=== PATIENT | female | born 1930 | race Caucasian/White ===

== ENCOUNTER 2016-09-27 18:43 | Inpatient (IN) | payer OTHER ==
[~2016-09-27] VITALS: Ht 152.4 cm; Wt 64.9 kg
[~2016-09-27 18:43] MED LIST: Ciprofloxacin PO; DFL100 PO; DOCU100C PO; FERR220E9 PO; INSDGIPEN SC; LEVO50TA6 PO; MGNO400 PO; MISCTAB30 PO; MULT1TAB22 PO; SIMV20TA2 PO; SITA25TA PO
[2016-09-27] MEDS ORDERED: MECL1TAB42 PO (19:31)
[2016-09-27] MEDS ORDERED: ZNTT/150 PO (19:31)
[2016-09-27] MEDS ORDERED: FERR1TAB13 PO (19:32)
[2016-09-27] MEDS ORDERED: INSDGIPEN SC (19:33)
--- NOTE | 2016-09-27 19:58 | EMERGENCY ROOM VISIT NOTE ---
History Report prepared by Will: Jamar Torres Under the Supervision of: Dr. Rick Mendez M.D. First contact with patient: 19:43 Chief Complaint: FALL Stated Complaint: FALL/ RT HIP DEFORMITY History of Present Illness The patient is an 86 year old female who presents to the Emergency Room via ambulance with complaints of constant right hip pain due to a fall beginning two hours prior to arrival. She currently rates her discomfort as a 10/10 in severity. As per daughter, the patient has severe dementia. She states the patient tries to leave the house and "go home to her mother." The daughter notes the patient got the door open this evening and began walking into the yard with her cane. She states she tried to stop her, and the patient began swinging her cane. The daughter notes the patient fell, while she was swinging her cane. She denies the patient hitting her head. The daughter states the patient was given some pain medication in the ambulance. She notes the patient is a diabetic. The daughter denies the patient being on a blood thinner. Source of History: patient Onset: two hours PRODUCTION HELPER Position: pelvis (right hip) Symptom Intensity: 10/10 Timing: constant Associated Symptoms: No LOC Review of Systems All systems have been listed, reviewed, and are negative other than those previously mentioned. Please see Additional Medical History Sheet. Past Medical & Surgical Medical Problems: (1) CKD (chronic kidney disease) stage 4, GFR 15-29 ml/min (2) Dementia (3) Diabetes mellitus, type II (4) Hyperlipemia (5) Hypertension Surgical Problems: (1) Status post appendectomy (2) Status post cholecystectomy Family History Cancer Diabetes mellitus Social History Smoking Status: Never Smoker Marital Status: Housing Status: lives with family Occupation Status: retired Current/Historical Medications Scheduled Ferrous Sulfate (Kp Ferrous Sulfate), 325 MG PO DAILY Insulin Glargine (Lantus Solostar), 24 UNITS SC HS Levothyroxine Sodium (Levothyroxine Sodium), 50 MCG PO QAM Ranitidine (Zantac), 150 MG PO BID Simvastatin (Zocor), 20 MG PO QPM Sitagliptin Phosphate (Januvia), 25 MG PO QAM Scheduled PRN Meclizine Hcl (Meclizine Hcl), 1 TAB PO DAILY PRN for Dizziness or Vertigo Allergies Coded Allergies: Meperidine (Verified Allergy, Mild, 09/27/16) Physical Exam Vital Signs Date Time Temp Pulse Resp B/P Pulse Ox O2 Delivery O2 Flow Rate FiO2 09/27/16 22:10 92 27 126/71 95 Room Air 09/27/16 20:27 88 22 138/75 95 Room Air 09/27/16 18:57 37.2 90 21 151/70 100 Room Air Physical Exam GENERAL: Patient awake, alert, oriented x 3. Patient follows commands. Patient does not appear toxic. Patient is adequately hydrated and well- nourished. SKIN: No erythema, pallor, cyanosis or rash HEENT: Normal head, pupils equal, reactive to light and accommodation. LUNGS: Clear to auscultation. No wheezes, no rales, no rhonchi. HEART: No murmurs. No gallops. No rubs ABDOMEN: Soft, nontender. EXTREMITIES: Foreshortened and externally rotated right leg. Pedal pulse intact. NEUROLOGIC: Cranial nerves II-XII within normal limits. No gross motor sensory function deficits. Medical Decision & Procedures ER Provider Diagnostic Interpretation: X ray results are stated below per my interpretation and the radiologist's interpretation. CHEST ONE VIEW PORTABLE CLINICAL HISTORY: Trauma. Preoperative chest.] Fracture. COMPARISON STUDY: 05/07/2014 FINDINGS: The cardiac and mediastinal contours are normal. There is no evidence of focal pulmonary consolidation. There is no evidence of failure. No pleural effusions are visualized.[ IMPRESSION: No active disease in the chest. Electronically signed by: Abiel Mcguire M.D. 09/27/2016 8:17 PM AP PELVIS AND RIGHT HIP 3 VIEWS CLINICAL HISTORY: Right hip pain status post trauma COMPARISON STUDY: No previous studies for comparison. FINDINGS: There is acute intertrochanteric right hip fracture with varus angulation. Degenerative changes are present within the lower lumbar spine. The bones are osteopenic. IMPRESSION: Acute intertrochanteric right hip fracture. Electronically signed by: Abiel Mcguire M.D. 09/27/2016 8:16 PM Laboratory Results 09/27/16 18:18 Red Blood Count 4.55, Mean Corpuscular Volume 92.5, Mean Corpuscular Hemoglobin 31.0, Mean Corpuscular Hemoglobin Concent 33.5, Mean Platelet Volume 10.9, Neutrophils (%) (Auto) 68.3, Lymphocytes (%) (Auto) 22.8, Monocytes (%) (Auto) 8.0, Eosinophils (%) (Auto) 0.5, Basophils (%) (Auto) 0.2, Neutrophils # (Auto) 9.01, Lymphocytes # (Auto) 3.01, Monocytes # (Auto) 1.05, Eosinophils # (Auto) 0.07, Basophils # (Auto) 0.02 09/27/16 18:18 Test 09/27/16 18:10 09/27/16 18:18 Prothrombin Time 11.0 SECONDS (9.0-12.0) Prothromb Time International Ratio 1.0 (0.9-1.1) White Blood Count 13.19 K/uL (4.8-10.8) Red Blood Count 4.55 M/uL (4.2-5.4) Hemoglobin 14.1 g/dL (12.0-16.0) Hematocrit 42.1 % (37-47) Mean Corpuscular Volume 92.5 fL (80-100) Mean Corpuscular Hemoglobin 31.0 pg (25-34) Mean Corpuscular Hemoglobin Concent 33.5 g/dl (32-36) Platelet Count 268 K/uL (130-400) Mean Platelet Volume 10.9 fL (7.4-10.4) Neutrophils (%) (Auto) 68.3 % Lymphocytes (%) (Auto) 22.8 % Monocytes (%) (Auto) 8.0 % Eosinophils (%) (Auto) 0.5 % Basophils (%) (Auto) 0.2 % Neutrophils # (Auto) 9.01 K/uL (1.4-6.5) Lymphocytes # (Auto) 3.01 K/uL (1.2-3.4) Monocytes # (Auto) 1.05 K/uL (0.11-0.59) Eosinophils # (Auto) 0.07 K/uL (0-0.5) Basophils # (Auto) 0.02 K/uL (0-0.2) RDW Standard Deviation 50.6 fL (36.4-46.3) RDW Coefficient of Variation 15.0 % (11.5-14.5) Immature Granulocyte % (Auto) 0.2 % Immature Granulocyte # (Auto) 0.03 K/uL (0.00-0.02) Anion Gap 11.0 mmol/L (3-11) Est Creatinine Clear Calc Drug Dose 18.9 ml/min Estimated GFR () 29.0 Estimated GFR (Non- 25.0 BUN/Creatinine Ratio 19.4 (10-20) Calcium Level 9.8 mg/dl (8.5-10.1) Total Bilirubin 0.3 mg/dl (0.2-1) Aspartate Amino Transf (AST/SGOT) 23 U/L (15-37) Alanine Aminotransferase (ALT/SGPT) 22 U/L (12-78) Alkaline Phosphatase 68 U/L (45-117) Total Protein 8.4 gm/dl (6.4-8.2) Albumin 4.0 gm/dl (3.4-5.0) Globulin 4.4 gm/dl (2.5-4.0) Albumin/Globulin Ratio 0.9 (0.9-2) Laboratory results as stated above per my review. Medications Administered Medications (Trade) Dose Ordered Sig/Leigh Ann Route Start Time Stop Time Status Last Admin Dose Admin Morphine Sulfate (MoRPHine SULFATE INJ) 2 mg Q30M PRN IV 09/27/16 20:00 10/11/16 19:59 09/27/16 20:25 2 MG Ondansetron HCl (Zofran Inj) 4 mg Q1HWA PRN IV 09/27/16 20:00 10/27/16 19:59 09/27/16 20:24 4 MG ECG Indication: other (fall) Rate (beats per minute): 92 Rhythm: normal sinus Findings: no acute ischemic change, no ectopy ED Course 1944: Past medical records reviewed. The patient was evaluated in room B10. A complete history and physical examination was performed. 1999: Ordered Zofran Inj 4 mg IV, Morphine Sulfate 2 mg IV. 2121: I spoke to [facility], Orthopedic Surgery about the patient's case, and he recommended admitting the patient to Medicine. 2131: I spoke to Christian Conrad (Hospitalist) about the patient's case, and she will follow the patient for further evaluation. Medical Decision Nurses notes reviewed. Medical history sheet reviewed. Differential diagnosis includes but is not limited to: fracture, dislocation, subluxation, fall. The patient fell earlier this afternoon onto her right hip. She has been unable to bear any weight on that hip since. Examination reveals a shortened externally rotated right leg. Multiple labs and imaging studies were performed. Please see above. X-ray reveals a intertrochanteric hip fracture. The patient was given pain medication. Case was discussed with family members, Dr. Easley and with the hospitalist. Consults Time Called: 2119 Consulting Physician: [facility] Orth[facility] Returned Call: 2121 I spoke to [facility], Orth[facility] Surgery about the patient's case, and he recommended admitting the patient to Medicine. Additional Consults: Time Called: 2130 Consulted Physician: Christian Conrad (Hospitalist) Returned Call: 2131 Additional Comments: I spoke to Christian Conrad (Hospitalist) about the patient's case, and she will follow the patient for further evaluation. Impression Primary Impression: Hip fracture, right Additional Impression: Dementia Scribe Attestation The scribe's documentation has been prepared under my direction and personally reviewed by me in its entirety. I confirm that the note above accurately reflects all work, treatment, procedures, and medical decision making performed by me. Departure Information Dispostion Being Evaluated By Hospitalist (Christian Conrad (Hospitalist)) Referrals Andrew Mcneil M.D. (PCP) Problem Qualifiers
[2016-09-27] MEDS ORDERED: ONDANSETRON INJ 2 MG/ML 2 ML VIAL IV PRN ×2 (20:00→22:30)
[2016-09-27] MEDS ORDERED: MoRPHine SULFATE 4 MG/ML 1 ML CARP\\VIAL IV PRN (20:00)
--- NOTE | 2016-09-27 20:17 | DIAGNOSTIC IMAGING REPORT ---
AP PELVIS AND RIGHT HIP 3 VIEWS CLINICAL HISTORY: Right hip pain status post trauma COMPARISON STUDY: No previous studies for comparison. FINDINGS: There is acute intertrochanteric right hip fracture with varus angulation. Degenerative changes are present within the lower lumbar spine. The bones are osteopenic. IMPRESSION: Acute intertrochanteric right hip fracture. Electronically signed by: Abiel Mcguire M.D. 09/27/2016 8:16 PM Dictated Date/Time: 09/27/2016 8:15 PM
--- NOTE | 2016-09-27 20:18 | DIAGNOSTIC IMAGING REPORT ---
CHEST ONE VIEW PORTABLE CLINICAL HISTORY: Trauma. Preoperative chest.] Fracture. COMPARISON STUDY: 05/07/2014 FINDINGS: The cardiac and mediastinal contours are normal. There is no evidence of focal pulmonary consolidation. There is no evidence of failure. No pleural effusions are visualized.[ IMPRESSION: No active disease in the chest. Electronically signed by: Abiel Mcguire M.D. 09/27/2016 8:17 PM Dictated Date/Time: 09/27/2016 8:16 PM
[2016-09-27 20:29] LABS: BASO % 0.2 %; BASO ABS # 0.02 K/uL (0-0.2); COMPLETE YES; EOS % 0.5 %; HEMATOCRIT 42.1 % (37-47); IG% 0.2 %; LYMPH % 22.8 %; LYMPH ABS # 3.01 K/uL (1.2-3.4); MEAN CELL VOLUME 92.5 fL (80-100); MEAN CORPUSCULAR HGB CONC 33.5 g/dl (32-36); MEAN PLATELET VOLUME 10.9 fL (7.4-10.4); NEUT % 68.3 %; PLATELET COUNT 268 K/uL (130-400); RED BLOOD COUNT 4.55 M/uL (4.2-5.4); WHITE BLOOD COUNT 13.19 K/uL (4.8-10.8)
[2016-09-27 20:54] LABS: BUN/CREATININE RATIO 19.4 (10-20); CALCIUM 9.8 mg/dl (8.5-10.1); CREATININE 1.8 mg/dl (0.60-1.20); POTASSIUM 3.8 mmol/L (3.5-5.1)
[2016-09-27 20:57] LABS: ALB/GLOB RATIO 0.9 (0.9-2)
[2016-09-27] MEDS ORDERED: GLUCOSE 40% GEL 15 GM TUBE PO PRN (22:30)
[2016-09-27] MEDS ORDERED: GLUCOSE 10 TABS/TUBE PO PRN (22:30)
[2016-09-27] MEDS ORDERED: POLYETHYLENE (MIRALAX) 17 GM PACK PO PRN (22:30)
[2016-09-27] MEDS ORDERED: GLUCAGON FOR INJ 1 MG VIAL SQ PRN (22:30)
[2016-09-27] MEDS ORDERED: DEXTROSE 50% 50 ML SYR IV PRN (22:30)
[2016-09-27] MEDS ORDERED: ACETAMINOPHEN 325 MG TAB PO PRN (22:30)
[2016-09-27] MEDS ORDERED: PHARMACY GLYCEMIC MGMT CONSULT PRN (22:42)
--- NOTE | 2016-09-27 22:46 | History and Physical ---
History & Physical Date & Time of Service: Sep 27, 2016 at 22:34 Chief Complaint: Fall/ Rt Hip Deformity Primary Care Physician: Andrew Mcneil M.D. History of Present Illness Source: family 86 yo F with advanced dementia with wandering and combative behavior who presents to the ER via EMS after a mechanical fall just outside her home this evening. She is here with her daughter/clinical education academic coordinator whom she lives with and who is providing all the history. The daughter states that her mom was in her normal state of health this evening but was upset because another family member had an outpatient surgery today and she was forced to tag along. Her normal routine was off because of this and she went to sit on the front porch but somehow got off the porch and went walking with her cane. When her daughter went to [place]itza after her, the patient swung her cane around wildly and lost her balance, falling on her R hip. No trauma to other body parts including her head. She has a subsequent R hip fracture. She has no history of heart or lung disease per daughter who states she has had no symptoms lately and frequently takes walks without any issues of shortness of breath or chest pain. She received some morphine in the ER and appears comfortable at this time. Past Medical/Surgical History Medical Problems: (1) CKD (chronic kidney disease) stage 4, GFR 15-29 ml/min Status: Chronic (2) Dementia Status: Chronic (3) Diabetes mellitus, type II Status: Chronic (4) Hyperlipemia Status: Chronic (5) Hypertension Status: Chronic (6) Hypothyroidism Status: Chronic Surgical Problems: (1) Status post appendectomy Status: Chronic (2) Status post cholecystectomy Status: Chronic Family History Cancer Diabetes mellitus Social History Smoking Status: Never Smoker Smokeless Tobacco Use: No Alcohol Use: none Drug Use: none Marital Status: Housing status: lives with family Occupational Status: retired Immunizations History of Influenza Vaccine: Yes Influenza Vaccine Date: May 02, 2016 History of Tetanus Vaccine?: Yes Tetanus Immunization Date: Jun 16, 2013 History of Pneumococcal: Yes Pneumococcal Date: Oct 26, 2015 History of Hepatitis B Vaccine: Unknown Multi-Drug Resistant Organisms History of MDRO: No Allergies Coded Allergies: Meperidine (Verified Allergy, Mild, 09/27/16) Home Medications Scheduled Ferrous Sulfate ( Ferrous Sulfate), 325 MG PO DAILY Insulin Glargine (Lantus Solostar), 24 UNITS SC HS Levothyroxine Sodium (Levothyroxine Sodium), 50 MCG PO QAM Ranitidine (Zantac), 150 MG PO BID Simvastatin (Zocor), 20 MG PO QPM Sitagliptin Phosphate (Januvia), 25 MG PO QAM Scheduled PRN Meclizine Hcl (Meclizine Hcl), 1 TAB PO DAILY PRN for Dizziness or Vertigo Review of Systems All systems reviewed and negative except as indicated in HPI Physical Exam Vital Signs Date Time Temp Pulse Resp B/P Pulse Ox O2 Delivery O2 Flow Rate FiO2 09/27/16 22:10 92 27 126/71 95 Room Air 09/27/16 20:27 88 22 138/75 95 Room Air 09/27/16 18:57 37.2 90 21 151/70 100 Room Air GEN: WNWD, in no acute distress, alert and oriented to name only. Does not know place or time. Can follow some instructions with prompting. HEENT: NC/AT, PERRL, normal sclerae CARDIO: reg rate, S1/2 heard without m/g/r LUNGS: CTA bilaterally, no crackles, rales or wheezes, good diaphragmatic excursion ABD: soft, non-tender, non-distended, no rebound or guarding EXTREMITY: RP and DP palpable 2+ bilat, no LE swelling or edema, extremities are warm and well-perfused NEURO: CN 2-12 grossly intact, could not address sensation, coordination-- limited exam 2/2 advanced dementia MUSC: appears intact at this time, limited exam 2/2 fracture and limited ROM SKIN: warm and dry-did not assess posterior buttocks at this time. Diagnostics Laboratory Results Results Past 24 Hours Test 09/27/16 18:18 Range/Units White Blood Count 13.19 4.8-10.8 K/uL Red Blood Count 4.55 4.2-5.4 M/uL Hemoglobin 14.1 12.0-16.0 g/dL Hematocrit 42.1 37-47 % Mean Corpuscular Volume 92.5 80-100 fL Mean Corpuscular Hemoglobin 31.0 25-34 pg Mean Corpuscular Hemoglobin Concent 33.5 32-36 g/dl Platelet Count 268 130-400 K/uL Mean Platelet Volume 10.9 7.4-10.4 fL Neutrophils (%) (Auto) 68.3 % Lymphocytes (%) (Auto) 22.8 % Monocytes (%) (Auto) 8.0 % Eosinophils (%) (Auto) 0.5 % Basophils (%) (Auto) 0.2 % Neutrophils # (Auto) 9.01 1.4-6.5 K/uL Lymphocytes # (Auto) 3.01 1.2-3.4 K/uL Monocytes # (Auto) 1.05 0.11-0.59 K/uL Eosinophils # (Auto) 0.07 0-0.5 K/uL Basophils # (Auto) 0.02 0-0.2 K/uL RDW Standard Deviation 50.6 36.4-46.3 fL RDW Coefficient of Variation 15.0 11.5-14.5 % Immature Granulocyte % (Auto) 0.2 % Immature Granulocyte # (Auto) 0.03 0.00-0.02 K/uL Sodium Level 135 136-145 mmol/L Potassium Level 3.8 3.5-5.1 mmol/L Chloride Level 98 98-107 mmol/L Carbon Dioxide Level 26 21-32 mmol/L Anion Gap 11.0 3-11 mmol/L Blood Urea Nitrogen 35 7-18 mg/dl Creatinine 1.80 0.60-1.20 mg/dl Est Creatinine Clear Calc Drug Dose 18.9 ml/min Estimated GFR () 29.0 Estimated GFR (Non- 25.0 BUN/Creatinine Ratio 19.4 10-20 Random Glucose 266 70-99 mg/dl Calcium Level 9.8 8.5-10.1 mg/dl Total Bilirubin 0.3 0.2-1 mg/dl Aspartate Amino Transf (AST/SGOT) 23 15-37 U/L Alanine Aminotransferase (ALT/SGPT) 22 12-78 U/L Alkaline Phosphatase 68 45-117 U/L Total Protein 8.4 6.4-8.2 gm/dl Albumin 4.0 3.4-5.0 gm/dl Globulin 4.4 2.5-4.0 gm/dl Albumin/Globulin Ratio 0.9 0.9-2 Diagnostic Radiology CXR PORT: No active disease in the chest. AP hip/pelvis: Acute intertrochanteric right hip fracture EKG SR 92, no ST changes. Impression Assessment and Plan 86 yo F with advanced dementia who presents with a R hip fracture after a mechanical fall at her home earlier this evening. 1. R hip pain 2/2 fracture-ER discussed case with Ortho (Kaushal). Ortho ordered traction. He will see patient in the morning. Supportive care overnight with pain control. Bedrest. PT/OT ordered. 2. Advanced dementia-patient appears fine at this time, however, would like her to be close to nurses station (ordered q15 minute checks) because of wandering and combative history. Will attempt to control pain to avoid delirium 3. Hearing Loss 4. CKD IV-avoid nephrotoxic substances 5. DMII-ISS and Lantus; inpatient glycemic pharmacist consult placed. 6. Hypothyroidism-stable, cont Synthroid 7. Iron deficiency anemia-on iron supplementation DVT proph-SCDs, Heparin held in light of possible upcoming procedure DNR-discussed this with POA/daughter who confirmed Dispo-to Ortho floor Marley Feliciano, DO Hospitalist Level of Care Med/Surg Resuscitation Status DO NOT RESUSCITATE VTE Prophylaxis VTE Risk Assessment Done? Y/N: Yes Risk Level: Moderate Given or contraindicated: SCD's
[2016-09-27 23:11] LABS: THYROID STIMULATING HORMONE 4.12 uIu/ml (0.300-4.500)
[2016-09-27 23:30] VITALS: BP 145/78; PULSE 90; TEMP 36.4; O2SAT 95; BMI 27.9
[2016-09-27] MEDS ORDERED: INSULIN GLARGINE SOLOSTAR 100 UNITS/ML 3 ML PEN SC STA (23:34)
[2016-09-28] VITALS (8 sets, daily range): BP systolic 89–133; BP diastolic 42–73; PULSE 80–102; TEMP 36.6–37.2; O2SAT 93–97; BMI 27.9
[2016-09-28] MEDS ORDERED: INSULIN ASPART 100 UNITS/ML 3 ML PEN SC SCH ×2 (04:00)
[2016-09-28] MEDS: LEVOTHYROXINE 50 MCG TAB PO SCH (05:55)
[2016-09-28 06:35] LABS: URINE APPEARANCE CLEAR (CLEAR); URINE BILIRUBIN NEG (NEG); URINE COLOR YELLOW; URINE NITRITE NEG (NEG); UROBILINOGEN NEG (NEG)
[2016-09-28 06:41] LABS: MANUAL MICROSCOPIC REQUIRED? NO; REVIEW REQ? NO
[2016-09-28] MEDS: RANITIDINE HCL 150 MG TAB PO SCH ×2 (07:56→22:26)
[2016-09-28] MEDS: FERROUS SULFATE 325 MG TAB PO SCH (07:56)
[2016-09-28] MEDS: INSULIN GLARGINE SOLOSTAR 100 UNITS/ML 3 ML PEN SC SCH ×2 (07:58→22:30)
--- NOTE | 2016-09-28 08:01 | ORTHOPEDIC CONSULTATION ---
DATE OF CONSULTATION: 09/27/2016 DATE OF CONSULTATION: 09/28/2016. CHIEF COMPLAINT: Right hip pain. HISTORY OF PRESENT ILLNESS: The patient is an 86-year-old female with a fairly long history of advanced dementia who sustained a fall yesterday outside her home. She apparently lives with her daughter. She apparently got upset about several issues and was swinging her cane around and lost her balance and fell. She had acute onset of pain and was brought to the emergency room where x-ray revealed a right intertrochanteric fracture. She was admitted by the medicine service and we are consulted. No other injuries. She did walk with the use of a cane and walker prior to this. She describes pain in her right groin area. PAST MEDICAL HISTORY: Significant for: 1. Chronic kidney disease. 2. Severe advanced dementia. 3. Poorly controlled diabetes. 4. Elevated cholesterol. 5. Hypertension. CURRENT MEDICINES: Include: 1. Appendectomy. 2. Cholecystectomy. Remainder of the past medical history is per the admission H\T\P. PHYSICAL EXAMINATION: GENERAL: Physical examination reveals elderly female who does respond somewhat appropriate to questions. She is lying in bed. She certainly goes off on various tangents with discussion. VITAL SIGNS: Reveal temperature 36.4. Vital signs are stable. EXTREMITIES: Orthopedic exam reveals painless range of motion of her cervical, thoracic and lumbar spine. She had no signs of injury to her bilateral shoulders, elbows, wrists, hands, left lower extremity. Examination of the right lower extremity reveals her to be in Dorado's traction. Her leg is clearly slightly shortened and externally rotated. She has no knee effusion. She does spontaneously move her toes up and down. There are no signs of significant abrasion. LABORATORY DATA: Hemoglobin is 14.1, hematocrit 42.1. Electrolytes reveal creatinine 1.80. INR normal. X-RAYS: X-rays of the right hip reveal a right intertrochanteric hip fracture. She has got diffuse osteoporosis. Fairly minimal arthritic change. ASSESSMENT: An 86-year-old white female with fairly advanced dementia, diabetes, chronic underlying kidney disease with right intertrochanteric hip fracture. This is certainly something that should be fixed for pain control purposes. PLAN: She has been admitted by the medicine service. We are trying to get in contact with her power of regulatory attorney and daughter, Mady Bean who she lives with. Her phone number is [phone]. Medicine has admitted her. She looks pretty medically optimized and stable at this point. Will likely proceed with IM nailing of a right hip fracture done by myself or Dr. Mandujano later today. In the meantime, we will continue traction for comfort. DVT prophylaxis including thigh-high TEDs and SCDs.
[2016-09-28 08:06] LABS: ESTIMATED AVERAGE GLUCOSE 186 mg/dl; HA1C FLAG Normal (Normal)
[2016-09-28] MEDS: INSULIN ASPART 100 UNITS/ML 3 ML PEN SC SCH ×4 (08:20→21:00)
[2016-09-28] MEDS ORDERED: INSULIN GLARGINE SOLOSTAR 100 UNITS/ML 3 ML PEN SC SCH (09:00)
[2016-09-28] MEDS: SODIUM CHLORIDE 0.9% 1000ML 1,000 ML IV SCH ×2 (09:30→19:30)
[2016-09-28] MEDS ORDERED: CEFAZOLIN IV 2,000 MG/60 ML D5W IV ONE (09:32)
--- NOTE | 2016-09-28 09:37 | Pharmacy Progress Note ---
Glycemic Control Intl Consult Date of Service Sep 28, 2016. Scope Glycemic Pharmacist consulted by Dr Feliciano on 09/27/16 for glycemic control and to write orders per [facility] inpatient glycemic control protocol Objective Weight (Kilograms): 64.900 Accuchecks BSG (last 24hrs): Test 09/27/16 18:18 09/28/16 01:04 09/28/16 03:57 09/28/16 08:14 Random Glucose 266 mg/dl (70-99) Bedside Glucose 242 mg/dl (70-90) 238 mg/dl (70-90) 217 mg/dl (70-90) Laboratory Data (last 24hrs) Test 09/27/16 18:18 09/28/16 06:48 Anion Gap 11.0 mmol/L BUN/Creatinine Ratio 19.4 Blood Urea Nitrogen 35 mg/dl Creatinine 1.80 mg/dl Potassium Level 3.8 mmol/L Sodium Level 135 mmol/L White Blood Count 13.19 K/uL Red Blood Count 4.55 M/uL Hemoglobin 14.1 g/dL Hematocrit 42.1 % Mean Corpuscular Volume 92.5 fL Mean Corpuscular Hemoglobin 31.0 pg Mean Corpuscular Hemoglobin Concent 33.5 g/dl Platelet Count 268 K/uL Mean Platelet Volume 10.9 fL Neutrophils (%) (Auto) 68.3 % Lymphocytes (%) (Auto) 22.8 % Monocytes (%) (Auto) 8.0 % Eosinophils (%) (Auto) 0.5 % Basophils (%) (Auto) 0.2 % Neutrophils # (Auto) 9.01 K/uL Lymphocytes # (Auto) 3.01 K/uL Monocytes # (Auto) 1.05 K/uL Eosinophils # (Auto) 0.07 K/uL Basophils # (Auto) 0.02 K/uL Hemoglobin A1c 8.1 % HbA1c Test 09/28/16 06:48 Hemoglobin A1c 8.1 % (4.5-5.6) H Recent Pertinent Medications Outpatient Anti-diabetic Regimen: * Lantus 24 u SC HS * Januvia 25 mg PO QAM * A1c = 8.1 % 09/28/16 The patient is currently receiving: * Basal insulin: Lantus 5 units every 12 hours * Correctional Insulin: Novolog Correction per scale ACHS Goal Range: Low 100 mg/dL - High 140 mg/dL Correction Factor: 50 mg/dL/unit * Prandial insulin: Per carb ratio of 1 unit per 19 grams CHO consumed * Oral Agents: on hold Risk Factors for Insulin Resistance: * Diet Assessment & Plan ASSESSMENT: * 86 yo F admitted with hip fracture s/p fall * BSGs in the mid 200's on admission, Lantus 5 units SQ given last night by admitting provider (normal home regimen is Lantus 24 units HS) * A1c 8.1% this AM indicative of good glycemic control as outpatient given age and other comorbidities * Given advanced dementia, I plan to remain conservative with management * Increase Lantus to 8 units BID and tighten Novolog to weight-based regimen ( stress of 2) * Patient NPO for possible orthopedic intervention today- continue Lantus dosing as it is split every 12 hours so that we can hold if necessary * ADA & AACE recommend a goal blood sugar range 140-180 mg/dl for the majority of critically ill & non-critically ill patients. However, more stringent targets may be selected in individual cases. PLAN FOR INPATIENT GLYCEMIC CONTROL: * Hold outpatient oral diabetes medications * Basal insulin with LANTUS 8 units SQ BID * Half dose (4 units) if BSG <100 mg/dL * Correctional Insulin with NOVOLOG per scale ACHS or Q6hrs while NPO * Goal Range: Low 100 mg/dL - High 140 mg/dL * Correction Factor: 35 mg/dL/unit * Nutritional / Prandial insulin per carb ratio of 1 unit per 15 grams CHO consumed * A1c added to D/C instructions * Please note that the plan above was derived based on current level of insulin resistance and hospital stress. These recommendations are appropriate for inpatient admission only. Plan of care upon discharge will need to be reassessed to avoid potential outpatient hypo/hyperglycemia. Thank you.
[2016-09-28] MEDS ORDERED: FENTANYL CITRATE INJ 50 MCG/1 ML 2 ML VIAL ONE (09:51)
[2016-09-28] MEDS ORDERED: PROPOFOL IV EMULSION 10 MG/ML 20 ML VIAL IV ONE (09:51)
[2016-09-28] MEDS ORDERED: ONDANSETRON INJ 2 MG/ML 2 ML VIAL IV PRN (11:00)
[2016-09-28] MEDS ORDERED: PHENYLEPHRINE 100MCG/ML 5ML SYR IV PRN (11:00)
[2016-09-28] MEDS ORDERED: ATROPINE SULFATE 0.1 MG/ML 5ML SYR IV PRN (11:00)
[2016-09-28] MEDS ORDERED: HYDROmorphone INJ 2 MG/ML SYR/VIAL IV PRN (11:00)
[2016-09-28] MEDS ORDERED: EpHEDrine SULFATE INJ 50 MG/ML AMP IV PRN (11:00)
[2016-09-28] MEDS ORDERED: BUPIVACAINE/EPINEPHRINE 0.5% MPF 1:200,000 30 ML VIAL ONE (11:10)
[2016-09-28] MEDS ORDERED: ONDANSETRON INJ 2 MG/ML 2 ML VIAL ONE (11:14)
[2016-09-28] MEDS ORDERED: PHENYLEPHRINE HCL INJ 10 MG/ML VIAL ONE (11:34)
--- NOTE | 2016-09-28 12:21 | DIAGNOSTIC IMAGING REPORT ---
INTRAOPERATIVE RIGHT HIP 5 VIEWS CLINICAL HISTORY: Right hip fracture COMPARISON STUDY: 09/27/2016 FLUOROSCOPY TIME: 71 seconds. 5 fluoroscopic spot images were acquired.. FINDINGS: 5 intraoperative fluoroscopic spot images demonstrate internal fixation of intratrochanteric right hip fracture with a femoral neck nail and interlocking intramedullary shawna. IMPRESSION: Internally fixated intertrochanteric right hip fracture Electronically signed by: Abiel Mcguire M.D. 09/28/2016 12:20 PM Dictated Date/Time: 09/28/2016 12:19 PM
--- NOTE | 2016-09-28 12:48 | OPERATIVE REPORT ---
DATE OF OPERATION: 09/28/2016 PREOPERATIVE DIAGNOSIS: Right intertrochanteric hip fracture. POSTOPERATIVE DIAGNOSIS: Same. PROCEDURE: Intramedullary nail fixation, right hip. SURGEON: Dr. Benjamín Mandujano. ICE CREAM MAN: Anirudh Conteh PA-C whose assistance was necessary for retraction and helping with instrumentation. ANESTHESIA: Spinal. COMPLICATIONS: None. CONDITION: Stable to PACU. IMPLANTS USED: Synthes TFN nail with a helical blade. INDICATIONS: Yolis is a pleasant 86-year-old female who fell yesterday sustaining an intertrochanteric fracture to the right hip. She was admitted to the medical service. Her power of state attorney as well as herself elected to proceed with operative fixation of the right hip. OPERATION AND FINDINGS: On 09/28/2016 she was brought down from her hospital room to the preoperative holding area and the operative extremity was identified and signed. She was given a preoperative antibiotic and a spinal anesthetic. She was taken back to the operating room, laid on the table in supine position and given basic sedation. She was then put on a fracture table and the right leg was brought out to full traction. Fluoroscopy showed near anatomic alignment of the fracture. The right hip was then prepped and draped in sterile fashion. Time-out was done and the patient and operative extremity was properly identified. A longitudinal incision was made directly over the greater trochanter. Dissection was taken down through the fascia. A guide pin was placed at the tip of the greater trochanter and advanced down the center of the femoral canal. Adequate placement was checked on orthogonal fluoroscopic images. An 18 mm opening reamer was used to open the greater trochanter. A guide pin was then sent all the way down the femur. The nail measured to be 340 mm. A single 12 reamer was sent down the canal rather easily. A 340 mm x 11 mm TFN nail was then impacted into place. An outrigger was used with a helical blade trocar. A small incision was made over the lateral femur and the trocar was advanced down to the lateral femur. A guide pin was then sent up into the center-center position of the femoral head. This measured to be a size 95. The lateral cortex was then drilled and the final helical blade was impacted into place. The blade was then locked with the screw and compressed. The outrigger was then removed. Final fluoroscopic images showed near anatomic alignment of the fracture. Perfect bad river band technique was then used to place a single distal locking screw in the static hole. The wounds were then irrigated and closed with 3-0 Vicryl suture in the deep fascia and 2-0 Vicryl suture in the subcutaneous tissue and howard. She was then placed in a soft dressing and taken to the postanesthesia care unit in stable condition. She tolerated the procedure well. I attest to the content of the Intraoperative Record and any orders documented therein. Any exceptio ns are noted below.
--- NOTE | 2016-09-28 13:40 | Anesthesiology Progress Note ---
Anesthesia Post Op Note Date & Time Sep 28, 2016 at 13:40 Vital Signs Pain Intensity: 0 Vital Signs Past 12 Hours Date Time Temp Pulse Resp B/P Pulse Ox O2 Delivery O2 Flow Rate FiO2 09/28/16 13:30 101 20 115/47 96 Room Air 09/28/16 13:20 110 18 118/48 97 Room Air 09/28/16 13:10 98 18 109/51 97 Room Air 09/28/16 13:00 90 18 99/47 97 Room Air 09/28/16 12:50 36.6 94 18 102/50 100 Nasal Cannula 2 09/28/16 12:40 101 18 97/47 100 Mask 10 09/28/16 12:30 90 18 123/115 100 Mask 10 09/28/16 12:20 37.4 90 18 122/51 100 Mask 10 09/28/16 09:10 95 Room Air 09/28/16 08:05 36.6 94 18 133/69 95 Room Air 09/28/16 08:00 97 Room Air Notes Mental Status: alert / awake / arousable, participated in evaluation Pt Amnestic to Procedure: Yes Nausea / Vomiting: adequately controlled Pain: adequately controlled Airway Patency, RR, SpO2: stable & adequate BP & HR: stable & adequate Hydration State: stable & adequate Anesthetic Complications: no major complications apparent
--- NOTE | 2016-09-28 13:57 | DIAGNOSTIC IMAGING REPORT ---
RIGHT FEMUR 2 VIEWS ROUTINE CLINICAL HISTORY: s/p IM nail R hip Right COMPARISON STUDY: Right hip 09/27/2016. FINDINGS: There is an intramedullary shawna and interlocking femoral neck pin traversing the intertrochanteric fracture of the proximal right femur. The hardware appears intact. The alignment is near-anatomic. There are skin howard along the lateral aspect of the right thigh. IMPRESSION: Status post internal fixation of the intertrochanteric fracture of the proximal right femur. The hardware appears intact. Electronically signed by: Jean Marie Dennison M.D. 09/28/2016 1:56 PM Dictated Date/Time: 09/28/2016 1:55 PM
--- NOTE | 2016-09-28 17:26 | Progress Note ---
Medicine Progress Note Date & Time of Visit: Sep 28, 2016 at 17:21. Subjective Patient seen and examined. Sleeping soundly after surgery. Objective Last 8 Hrs Date Time Temp Pulse Resp B/P Pulse Ox O2 Delivery O2 Flow Rate FiO2 09/28/16 17:10 102 20 132/42 94 Nasal Cannula 2.0 09/28/16 14:43 36.7 80 19 89/55 93 Room Air 09/28/16 14:19 36.7 88 17 100/61 96 Room Air 09/28/16 13:50 95 Room Air 09/28/16 13:50 95 Room Air 09/28/16 13:50 37.2 97 16 92/42 95 Room Air 09/28/16 13:30 101 20 115/47 96 Room Air 09/28/16 13:20 110 18 118/48 97 Room Air 09/28/16 13:10 98 18 109/51 97 Room Air 09/28/16 13:00 90 18 99/47 97 Room Air 09/28/16 12:50 36.6 94 18 102/50 100 Nasal Cannula 2 09/28/16 12:40 101 18 97/47 100 Mask 10 09/28/16 12:30 90 18 123/115 100 Mask 10 09/28/16 12:20 37.4 90 18 122/51 100 Mask 10 Physical Exam: General-sleeping soundly Eyes-unable to assess Neck-no stridor; trachea midline Lungs-CTA bilaterally anteriorly Heart-RRR Abdomen-soft; NTND; nBS Extremities-right hip bandage c/d/i; no c/c/e Neuro-unable to assess Laboratory Results: Last 24 Hours Test 09/27/16 18:10 09/27/16 18:18 09/28/16 01:04 09/28/16 03:57 Prothrombin Time 11.0 SECONDS Prothromb Time International Ratio 1.0 White Blood Count 13.19 K/uL Red Blood Count 4.55 M/uL Hemoglobin 14.1 g/dL Hematocrit 42.1 % Mean Corpuscular Volume 92.5 fL Mean Corpuscular Hemoglobin 31.0 pg Mean Corpuscular Hemoglobin Concent 33.5 g/dl Platelet Count 268 K/uL Mean Platelet Volume 10.9 fL Neutrophils (%) (Auto) 68.3 % Lymphocytes (%) (Auto) 22.8 % Monocytes (%) (Auto) 8.0 % Eosinophils (%) (Auto) 0.5 % Basophils (%) (Auto) 0.2 % Neutrophils # (Auto) 9.01 K/uL Lymphocytes # (Auto) 3.01 K/uL Monocytes # (Auto) 1.05 K/uL Eosinophils # (Auto) 0.07 K/uL Basophils # (Auto) 0.02 K/uL RDW Standard Deviation 50.6 fL RDW Coefficient of Variation 15.0 % Immature Granulocyte % (Auto) 0.2 % Immature Granulocyte # (Auto) 0.03 K/uL Sodium Level 135 mmol/L Potassium Level 3.8 mmol/L Chloride Level 98 mmol/L Carbon Dioxide Level 26 mmol/L Anion Gap 11.0 mmol/L Blood Urea Nitrogen 35 mg/dl Creatinine 1.80 mg/dl Est Creatinine Clear Calc Drug Dose 18.9 ml/min Estimated GFR () 29.0 Estimated GFR (Non- 25.0 BUN/Creatinine Ratio 19.4 Random Glucose 266 mg/dl Calcium Level 9.8 mg/dl Total Bilirubin 0.3 mg/dl Aspartate Amino Transf (AST/SGOT) 23 U/L Alanine Aminotransferase (ALT/SGPT) 22 U/L Alkaline Phosphatase 68 U/L Total Protein 8.4 gm/dl Albumin 4.0 gm/dl Globulin 4.4 gm/dl Albumin/Globulin Ratio 0.9 Thyroid Stimulating Hormone (TSH) 4.120 uIu/ml Bedside Glucose 242 mg/dl 238 mg/dl Test 09/28/16 06:00 09/28/16 06:48 09/28/16 08:14 09/28/16 10:19 Urine Color YELLOW Urine Appearance CLEAR Urine pH 5.0 Urine Specific [place] 1.020 Urine Protein 1+ Urine Glucose (UA) 3+ Urine Ketones TRACE Urine Occult Blood 2+ Urine Nitrite NEG Urine Bilirubin NEG Urine Urobilinogen NEG Urine Leukocyte Esterase TRACE Urine WBC (Auto) 5-10 /hpf Urine RBC (Auto) 5-10 /hpf Urine Hyaline Casts (Auto) 1-5 /lpf Urine Epithelial Cells (Auto) 10-20 /lpf Urine Bacteria (Auto) NEG Estimated Average Glucose 186 mg/dl Hemoglobin A1c 8.1 % Bedside Glucose 217 mg/dl 167 mg/dl Test 09/28/16 12:44 Bedside Glucose 155 mg/dl Date/Time Source Procedure Growth Status 09/28/16 06:00 Urine,Catheterized Urine Culture Pending Received Assessment & Plan Right hip fracture - Orthopedics consulted - s/p intramedullary nail fixation 09/28/16 - PT/OT evaluation CKD stage 4 - creatinine around baseline Type 2 diabetes - continue insulin therapy - glycemic pharmacy consulted Hypothyroidism - continue levothyroxine Iron deficiency anemia - Hgb stable - continue iron supplement DVT prophylaxis with MILIND/SCD Consultants: Orthopedics Current Inpatient Medications: Current Inpatient Medications Medications (Trade) Dose Ordered Sig/Leigh Ann Route Start Time Stop Time Status Last Admin Dose Admin Acetaminophen (Tylenol Tab) 650 mg Q4H PRN PO 09/27/16 22:30 10/27/16 22:29 09/28/16 07:55 650 MG Polyethylene (Miralax Powder Packet) 17 gm DAILY PRN PO 09/27/16 22:30 10/27/16 22:29 Ondansetron HCl (Zofran Inj) 4 mg Q6H PRN IV 09/27/16 22:30 10/27/16 22:29 Insulin Aspart (novoLOG ASPART) SLIDING SCALE If C... ACHS SC 09/28/16 07:00 10/28/16 06:59 09/28/16 08:20 3 UNITS Glucose (Glucose 40% Gel) 15-30 GRAMS 15 GRAMS... UD PRN PO 09/27/16 22:30 10/27/16 22:29 Glucose (Glucose Chew Tab) 4-8 Tablets 4 Tabl... UD PRN PO 09/27/16 22:30 10/27/16 22:29 Dextrose (Dextrose 50% 50ML Syringe) 25-50ML OF 50% DW IV FOR... UD PRN IV 09/27/16 22:30 10/27/16 22:29 Glucagon (Glucagon Inj) 1 mg UD PRN SQ 09/27/16 22:30 10/27/16 22:29 Miscellaneous Information (Consult Glycemic Management Pharmacy) 1 ea DAILY PRN N/A 09/27/16 22:42 10/27/16 22:41 Levothyroxine Sodium (Synthroid Tab) 50 mcg DAILYBB PO 09/28/16 06:00 10/28/16 05:59 09/28/16 05:55 50 MCG Ranitidine HCl (zANTac TAB) 150 mg BID PO 09/28/16 09:00 10/28/16 08:59 09/28/16 07:56 150 MG Simvastatin (Zocor Tab) 20 mg QPM PO 09/28/16 21:00 10/28/16 20:59 Ferrous Sulfate (Feosol Tab) 325 mg QAM PO 09/28/16 09:00 10/28/16 08:59 09/28/16 07:56 325 MG Insulin Glargine 8 unit 8 unit Q12 SC 09/28/16 09:00 10/28/16 08:59 09/28/16 07:58 8 UNIT Sodium Chloride 1,000 ml @ 50 mls/hr Q20H IV 09/28/16 09:30 10/28/16 09:29 Cefazolin Sodium/ Dextrose (Ancef Iv/D5 50ml) 60 ml @ 100 mls/hr Q8H IV 09/28/16 18:00 09/29/16 02:35 Aspirin (Ecotrin Tab) 325 mg BID PO 09/28/16 21:00 10/28/16 20:59
[2016-09-28] MEDS: ACETAMINOPHEN 500 MG TAB PO PRN (18:40)
[2016-09-28] MEDS: CEFAZOLIN IV 2,000 MG in DEXTROSE 5% 50ML 50 ML IV SCH (19:31)
[2016-09-28] MEDS ORDERED: ACETAMINOPHEN 500 MG TAB PO PRN (22:00)
[2016-09-28] MEDS: ASPIRIN 325 MG ECTAB PO SCH (22:26)
[2016-09-28] MEDS: SIMVASTATIN 20 MG TAB PO SCH (22:26)
[2016-09-29] VITALS (8 sets, daily range): BP systolic 95–131; BP diastolic 58–76; PULSE 67–106; TEMP 36.8–37.7; O2SAT 93–97
[2016-09-29] MEDS: CEFAZOLIN IV 2,000 MG in DEXTROSE 5% 50ML 50 ML IV SCH (02:19)
[2016-09-29] MEDS: LEVOTHYROXINE 50 MCG TAB PO SCH (05:44)
[2016-09-29] MEDS: ACETAMINOPHEN 500 MG TAB PO PRN (05:46)
[2016-09-29 08:27] LABS: HEMATOCRIT 29.6 % (37-47); MEAN CELL VOLUME 91.9 fL (80-100); MEAN CORPUSCULAR HEMOGLOBIN 30.4 pg (25-34); MEAN CORPUSCULAR HGB CONC 33.1 g/dl (32-36); MEAN PLATELET VOLUME 10.4 fL (7.4-10.4); PLATELET COUNT 187 K/uL (130-400); RED BLOOD COUNT 3.22 M/uL (4.2-5.4); WHITE BLOOD COUNT 15.07 K/uL (4.8-10.8)
[2016-09-29] MEDS: ASPIRIN 325 MG ECTAB PO SCH ×2 (09:09→21:41)
[2016-09-29] MEDS: FERROUS SULFATE 325 MG TAB PO SCH (09:09)
[2016-09-29] MEDS: RANITIDINE HCL 150 MG TAB PO SCH ×2 (09:09→21:41)
[2016-09-29] MEDS: INSULIN ASPART 100 UNITS/ML 3 ML PEN SC SCH ×4 (09:13→21:52)
[2016-09-29] MEDS: INSULIN GLARGINE SOLOSTAR 100 UNITS/ML 3 ML PEN SC SCH ×2 (09:14→21:51)
--- NOTE | 2016-09-29 09:28 | PROGRESS NOTE ---
DATE: 09/29/2016 DATE: 09/29/2016. CHIEF COMPLAINT: Status post IM nail of the right femur, postop day #1. PROGRESS: Yolis was seen and examined at bedside today. Overall, she is doing very well. She has very little pain in her hip. She is awake and alert but she is not sure who I am when I entered the room. She is with her daughter, had no acute events overnight. PHYSICAL EXAMINATION: RIGHT HIP: The dressings are clean and dry. Her leg lengths are equal. She does not have any significant ecchymosis. She is neurovascularly intact. LABORATORY DATA: She has an H\T\H today of 9.8 and 29.6. Her white count is 15. Her glucose is 136. VITAL SIGNS: All stable on room air and she still has a urinary catheter in place. IMAGING: X-rays postoperatively showed the hip to be in near anatomic alignment and good placement of the hardware. IMPRESSION: Status post intramedullary nail of the right hip postoperative day #1. PLAN: At this point, she is doing about as well as expected. She can be up and weightbearing as tolerated. She is on aspirin 325 mg twice a day for DVT prophylaxis. The nursing staff can change the dressing tomorrow and she is orthopedically stable for discharge when ready.
[2016-09-29 09:52] LABS: BUN/CREATININE RATIO 15.9 (10-20); CALCIUM 8.2 mg/dl (8.5-10.1); CREATININE 1.2 mg/dl (0.60-1.20); POTASSIUM 3.4 mmol/L (3.5-5.1)
[2016-09-29] MEDS ORDERED: POLYETHYLENE (MIRALAX) 17 GM PACK PO PRN (10:00)
[2016-09-29] MEDS: TRAMADOL HCL 50 MG TAB PO PRN ×2 (10:20→16:43)
--- NOTE | 2016-09-29 21:40 | Progress Note ---
Medicine Progress Note Date & Time of Visit: Sep 29, 2016 at 21:38. Subjective Patient seen and examined. Pain with movement. Objective Last 8 Hrs Date Time Temp Pulse Resp B/P Pulse Ox O2 Delivery O2 Flow Rate FiO2 09/29/16 20:21 Room Air 09/29/16 16:02 37.0 84 18 114/60 93 Room Air Physical Exam: General-awake; alert; NAD Eyes-EOMI; no scleral icterus Neck-no stridor; trachea midline Lungs-CTA bilaterally anteriorly Heart-RRR Abdomen-soft; NTND; nBS Extremities-right hip bandage c/d/i; no c/c/e Neuro-dementia Laboratory Results: Last 24 Hours Test 09/29/16 07:40 09/29/16 07:54 09/29/16 11:33 09/29/16 16:41 White Blood Count 15.07 K/uL Red Blood Count 3.22 M/uL Hemoglobin 9.8 g/dL Hematocrit 29.6 % Mean Corpuscular Volume 91.9 fL Mean Corpuscular Hemoglobin 30.4 pg Mean Corpuscular Hemoglobin Concent 33.1 g/dl RDW Standard Deviation 51.1 fL RDW Coefficient of Variation 14.9 % Platelet Count 187 K/uL Mean Platelet Volume 10.4 fL Sodium Level 136 mmol/L Potassium Level 3.4 mmol/L Chloride Level 103 mmol/L Carbon Dioxide Level 26 mmol/L Anion Gap 7.0 mmol/L Blood Urea Nitrogen 19 mg/dl Creatinine 1.20 mg/dl Est Creatinine Clear Calc Drug Dose 28.3 ml/min Estimated GFR () 47.4 Estimated GFR (Non- 40.9 BUN/Creatinine Ratio 15.9 Random Glucose 165 mg/dl Calcium Level 8.2 mg/dl Bedside Glucose 172 mg/dl 251 mg/dl 229 mg/dl Test 09/29/16 20:40 Bedside Glucose 194 mg/dl Assessment & Plan Right hip fracture - Orthopedics consulted - s/p intramedullary nail fixation 09/28/16 - PT/OT evaluation - pain control with Tylenol and Tramadol PRN Acute blood loss anemia - 2/2 surgery - no indication for transfusion - continue iron supplementation CKD stage 4 - creatinine around baseline Type 2 diabetes - continue insulin therapy - glycemic pharmacy consulted Hypothyroidism - continue levothyroxine Iron deficiency anemia - continue iron supplement DVT prophylaxis with MILIND/SCD and aspirin Anticipate discharge to rehab Consultants: Orthopedics Current Inpatient Medications: Current Inpatient Medications Medications (Trade) Dose Ordered Sig/Leigh Ann Route Start Time Stop Time Status Last Admin Dose Admin Polyethylene (Miralax Powder Packet) 17 gm DAILY PRN PO 09/27/16 22:30 10/27/16 22:29 Ondansetron HCl (Zofran Inj) 4 mg Q6H PRN IV 09/27/16 22:30 10/27/16 22:29 Insulin Aspart (novoLOG ASPART) SLIDING SCALE If C... ACHS SC 09/28/16 07:00 10/28/16 06:59 09/29/16 18:22 7 UNITS Glucose (Glucose 40% Gel) 15-30 GRAMS 15 GRAMS... UD PRN PO 09/27/16 22:30 10/27/16 22:29 Glucose (Glucose Chew Tab) 4-8 Tablets 4 Tabl... UD PRN PO 09/27/16 22:30 10/27/16 22:29 Dextrose (Dextrose 50% 50ML Syringe) 25-50ML OF 50% DW IV FOR... UD PRN IV 09/27/16 22:30 10/27/16 22:29 Glucagon (Glucagon Inj) 1 mg UD PRN SQ 09/27/16 22:30 10/27/16 22:29 Miscellaneous Information (Consult Glycemic Management Pharmacy) 1 ea DAILY PRN N/A 09/27/16 22:42 10/27/16 22:41 Levothyroxine Sodium (Synthroid Tab) 50 mcg DAILYBB PO 09/28/16 06:00 10/28/16 05:59 09/29/16 05:44 50 MCG Ranitidine HCl (zANTac TAB) 150 mg BID PO 09/28/16 09:00 10/28/16 08:59 09/29/16 09:09 150 MG Simvastatin (Zocor Tab) 20 mg QPM PO 09/28/16 21:00 10/28/16 20:59 09/28/16 22:26 20 MG Ferrous Sulfate (Feosol Tab) 325 mg QAM PO 09/28/16 09:00 10/28/16 08:59 09/29/16 09:09 325 MG Aspirin (Ecotrin Tab) 325 mg BID PO 09/28/16 21:00 10/28/16 20:59 09/29/16 09:09 325 MG Acetaminophen (Tylenol Tab) 1,000 mg Q8 PRN PO 09/28/16 17:45 10/28/16 17:44 09/29/16 05:46 1,000 MG Tramadol HCl (Ultram Tab) 100 mg Q6 PRN PO 09/29/16 09:30 10/29/16 09:29 09/29/16 16:43 100 MG Docusate Sodium (coLACE CAP) 100 mg BID PO 09/29/16 21:00 10/29/16 20:59 Polyethylene (Miralax Powder Packet) 17 gm DAILY PRN PO 09/29/16 10:00 10/29/16 09:59 Insulin Glargine (Lantus Solostar Pen) 10 unit Q12 SC 09/29/16 21:00 10/29/16 20:59
[2016-09-29] MEDS: DOCUSATE SODIUM 100 MG CAP PO SCH (21:41)
[2016-09-29] MEDS: SIMVASTATIN 20 MG TAB PO SCH (21:41)
[2016-09-30 05:02] VITALS: TEMP 37; O2SAT 92
[2016-09-30] MEDS: LEVOTHYROXINE 50 MCG TAB PO SCH (05:19)
[2016-09-30 06:53] LABS: HEMATOCRIT 28.6 % (37-47); MEAN CELL VOLUME 91.1 fL (80-100); MEAN CORPUSCULAR HEMOGLOBIN 29.6 pg (25-34); MEAN CORPUSCULAR HGB CONC 32.5 g/dl (32-36); PLATELET COUNT 193 K/uL (130-400); RED BLOOD COUNT 3.14 M/uL (4.2-5.4); WHITE BLOOD COUNT 14.46 K/uL (4.8-10.8)
[2016-09-30 07:18] VITALS: BP 118/57; PULSE 96; TEMP 36.9; O2SAT 95
[2016-09-30 07:18] LABS: BUN/CREATININE RATIO 15.4 (10-20); CALCIUM 8.7 mg/dl (8.5-10.1); CREATININE 1.4 mg/dl (0.60-1.20); POTASSIUM 3.7 mmol/L (3.5-5.1)
[2016-09-30] MEDS: INSULIN ASPART 100 UNITS/ML 3 ML PEN SC SCH ×4 (09:42→21:38)
[2016-09-30] MEDS: INSULIN GLARGINE SOLOSTAR 100 UNITS/ML 3 ML PEN SC SCH ×2 (09:43→21:39)
[2016-09-30] MEDS: RANITIDINE HCL 150 MG TAB PO SCH ×2 (09:44→21:49)
[2016-09-30] MEDS: FERROUS SULFATE 325 MG TAB PO SCH (09:45)
[2016-09-30] MEDS: DOCUSATE SODIUM 100 MG CAP PO SCH ×2 (09:45→21:49)
[2016-09-30] MEDS: ASPIRIN 325 MG ECTAB PO SCH ×2 (09:45→21:49)
[2016-09-30] MEDS: MAGNESIUM HYDROXIDE SUSP 30 ML UDC PO PRN (11:35)
[2016-09-30] MEDS ORDERED: TRAMADOL HCL 50 MG TAB PO PRN (12:00)
--- NOTE | 2016-09-30 12:46 | PROGRESS NOTE ---
DATE: 09/30/2016 CHIEF COMPLAINT: Status post IM nail of the right hip postoperative day #2. PROGRESS: Darnell was seen and examined next to bedside today. She was sitting up in a chair. She said she is not having any pain in her hip. Her family was in the room. She has no new complaints. PHYSICAL EXAMINATION: RIGHT HIP: The dressings are clean and dry. Her leg lengths are equal. There is no drainage. IMPRESSION: Status post intramedullary nail of the right hip, postoperative day #2. PLAN: At this point, she seems to be doing well. She has been sitting up in a chair, but she has not ambulated yet. She is on aspirin 325 mg twice a day for 6 weeks. She is orthopedically stable for discharge. I think she is looking at going to [facility] tomorrow. I will see her in my office in about 2 weeks from the day of surgery for staple removal. My office phone number is [phone].
--- NOTE | 2016-09-30 14:26 | Pharmacy Progress Note ---
Glycemic Control: Progress Nt Date of Service Sep 30, 2016. Scope Glycemic Pharmacist consulted by Dr Feliciano on 09/27/16 for glycemic control and to write orders per [facility] inpatient glycemic control protocol. Objective Accuchecks BSG (last 24hrs): Test 09/29/16 16:41 09/29/16 20:40 09/30/16 06:30 09/30/16 08:13 Bedside Glucose 229 mg/dl (70-90) 194 mg/dl (70-90) 170 mg/dl (70-90) Random Glucose 166 mg/dl (70-99) Test 09/30/16 11:54 Bedside Glucose 247 mg/dl (70-90) Laboratory Data (last 24hrs) Test 09/30/16 06:30 Anion Gap 4.0 mmol/L BUN/Creatinine Ratio 15.4 Blood Urea Nitrogen 22 mg/dl Creatinine 1.40 mg/dl Potassium Level 3.7 mmol/L Sodium Level 136 mmol/L White Blood Count 14.46 K/uL HbA1c: Test 09/28/16 06:48 Hemoglobin A1c 8.1 % (4.5-5.6) H Recent Pertinent Medications Outpatient Anti-diabetic Regimen: * Lantus 24 u SC HS * Januvia 25 mg PO QAM * A1c = 8.1 % 09/28/16 The patient is currently receiving: * Basal insulin: Lantus 10 units every 12 hours * Correctional Insulin: Novolog Correction per scale ACHS Goal Range: Low 100 mg/dL - High 140 mg/dL Correction Factor: 35 mg/dL/unit * Prandial insulin: Per carb ratio of 1 unit per 12 grams CHO consumed * Oral Agents: on hold Risk Factors for Insulin Resistance: * Diet Assessment & Plan ASSESSMENT: 09/28/16 * 86 yo F admitted with hip fracture s/p fall * BSGs in the mid 200's on admission, Lantus 5 units SQ given last night by admitting provider (normal home regimen is Lantus 24 units HS) * A1c 8.1% this AM indicative of good glycemic control as outpatient given age and other comorbidities * Given advanced dementia, I plan to remain conservative with management * Increase Lantus to 8 units BID and tighten Novolog to weight-based regimen ( stress of 2) * Patient NPO for possible orthopedic intervention today- continue Lantus dosing as it is split every 12 hours so that we can hold if necessary * ADA & AACE recommend a goal blood sugar range 140-180 mg/dl for the majority of critically ill & non-critically ill patients. However, more stringent targets may be selected in individual cases. 09/30/16 * BSGs ranging from 172-257 mg/dL over the past 24 hours * Since admission, I have gradually titrated insulin based on BSGs >200 mg/dL * Fasting BSG this AM 170 mg/dL- continue most recent change of Lantus - consider increasing by 20% tomorrow * Prandial BSGs remain elevated, tighten both correctional and prandial insulin - continue to titrate slowly given advanced dementia PLAN FOR INPATIENT GLYCEMIC CONTROL: * Hold outpatient oral diabetes medications * Basal insulin with LANTUS 10 units SQ BID * Half dose (5 units) if BSG <100 mg/dL * Correctional Insulin with NOVOLOG per scale ACHS or Q6hrs while NPO * Goal Range: Low 100 mg/dL - High 140 mg/dL * Correction Factor: 30 mg/dL/unit * Nutritional / Prandial insulin per carb ratio of 1 unit per 10 grams CHO consumed * A1c added to D/C instructions * Please note that the plan above was derived based on current level of insulin resistance and hospital stress. These recommendations are appropriate for inpatient admission only. Plan of care upon discharge will need to be reassessed to avoid potential outpatient hypo/hyperglycemia. Thank you.
[2016-09-30 15:14] VITALS: BP 121/70; PULSE 115; TEMP 36.7; O2SAT 97
--- NOTE | 2016-09-30 17:26 | Progress Note ---
Medicine Progress Note Date & Time of Visit: Sep 30, 2016 at 17:25. Subjective Patient seen and examined. Daughter present at bedside and updated. Patient would like to have Medeiros removed. Pain controlled on current regimen. Objective Last 8 Hrs Date Time Temp Pulse Resp B/P Pulse Ox O2 Delivery O2 Flow Rate FiO2 09/30/16 15:14 36.7 115 20 121/70 97 Room Air 09/30/16 09:30 Room Air Physical Exam: General-awake; alert; NAD Eyes-EOMI; no scleral icterus Neck-no stridor; trachea midline Lungs-CTA bilaterally; no wheezes/crackles Heart-RRR Abdomen-soft; NTND; nBS Extremities-right hip bandage c/d/i; no c/c/e Neuro-dementia Laboratory Results: Last 24 Hours Test 09/29/16 20:40 09/30/16 06:30 09/30/16 08:13 09/30/16 11:54 Bedside Glucose 194 mg/dl 170 mg/dl 247 mg/dl White Blood Count 14.46 K/uL Red Blood Count 3.14 M/uL Hemoglobin 9.3 g/dL Hematocrit 28.6 % Mean Corpuscular Volume 91.1 fL Mean Corpuscular Hemoglobin 29.6 pg Mean Corpuscular Hemoglobin Concent 32.5 g/dl RDW Standard Deviation 50.2 fL RDW Coefficient of Variation 15.1 % Platelet Count 193 K/uL Mean Platelet Volume 10.0 fL Sodium Level 136 mmol/L Potassium Level 3.7 mmol/L Chloride Level 101 mmol/L Carbon Dioxide Level 31 mmol/L Anion Gap 4.0 mmol/L Blood Urea Nitrogen 22 mg/dl Creatinine 1.40 mg/dl Est Creatinine Clear Calc Drug Dose 24.3 ml/min Estimated GFR () 39.3 Estimated GFR (Non- 33.9 BUN/Creatinine Ratio 15.4 Random Glucose 166 mg/dl Calcium Level 8.7 mg/dl Chemistry Specimen Hemolysis Test 09/30/16 16:54 Bedside Glucose 314 mg/dl Assessment & Plan Right hip fracture - Orthopedics consulted - s/p intramedullary nail fixation 09/28/16 - PT/OT evaluation - pain control with Tylenol and Tramadol PRN Acute blood loss anemia - 2/2 surgery - no indication for transfusion - continue iron supplementation CKD stage 4 - creatinine around baseline Type 2 diabetes - continue insulin therapy - glycemic pharmacy consulted Hypothyroidism - continue levothyroxine Iron deficiency anemia - continue iron supplement DVT prophylaxis with MILIND/SCD and aspirin Anticipate discharge to rehab Consultants: Orthopedics Current Inpatient Medications: Current Inpatient Medications Medications (Trade) Dose Ordered Sig/Leigh Ann Route Start Time Stop Time Status Last Admin Dose Admin Ondansetron HCl (Zofran Inj) 4 mg Q6H PRN IV 09/27/16 22:30 10/27/16 22:29 Insulin Aspart (novoLOG ASPART) SLIDING SCALE If C... ACHS SC 09/28/16 07:00 10/28/16 06:59 09/30/16 13:18 7 UNITS Glucose (Glucose 40% Gel) 15-30 GRAMS 15 GRAMS... UD PRN PO 09/27/16 22:30 10/27/16 22:29 Glucose (Glucose Chew Tab) 4-8 Tablets 4 Tabl... UD PRN PO 09/27/16 22:30 10/27/16 22:29 Dextrose (Dextrose 50% 50ML Syringe) 25-50ML OF 50% DW IV FOR... UD PRN IV 09/27/16 22:30 10/27/16 22:29 Glucagon (Glucagon Inj) 1 mg UD PRN SQ 09/27/16 22:30 10/27/16 22:29 Miscellaneous Information (Consult Glycemic Management Pharmacy) 1 ea DAILY PRN N/A 09/27/16 22:42 10/27/16 22:41 Levothyroxine Sodium (Synthroid Tab) 50 mcg DAILYBB PO 09/28/16 06:00 10/28/16 05:59 09/29/16 05:44 50 MCG Ranitidine HCl (zANTac TAB) 150 mg BID PO 09/28/16 09:00 10/28/16 08:59 09/30/16 09:44 150 MG Simvastatin (Zocor Tab) 20 mg QPM PO 09/28/16 21:00 10/28/16 20:59 09/29/16 21:41 20 MG Ferrous Sulfate (Feosol Tab) 325 mg QAM PO 09/28/16 09:00 10/28/16 08:59 09/30/16 09:45 325 MG Aspirin (Ecotrin Tab) 325 mg BID PO 09/28/16 21:00 10/28/16 20:59 09/30/16 09:45 325 MG Acetaminophen (Tylenol Tab) 1,000 mg Q8 PRN PO 09/28/16 17:45 10/28/16 17:44 09/29/16 05:46 1,000 MG Docusate Sodium (coLACE CAP) 100 mg BID PO 09/29/16 21:00 10/29/16 20:59 09/30/16 09:45 100 MG Polyethylene (Miralax Powder Packet) 17 gm DAILY PRN PO 09/29/16 10:00 10/29/16 09:59 Insulin Glargine (Lantus Solostar Pen) 10 unit Q12 SC 09/29/16 21:00 10/29/16 20:59 09/30/16 09:43 10 UNIT Tramadol HCl (Ultram Tab) 50 mg Q6 PRN PO 09/30/16 12:00 10/30/16 11:59 Magnesium Hydroxide (Milk Of Magnesia Susp) 30 ml Q6H PRN PO 09/30/16 11:15 10/30/16 11:14 09/30/16 11:35 30 ML
[2016-09-30] MEDS: SIMVASTATIN 20 MG TAB PO SCH (21:50)
[2016-09-30 23:00] VITALS: BP 161/69; PULSE 124; TEMP 37.4; O2SAT 97
[2016-09-30 23:20] VITALS: BP 127/58; PULSE 120; TEMP 37.9; O2SAT 94
[2016-09-30] MEDS: ACETAMINOPHEN 500 MG TAB PO PRN (23:25)
[2016-10-01] VITALS (8 sets, daily range): BP systolic 112–145; BP diastolic 66–77; PULSE 90–117; TEMP 36.6–37.2; O2SAT 93–96
[2016-10-01] MEDS: LEVOTHYROXINE 50 MCG TAB PO SCH (05:53)
--- NOTE | 2016-10-01 07:17 | Anesthesiology Progress Note ---
Anesthesia Post Op Note Date & Time Oct 01, 2016 at 07:16 Vital Signs Pain Intensity: 0.0 Vital Signs Past 12 Hours Date Time Temp Pulse Resp B/P Pulse Ox O2 Delivery O2 Flow Rate FiO2 10/01/16 03:42 37.1 101 16 132/69 93 Room Air 10/01/16 00:40 114 116/66 09/30/16 23:20 Room Air 09/30/16 23:20 37.9 120 127/58 94 Room Air 09/30/16 23:00 37.4 124 18 161/69 97 Room Air Notes Pt. sleeping comfortably when attempt to do post op rounding was done. Did not attempt to wake patient.
[2016-10-01 08:27] LABS: HEMATOCRIT 28.5 % (37-47); MEAN CELL VOLUME 89.1 fL (80-100); MEAN CORPUSCULAR HGB CONC 33.7 g/dl (32-36); MEAN PLATELET VOLUME 9.6 fL (7.4-10.4); PLATELET COUNT 227 K/uL (130-400); WHITE BLOOD COUNT 14.62 K/uL (4.8-10.8)
[2016-10-01 08:50] LABS: BUN/CREATININE RATIO 16.8 (10-20); CALCIUM 8.6 mg/dl (8.5-10.1); CREATININE 1.3 mg/dl (0.60-1.20); POTASSIUM 3.7 mmol/L (3.5-5.1)
[2016-10-01] MEDS: ASPIRIN 325 MG ECTAB PO SCH ×2 (08:56→20:14)
[2016-10-01] MEDS: FERROUS SULFATE 325 MG TAB PO SCH (08:56)
[2016-10-01] MEDS: DOCUSATE SODIUM 100 MG CAP PO SCH ×2 (08:56→20:14)
[2016-10-01] MEDS: RANITIDINE HCL 150 MG TAB PO SCH ×2 (08:56→20:14)
[2016-10-01] MEDS: INSULIN ASPART 100 UNITS/ML 3 ML PEN SC SCH ×4 (09:05→21:35)
[2016-10-01] MEDS: MAGNESIUM HYDROXIDE SUSP 30 ML UDC PO PRN ×2 (09:06→21:43)
[2016-10-01] MEDS: INSULIN GLARGINE SOLOSTAR 100 UNITS/ML 3 ML PEN SC SCH ×2 (09:06→21:36)
[2016-10-01] MEDS: ACETAMINOPHEN 500 MG TAB PO PRN (09:07)
--- NOTE | 2016-10-01 11:40 | Pharmacy Progress Note ---
Glycemic Control: Progress Nt Date of Service Oct 01, 2016. Scope Glycemic Pharmacist consulted by Dr Feliciano on 09/27/16 for glycemic control and to write orders per [facility] inpatient glycemic control protocol. Objective Accuchecks BSG (last 24hrs): Test 09/30/16 11:54 09/30/16 16:54 09/30/16 20:52 10/01/16 08:04 Bedside Glucose 247 mg/dl (70-90) 314 mg/dl (70-90) 276 mg/dl (70-90) 277 mg/dl (70-90) Test 10/01/16 08:10 Random Glucose 244 mg/dl (70-99) Laboratory Data (last 24hrs) Test 10/01/16 08:10 Anion Gap 6.0 mmol/L BUN/Creatinine Ratio 16.8 Blood Urea Nitrogen 22 mg/dl Creatinine 1.30 mg/dl Potassium Level 3.7 mmol/L Sodium Level 134 mmol/L White Blood Count 14.62 K/uL HbA1c: Test 09/28/16 06:48 Hemoglobin A1c 8.1 % (4.5-5.6) H Recent Pertinent Medications Outpatient Anti-diabetic Regimen: * Lantus 24 units Q HS * Sitagliptin 25mg Q AM * A1c = 8.1 % 09/28/16 The patient is currently receiving: * Basal insulin: Lantus 10 units every 12 hours * Correctional Insulin: Novolog Correction per scale ACHS Goal Range: Low 100 mg/dL - High 140 mg/dL Correction Factor: 30 mg/dL/unit * Prandial insulin: Per carb ratio of 1 unit per 10 grams CHO consumed * Oral Agents: None currently Risk Factors for Insulin Resistance: * Recent Surgery: POD # 3 * Diet: ordered T2DM diet. Tolerating diet well Assessment & Plan ASSESSMENT: 10/01/16 * Glycemic targets not met over the last 24 hours; BSGs have ranged 247-314 * Primary insulin deficit at this time appears to be basal insulin - will continue to titrate up Lantus dose * Post-prandial BSGs remain elevated, however if basal deficit were fixed these BSGs likely would be closer to goal, post-prandial rise was > 50 on several occasions - a more aggressive basal dose was ordered last evening as a result, will follow BSG trend today before increasing prandial dose further PLAN FOR INPATIENT GLYCEMIC CONTROL: * Increasing Lantus to 13 units SQ BID; give 4 units SQ x 1 with lunch today to make up for deficit * Continuing correction factor of 30 mg/dl/unit * Continuing carb ratio of 1 unit per 10 grams CHO consumed * Continuing goal range of Low 100 mg/dL - High 140 mg/dL * Please note that the plan above was derived based on current level of insulin resistance and hospital stress. These recommendations are appropriate for inpatient admission only. Plan of care upon discharge will need to be reassessed to avoid potential outpatient hypo/hyperglycemia. Thank you.
[2016-10-01] MEDS ORDERED: INSULIN GLARGINE SOLOSTAR 100 UNITS/ML 3 ML PEN SC ONE (11:45)
[2016-10-01] MEDS: SIMVASTATIN 20 MG TAB PO SCH (20:14)
--- NOTE | 2016-10-01 20:52 | Progress Note ---
Medicine Progress Note Date & Time of Visit: Oct 01, 2016 at 20:51. Subjective Patient seen and examined. Daughter present at bedside. Patient is without complaints. Objective Last 8 Hrs Date Time Temp Pulse Resp B/P Pulse Ox O2 Delivery O2 Flow Rate FiO2 10/01/16 16:00 95 Room Air 10/01/16 15:35 37.0 106 16 112/68 95 Room Air Physical Exam: General-awake; alert; NAD Eyes-EOMI; no scleral icterus Neck-no stridor; trachea midline Lungs-CTA bilaterally; no wheezes/crackles Heart-RRR Abdomen-soft; NTND; nBS Extremities-right hip bandage c/d/i; no c/c/e Neuro-dementia Laboratory Results: Last 24 Hours Test 09/30/16 20:52 10/01/16 08:04 10/01/16 08:10 10/01/16 11:54 Bedside Glucose 276 mg/dl 277 mg/dl 327 mg/dl White Blood Count 14.62 K/uL Red Blood Count 3.20 M/uL Hemoglobin 9.6 g/dL Hematocrit 28.5 % Mean Corpuscular Volume 89.1 fL Mean Corpuscular Hemoglobin 30.0 pg Mean Corpuscular Hemoglobin Concent 33.7 g/dl RDW Standard Deviation 48.2 fL RDW Coefficient of Variation 14.8 % Platelet Count 227 K/uL Mean Platelet Volume 9.6 fL Sodium Level 134 mmol/L Potassium Level 3.7 mmol/L Chloride Level 97 mmol/L Carbon Dioxide Level 31 mmol/L Anion Gap 6.0 mmol/L Blood Urea Nitrogen 22 mg/dl Creatinine 1.30 mg/dl Est Creatinine Clear Calc Drug Dose 26.1 ml/min Estimated GFR () 43.0 Estimated GFR (Non- 37.1 BUN/Creatinine Ratio 16.8 Random Glucose 244 mg/dl Calcium Level 8.6 mg/dl Test 10/01/16 16:58 10/01/16 20:42 Bedside Glucose 190 mg/dl 277 mg/dl Assessment & Plan Right hip fracture - Orthopedics consulted - s/p intramedullary nail fixation 09/28/16 - PT/OT evaluation - pain control with Tylenol and Tramadol PRN Acute blood loss anemia - 2/2 surgery - no indication for transfusion - continue iron supplementation CKD stage 4 - creatinine around baseline Type 2 diabetes - continue insulin therapy - glycemic pharmacy consulted Hypothyroidism - continue levothyroxine Iron deficiency anemia - continue iron supplement DVT prophylaxis with MILIND/SCD and aspirin Anticipate discharge to rehab. Referrals to facilities. Will require insurance authorization. Consultants: Orthopedics Current Inpatient Medications: Current Inpatient Medications Medications (Trade) Dose Ordered Sig/Leigh Ann Route Start Time Stop Time Status Last Admin Dose Admin Ondansetron HCl (Zofran Inj) 4 mg Q6H PRN IV 09/27/16 22:30 10/27/16 22:29 Insulin Aspart (novoLOG ASPART) SLIDING SCALE If C... ACHS SC 09/28/16 07:00 10/28/16 06:59 10/01/16 19:04 5 UNITS Glucose (Glucose 40% Gel) 15-30 GRAMS 15 GRAMS... UD PRN PO 09/27/16 22:30 10/27/16 22:29 Glucose (Glucose Chew Tab) 4-8 Tablets 4 Tabl... UD PRN PO 09/27/16 22:30 10/27/16 22:29 Dextrose (Dextrose 50% 50ML Syringe) 25-50ML OF 50% DW IV FOR... UD PRN IV 09/27/16 22:30 10/27/16 22:29 Glucagon (Glucagon Inj) 1 mg UD PRN SQ 09/27/16 22:30 10/27/16 22:29 Miscellaneous Information (Consult Glycemic Management Pharmacy) 1 ea DAILY PRN N/A 09/27/16 22:42 10/27/16 22:41 Levothyroxine Sodium (Synthroid Tab) 50 mcg DAILYBB PO 09/28/16 06:00 10/28/16 05:59 10/01/16 05:53 50 MCG Ranitidine HCl (zANTac TAB) 150 mg BID PO 09/28/16 09:00 10/28/16 08:59 10/01/16 20:14 150 MG Simvastatin (Zocor Tab) 20 mg QPM PO 09/28/16 21:00 10/28/16 20:59 10/01/16 20:14 20 MG Ferrous Sulfate (Feosol Tab) 325 mg QAM PO 09/28/16 09:00 10/28/16 08:59 10/01/16 08:56 325 MG Aspirin (Ecotrin Tab) 325 mg BID PO 09/28/16 21:00 10/28/16 20:59 10/01/16 20:14 325 MG Acetaminophen (Tylenol Tab) 1,000 mg Q8 PRN PO 09/28/16 17:45 10/28/16 17:44 10/01/16 09:07 1,000 MG Docusate Sodium (coLACE CAP) 100 mg BID PO 09/29/16 21:00 10/29/16 20:59 10/01/16 20:14 100 MG Polyethylene (Miralax Powder Packet) 17 gm DAILY PRN PO 09/29/16 10:00 10/29/16 09:59 Tramadol HCl (Ultram Tab) 50 mg Q6 PRN PO 09/30/16 12:00 10/30/16 11:59 Magnesium Hydroxide (Milk Of Magnesia Susp) 30 ml Q6H PRN PO 09/30/16 11:15 10/30/16 11:14 10/01/16 09:06 30 ML Insulin Glargine (Lantus Solostar Pen) give 6 units if BSG l... Q12 SC 10/01/16 21:00 10/31/16 20:59
[2016-10-01] MEDS ORDERED: INSULIN GLARGINE SOLOSTAR 100 UNITS/ML 3 ML PEN SC SCH (21:00)
[2016-10-02] MEDS: ACETAMINOPHEN 500 MG TAB PO PRN ×2 (02:28→20:06)
[2016-10-02] MEDS: LEVOTHYROXINE 50 MCG TAB PO SCH (05:56)
--- NOTE | 2016-10-02 07:34 | ORTHOPEDIC PROGRESS NOTE ---
DATE: 10/02/2016 CHIEF COMPLAINT: Status post IM nailing of the right hip postop day #3. PROGRESS: Yolis was seen and examined at bedside here today by me. She is sitting up in bed, just finished breakfast. She states that she is not having any pain with her hip. Her daughter is in the room with her. She has no new complaints today. PHYSICAL EXAMINATION: RIGHT HIP: The dressings are dry and clean. Leg lengths are equal. There is no drainage. No signs of any infection. She is ambulating intermittently throughout the day with the use of a walker. IMPRESSION: Status post intramedullary nail of the right hip postoperative day #3. PLAN: At this point, she is doing pretty well. We are trying to get her transferred to the rehab center at [facility]. The home health care case manager is working on that and trying to get the insurance approval with that at this point. In the meantime, she can continue ambulating with the use of a walker and her nurse. She is on aspirin 325 mg twice a day for six weeks. Orthopedically, she is stable for discharge. We are awaiting for approval for [facility], hopefully today. I will follow her up in our office in approximately two weeks for staple removal.
[2016-10-02 07:58] VITALS: BP 127/67; PULSE 92; TEMP 36.9; O2SAT 91
[2016-10-02 08:35] LABS: MEAN CORPUSCULAR HEMOGLOBIN 29.4 pg (25-34); MEAN PLATELET VOLUME 9.7 fL (7.4-10.4); PLATELET COUNT 316 K/uL (130-400); RED BLOOD COUNT 3.37 M/uL (4.2-5.4); WHITE BLOOD COUNT 14.93 K/uL (4.8-10.8)
[2016-10-02 09:01] LABS: BUN/CREATININE RATIO 19.6 (10-20); CALCIUM 8.6 mg/dl (8.5-10.1); CREATININE 1.4 mg/dl (0.60-1.20); POTASSIUM 3.7 mmol/L (3.5-5.1)
[2016-10-02] MEDS: DOCUSATE SODIUM 100 MG CAP PO SCH ×2 (09:24→20:10)
[2016-10-02] MEDS: FERROUS SULFATE 325 MG TAB PO SCH (09:24)
[2016-10-02] MEDS: RANITIDINE HCL 150 MG TAB PO SCH ×2 (09:24→20:10)
[2016-10-02] MEDS: ASPIRIN 325 MG ECTAB PO SCH ×2 (09:24→20:10)
[2016-10-02] MEDS: INSULIN ASPART 100 UNITS/ML 3 ML PEN SC SCH ×4 (09:28→21:41)
[2016-10-02] MEDS: INSULIN GLARGINE SOLOSTAR 100 UNITS/ML 3 ML PEN SC SCH ×2 (09:29→21:42)
[2016-10-02] MEDS ORDERED: INSULIN GLARGINE SOLOSTAR 100 UNITS/ML 3 ML PEN SC ONE (13:00)
--- NOTE | 2016-10-02 13:20 | Pharmacy Progress Note ---
Glycemic Control: Progress Nt Date of Service Oct 02, 2016. Scope Glycemic Pharmacist consulted by Dr Feliciano on 09/27/16 for glycemic control and to write orders per [facility] inpatient glycemic control protocol. Objective Accuchecks BSG (last 24hrs): Test 10/01/16 16:58 10/01/16 20:42 10/02/16 07:47 10/02/16 08:22 Bedside Glucose 190 mg/dl (70-90) 277 mg/dl (70-90) 269 mg/dl (70-90) Random Glucose 252 mg/dl (70-99) Test 10/02/16 12:21 Bedside Glucose 319 mg/dl (70-90) Laboratory Data (last 24hrs) Test 10/02/16 07:47 Anion Gap 9.0 mmol/L BUN/Creatinine Ratio 19.6 Blood Urea Nitrogen 27 mg/dl Creatinine 1.40 mg/dl Potassium Level 3.7 mmol/L Sodium Level 132 mmol/L White Blood Count 14.93 K/uL HbA1c: Test 09/28/16 06:48 Hemoglobin A1c 8.1 % (4.5-5.6) H Recent Pertinent Medications Outpatient Anti-diabetic Regimen: * Lantus 24 units Q HS * Sitagliptin 25mg Q AM * A1c = 8.1 % 09/28/16 The patient is currently receiving: * Basal insulin: Lantus 13 units every 12 hours * Correctional Insulin: Novolog Correction per scale ACHS Goal Range: Low 100 mg/dL - High 140 mg/dL Correction Factor: 25 mg/dL/unit * Prandial insulin: Per carb ratio of 1 unit per 9 grams CHO consumed * Oral Agents: None currently Risk Factors for Insulin Resistance: * Recent Surgery: POD # 4 * Diet: ordered T2DM diet. Tolerating diet well Assessment & Plan ASSESSMENT: 10/01/16 * Glycemic targets not met over the last 24 hours; BSGs have ranged 247-314 * Primary insulin deficit at this time appears to be basal insulin - will continue to titrate up Lantus dose * Post-prandial BSGs remain elevated, however if basal deficit were fixed these BSGs likely would be closer to goal, post-prandial rise was > 50 on several occasions - a more aggressive basal dose was ordered last evening as a result, will follow BSG trend today before increasing prandial dose further 10/02/16 * We are still struggling to achieve glycemic targets * BSGs have ranged 190-327 over the last 24 hours * BSG pattern again suggests basal insulin deficiency; fasting BSG was 269 this AM w/ 27 units of basal on board; will continue to titrate upward * Over the last 24 hrs she has received 61 units of insulin; anticipate total daily requirement to reach our glycemic targets to be 70+ units when tolerating a diet * Basal, correctional and prandial insulin doses will be increased today PLAN FOR INPATIENT GLYCEMIC CONTROL: * Increasing Lantus to 16 units SQ BID; give 4 units SQ x 1 with lunch today to make up for deficit * Changing correction factor to 20 mg/dl/unit * Changing carb ratio to 1 unit per 8 grams CHO consumed * Continuing goal range of Low 100 mg/dL - High 140 mg/dL * Add BSG check at 0200 tonight and cover with the above Novolog order * Please note that the plan above was derived based on current level of insulin resistance and hospital stress. These recommendations are appropriate for inpatient admission only. Plan of care upon discharge will need to be reassessed to avoid potential outpatient hypo/hyperglycemia. Thank you.
[2016-10-02 15:10] VITALS: BP 112/69; PULSE 102; TEMP 37; O2SAT 96
[2016-10-02 16:05] VITALS: Ht 152.4 cm; Wt 64.9 kg
[2016-10-02 16:30] VITALS: O2SAT 96
--- NOTE | 2016-10-02 19:02 | Progress Note ---
Internal Med Progress Note Date of Service: Oct 02, 2016. Provider Documentation: SUBJECTIVE: resting comfortably daughter in the room ambulated ok but had some pain while ambulating afebrile eating ok OBJECTIVE: Vital Signs-as noted below Exam: General-alert and awake . Not in distress ENT-hard of hearing Neck-no neck masses Lungs-cta b/l no wheezing or crackles Heart-s1 and s2 heard, regular rate and rhythm no murmurs Abdomen-soft bowel sounds present non tender no distension Extremities-no edema no erythema s/p right hip surgery Neuro-alert and awake moves extremities Lab data as noted below. ASSESSMENT & PLAN: Right hip fracture Orthopedics consulted s/p intramedullary nail fixation 09/28/16 PT/OT evaluation plan for rehab Acute blood loss anemia 2/2 surgery hb 9.9 To continue iron supplementation CKD stage 4 creatinine around baseline Cr 1.4 today Type 2 diabetes On insulin therapy glycemic pharmacy consulted will monitor. Hypothyroidism On levothyroxine Iron deficiency anemia On iron supplement DVT prophylaxis with MILIND/SCD and aspirin disposition rehab vs snf await placement social service helping with discharge planning Vital Signs: Date Time Temp Pulse Resp B/P Pulse Ox O2 Delivery O2 Flow Rate FiO2 10/02/16 15:10 37.0 102 16 112/69 96 Room Air 10/02/16 08:00 Room Air 10/02/16 07:58 36.9 92 15 127/67 91 Room Air 10/01/16 23:30 Room Air 10/01/16 23:20 37.2 117 15 145/71 94 Room Air Lab Results: Results Past 24 Hours Test 10/01/16 20:42 10/02/16 07:47 10/02/16 08:22 10/02/16 12:21 Range/Units Bedside Glucose 277 269 319 70-90 mg/dl White Blood Count 14.93 4.8-10.8 K/uL Red Blood Count 3.37 4.2-5.4 M/uL Hemoglobin 9.9 12.0-16.0 g/dL Hematocrit 30.0 37-47 % Mean Corpuscular Volume 89.0 80-100 fL Mean Corpuscular Hemoglobin 29.4 25-34 pg Mean Corpuscular Hemoglobin Concent 33.0 32-36 g/dl RDW Standard Deviation 48.5 36.4-46.3 fL RDW Coefficient of Variation 14.8 11.5-14.5 % Platelet Count 316 130-400 K/uL Mean Platelet Volume 9.7 7.4-10.4 fL Sodium Level 132 136-145 mmol/L Potassium Level 3.7 3.5-5.1 mmol/L Chloride Level 96 98-107 mmol/L Carbon Dioxide Level 27 21-32 mmol/L Anion Gap 9.0 3-11 mmol/L Blood Urea Nitrogen 27 7-18 mg/dl Creatinine 1.40 0.60-1.20 mg/dl Est Creatinine Clear Calc Drug Dose 24.3 ml/min Estimated GFR () 39.3 Estimated GFR (Non- 33.9 BUN/Creatinine Ratio 19.6 10-20 Random Glucose 252 70-99 mg/dl Calcium Level 8.6 8.5-10.1 mg/dl Test 10/02/16 16:48 Range/Units Bedside Glucose 227 70-90 mg/dl
[2016-10-02] MEDS: SIMVASTATIN 20 MG TAB PO SCH (20:11)
[2016-10-02 23:10] VITALS: BP 153/74; PULSE 101; TEMP 36.8; O2SAT 97
[2016-10-03] MEDS ORDERED: INSULIN ASPART 100 UNITS/ML 3 ML PEN SC ONE (02:00)
[2016-10-03] MEDS: LEVOTHYROXINE 50 MCG TAB PO SCH (05:46)
[2016-10-03 08:07] VITALS: BP 145/77; PULSE 103; TEMP 37; O2SAT 94
[2016-10-03] MEDS: RANITIDINE HCL 150 MG TAB PO SCH (09:39)
[2016-10-03] MEDS: ACETAMINOPHEN 500 MG TAB PO PRN (09:40)
[2016-10-03] MEDS: FERROUS SULFATE 325 MG TAB PO SCH (09:40)
[2016-10-03] MEDS: ASPIRIN 325 MG ECTAB PO SCH (09:40)
[2016-10-03] MEDS: DOCUSATE SODIUM 100 MG CAP PO SCH (09:40)
[2016-10-03] MEDS: INSULIN ASPART 100 UNITS/ML 3 ML PEN SC SCH ×3 (09:47→18:33)
[2016-10-03] MEDS: INSULIN GLARGINE SOLOSTAR 100 UNITS/ML 3 ML PEN SC SCH (09:48)
--- NOTE | 2016-10-03 12:01 | Pharmacy Progress Note ---
Glycemic Control: Progress Nt Date of Service Oct 03, 2016. Scope Glycemic Pharmacist consulted by Dr Feliciano on 09/27/16 for glycemic control and to write orders per [facility] inpatient glycemic control protocol. Objective Accuchecks BSG (last 24hrs): Test 10/02/16 12:21 10/02/16 16:48 10/02/16 20:59 10/03/16 02:06 Bedside Glucose 319 mg/dl (70-90) 227 mg/dl (70-90) 260 mg/dl (70-90) 145 mg/dl (70-90) Test 10/03/16 08:14 Bedside Glucose 182 mg/dl (70-90) HbA1c: Test 09/28/16 06:48 Hemoglobin A1c 8.1 % (4.5-5.6) H Recent Pertinent Medications Outpatient Anti-diabetic Regimen: * Lantus 24 units Q HS * Sitagliptin 25mg Q AM * A1c = 8.1 % 09/28/16 The patient is currently receiving: * Basal insulin: Lantus 16 units every 12 hours; give 1/2 dose (8 units) if BSG less than 110 * Correctional Insulin: Novolog Correction per scale ACHS and at 0200 Goal Range: Low 100 mg/dL - High 140 mg/dL Correction Factor: 20 mg/dL/unit * Prandial insulin: Per carb ratio of 1 unit per 8 grams CHO consumed * Oral Agents: None currently Risk Factors for Insulin Resistance: * Recent Surgery: POD # 5 * Diet: ordered T2DM diet. Tolerating diet well Assessment & Plan ASSESSMENT: 10/01/16 * Glycemic targets not met over the last 24 hours; BSGs have ranged 247-314 * Primary insulin deficit at this time appears to be basal insulin - will continue to titrate up Lantus dose * Post-prandial BSGs remain elevated, however if basal deficit were fixed these BSGs likely would be closer to goal, post-prandial rise was > 50 on several occasions - a more aggressive basal dose was ordered last evening as a result, will follow BSG trend today before increasing prandial dose further 10/02/16 * We are still struggling to achieve glycemic targets * BSGs have ranged 190-327 over the last 24 hours * BSG pattern again suggests basal insulin deficiency; fasting BSG was 269 this AM w/ 27 units of basal on board; will continue to titrate upward * Over the last 24 hrs she has received 61 units of insulin; anticipate total daily requirement to reach our glycemic targets to be 70+ units when tolerating a diet * Basal, correctional and prandial insulin doses will be increased today 10/03/16 * BSGs did respond favorably to yesterday's insulin changes. Last 2 BSGs 140- 180's range * Over the last 24 hrs she has received 76 units of SQ insulin while consuming 3 meals; this is in line with what I had anticipated for her total daily insulin requirement. * Will follow BSG trend today and adjust accordingly. Given recent basal changes would like to avoid going up further today. Prandial dose may still need increased, will follow post-prandial's today. PLAN FOR INPATIENT GLYCEMIC CONTROL: * Continue Lantus 16 units SQ BID; give 1/2 dose (8 units) if BSG less than 110 * Continue correction factor of 20 mg/dl/unit * Continue carb ratio of 1 unit per 8 grams CHO consumed * Continuing goal range of Low 100 mg/dL - High 140 mg/dL * Please note that the plan above was derived based on current level of insulin resistance and hospital stress. These recommendations are appropriate for inpatient admission only. Plan of care upon discharge will need to be reassessed to avoid potential outpatient hypo/hyperglycemia. Thank you.
[2016-10-03] MEDS ORDERED: CLC100 PO (13:05)
[2016-10-03] MEDS ORDERED: MRLP17X PO (13:05)
[2016-10-03] MEDS ORDERED: ACET-1257 PO (13:05)
[2016-10-03] MEDS ORDERED: ASPEC325 PO (13:05)
--- NOTE | 2016-10-03 13:09 | Discharge Instructions ---
Discharge Instructions Admission Reason for Admission: Hip Fracture, Right Discharge Discharge Diagnosis / Problem: Right hip fracture s/p surgery Discharge Goals Goal(s): Decrease discomfort, Improve function Activity Recommendations Activity Level: Assistance Required Therapies: Physical Therapy, Occupational Therapy . Additional Information Patient informed of condition: Yes (dementia) Advance Directives: Yes DNR: Yes Level of Care: Skilled Communicable Disease: No Prognosis: Stable Medeiros Catheter: No Instructions / Follow-Up Instructions / Follow-Up FOLLOWUP WITH FAMILY DOCTOR ONE WEEK ON DISCHARGE FOLLOWUP WITH FAMILY DOCTOR FOR DIABETES FOLLOWUP WITH ORTHOPEDICS DR.BRIAN ROGERS IN ONE WEEK FOR STAPLE REMOVAL([address] [facility], [address], [place] [address] ). TO CONTINUE ASPIRIN 325MG PO TWICE DAILY FOR 5 MORE WEEKS FOR DVT PROPHYLAXIS. Current Hospital Diet Patient's current hospital diet: Diabetes Type 2 Diet Discharge Diet Recommended Diet: Diabetes Type 2 Diet Procedures Procedures Performed: Right Intramedullary nailing, hip Pending Studies Studies pending at discharge: no Physician Orders On Transfer Special Precautions: FALL AND ASPIRATION PRECAUTIONS Vital Signs: EVERY 8HRS Laboratory Results Hemoglobin A1c Test 09/28/16 06:48 Range/Units Estimated Average Glucose 186 mg/dl Hemoglobin A1c 8.1 H 4.5-5.6 % Medical Emergencies . Who to Call and When: Medical Emergencies: If at any time you feel your situation is an emergency, please call 911 immediately. . Non-Emergent Contact Non-Emergency issues call your: Primary Care Provider . . "Provider Documentation" section prepared by Alexis Braga. Core Measure Problem Core Measures: None
[2016-10-03 14:23] VITALS: BP 145/77; PULSE 103; TEMP 37; O2SAT 94
[2016-10-03 15:00] VITALS: BP 128/71; PULSE 108; TEMP 36.5; O2SAT 96
--- NOTE | 2016-10-03 16:50 | Progress Note ---
Internal Med Progress Note Date of Service: Oct 03, 2016. Provider Documentation: SUBJECTIVE: sitting on the chair comfortably and eating lunch ambulated in room with walker afebrile complained of right hip pain in the morning but later subsided daughter in the room and ok for snf placement OBJECTIVE: Vital Signs-as noted below Exam: General-alert and awake . Not in distress ENT-hard of hearing Neck-no neck masses Lungs-cta b/l no wheezing or crackles Heart-s1 and s2 heard, regular rate and rhythm no murmurs Abdomen-soft bowel sounds present non tender no distension Extremities-no edema no erythema s/p right hip surgery Neuro-alert and awake moves extremities Lab data as noted below. ASSESSMENT & PLAN: Right hip fracture Orthopedics consulted s/p intramedullary nail fixation 09/28/16 PT/OT evaluation plan for snf today f/u with orthopedics Acute blood loss anemia 2/2 surgery hb 9.9 To continue iron supplementation CKD stage 4 creatinine around baseline Cr 1.4 today Type 2 diabetes On insulin therapy glycemic pharmacy consulted hba1c 8.1 d/c on home meds f/u with pcp Hypothyroidism On levothyroxine Iron deficiency anemia On iron supplement Discharged to snf Vital Signs: Date Time Temp Pulse Resp B/P Pulse Ox O2 Delivery O2 Flow Rate FiO2 10/03/16 15:00 36.5 108 16 128/71 96 Room Air 10/03/16 14:23 37.0 103 16 94 Room Air 10/03/16 08:07 37.0 103 16 145/77 94 Room Air 10/03/16 07:25 Room Air 10/03/16 04:22 Room Air 10/02/16 23:10 36.8 101 16 153/74 97 Room Air Lab Results: Results Past 24 Hours Test 10/02/16 20:59 10/03/16 02:06 10/03/16 08:14 10/03/16 12:15 Range/Units Bedside Glucose 260 145 182 310 70-90 mg/dl
--- NOTE | 2016-10-03 18:28 | Discharge Summary ---
Discharge Summary Date of Service Oct 03, 2016. Discharge Summary Admission Date: Sep 27, 2016 at 22:33 Discharge Date: Oct 03, 2016 Discharge Disposition: snf facility Principal Diagnosis: RIGHT HIP FRACTURE S/P SURGERY Secondary Diagnoses/Problems: 1) CKD (chronic kidney disease) stage 4, GFR 15-29 ml/min Status: Chronic (2) Dementia Status: Chronic (3) Diabetes mellitus, type II Status: Chronic (4) Hyperlipemia Status: Chronic (5) Hypertension Status: Chronic (6) Hypothyroidism Status: Chronic Procedures: RIGHT HIP FRACTURE: Acute intertrochanteric right hip fracture. Consultations: Orthopedics Medication Reconciliation New Medications: Acetaminophen (Tylenol Extra Strength) 500 Mg Tab 1000 MG PO Q8 PRN for Pain or Fever, #30 TAB Aspirin (Aspirin) 325 Mg Ectab 325 MG PO BID for 35 Days Docusate Sodium (Docusate Sodium) 100 Mg Cap 100 MG PO BID, #60 CAP 1 Refill Polyethylene (Miralax) 17 Gm Pow 17 GM PO DAILY PRN for Constipation, #30 1 Refill Continued Medications: Ferrous Sulfate (Kp Ferrous Sulfate) 325 Mg Tab 325 MG PO DAILY, TAB 3 Refills Insulin Glargine (Lantus Solostar) 100 Unit/Ml Inj 24 UNITS SC HS, PEN Levothyroxine Sodium (Levothyroxine Sodium) 50 Mcg Tab 50 MCG PO QAM Meclizine Hcl (Meclizine Hcl) 25 Mg Tab 1 TAB PO DAILY PRN for Dizziness or Vertigo, TAB Ranitidine (Zantac) 150 Mg Tab 150 MG PO BID, TAB Simvastatin (Zocor) 20 Mg Tab 20 MG PO QPM, 0 Refills Sitagliptin Phosphate (Januvia) 25 Mg Tab 25 MG PO QAM, TAB Admission Information HPI (per Admitting provider): 86 yo F with advanced dementia with wandering and combative behavior who presents to the ER via EMS after a mechanical fall just outside her home this evening. She is here with her daughter/photocopying equipment mechanic whom she lives with and who is providing all the history. The daughter states that her mom was in her normal state of health this evening but was upset because another family member had an outpatient surgery today and she was forced to tag along. Her normal routine was off because of this and she went to sit on the front porch but somehow got off the porch and went walking with her cane. When her daughter went to [place]itza after her, the patient swung her cane around wildly and lost her balance, falling on her R hip. No trauma to other body parts including her head. She has a subsequent R hip fracture. She has no history of heart or lung disease per daughter who states she has had no symptoms lately and frequently takes walks without any issues of shortness of breath or chest pain. She received some morphine in the ER and appears comfortable at this time. Physical Exam (per Admitting): GEN: WNWD, in no acute distress, alert and oriented to name only. Does not know place or time. Can follow some instructions with prompting. HEENT: NC/AT, PERRL, normal sclerae CARDIO: reg rate, S1/2 heard without m/g/r LUNGS: CTA bilaterally, no crackles, rales or wheezes, good diaphragmatic excursion ABD: soft, non-tender, non-distended, no rebound or guarding EXTREMITY: RP and DP palpable 2+ bilat, no LE swelling or edema, extremities are warm and well-perfused NEURO: CN 2-12 grossly intact, could not address sensation, coordination-- limited exam 2/2 advanced dementia MUSC: appears intact at this time, limited exam 2/2 fracture and limited ROM SKIN: warm and dry-did not assess posterior buttocks at this time. Hospital Course Right hip fracture Orthopedics consulted s/p intramedullary nail fixation 09/28/16 PT/OT evaluation plan for snf today f/u with orthopedics Acute blood loss anemia 2/2 surgery hb 9.9 To continue iron supplementation CKD stage 4 creatinine around baseline Cr 1.4 today Type 2 diabetes On insulin therapy glycemic pharmacy consulted hba1c 8.1 d/c on home meds f/u with pcp Hypothyroidism On levothyroxine Iron deficiency anemia On iron supplement Discharged to snf Total time spent on discharge = 40MINUTES This includes examination of the patient, discharge planning, medication reconciliation, and communication with other providers. Discharge Instructions Discharge Instructions Admission Reason for Admission: Hip Fracture, Right Discharge Discharge Diagnosis / Problem: Right hip fracture s/p surgery Discharge Goals Goal(s): Decrease discomfort, Improve function Activity Recommendations Activity Level: Assistance Required Therapies: Physical Therapy, Occupational Therapy . Additional Information Patient informed of condition: Yes (dementia) Advance Directives: Yes DNR: Yes Level of Care: Skilled Communicable Disease: No Prognosis: Stable Medeiros Catheter: No Instructions / Follow-Up Instructions / Follow-Up FOLLOWUP WITH FAMILY DOCTOR ONE WEEK ON DISCHARGE FOLLOWUP WITH FAMILY DOCTOR FOR DIABETES FOLLOWUP WITH ORTHOPEDICS DR.BRIAN ROGERS IN ONE WEEK FOR STAPLE REMOVAL([address], [address], [place] [address] ). TO CONTINUE ASPIRIN 325MG PO TWICE DAILY FOR 5 MORE WEEKS FOR DVT PROPHYLAXIS. Current Hospital Diet Patient's current hospital diet: Diabetes Type 2 Diet Discharge Diet Recommended Diet: Diabetes Type 2 Diet Procedures Procedures Performed: Right Intramedullary nailing, hip Pending Studies Studies pending at discharge: no Physician Orders On Transfer Special Precautions: FALL AND ASPIRATION PRECAUTIONS Vital Signs: EVERY 8HRS Laboratory Results Hemoglobin A1c Test 09/28/16 06:48 Range/Units Estimated Average Glucose 186 mg/dl Hemoglobin A1c 8.1 H 4.5-5.6 % Medical Emergencies . Who to Call and When: Medical Emergencies: If at any time you feel your situation is an emergency, please call 911 immediately. . Non-Emergent Contact Non-Emergency issues call your: Primary Care Provider . . "Provider Documentation" section prepared by Alexis Braga. Core Measure Problem Core Measures: None
[2016-11-27] MEDS ORDERED: ULT50X PO (10:09)
[2016-11-27] MEDS ORDERED: ACET-1138 PO (10:09)
[2016-11-27] MEDS ORDERED: ASPEC325 PO (10:09)
[2016-11-27] MEDS ORDERED: CALCTAB7 PO (10:09)
[2016-11-27] MEDS ORDERED: SNK PO (10:09)
[2017-01-05] MEDS ORDERED: VNCS125 PO (14:00)
== END 2016-10-03 18:45 | DRG 481 ==
LOC: ENRESERVTM → ENRESERVDT → EDBD 18:43 → C.EDB 18:45 → C.MSW 22:33 → EDBEDREQ 22:41
PROVIDERS: ADMIT Hospitalist; ATTEND Internal Medicine
PROC: 0QH606Z Insertion of Intramedullary Internal Fixation Device into Right Upper Femur, Open Approach (ICD-10-PCS; principal; 2016-09-28 07:30)
DX: S72.141A Displaced intertrochanteric fracture of right femur, initial encounter for closed fracture (principal); D62 Acute posthemorrhagic anemia; N18.4 Chronic kidney disease, stage 4 (severe); F03.91 Unspecified dementia, unspecified severity, with behavioral disturbance; Z91.83 Wandering in diseases classified elsewhere; E11.9 Type 2 diabetes mellitus without complications; D50.9 Iron deficiency anemia, unspecified; I12.9 Hypertensive chronic kidney disease with stage 1 through stage 4 chronic kidney disease, or unspecified chronic kidney disease; E03.9 Hypothyroidism, unspecified; E78.5 Hyperlipidemia, unspecified; H91.90 Unspecified hearing loss, unspecified ear; Z79.899 Other long term (current) drug therapy; Z79.4 Long term (current) use of insulin; Z66 Do not resuscitate; Z83.3 Family history of diabetes mellitus; W18.39XA Other fall on same level, initial encounter; Y93.01 Activity, walking, marching and hiking; Y92.008 Other place in unspecified non-institutional (private) residence as the place of occurrence of the external cause; Y99.8 Other external cause status

== ENCOUNTER 2016-10-04 21:10 | Inpatient (IN) | payer OTHER ==
[~2016-10-04] VITALS: Ht 165.1 cm; Wt 62.2 kg
[~2016-10-04 21:10] MED LIST changes: +ACET-1257 PO; +ASPEC325 PO; +CLC100 PO; -Ciprofloxacin PO; -DFL100 PO; -DOCU100C PO; +FERR1TAB13 PO; -FERR220E9 PO; +MECL1TAB42 PO; -MGNO400 PO; -MISCTAB30 PO; +MRLP17X PO; -MULT1TAB22 PO; +ZNTT/150 PO
[2016-10-04] MEDS ORDERED: SODIUM CHLORIDE 0.9% 1000ML 1,000 ML IV STA (22:09)
[2016-10-04 22:32] LABS: BASO % 0.2 %; BASO ABS # 0.03 K/uL (0-0.2); COMPLETE YES; EOS % 4.2 %; HEMATOCRIT 28.1 % (37-47); IG% 0.5 %; LYMPH % 12.9 %; LYMPH ABS # 1.84 K/uL (1.2-3.4); MEAN CELL VOLUME 89.2 fL (80-100); MEAN CORPUSCULAR HEMOGLOBIN 29.8 pg (25-34); MEAN CORPUSCULAR HGB CONC 33.5 g/dl (32-36); MEAN PLATELET VOLUME 9.5 fL (7.4-10.4); MONO % 13.2 %; PLATELET COUNT 430 K/uL (130-400); RED BLOOD COUNT 3.15 M/uL (4.2-5.4); WHITE BLOOD COUNT 14.21 K/uL (4.8-10.8)
[2016-10-04 22:36] LABS: PROTHROMBIN TIME (PATIENT) 10.4 SECONDS (9.0-12.0)
[2016-10-04 22:45] LABS: ALT/SGPT 42 U/L (12-78); AST/SGOT 43 U/L (15-37); BLOOD UREA NITROGEN 39 mg/dl (7-18); BUN/CREATININE RATIO 24.2 (10-20); CALCIUM 8.4 mg/dl (8.5-10.1); CARBON DIOXIDE 27 mmol/L (21-32); CHLORIDE 99 mmol/L (98-107); POTASSIUM 4.3 mmol/L (3.5-5.1); SODIUM 135 mmol/L (136-145)
[2016-10-04 22:46] LABS: GLUCOSE 438 mg/dl (70-99)
[2016-10-04] MEDS ORDERED: NovoLIN-R INSULIN PER UNIT CHARGE SC STA (22:46)
[2016-10-04 22:49] LABS: ALKALINE PHOSPHATASE 91 U/L (45-117)
[2016-10-04 22:55] LABS: BETA-HYDROXYBUTYRATE 0.99 mg/dL (0.2-2.81)
--- NOTE | 2016-10-04 23:01 | DIAGNOSTIC IMAGING REPORT ---
SINGLE VIEW CHEST CLINICAL HISTORY: Gastrointestinal bleeding. FINDINGS: An AP, portable, semierect chest radiograph is compared to study dated 09/27/2016. The examination is moderately degraded by portable technique and patient rotation. The cardiomediastinal silhouette is unremarkable. Chronic interstitial thickening is similar to previous. There is no airspace consolidation or pleural effusion. No pneumothorax is seen. The skeletal structures are osteopenic. The bony thorax is grossly intact. IMPRESSION: No acute cardiopulmonary abnormality. Electronically signed by: Jose Marie M.D. 10/04/2016 11:00 PM Dictated Date/Time: 10/04/2016 10:59 PM
[2016-10-04 23:03] LABS: MAGNESIUM 2.2 mg/dl (1.8-2.4)
--- NOTE | 2016-10-04 23:23 | EMERGENCY ROOM VISIT NOTE ---
History Report prepared by Will: Benjamín Lew Under the Supervision of: Dr. Jose M Camargo D.O. First contact with patient: 22:01 Chief Complaint: GI ASSESSMENT Stated Complaint: ABD PAIN/BLOODY STOOL/ FR [facility] Nursing Triage Summary: Pt arrives ALS from [facility] with reports of blood in stool. Pt here recently with hip fracture and repair 09/28. Staff at [facility] reports patient had bright red blood in stool and clots this evening. Pt is confused at baseline. EMS reports patient's BSG was 544 enroute. Pt received 500 mL of NSS enroute. History of Present Illness The patient is a 86 year old female who presents to the Emergency Room with complaints of an episode of rectal bleeding occurring today. Per the patient's daughter, she fell last week and broke her hip which was repair last week. The staff at [facility] reported bright red blood in her stool today. She had a normal bowel movement yesterday morning which was fine. She had been in rehab from the hip fracture. She has been receiving Tylenol to manage her pain. The patient has dementia and is confused at baseline. Source of History: patient Onset: today Position: other (rectum) Quality: other (rectal bleeding) Timing: other (episode) Note: The patient has hip pain. Review of Systems See HPI for pertinent positives & negatives. A total of 10 systems reviewed and were otherwise negative. Past Medical & Surgical Medical Problems: (1) CKD (chronic kidney disease) stage 4, GFR 15-29 ml/min (2) Dementia (3) Diabetes mellitus, type II (4) Hyperlipemia (5) Hypertension (6) Hypothyroidism Surgical Problems: (1) Status post appendectomy (2) Status post cholecystectomy Family History Cancer Diabetes mellitus Social History Smoking Status: Unknown if Ever Smoked Drug Use: none Marital Status: Housing Status: lives with family Occupation Status: retired Current/Historical Medications Scheduled Aspirin (Aspirin), 325 MG PO BID Docusate Sodium (Docusate Sodium), 100 MG PO BID Ferrous Sulfate (Kp Ferrous Sulfate), 325 MG PO DAILY Insulin Glargine (Lantus Solostar), 24 UNITS SC HS Levothyroxine Sodium (Levothyroxine Sodium), 50 MCG PO QAM Ranitidine (Zantac), 150 MG PO BID Simvastatin (Zocor), 20 MG PO QPM Sitagliptin Phosphate (Januvia), 25 MG PO QAM Scheduled PRN Acetaminophen (Tylenol Extra Strength), 1,000 MG PO Q8 PRN for Pain or Fever Meclizine Hcl (Meclizine Hcl), 1 TAB PO DAILY PRN for Dizziness or Vertigo Polyethylene (Miralax), 17 GM PO DAILY PRN for Constipation Allergies Coded Allergies: Meperidine (Verified Allergy, Mild, 09/27/16) Physical Exam Vital Signs Date Time Temp Pulse Resp B/P Pulse Ox O2 Delivery O2 Flow Rate FiO2 10/04/16 23:19 110 16 135/52 96 Room Air 10/04/16 22:00 105 24 130/61 96 Room Air 10/04/16 21:25 98 Room Air 10/04/16 21:18 105 10/04/16 21:14 36.9 106 26 146/55 98 Room Air Physical Exam CONSTITUTIONAL/VITAL SIGNS: Reviewed / noted above. GENERAL: Non-toxic in appearance. INTEGUMENTARY: Slightly pale. HEAD: Normocephalic. EYES: without scleral icterus or trauma. ENT/OROPHARYNX: clear and moist. LYMPHADENOPATHY/NECK: Is supple without lymphadenopathy or meningismus. RESPIRATORY: Lungs clear and equal. CARDIOVASCULAR: Regular rate and rhythm. GI/ABDOMEN: Soft and nontender. No organomegaly or pulsatile mass. No rebound or guarding. Normal bowel sounds. EXTREMITIES: Warm and well perfused. BACK: No CVA tenderness. NEUROLOGICAL: Intact without focal deficits. PSYCHIATRIC: normal affect. MUSCULOSKELETAL: Normally developed with good muscle tone. RECTAL: Gross blood on rectal exam. Medical Decision & Procedures ER Provider Diagnostic Interpretation: Radiology results are stated below per my review and radiologist interpretation: SINGLE VIEW CHEST FINDINGS: An AP, portable, semierect chest radiograph is compared to study dated 09/27/2016. The examination is moderately degraded by portable technique and patient rotation. The cardiomediastinal silhouette is unremarkable. Chronic interstitial thickening is similar to previous. There is no airspace consolidation or pleural effusion. No pneumothorax is seen. The skeletal structures are osteopenic. The bony thorax is grossly intact. IMPRESSION: No acute cardiopulmonary abnormality. Electronically signed by: Jose Marie M.D. 10/04/2016 11:00 PM Dictated Date/Time: 10/04/2016 10:59 PM Laboratory Results 10/04/16 21:25 Red Blood Count 3.15, Mean Corpuscular Volume 89.2, Mean Corpuscular Hemoglobin 29.8, Mean Corpuscular Hemoglobin Concent 33.5, Mean Platelet Volume 9.5, Neutrophils (%) (Auto) 69.0, Lymphocytes (%) (Auto) 12.9, Monocytes (%) (Auto) 13.2, Eosinophils (%) (Auto) 4.2, Basophils (%) (Auto) 0.2, Neutrophils # (Auto ) 9.79, Lymphocytes # (Auto) 1.84, Monocytes # (Auto) 1.88, Eosinophils # (Auto ) 0.60, Basophils # (Auto) 0.03 10/04/16 21:25 Test 10/04/16 21:24 10/04/16 21:25 10/04/16 22:51 Bedside Glucose 443 mg/dl (70-90) White Blood Count 14.21 K/uL (4.8-10.8) Red Blood Count 3.15 M/uL (4.2-5.4) Hemoglobin 9.4 g/dL (12.0-16.0) Hematocrit 28.1 % (37-47) Mean Corpuscular Volume 89.2 fL (80-100) Mean Corpuscular Hemoglobin 29.8 pg (25-34) Mean Corpuscular Hemoglobin Concent 33.5 g/dl (32-36) Platelet Count 430 K/uL (130-400) Mean Platelet Volume 9.5 fL (7.4-10.4) Neutrophils (%) (Auto) 69.0 % Lymphocytes (%) (Auto) 12.9 % Monocytes (%) (Auto) 13.2 % Eosinophils (%) (Auto) 4.2 % Basophils (%) (Auto) 0.2 % Neutrophils # (Auto) 9.79 K/uL (1.4-6.5) Lymphocytes # (Auto) 1.84 K/uL (1.2-3.4) Monocytes # (Auto) 1.88 K/uL (0.11-0.59) Eosinophils # (Auto) 0.60 K/uL (0-0.5) Basophils # (Auto) 0.03 K/uL (0-0.2) RDW Standard Deviation 49.7 fL (36.4-46.3) RDW Coefficient of Variation 15.5 % (11.5-14.5) Immature Granulocyte % (Auto) 0.5 % Immature Granulocyte # (Auto) 0.07 K/uL (0.00-0.02) Prothrombin Time 10.4 SECONDS (9.0-12.0) Prothromb Time International Ratio 1.0 (0.9-1.1) Activated Partial Thromboplast Time 24.7 SECONDS (21.0-31.0) Partial Thromboplastin Ratio 1.0 Anion Gap 9.0 mmol/L (3-11) Est Creatinine Clear Calc Drug Dose 24.7 ml/min Estimated GFR () 33.5 Estimated GFR (Non- 28.9 BUN/Creatinine Ratio 24.2 (10-20) Calcium Level 8.4 mg/dl (8.5-10.1) Magnesium Level 2.2 mg/dl (1.8-2.4) Total Bilirubin 0.7 mg/dl (0.2-1) Direct Bilirubin 0.2 mg/dl (0-0.2) Aspartate Amino Transf (AST/SGOT) 43 U/L (15-37) Alanine Aminotransferase (ALT/SGPT) 42 U/L (12-78) Alkaline Phosphatase 91 U/L (45-117) Total Creatine Kinase 150 U/L (26-192) Creatine Kinase MB 1.5 ng/ml (0.5-3.6) Creatine Kinase MB Ratio 1.0 (0-3.0) Troponin I < 0.015 ng/ml (0-0.045) Total Protein 6.9 gm/dl (6.4-8.2) Albumin 2.6 gm/dl (3.4-5.0) Lipase 112 U/L (73-393) Beta-Hydroxybutyric Acid 0.99 mg/dL (0.2-2.81) Laboratory results as stated above per my review. Medications Administered Medications (Trade) Dose Ordered Sig/Leigh Ann Route Start Time Stop Time Status Last Admin Dose Admin Sodium Chloride (Nss 1000ml) 1,000 ml @ 150 mls/hr Q6H40M STAT IV 10/04/16 22:09 10/05/16 04:48 10/04/16 22:23 150 MLS/HR Insulin Human Regular (novoLIN-R U-100 PER UNIT) 5 units NOW STAT SC 10/04/16 22:46 10/04/16 22:47 DC 10/04/16 23:13 5 UNITS ECG Indication: other (rectal bleed) Rate (beats per minute): 104 Rhythm: sinus tachycardia Findings: no acute ischemic change, no ectopy ED Course 2201: Previous medical records were reviewed. The patient was evaluated in room B3B. A complete history and physical examination was performed. 2208: Ordered NSS 1,000 ml @ 150 mls/hr IV. 2239: Discussed the patient's case with Dr. Malave. The patient will be evaluated for further treatment and disposition. 2245: Ordered Insulin Human Regular 5 units SC. Medical Decision Differential diagnosis: Etiologies such as diverticulosis, AVM, coagulopathy, colitis, inflammatory bowel disease, malignancy, Gaviota-Dumont tear, esophagitis, peptic ulcer disease , variceal bleed, gastritis, epistaxis, fissure, hemorrhoids, as well as others were entertained. This is an 86-year-old female who presents to the ED with a chief complaint of rectal bleeding. The patient was discharged yesterday after having her right hip fracture repaired. The patient was at a nursing facility for rehabilitation. Tonight they noticed some blood in the bowel movement. There was some clots as well as gross blood. The patient is demented. She provides no additional history. Her vital signs are stable. Her physical exam reveals postsurgical changes of the right femur area. The patient does have gross blood on rectal exam. Her blood work reveals stable hemoglobin at this time. Chemistry panel is also unchanged from baseline. I spoke with the hospice, he will see the patient for further inpatient care and evaluation. An EKG showed a sinus rhythm. Chest x-ray did not show any acute disease. Consults Time Called: [phone] Consulting Physician: Dr. Ananda Gonzales Returned Call: [phone] Discussed the patient's case with Dr. Malave. The patient will be evaluated for further treatment and disposition. Impression Primary Impression: Rectal bleeding Scribe Attestation The scribe's documentation has been prepared under my direction and personally reviewed by me in its entirety. I confirm that the note above accurately reflects all work, treatment, procedures, and medical decision making performed by me. Departure Information Dispostion Being Evaluated By Hospitalist Andrew Laguna M.D. (PCP) Patient Instructions [facility]
[2016-10-04] MEDS ORDERED: METRONIDAZOLE 500MG / 100ML NSS IV STA (23:29)
[2016-10-04] MEDS ORDERED: INSULIN GLARGINE SOLOSTAR 100 UNITS/ML 3 ML PEN SC STA (23:29)
[2016-10-05] MEDS ORDERED: HYDROmorphone INJ 0.5 MG/0.5 ML SYR IV ONE (00:30)
[2016-10-05] MEDS ORDERED: HYDROmorphone INJ 0.5 MG/0.5 ML SYR ONE (00:43)
[2016-10-05] MEDS ORDERED: HALOPERIDOL LACTATE 5 MG/ML 1 ML VIAL IM PRN (01:00)
[2016-10-05] MEDS ORDERED: DEXTROSE 50% 50 ML SYR IV PRN (01:00)
[2016-10-05] MEDS ORDERED: ONDANSETRON INJ 2 MG/ML 2 ML VIAL IV PRN (01:00)
[2016-10-05] MEDS ORDERED: GLUCAGON FOR INJ 1 MG VIAL SQ PRN (01:00)
[2016-10-05] MEDS ORDERED: GLUCOSE 40% GEL 15 GM TUBE PO PRN (01:00)
[2016-10-05] MEDS ORDERED: SODIUM CHLORIDE 0.9% 1000ML 1,000 ML IV ONE (01:00)
[2016-10-05] MEDS ORDERED: NITROGLYCERIN 0.4 MG SL PER TAB CHARGE SL PRN (01:00)
[2016-10-05] MEDS ORDERED: HALOPERIDOL 1 MG TAB PO PRN (01:00)
[2016-10-05] MEDS ORDERED: TRAMADOL HCL 50 MG TAB PO PRN (01:00)
[2016-10-05] MEDS ORDERED: GLUCOSE 10 TABS/TUBE PO PRN (01:00)
[2016-10-05 01:27] VITALS: BP 125/70; PULSE 108; TEMP 36.9; O2SAT 94; BMI 22.1
[2016-10-05] MEDS ORDERED: INSULIN ASPART 100 UNITS/ML 3 ML PEN SC ONE (01:30)
[2016-10-05 04:22] VITALS: BP 126/88; PULSE 101; TEMP 36.8; O2SAT 98
[2016-10-05] MEDS: LEVOTHYROXINE 50 MCG TAB PO SCH (06:19)
[2016-10-05 06:32] LABS: BASO % 0.1 %; BASO ABS # 0.02 K/uL (0-0.2); HEMATOCRIT 25.8 % (37-47); IG% 0.5 %; LYMPH % 16.5 %; LYMPH ABS # 2.63 K/uL (1.2-3.4); MEAN CELL VOLUME 91.5 fL (80-100); MEAN CORPUSCULAR HEMOGLOBIN 30.1 pg (25-34); MEAN CORPUSCULAR HGB CONC 32.9 g/dl (32-36); MEAN PLATELET VOLUME 9.2 fL (7.4-10.4); MONO % 11.2 %; NEUT % 68.7 %; PLATELET COUNT 408 K/uL (130-400); RED BLOOD COUNT 2.82 M/uL (4.2-5.4); WHITE BLOOD COUNT 15.95 K/uL (4.8-10.8)
--- NOTE | 2016-10-05 06:54 | DIAGNOSTIC IMAGING REPORT ---
CT SCAN OF THE ABDOMEN AND PELVIS WITHOUT CONTRAST CLINICAL HISTORY: Generalized abdominal pain and gastrointestinal bleeding. COMPARISON STUDY: No previous studies for comparison. TECHNIQUE: CT scan of the abdomen and pelvis was performed from the lung bases to the proximal femurs. Images are reviewed in the axial, sagittal, and coronal planes. IV contrast was not administered for this examination. CT DOSE: 301.30 mGy.cm FINDINGS: Lower chest: There is mild bibasal interstitial thickening. Liver: The unenhanced liver is normal in size, contour, and attenuation. There is no intrahepatic biliary ductal dilatation. Gallbladder: Contracted versus surgically absent. Spleen: Normal in size and attenuation. Pancreas: Unremarkable. Adrenal glands: Unremarkable. Kidneys: No renal calculi are visualized. There is right-sided hydronephrosis and hydroureter. No obstructing calculi are visualized. Etiology of the hydronephrosis and hydroureters not known. Further workup is advocated. Bowel: There are no transition zones indicate bowel obstruction. There is fecal retention. There is diverticulosis. There are no acute peridiverticular inflammatory changes. The appendix is not visualized with certainty. There are no pericecal inflammatory changes. Peritoneum: There is no intraperitoneal free air or abdominal ascites. There is tiny fat-containing umbilical hernia. Vasculature: The abdominal aorta is normal in course and caliber. Adenopathy: None. Pelvic viscera: The bladder, and pelvic viscera are unremarkable. Skeletal structures: There is an internally fixated right hip fracture. IMPRESSION: 1. No evidence of bowel obstruction. No evidence of free air 2. Colonic diverticulosis. No evidence of acute diverticulitis 3. No evidence of acute appendicitis 4. Unexplained right-sided hydronephrosis and hydroureter. Further workup is advocated. Electronically signed by: Abiel Mcguire M.D. 10/05/2016 6:52 AM Dictated Date/Time: 10/05/2016 6:48 AM
[2016-10-05 06:56] LABS: COMPLETE YES
[2016-10-05 07:04] LABS: BUN/CREATININE RATIO 28.2 (10-20); CALCIUM 8.3 mg/dl (8.5-10.1); CREATININE 1.3 mg/dl (0.60-1.20); POTASSIUM 3.9 mmol/L (3.5-5.1)
--- NOTE | 2016-10-05 07:34 | HISTORY & PHYSICAL EXAMINATION ---
DATE OF ADMISSION: 10/05/2016 PRIMARY CARE DOCTOR: Dr. Ruelas History was obtained from records and patient's daughter. Limited history from the patient secondary to dementia. CHIEF COMPLAINT: Rectal bleeding. HISTORY OF PRESENT ILLNESS: Medical history is significant for dementia, hypertension, hyperlipidemia, DM2 insulin requiring, hx colonic polyps, hemorrhoids; PUD as per daughter. CRI (baseline crea 1.4), chronic anemia (baseline hemoglobin of 9). Recent confinement last week for right hip fracture. Patient underwent surgery. The patient was discharged to [facility] for rehab. Patient was discharged on aspirin 325 twice a day for the next month. Patient also received cefazolin perioperatively. Last night patient was noted to have a bowel movement, initially black with blood clot, foul odor was noted. No emesis. stool later bloody red. Px co of lower abd pain. At the Emergency Room blood sugar was noted to be 443. Regular insulin was given. MEDICAL HISTORY: As above. 2009 colonoscopy showed non thrombosed external hemorrhoids, polyps. 2007 EGD; mild duodenitis. SURGERIES: Hip surgery, appendectomy and cholecystectomy. HOME MEDICATIONS: Include; ferrous sulfate, Lantus, levothyroxine, meclizine, Zantac, Januvia and Zocor. ALLERGIES: TO MEPERIDINE. FAMILY HISTORY: Could not be obtained. PERSONAL AND SOCIAL HISTORY: Nonsmoker. No chronic intake of alcoholic beverages. REVIEW OF SYSTEMS: Could not be reliably obtained. PHYSICAL EXAMINATION: VITAL SIGNS: Blood pressure was noted to be 146/50 pulse rate 106, RR 26, temp 36.9 O2sats 98 on room air. GENERAL: Noted to be demented, in no respiratory distress, anxious, uncomfortable. SKIN: Pallor. HEENT: Pale palpebral conjunctivae. Dry mucosa. NECK: No JVD. supple CHEST: Clear to auscultation. HEART: Tachycardic. ABDOMEN: Minimal hypogastric tenderness. EXTREMITIES: No edema. no tenderness NEUROLOGIC: Demented. LABORATORIES: Hemoglobin 9.4, hematocrit 28, white cell count 14.2, platelets of 430. Sodium noted to be 135, potassium 4.3, chloride 99, CO2 27. BUN 39, creatinine 1.6. Glucose 448 Hemoglobin A1c from September 2016 noted to be 8.1. ASSESSMENT: 1. Sepsis secondary to diarrhea rule out Cdificile colitis. Recent confinement and recent periop antibiotic course 2. LGIB Hemoglobin at baseline. ro cdif (hx hemorrhoids, polyps as per records) ? poss UGIB (stools initially dark as per account), hx PUD as per daughter. px dcd on ASA for DVT prophylaxis post R hip surgery. 3. Hypertension, slightly elevated. 4. DM2, insulin requiring suboptimal control as of recent HgA1c. 5. Dementia as per records 6. ARF on CRI 2 to illness PLAN: PCU hold ASA for now serial HH, transfuse if Hg less than 8 and/or for symptomatic anemia. CS, stool C. dif Flagyl for now for presumptive C.dif. in light of sepsis criteria DC Flagyl if stool cdif negative CT abdomen and pelvis, rectal bleeding. Further management pending CT results. May need GI consult if with significant hemoglobin drop and continued bleeding. continue home H2 ced for UGIB prophylaxis w hx PUD unless w/ overt UGIB s/ sx for which IV PPI should be considered baseline UA, monitor crea response to IVF Basal insulin, ISS BG goal 140-180. Carb count coverage indicated for suboptimal blood sugar control. DVT prophylaxis, SCDs. RE Gi bleed DNR as per patient's daughter/POA, Miss Mady Dang (contact numbers : [phone] and [phone]) [facility]
[2016-10-05] MEDS: FERROUS SULFATE 325 MG TAB PO SCH (07:43)
[2016-10-05] MEDS: METRONIDAZOLE / NSS 500 MG in PREMIXED NSS 100 ML IV SCH ×2 (07:44→16:19)
[2016-10-05] MEDS: INSULIN GLARGINE SOLOSTAR 100 UNITS/ML 3 ML PEN SC SCH ×2 (07:45→21:41)
[2016-10-05] MEDS: INSULIN ASPART 100 UNITS/ML 3 ML PEN SC SCH ×4 (07:46→21:40)
[2016-10-05 07:59] VITALS: BP 120/75; PULSE 104; TEMP 36.6; O2SAT 96
[2016-10-05] MEDS ORDERED: RANITIDINE HCL 150 MG TAB PO SCH (09:00)
[2016-10-05 10:17] VITALS: BMI 22.7
[2016-10-05] MEDS ORDERED: POLYETHYLENE (MIRALAX) 17 GM PACK PO PRN (11:00)
--- NOTE | 2016-10-05 11:04 | Gastrointestinal Consultation ---
Gastrointestinal Consultation Date of Consultation: Oct 05, 2016 Attending Physician: Alexis Braga Consulting Physician: Daisy Whitley Reason for Consultation: GI bleed History of Present Illness Patient is a 86 year old female w PMHx of anemia, DM II, hypothyroidism, hyperlipidemia, hx of gastric ulcers who presented from [facility] [place] rehab for rectal bleeding. She is demented, unable to provide history. History obtained from pt's chart and her daughter (Mady Dang, POA). Pt had a fall and R hip fracture s/p intermedullary nailing by Dr. Mandujano on 09/28/16. She was just discharged a few days ago to [facility]. Her daughter was called last night as rehab staff reported pt having blood clots on BM and then bright red blood. Pt was then taking to ED for evaluation. She had large blood clots from rectum at ED but no more BMs. She denies any abd pain, n/v associated w the rectal bleeding. She does have hx of constipation prior current admission. Was on Colace 100mg BID and Miralax 17g daily prn constipation in rehab. She also was on Zantac 150mg BID for hx of gastric ulcers. She does take ASA 325mg BID for DVT prophylaxis post R hip surgery. Her Hgb prior to surgery was 14, but had been in mid 9s since surgery. Hgb in ED was 9. Today 8.5. She hadn't had any more BMs or rectal bleeding since admission. She was noted to have leukocytosis of WBC 15, but leukocytosis had been present since after her surgery as well. CMP unremarkable except blood sugar in 400s at admission, now 200s. She had CT abd/pelvis w/o contrast w findings of diverticulosis but no diverticulitis, R hydronephrosis hydroureter w/o obvious etiology. She did have prior EGD in 2007 w findings of duodenitis, gastritis, + Hpylori. Colonoscopy in 2007 and 2009 w findings of severe L sided diverticulosis, hemorrhoids, hyperplastic and TVA polyps. Past Medical/Surgical History Medical Problems: (1) Hip fracture, right Status: Acute (2) Rectal bleeding Status: Acute Past Medical History: See above. Past Surgical History: R hip fracture nailing; appendectomy, cholecystectomy Family History Cancer Diabetes mellitus Social History Smoking Status: Unknown if Ever Smoked Drug Use: none Marital Status: Housing Status: lives with family Occupation Status: retired Allergies Coded Allergies: Meperidine (Verified Allergy, Mild, 09/27/16) Current Medications Home Meds and Scripts Medications Dose Route/Sig Max Daily Dose Days Date Category Miralax (Polyethylene) 17 Gm Pow 17 Gm PO DAILY PRN 10/03/16 Rx Docusate Sodium 100 Mg Cap 100 Mg PO BID 10/03/16 Rx Tylenol Extra Strength (Acetaminophen) 500 Mg Tab 1,000 Mg PO Q8 PRN 10/03/16 Rx Aspirin 325 Mg Ectab 325 Mg PO BID 35 10/03/16 Rx Lantus Solostar (Insulin Glargine) 100 Unit/Ml Inj 24 Units SC HS 09/27/16 Reported Kp Ferrous Sulfate (Ferrous Sulfate) 325 Mg Tab 325 Mg PO DAILY 09/27/16 Reported Meclizine Hcl 25 Mg Tab 1 Tab PO DAILY PRN 09/27/16 Reported Zantac (Ranitidine HCl) 150 Mg Tab 150 Mg PO BID 09/27/16 Reported Levothyroxine Sodium 50 Mcg Tab 50 Mcg PO QAM 05/07/14 Reported Januvia (Sitagliptin Phosphate) 25 Mg Tab 25 Mg PO QAM 04/21/14 Reported Zocor (Simvastatin) 20 Mg Tab 20 Mg PO QPM 07/03/11 Reported Review of Systems Constitutional: No fever Respiratory: No shortness of breath Cardiac: No chest pain Abdomen: + GI bleeding, No nausea, No pain, No vomiting Musculoskeletal: + joint pain (R hip pain s/p fracture repair) Physical Exam Date Time Temp Pulse Resp B/P Pulse Ox O2 Delivery O2 Flow Rate FiO2 10/05/16 08:00 Room Air 10/05/16 07:59 36.6 104 18 120/75 96 Room Air 10/05/16 04:22 36.8 101 18 126/88 98 Room Air 10/05/16 04:00 Nasal Cannula 3.0 10/05/16 01:27 36.9 108 20 125/70 94 10/05/16 00:24 36.9 110 16 119/71 94 10/05/16 00:01 108 16 131/67 95 Room Air 10/04/16 23:19 110 16 135/52 96 Room Air 10/04/16 22:00 105 24 130/61 96 Room Air 10/04/16 21:25 98 Room Air 10/04/16 21:18 105 10/04/16 21:14 36.9 106 26 146/55 98 Room Air General Appearance: WD/WN, no apparent distress Respiratory/Chest: no respiratory distress, no accessory muscle use, + decreased breath sounds Cardiovascular: regular rate, rhythm, no gallop, no murmur Abdomen: normal bowel sounds, non tender, soft Extremities: normal inspection, no pedal edema, no calf tenderness Neurologic/Psych: alert, normal mood/affect, oriented x 3 Skin: + pertinent finding (R hip & lateral thigh w ecchymosis, surgical howard in place. ) Laboratory Results Last 24 Hours Test 10/04/16 21:24 10/04/16 21:25 10/04/16 23:36 10/04/16 23:55 Bedside Glucose 443 mg/dl 393 mg/dl White Blood Count 14.21 K/uL Red Blood Count 3.15 M/uL Hemoglobin 9.4 g/dL Hematocrit 28.1 % Mean Corpuscular Volume 89.2 fL Mean Corpuscular Hemoglobin 29.8 pg Mean Corpuscular Hemoglobin Concent 33.5 g/dl Platelet Count 430 K/uL Mean Platelet Volume 9.5 fL Neutrophils (%) (Auto) 69.0 % Lymphocytes (%) (Auto) 12.9 % Monocytes (%) (Auto) 13.2 % Eosinophils (%) (Auto) 4.2 % Basophils (%) (Auto) 0.2 % Neutrophils # (Auto) 9.79 K/uL Lymphocytes # (Auto) 1.84 K/uL Monocytes # (Auto) 1.88 K/uL Eosinophils # (Auto) 0.60 K/uL Basophils # (Auto) 0.03 K/uL RDW Standard Deviation 49.7 fL RDW Coefficient of Variation 15.5 % Immature Granulocyte % (Auto) 0.5 % Immature Granulocyte # (Auto) 0.07 K/uL Prothrombin Time 10.4 SECONDS Prothromb Time International Ratio 1.0 Activated Partial Thromboplast Time 24.7 SECONDS Partial Thromboplastin Ratio 1.0 Sodium Level 135 mmol/L Potassium Level 4.3 mmol/L Chloride Level 99 mmol/L Carbon Dioxide Level 27 mmol/L Anion Gap 9.0 mmol/L Blood Urea Nitrogen 39 mg/dl Creatinine 1.60 mg/dl Est Creatinine Clear Calc Drug Dose 24.7 ml/min Estimated GFR () 33.5 Estimated GFR (Non- 28.9 BUN/Creatinine Ratio 24.2 Random Glucose 438 mg/dl Calcium Level 8.4 mg/dl Magnesium Level 2.2 mg/dl Total Bilirubin 0.7 mg/dl Direct Bilirubin 0.2 mg/dl Aspartate Amino Transf (AST/SGOT) 43 U/L Alanine Aminotransferase (ALT/SGPT) 42 U/L Alkaline Phosphatase 91 U/L Total Creatine Kinase 150 U/L Creatine Kinase MB 1.5 ng/ml Creatine Kinase MB Ratio 1.0 Troponin I < 0.015 ng/ml Total Protein 6.9 gm/dl Albumin 2.6 gm/dl Lipase 112 U/L Beta-Hydroxybutyric Acid 0.99 mg/dL Lactic Acid Level 1.2 mmol/L Test 10/05/16 01:38 10/05/16 05:55 10/05/16 07:03 Bedside Glucose 400 mg/dl 234 mg/dl White Blood Count 15.95 K/uL Red Blood Count 2.82 M/uL Hemoglobin 8.5 g/dL Hematocrit 25.8 % Mean Corpuscular Volume 91.5 fL Mean Corpuscular Hemoglobin 30.1 pg Mean Corpuscular Hemoglobin Concent 32.9 g/dl Platelet Count 408 K/uL Mean Platelet Volume 9.2 fL Neutrophils (%) (Auto) 68.7 % Lymphocytes (%) (Auto) 16.5 % Monocytes (%) (Auto) 11.2 % Eosinophils (%) (Auto) 3.0 % Basophils (%) (Auto) 0.1 % Neutrophils # (Auto) 10.96 K/uL Lymphocytes # (Auto) 2.63 K/uL Monocytes # (Auto) 1.78 K/uL Eosinophils # (Auto) 0.48 K/uL Basophils # (Auto) 0.02 K/uL RDW Standard Deviation 51.6 fL RDW Coefficient of Variation 15.4 % Immature Granulocyte % (Auto) 0.5 % Immature Granulocyte # (Auto) 0.08 K/uL Red Blood Cell Morphology Unremarkable Sodium Level 141 mmol/L Potassium Level 3.9 mmol/L Chloride Level 106 mmol/L Carbon Dioxide Level 27 mmol/L Anion Gap 8.0 mmol/L Blood Urea Nitrogen 37 mg/dl Creatinine 1.30 mg/dl Est Creatinine Clear Calc Drug Dose 28.0 ml/min Estimated GFR () 43.0 Estimated GFR (Non- 37.1 BUN/Creatinine Ratio 28.2 Random Glucose 218 mg/dl Calcium Level 8.3 mg/dl Impression Patient is a 86 year old female who was transferred from rehab after episode of rectal bleeding last evening. Hx of recent R hip fracture s/p intermedullary nailing last week and DC'd on ASA 325mg BID for DVT prophylaxis. No other NSAIDs. She did receive antibx at her last hospitalization. Also hx of Hpylori + , rectal bleeding in 2007 suspected to be diverticular bleed. She does have underlying constipation at baseline. Hgb w/o significant change from her post op state last week. No more rectal bleeding or bloody BMs since admission. Pt denies any n/v, abd pain. Differential diagnoses include: PUD (less likely), diverticular or hemorrhoidal bleeding, infectious colitis though no signs of colitis in CT scan. Plan - Protonix 40mg IV BID - Obtain stool cx, Cdiff, Hpylori stool Ag - Continue bowel regimen from home meds: Colace 100mg BID, Miralax 17g daily prn constipation - Continue Ferrous Sulfate 325mg daily. - Avoid NSAIDs or ASA when possible - Discussed w pt's daughter and POA, Mady Dang, who desires to defer endoscopic evaluations at this time unless pt has more s/s of GI bleeding or significantly worsening anemia. I saw and evaluated the patient. She is unable to provide any historical information due to her underlying dementia. She did present with a history of hematochezia and suspect melena. Given her recent history of hip fracture and use of high-dose nonsteroidals I wonder if she has underlying peptic ulcer disease. At this time the family does not wish for the patient undergo any interventional evaluation. Physical examination Elderly appearing female with no abdominal tenderness Impression Elderly female presenting with hematochezia and melena given her history of nonsteroidal use I would wonder about peptic ulcer disease, another possibility is a diverticular hemorrhage as she does have a history of known diverticulosis. Recommendations Bowel regimen as described above Please use intravenous Protonix as described above If significant rebleeding occurs would consider ordering a GI bleeding scan to try and localize leading to the upper digestive tract or lower digestive tract We are happy to provide endoscopic support should the family wish. Please call with any questions or concerns over the weekend
[2016-10-05 11:59] VITALS: BP 127/66; PULSE 97; TEMP 36.7; O2SAT 91
[2016-10-05 12:24] LABS: HEMATOCRIT 25.6 % (37-47)
[2016-10-05] MEDS: HYDROmorphone INJ 0.5 MG/0.5 ML SYR IV PRN ×2 (13:32→19:35)
[2016-10-05 15:26] VITALS: BP 146/71; PULSE 110; TEMP 36.5; O2SAT 93
[2016-10-05] MEDS: VANCOMYCIN HCL 125 MG/2.5ML SOLN PO SCH ×2 (16:39→21:47)
[2016-10-05] MEDS: RASPBERRY SYRUP 5 ML UDP PO SCH ×2 (16:39→21:47)
--- NOTE | 2016-10-05 18:51 | Progress Note ---
Internal Med Progress Note Date of Service: Oct 05, 2016. Provider Documentation: SUBJECTIVE: resting comfortably no more bloody bowel movements afebrile no sob denies any pain OBJECTIVE: Vital Signs-as noted below Exam: General-alert and awake and oriented. Not in distress ENT-normal hearing Neck-no neck masses Lungs-cta b/l no wheezing or crackles Heart-s1 and s2 heard, regular rate and rhythm no murmurs Abdomen-soft bowel sounds present non tender no distension Extremities-no edema no erythema Neuro-alert and awake moves extremities Lab data as noted below. ASSESSMENT & PLAN: 1. Sepsis secondary to diarrhea c diff on iv Flagyl started on po vancomycin ct scan no colitis. 2. LGIB Hemoglobin at baseline. wason aspirin 325mg bid for dvt px post hip surgery possibly from c diff stopped aspirin hb stable on ppi gi on board will monitor 3. Hypertension, slightly elevated. will monitor. 4. DM2, insulin requiring suboptimal control as of recent HgA1c. Lantus and iss will monitor tightened iss. 5. Dementia as per records 6. ARF on CRI 2 to illness will f/u labs DVT PROPHYLAXIS scds DISPOSITION to be determined Vital Signs: Date Time Temp Pulse Resp B/P Pulse Ox O2 Delivery O2 Flow Rate FiO2 10/05/16 16:00 Room Air 10/05/16 15:26 36.5 110 17 146/71 93 Room Air 10/05/16 12:00 Room Air 10/05/16 11:59 36.7 97 18 127/66 91 Room Air 10/05/16 08:00 Room Air 10/05/16 07:59 36.6 104 18 120/75 96 Room Air 10/05/16 04:22 36.8 101 18 126/88 98 Room Air 10/05/16 04:00 Nasal Cannula 3.0 10/05/16 01:27 36.9 108 20 125/70 94 10/05/16 00:24 36.9 110 16 119/71 94 10/05/16 00:01 108 16 131/67 95 Room Air 10/04/16 23:19 110 16 135/52 96 Room Air 10/04/16 22:00 105 24 130/61 96 Room Air 10/04/16 21:25 98 Room Air 10/04/16 21:18 105 10/04/16 21:14 36.9 106 26 146/55 98 Room Air Lab Results: Results Past 24 Hours Test 10/04/16 21:24 10/04/16 21:25 10/04/16 23:36 10/04/16 23:55 Range/Units Bedside Glucose 443 393 70-90 mg/dl White Blood Count 14.21 4.8-10.8 K/uL Red Blood Count 3.15 4.2-5.4 M/uL Hemoglobin 9.4 12.0-16.0 g/dL Hematocrit 28.1 37-47 % Mean Corpuscular Volume 89.2 80-100 fL Mean Corpuscular Hemoglobin 29.8 25-34 pg Mean Corpuscular Hemoglobin Concent 33.5 32-36 g/dl Platelet Count 430 130-400 K/uL Mean Platelet Volume 9.5 7.4-10.4 fL Neutrophils (%) (Auto) 69.0 % Lymphocytes (%) (Auto) 12.9 % Monocytes (%) (Auto) 13.2 % Eosinophils (%) (Auto) 4.2 % Basophils (%) (Auto) 0.2 % Neutrophils # (Auto) 9.79 1.4-6.5 K/uL Lymphocytes # (Auto) 1.84 1.2-3.4 K/uL Monocytes # (Auto) 1.88 0.11-0.59 K/uL Eosinophils # (Auto) 0.60 0-0.5 K/uL Basophils # (Auto) 0.03 0-0.2 K/uL RDW Standard Deviation 49.7 36.4-46.3 fL RDW Coefficient of Variation 15.5 11.5-14.5 % Immature Granulocyte % (Auto) 0.5 % Immature Granulocyte # (Auto) 0.07 0.00-0.02 K/uL Prothrombin Time 10.4 9.0-12.0 SECONDS Prothromb Time International Ratio 1.0 0.9-1.1 Activated Partial Thromboplast Time 24.7 21.0-31.0 SECONDS Partial Thromboplastin Ratio 1.0 Sodium Level 135 136-145 mmol/L Potassium Level 4.3 3.5-5.1 mmol/L Chloride Level 99 98-107 mmol/L Carbon Dioxide Level 27 21-32 mmol/L Anion Gap 9.0 3-11 mmol/L Blood Urea Nitrogen 39 7-18 mg/dl Creatinine 1.60 0.60-1.20 mg/dl Est Creatinine Clear Calc Drug Dose 24.7 ml/min Estimated GFR () 33.5 Estimated GFR (Non- 28.9 BUN/Creatinine Ratio 24.2 10-20 Random Glucose 438 70-99 mg/dl Calcium Level 8.4 8.5-10.1 mg/dl Magnesium Level 2.2 1.8-2.4 mg/dl Total Bilirubin 0.7 0.2-1 mg/dl Direct Bilirubin 0.2 0-0.2 mg/dl Aspartate Amino Transf (AST/SGOT) 43 15-37 U/L Alanine Aminotransferase (ALT/SGPT) 42 12-78 U/L Alkaline Phosphatase 91 45-117 U/L Total Creatine Kinase 150 26-192 U/L Creatine Kinase MB 1.5 0.5-3.6 ng/ml Creatine Kinase MB Ratio 1.0 0-3.0 Troponin I < 0.015 0-0.045 ng/ml Total Protein 6.9 6.4-8.2 gm/dl Albumin 2.6 3.4-5.0 gm/dl Lipase 112 73-393 U/L Beta-Hydroxybutyric Acid 0.99 0.2-2.81 mg/dL Lactic Acid Level 1.2 0.4-2.0 mmol/L Test 10/05/16 01:38 10/05/16 05:55 10/05/16 07:03 10/05/16 11:06 Range/Units Bedside Glucose 400 234 216 70-90 mg/dl White Blood Count 15.95 4.8-10.8 K/uL Red Blood Count 2.82 4.2-5.4 M/uL Hemoglobin 8.5 12.0-16.0 g/dL Hematocrit 25.8 37-47 % Mean Corpuscular Volume 91.5 80-100 fL Mean Corpuscular Hemoglobin 30.1 25-34 pg Mean Corpuscular Hemoglobin Concent 32.9 32-36 g/dl Platelet Count 408 130-400 K/uL Mean Platelet Volume 9.2 7.4-10.4 fL Neutrophils (%) (Auto) 68.7 % Lymphocytes (%) (Auto) 16.5 % Monocytes (%) (Auto) 11.2 % Eosinophils (%) (Auto) 3.0 % Basophils (%) (Auto) 0.1 % Neutrophils # (Auto) 10.96 1.4-6.5 K/uL Lymphocytes # (Auto) 2.63 1.2-3.4 K/uL Monocytes # (Auto) 1.78 0.11-0.59 K/uL Eosinophils # (Auto) 0.48 0-0.5 K/uL Basophils # (Auto) 0.02 0-0.2 K/uL RDW Standard Deviation 51.6 36.4-46.3 fL RDW Coefficient of Variation 15.4 11.5-14.5 % Immature Granulocyte % (Auto) 0.5 % Immature Granulocyte # (Auto) 0.08 0.00-0.02 K/uL Red Blood Cell Morphology Unremarkable Sodium Level 141 136-145 mmol/L Potassium Level 3.9 3.5-5.1 mmol/L Chloride Level 106 98-107 mmol/L Carbon Dioxide Level 27 21-32 mmol/L Anion Gap 8.0 3-11 mmol/L Blood Urea Nitrogen 37 7-18 mg/dl Creatinine 1.30 0.60-1.20 mg/dl Est Creatinine Clear Calc Drug Dose 28.0 ml/min Estimated GFR () 43.0 Estimated GFR (Non- 37.1 BUN/Creatinine Ratio 28.2 10-20 Random Glucose 218 70-99 mg/dl Calcium Level 8.3 8.5-10.1 mg/dl Test 10/05/16 11:45 10/05/16 12:10 10/05/16 16:22 Range/Units Hemoglobin 8.4 12.0-16.0 g/dL Hematocrit 25.6 37-47 % Bedside Glucose 364 70-90 mg/dl Microbiology Results 10/04/16 Blood Culture, Received Pending 10/04/16 Blood Culture, Received Pending 10/05/16 Shiga Toxin Test, Received Pending 10/05/16 Stool Culture, Received Pending 10/05/16 C.difficile Toxin B Gene (PCR) - Final, Complete Positive for C. difficile toxin B gene
[2016-10-05] MEDS ORDERED: D5W AND NSS 1,000 ML IV SCH (19:00)
[2016-10-05 19:33] VITALS: BP 132/66; PULSE 103; TEMP 36.5; O2SAT 95
[2016-10-05] MEDS: SODIUM CHLORIDE 0.9% 1000ML 1,000 ML IV SCH (19:35)
[2016-10-05] MEDS ORDERED: DOCUSATE SODIUM 100 MG/10 ML UDC PO SCH (21:00)
[2016-10-05] MEDS: PANTOprazole INJ 40 MG in SYRINGE 0 ML IV SCH (21:46)
[2016-10-05] MEDS: SIMVASTATIN 20 MG TAB PO SCH (21:47)
[2016-10-06] VITALS (16 sets, daily range): BP systolic 127–160; BP diastolic 57–76; PULSE 78–107; TEMP 36.4–37.2; O2SAT 94–98
[2016-10-06] MEDS: METRONIDAZOLE / NSS 500 MG in PREMIXED NSS 100 ML IV SCH ×4 (00:29→23:36)
[2016-10-06] MEDS: LEVOTHYROXINE 50 MCG TAB PO SCH (05:58)
[2016-10-06 06:58] LABS: BASO % 0.1 %; BASO ABS # 0.02 K/uL (0-0.2); EOS % 3.9 %; HEMATOCRIT 23.5 % (37-47); IG% 0.6 %; LYMPH % 24.7 %; LYMPH ABS # 4.04 K/uL (1.2-3.4); MEAN CELL VOLUME 91.1 fL (80-100); MEAN CORPUSCULAR HEMOGLOBIN 29.5 pg (25-34); MEAN CORPUSCULAR HGB CONC 32.3 g/dl (32-36); MEAN PLATELET VOLUME 8.8 fL (7.4-10.4); MONO % 10.1 %; NEUT % 60.6 %; PLATELET COUNT 459 K/uL (130-400); RED BLOOD COUNT 2.58 M/uL (4.2-5.4); WHITE BLOOD COUNT 16.36 K/uL (4.8-10.8)
[2016-10-06] MEDS: INSULIN ASPART 100 UNITS/ML 3 ML PEN SC SCH ×4 (07:00→21:07)
[2016-10-06 07:25] LABS: BUN/CREATININE RATIO 24.7 (10-20); CALCIUM 8.2 mg/dl (8.5-10.1); CREATININE 1.2 mg/dl (0.60-1.20); MAGNESIUM 1.9 mg/dl (1.8-2.4); POTASSIUM 3.9 mmol/L (3.5-5.1)
[2016-10-06 07:26] LABS: COMPLETE YES; POLYCHROMASIA 1+
[2016-10-06] MEDS: VANCOMYCIN HCL 125 MG/2.5ML SOLN PO SCH (08:58)
[2016-10-06] MEDS: RASPBERRY SYRUP 5 ML UDP PO SCH ×4 (08:58→20:45)
[2016-10-06] MEDS: FERROUS SULFATE 325 MG TAB PO SCH (08:58)
[2016-10-06] MEDS: PANTOprazole INJ 40 MG in SYRINGE 0 ML IV SCH ×2 (08:59→20:45)
[2016-10-06] MEDS: INSULIN GLARGINE SOLOSTAR 100 UNITS/ML 3 ML PEN SC SCH ×2 (09:02→21:08)
[2016-10-06] MEDS ORDERED: ACETAMINOPHEN 500 MG TAB PO SCH (10:00)
[2016-10-06] MEDS: VANCOMYCIN HCL 250 MG/5 ML SOLN PO SCH ×3 (13:00→20:46)
--- NOTE | 2016-10-06 14:00 | Urology Consultation ---
History General Date of Service: Oct 06, 2016. Chief Complaint: right hydronephrosis Primary Care Physician: Andrew Mcneil M.D. Pt seen a urologist before?: No History of Present Illness I am asked by Dr Braga to evaluate and treat patient for right hydronephrosis. She is admitted with acute lower GI bleed with anemia. She was admitted here from rehab where she was sent after surgical repair of right hip fracture. She had CT scan at admission which incidentally found moderate right hydroureteronephrosis. Patient reports no renal colic. I dont have any available older imaging to compare to determine chronicity of this hydro. Her creatinine was elevated at admission and trending down with fluids. Imaging Imaging: CT Laboratory Results Past 24 Hours Test 10/05/16 16:22 10/05/16 20:45 10/06/16 06:20 10/06/16 06:40 Range/Units Bedside Glucose 364 260 107 70-90 mg/dl White Blood Count 16.36 4.8-10.8 K/uL Red Blood Count 2.58 4.2-5.4 M/uL Hemoglobin 7.6 12.0-16.0 g/dL Hematocrit 23.5 37-47 % Mean Corpuscular Volume 91.1 80-100 fL Mean Corpuscular Hemoglobin 29.5 25-34 pg Mean Corpuscular Hemoglobin Concent 32.3 32-36 g/dl Platelet Count 459 130-400 K/uL Mean Platelet Volume 8.8 7.4-10.4 fL Neutrophils (%) (Auto) 60.6 % Lymphocytes (%) (Auto) 24.7 % Monocytes (%) (Auto) 10.1 % Eosinophils (%) (Auto) 3.9 % Basophils (%) (Auto) 0.1 % Neutrophils # (Auto) 9.92 1.4-6.5 K/uL Lymphocytes # (Auto) 4.04 1.2-3.4 K/uL Monocytes # (Auto) 1.65 0.11-0.59 K/uL Eosinophils # (Auto) 0.64 0-0.5 K/uL Basophils # (Auto) 0.02 0-0.2 K/uL RDW Standard Deviation 52.5 36.4-46.3 fL RDW Coefficient of Variation 16.0 11.5-14.5 % Immature Granulocyte % (Auto) 0.6 % Immature Granulocyte # (Auto) 0.09 0.00-0.02 K/uL Polychromasia 1+ Sodium Level 144 136-145 mmol/L Potassium Level 3.9 3.5-5.1 mmol/L Chloride Level 109 98-107 mmol/L Carbon Dioxide Level 26 21-32 mmol/L Anion Gap 9.0 3-11 mmol/L Blood Urea Nitrogen 30 7-18 mg/dl Creatinine 1.20 0.60-1.20 mg/dl Est Creatinine Clear Calc Drug Dose 30.3 ml/min Estimated GFR () 47.4 Estimated GFR (Non- 40.9 BUN/Creatinine Ratio 24.7 10-20 Random Glucose 103 70-99 mg/dl Calcium Level 8.2 8.5-10.1 mg/dl Magnesium Level 1.9 1.8-2.4 mg/dl Test 10/06/16 11:28 Range/Units Bedside Glucose 221 70-90 mg/dl Labs were reviewed and are within normal limits unless listed below. Labs are available in the chart and at [facility] [place] Problem List Medical Problems: (1) Hip fracture, right Status: Acute (2) Rectal bleeding Status: Acute Past History diverticulosis, hypertension, other (anemia, dementia, ) Past Surgical History: cholecystectomy, hysterectomy Family History Cancer Diabetes mellitus not contributory at her age Social History Hx Tobacco Use In Past Year?: No Smoking: non-smoker Alcohol: never Marital status: , Housing status: lives with family, alf Occupation status: retired Immunizations History of Influenza Vaccine: Yes Influenza Vaccine Date: May 02, 2016 History of Tetanus Vaccine?: Yes Tetanus Immunization Date: Jun 16, 2013 History of Pneumococcal: Yes Pneumococcal Date: Oct 26, 2015 History of Hepatitis B Vaccine: Unknown History of MDRO No Allergies Coded Allergies: Meperidine (Verified Allergy, Mild, 09/27/16) Medications Home Medications: Home Meds and Scripts Medications Dose Route/Sig Max Daily Dose Days Date Category Miralax (Polyethylene) 17 Gm Pow 17 Gm PO DAILY PRN 10/03/16 Rx Docusate Sodium 100 Mg Cap 100 Mg PO BID 10/03/16 Rx Tylenol Extra Strength (Acetaminophen) 500 Mg Tab 1,000 Mg PO Q8 PRN 10/03/16 Rx Aspirin 325 Mg Ectab 325 Mg PO BID 35 10/03/16 Rx Lantus Solostar (Insulin Glargine) 100 Unit/Ml Inj 24 Units SC HS 09/27/16 Reported Kp Ferrous Sulfate (Ferrous Sulfate) 325 Mg Tab 325 Mg PO DAILY 09/27/16 Reported Meclizine Hcl 25 Mg Tab 1 Tab PO DAILY PRN 09/27/16 Reported Zantac (Ranitidine HCl) 150 Mg Tab 150 Mg PO BID 09/27/16 Reported Levothyroxine Sodium 50 Mcg Tab 50 Mcg PO QAM 05/07/14 Reported Januvia (Sitagliptin Phosphate) 25 Mg Tab 25 Mg PO QAM 04/21/14 Reported Zocor (Simvastatin) 20 Mg Tab 20 Mg PO QPM 07/03/11 Reported Inpatient Medications: Current Inpatient Medications Medications (Trade) Dose Ordered Sig/Leigh Ann Route Start Time Stop Time Status Last Admin Dose Admin Hydromorphone HCl (Dilaudid Inj) 0.5 mg Q3H PRN IV 10/05/16 00:30 10/19/16 00:29 10/05/16 19:35 0.5 MG Acetaminophen (Tylenol Tab) 650 mg Q4H PRN PO 10/05/16 01:00 11/04/16 00:59 Nitroglycerin (Nitrostat Tab) 0.4 mg UD PRN SL 10/05/16 01:00 11/04/16 00:59 Insulin Aspart (novoLOG ASPART) SLIDING SCALE If C... ACHS SC 10/05/16 07:00 11/04/16 06:59 10/06/16 11:52 3 UNITS Glucose (Glucose 40% Gel) 15-30 GRAMS 15 GRAMS... UD PRN PO 10/05/16 01:00 11/04/16 00:59 Glucose (Glucose Chew Tab) 4-8 Tablets 4 Tabl... UD PRN PO 10/05/16 01:00 11/04/16 00:59 Dextrose (Dextrose 50% 50ML Syringe) 25-50ML OF 50% DW IV FOR... UD PRN IV 10/05/16 01:00 11/04/16 00:59 Glucagon (Glucagon Inj) 1 mg UD PRN SQ 10/05/16 01:00 11/04/16 00:59 Tramadol HCl (Ultram Tab) 25 mg Q6H PRN PO 10/05/16 01:00 11/04/16 00:59 10/05/16 11:36 25 MG Ondansetron HCl (Zofran Inj) 4 mg Q6H PRN IV 10/05/16 01:00 11/04/16 00:59 Haloperidol Lactate (Haldol Inj) 2 mg Q2H PRN IM 10/05/16 01:00 11/04/16 00:59 Haloperidol (Haldol Tab) 2 mg Q4H PRN PO 10/05/16 01:00 11/04/16 00:59 Levothyroxine Sodium (Synthroid Tab) 50 mcg DAILYBB PO 10/05/16 06:00 11/04/16 05:59 10/06/16 05:58 50 MCG Simvastatin (Zocor Tab) 20 mg QPM PO 10/05/16 21:00 11/04/16 20:59 10/05/16 21:47 20 MG Ferrous Sulfate 325 mg 325 mg DAILY PO 10/05/16 09:00 11/04/16 08:59 10/06/16 08:58 325 MG Metronidazole/Prmx (Flagyl / Nss/ Premixed Nss) 100 ml @ 100 mls/hr Q8H IV 10/05/16 08:00 10/15/16 07:59 10/06/16 08:59 100 MLS/HR Insulin Glargine 10 unit 10 unit BID SC 10/05/16 09:00 11/04/16 08:59 10/06/16 09:02 10 UNIT Pantoprazole Sodium/Syringe (Protonix Inj/ Syringe) 10 ml @ 5 mls/min DAILY@09,21 IV 10/05/16 21:00 11/04/16 20:59 10/06/16 08:59 5 MLS/MIN Polyethylene (Miralax Powder Packet) 17 gm DAILY PRN PO 10/05/16 11:00 11/04/16 10:59 Raspberry 5 ml 5 ml QID PO 10/05/16 17:00 10/19/16 16:59 10/06/16 08:58 5 ML Sodium Chloride (Nss 1000ml) 1,000 ml @ 50 mls/hr Q20H IV 10/05/16 19:00 11/04/16 18:59 10/05/16 19:35 50 MLS/HR Acetaminophen (Tylenol Tab) 500 mg TODAY@1000 PO 10/06/16 10:00 10/06/16 18:00 10/06/16 10:54 500 MG Vancomycin HCl (Vancomycin Oral Soln) 250 mg QID PO 10/06/16 13:00 10/20/16 12:59 Review of Systems Review of Systems Constitutional: No fever Endocrine: No excessive thirst Gastrointestinal: + diarrhea, No abdominal pain, No indigestion Cardiovascular: No chest pain, No swelling ankles/feet Female : + leaking urine, No frequent urination Physical Exam Vital Signs: Vital Signs Past 12 Hours Date Time Temp Pulse Resp B/P Pulse Ox O2 Delivery O2 Flow Rate FiO2 10/06/16 12:35 36.7 97 20 149/68 96 10/06/16 11:47 36.7 98 20 128/66 98 10/06/16 11:30 Room Air 10/06/16 11:22 37.0 90 20 137/62 97 10/06/16 11:06 36.7 78 20 149/71 96 10/06/16 07:30 Room Air 10/06/16 07:29 36.8 98 18 145/71 94 Room Air 10/06/16 04:01 36.4 100 17 131/60 98 Room Air 10/06/16 04:00 Room Air Physical Exam: General Appearance: WD/WN, no apparent distress, + obese Eyes: bilateral eyes normal inspection ENT: + pertinent finding (hard of hearing) Neck: no adenopathy, no JVD, trachea midline Respiratory/Chest: normal breath sounds, no respiratory distress, no accessory muscle use Gastrointestinal: Abdomen: normal abdomen Bladder: normal bladder Renal: normal renal Hernia: absent hernia Genitourinary - Female: External Genitalia: normal external genitalia Urethral Meatus: normal urethral meatus Urethra: normal urethra Bladder: normal bladder Vagina: normal vagina (no significant prolapse given the limited exam due to inability to adduct right hip and sitting in hospital bed. ) Extremities: non-tender, normal inspection, no pedal edema, no calf tenderness , + pertinent finding (normla on left, the right thigh has an old greenish fading bruise and right hip has very limited mobility) Neurologic/Psychiatric: alert, + disoriented (she does not answer all questions and asks why she cant go home.) Skin: normal color, warm/dry, no rash Assessment & Plan Assessment & Plan right hydronephrosis Unknown if new or chronic not symptomatic from a pain or infection standpoint I do not recommend any further evaluation at this time. I looked at CT scan and see no evidence of ureteral mass or stone within the limits of a non contrast study. I need to speak with her family about this further. I tried number listed for daughter and got only answering machine. I did not leave message. I do not feel she has any dangerous amount of urinary retention. At this age an above average residual urine is to be expected.
[2016-10-06] MEDS: SODIUM CHLORIDE 0.9% 1000ML 1,000 ML IV SCH (15:03)
--- NOTE | 2016-10-06 19:23 | Progress Note ---
Internal Med Progress Note Date of Service: Oct 06, 2016. Provider Documentation: SUBJECTIVE: resting comfortably weak and tired poor appetite afebrile mild smear of blood on wipes but no obvious bleeding OBJECTIVE: Vital Signs-as noted below Exam: General-alert and awake . Not in distress ENT-normal hearing Neck-no neck masses Lungs-cta b/l no wheezing or crackles Heart-s1 and s2 heard, regular rate and rhythm no murmurs Abdomen-soft bowel sounds present non tender no distension Extremities-no edema no erythema Neuro-alert and awake moves extremities Lab data as noted below. ASSESSMENT & PLAN: 1. Sepsis secondary to diarrhea c diff on iv Flagyl started on po vancomycin ct scan no colitis. gentle fluids continue same f/u labs 2. LGIB Hemoglobin at baseline. wason aspirin 325mg bid for dvt px post hip surgery possibly from c diff stopped aspirin hb dropped to 7.6 today transfusing two units of prbc today on ppi gi on board will monitor 3. Hypertension, slightly elevated. will monitor. 4. DM2, insulin requiring suboptimal control as of recent HgA1c. Lantus and iss will monitor tightened iss. will monitor 5. Dementia as per records 6. ARF on CRI 2 to illness will f/u labs resolved 7. Right sided hydronephrosis etiology unknown appreciate urology inputs DVT PROPHYLAXIS scds DISPOSITION to be determined Vital Signs: Date Time Temp Pulse Resp B/P Pulse Ox O2 Delivery O2 Flow Rate FiO2 10/06/16 19:08 36.6 93 22 154/65 97 Room Air 10/06/16 16:48 36.7 98 16 146/57 98 10/06/16 15:52 36.7 93 18 136/72 96 Room Air 10/06/16 15:02 36.7 98 16 160/72 98 10/06/16 14:30 37.2 99 16 136/73 98 10/06/16 14:15 37.2 101 16 140/76 96 10/06/16 14:11 37.1 101 16 137/75 96 10/06/16 13:35 36.7 98 16 127/74 98 10/06/16 12:35 36.7 97 20 149/68 96 10/06/16 11:47 36.7 98 20 128/66 98 10/06/16 11:30 Room Air 10/06/16 11:22 37.0 90 20 137/62 97 10/06/16 11:06 36.7 78 20 149/71 96 10/06/16 07:30 Room Air 10/06/16 07:29 36.8 98 18 145/71 94 Room Air 10/06/16 04:01 36.4 100 17 131/60 98 Room Air 10/06/16 04:00 Room Air 10/06/16 00:20 36.8 107 18 147/70 98 Room Air 10/06/16 00:00 Room Air 10/05/16 20:00 Room Air 10/05/16 19:33 36.5 103 22 132/66 95 Room Air Lab Results: Results Past 24 Hours Test 10/05/16 20:45 10/06/16 06:20 10/06/16 06:40 10/06/16 11:28 Range/Units Bedside Glucose 260 107 221 70-90 mg/dl White Blood Count 16.36 4.8-10.8 K/uL Red Blood Count 2.58 4.2-5.4 M/uL Hemoglobin 7.6 12.0-16.0 g/dL Hematocrit 23.5 37-47 % Mean Corpuscular Volume 91.1 80-100 fL Mean Corpuscular Hemoglobin 29.5 25-34 pg Mean Corpuscular Hemoglobin Concent 32.3 32-36 g/dl Platelet Count 459 130-400 K/uL Mean Platelet Volume 8.8 7.4-10.4 fL Neutrophils (%) (Auto) 60.6 % Lymphocytes (%) (Auto) 24.7 % Monocytes (%) (Auto) 10.1 % Eosinophils (%) (Auto) 3.9 % Basophils (%) (Auto) 0.1 % Neutrophils # (Auto) 9.92 1.4-6.5 K/uL Lymphocytes # (Auto) 4.04 1.2-3.4 K/uL Monocytes # (Auto) 1.65 0.11-0.59 K/uL Eosinophils # (Auto) 0.64 0-0.5 K/uL Basophils # (Auto) 0.02 0-0.2 K/uL RDW Standard Deviation 52.5 36.4-46.3 fL RDW Coefficient of Variation 16.0 11.5-14.5 % Immature Granulocyte % (Auto) 0.6 % Immature Granulocyte # (Auto) 0.09 0.00-0.02 K/uL Polychromasia 1+ Sodium Level 144 136-145 mmol/L Potassium Level 3.9 3.5-5.1 mmol/L Chloride Level 109 98-107 mmol/L Carbon Dioxide Level 26 21-32 mmol/L Anion Gap 9.0 3-11 mmol/L Blood Urea Nitrogen 30 7-18 mg/dl Creatinine 1.20 0.60-1.20 mg/dl Est Creatinine Clear Calc Drug Dose 30.3 ml/min Estimated GFR () 47.4 Estimated GFR (Non- 40.9 BUN/Creatinine Ratio 24.7 10-20 Random Glucose 103 70-99 mg/dl Calcium Level 8.2 8.5-10.1 mg/dl Magnesium Level 1.9 1.8-2.4 mg/dl Test 10/06/16 15:57 Range/Units Bedside Glucose 213 70-90 mg/dl
[2016-10-06] MEDS: SIMVASTATIN 20 MG TAB PO SCH (20:47)
[2016-10-06] MEDS: HYDROmorphone INJ 0.5 MG/0.5 ML SYR IV PRN (20:49)
[2016-10-07] MEDS: HYDROmorphone INJ 0.5 MG/0.5 ML SYR IV PRN (03:48)
[2016-10-07 03:57] VITALS: PULSE 104; TEMP 36.9; O2SAT 97
[2016-10-07] MEDS: LEVOTHYROXINE 50 MCG TAB PO SCH (06:32)
[2016-10-07 07:19] LABS: BASO % 0.1 %; BASO ABS # 0.02 K/uL (0-0.2); COMPLETE YES; HEMATOCRIT 33.7 % (37-47); IG% 0.7 %; LYMPH % 20.3 %; LYMPH ABS # 3.06 K/uL (1.2-3.4); MEAN CELL VOLUME 88.2 fL (80-100); MEAN CORPUSCULAR HEMOGLOBIN 30.4 pg (25-34); MEAN CORPUSCULAR HGB CONC 34.4 g/dl (32-36); MEAN PLATELET VOLUME 8.7 fL (7.4-10.4); MONO % 11.1 %; NEUT % 65.8 %; PLATELET COUNT 411 K/uL (130-400); RED BLOOD COUNT 3.82 M/uL (4.2-5.4); WHITE BLOOD COUNT 15.07 K/uL (4.8-10.8)
[2016-10-07 07:30] LABS: BUN/CREATININE RATIO 20.8 (10-20); CALCIUM 8.4 mg/dl (8.5-10.1); CREATININE 1.1 mg/dl (0.60-1.20); MAGNESIUM 1.7 mg/dl (1.8-2.4); POTASSIUM 3.8 mmol/L (3.5-5.1)
[2016-10-07 07:50] VITALS: BP 161/69; PULSE 102; TEMP 36.9; O2SAT 96
[2016-10-07] MEDS ORDERED: MAGNESIUM SULFATE 1GM / D5W 1 GM in PREMIXED IN D5W 100 ML IV ONE (08:15)
[2016-10-07] MEDS: VANCOMYCIN HCL 250 MG/5 ML SOLN PO SCH ×4 (09:04→22:41)
[2016-10-07] MEDS: RASPBERRY SYRUP 5 ML UDP PO SCH ×4 (09:04→22:41)
[2016-10-07] MEDS: PANTOprazole INJ 40 MG in SYRINGE 0 ML IV SCH ×2 (09:05→21:24)
[2016-10-07] MEDS: INSULIN ASPART 100 UNITS/ML 3 ML PEN SC SCH ×4 (09:09→21:33)
[2016-10-07] MEDS: FERROUS SULFATE 325 MG TAB PO SCH (09:09)
[2016-10-07] MEDS: INSULIN GLARGINE SOLOSTAR 100 UNITS/ML 3 ML PEN SC SCH (09:09)
[2016-10-07] MEDS: SODIUM CHLORIDE 0.9% 1000ML 1,000 ML IV SCH (11:18)
[2016-10-07] MEDS: METRONIDAZOLE / NSS 500 MG in PREMIXED NSS 100 ML IV SCH ×3 (11:18→23:45)
[2016-10-07 11:53] VITALS: BP 146/74; PULSE 97; TEMP 37; O2SAT 96
[2016-10-07 14:30] VITALS: BP 146/74; PULSE 97; TEMP 37; O2SAT 96
[2016-10-07 16:20] VITALS: BP 125/69; PULSE 91; TEMP 36.9; O2SAT 94
--- NOTE | 2016-10-07 18:59 | Progress Note ---
Internal Med Progress Note Date of Service: Oct 07, 2016. Provider Documentation: SUBJECTIVE: sitting on the chair comfortably no more episodes of gi bleeding eating better feeling better afebrile OBJECTIVE: Vital Signs-as noted below Exam: General-alert and awake . Not in distress ENT-normal hearing Neck-no neck masses Lungs-cta b/l no wheezing or crackles Heart-s1 and s2 heard, regular rate and rhythm no murmurs Abdomen-soft bowel sounds present non tender no distension Extremities-no edema no erythema Neuro-alert and awake moves extremities Lab data as noted below. ASSESSMENT & PLAN: 1. Sepsis secondary to diarrhea c diff on iv Flagyl started on po vancomycin ct scan no colitis. gentle fluids continue same advance diet to soft diet f/u labs improving 2. LGIB Hemoglobin at baseline. wason aspirin 325mg bid for dvt px post hip surgery possibly from c diff stopped aspirin hb dropped to 7.6 10/06/16 s/p two units of prbc on ppi hb 11.6 today gi on board will monitor 3. Hypertension, slightly elevated. will monitor. 4. DM2, insulin requiring suboptimal control as of recent HgA1c. Lantus and iss will monitor tightened iss. will monitor 5. Dementia as per records 6. ARF on CRI 2 to illness will f/u labs resolved 7. Right sided hydronephrosis etiology unknown appreciate urology inputs DVT PROPHYLAXIS scds DISPOSITION transfer to medical floor pt/ot to be determined Vital Signs: Date Time Temp Pulse Resp B/P Pulse Ox O2 Delivery O2 Flow Rate FiO2 10/07/16 16:20 36.9 91 18 125/69 94 Room Air 10/07/16 14:30 37.0 97 20 96 3.0 10/07/16 11:53 37.0 97 20 146/74 96 Room Air 10/07/16 11:30 Room Air 10/07/16 07:50 36.9 102 20 161/69 96 Room Air 10/07/16 07:30 Room Air 10/07/16 04:00 Room Air 10/07/16 03:57 36.9 104 17 97 Room Air 10/06/16 23:46 Room Air 10/06/16 23:36 36.9 104 18 138/72 97 Room Air 10/06/16 20:00 Room Air 10/06/16 19:08 36.6 93 22 154/65 97 Room Air Lab Results: Results Past 24 Hours Test 10/06/16 20:09 10/07/16 06:40 10/07/16 06:48 10/07/16 10:55 Range/Units Bedside Glucose 156 142 278 70-90 mg/dl White Blood Count 15.07 4.8-10.8 K/uL Red Blood Count 3.82 4.2-5.4 M/uL Hemoglobin 11.6 12.0-16.0 g/dL Hematocrit 33.7 37-47 % Mean Corpuscular Volume 88.2 80-100 fL Mean Corpuscular Hemoglobin 30.4 25-34 pg Mean Corpuscular Hemoglobin Concent 34.4 32-36 g/dl Platelet Count 411 130-400 K/uL Mean Platelet Volume 8.7 7.4-10.4 fL Neutrophils (%) (Auto) 65.8 % Lymphocytes (%) (Auto) 20.3 % Monocytes (%) (Auto) 11.1 % Eosinophils (%) (Auto) 2.0 % Basophils (%) (Auto) 0.1 % Neutrophils # (Auto) 9.91 1.4-6.5 K/uL Lymphocytes # (Auto) 3.06 1.2-3.4 K/uL Monocytes # (Auto) 1.68 0.11-0.59 K/uL Eosinophils # (Auto) 0.30 0-0.5 K/uL Basophils # (Auto) 0.02 0-0.2 K/uL RDW Standard Deviation 49.4 36.4-46.3 fL RDW Coefficient of Variation 15.7 11.5-14.5 % Immature Granulocyte % (Auto) 0.7 % Immature Granulocyte # (Auto) 0.10 0.00-0.02 K/uL Sodium Level 140 136-145 mmol/L Potassium Level 3.8 3.5-5.1 mmol/L Chloride Level 107 98-107 mmol/L Carbon Dioxide Level 24 21-32 mmol/L Anion Gap 9.0 3-11 mmol/L Blood Urea Nitrogen 23 7-18 mg/dl Creatinine 1.10 0.60-1.20 mg/dl Est Creatinine Clear Calc Drug Dose 33.0 ml/min Estimated GFR () 52.6 Estimated GFR (Non- 45.4 BUN/Creatinine Ratio 20.8 10-20 Random Glucose 155 70-99 mg/dl Calcium Level 8.4 8.5-10.1 mg/dl Magnesium Level 1.7 1.8-2.4 mg/dl Test 10/07/16 16:28 Range/Units Bedside Glucose 174 70-90 mg/dl
[2016-10-07] MEDS ORDERED: INSULIN GLARGINE SOLOSTAR 100 UNITS/ML 3 ML PEN SC ONE (20:59)
[2016-10-07] MEDS: SIMVASTATIN 20 MG TAB PO SCH (21:50)
[2016-10-07] MEDS: ACETAMINOPHEN 325 MG TAB PO PRN (21:51)
[2016-10-07 23:18] VITALS: BP 146/76; PULSE 100; TEMP 37.2; O2SAT 96
[2016-10-08] VITALS (7 sets, daily range): BP systolic 119–160; BP diastolic 61–77; PULSE 99–110; TEMP 36.6–37.1; O2SAT 95–97; BMI 22.8
[2016-10-08] MEDS: LEVOTHYROXINE 50 MCG TAB PO SCH (05:29)
[2016-10-08] MEDS: SODIUM CHLORIDE 0.9% 1000ML 1,000 ML IV SCH ×3 (06:17→22:17)
[2016-10-08 07:23] LABS: BASO % 0.1 %; BASO ABS # 0.02 K/uL (0-0.2); COMPLETE YES; EOS % 2.1 %; HEMATOCRIT 34.6 % (37-47); IG% 0.7 %; LYMPH % 20.9 %; LYMPH ABS # 3.09 K/uL (1.2-3.4); MEAN CELL VOLUME 89.2 fL (80-100); MEAN CORPUSCULAR HEMOGLOBIN 30.2 pg (25-34); MEAN CORPUSCULAR HGB CONC 33.8 g/dl (32-36); MEAN PLATELET VOLUME 8.7 fL (7.4-10.4); MONO % 10.3 %; NEUT % 65.9 %; PLATELET COUNT 477 K/uL (130-400); RED BLOOD COUNT 3.88 M/uL (4.2-5.4); WHITE BLOOD COUNT 14.81 K/uL (4.8-10.8)
[2016-10-08 07:49] LABS: BUN/CREATININE RATIO 14.8 (10-20); CALCIUM 8.5 mg/dl (8.5-10.1); CREATININE 1.1 mg/dl (0.60-1.20); MAGNESIUM 1.9 mg/dl (1.8-2.4); POTASSIUM 3.5 mmol/L (3.5-5.1)
[2016-10-08] MEDS: METRONIDAZOLE / NSS 500 MG in PREMIXED NSS 100 ML IV SCH ×3 (08:12→23:56)
[2016-10-08] MEDS: PANTOprazole INJ 40 MG in SYRINGE 0 ML IV SCH ×2 (09:15→21:11)
[2016-10-08] MEDS: RASPBERRY SYRUP 5 ML UDP PO SCH ×4 (09:16→21:11)
[2016-10-08] MEDS: VANCOMYCIN HCL 250 MG/5 ML SOLN PO SCH ×4 (09:16→21:16)
[2016-10-08] MEDS: FERROUS SULFATE 325 MG TAB PO SCH (09:18)
[2016-10-08] MEDS: INSULIN GLARGINE SOLOSTAR 100 UNITS/ML 3 ML PEN SC SCH ×2 (09:22→21:14)
[2016-10-08] MEDS: INSULIN ASPART 100 UNITS/ML 3 ML PEN SC SCH ×4 (09:23→21:15)
--- NOTE | 2016-10-08 18:48 | Progress Note ---
Internal Med Progress Note Date of Service: Oct 08, 2016. Provider Documentation: SUBJECTIVE: sitting on the chair comfortably tolerating full liquid diet afebrile had only one episode of formed stool today denies any pain OBJECTIVE: Vital Signs-as noted below Exam: General-alert and awake . Not in distress ENT-normal hearing Neck-no neck masses Lungs-cta b/l no wheezing or crackles Heart-s1 and s2 heard, regular rate and rhythm no murmurs Abdomen-soft bowel sounds present non tender no distension Extremities-no edema no erythema Neuro-alert and awake moves extremities Lab data as noted below. ASSESSMENT & PLAN: 1. Sepsis secondary to diarrhea c diff on iv Flagyl started on po vancomycin ct scan no colitis. gentle fluids continue same advanced diet to soft diet improving will d/c iv Flagyl and complete 2 week course of po vancomycin 2. LGIB Hemoglobin at baseline. wason aspirin 325mg bid for dvt px post hip surgery possibly from c diff stopped aspirin hb dropped to 7.6 10/06/16 s/p two units of prbc on ppi hb 11.7 today gi on board will monitor 3. Hypertension, slightly elevated. will monitor. 4. DM2, insulin requiring suboptimal control as of recent HgA1c. Lantus and iss will monitor tightened iss. will monitor 5. Dementia as per records 6. ARF on CRI 2 to illness will f/u labs resolved 7. Right sided hydronephrosis etiology unknown appreciate urology inputs DVT PROPHYLAXIS scds DISPOSITION plan for snf in am pt/ot social service for d/c planning Vital Signs: Date Time Temp Pulse Resp B/P Pulse Ox O2 Delivery O2 Flow Rate FiO2 10/08/16 15:54 36.6 108 18 137/77 95 Room Air 10/08/16 11:41 36.9 99 22 119/61 95 Room Air 10/08/16 08:30 97 Room Air 10/08/16 08:29 97 Room Air 10/08/16 08:14 131/72 10/08/16 07:52 37.1 102 26 160/74 97 Room Air 10/07/16 23:50 Room Air 10/07/16 23:18 37.2 100 20 146/76 96 Room Air Lab Results: Results Past 24 Hours Test 10/07/16 20:47 10/08/16 07:11 10/08/16 07:45 10/08/16 12:25 Range/Units Bedside Glucose 345 165 185 70-90 mg/dl White Blood Count 14.81 4.8-10.8 K/uL Red Blood Count 3.88 4.2-5.4 M/uL Hemoglobin 11.7 12.0-16.0 g/dL Hematocrit 34.6 37-47 % Mean Corpuscular Volume 89.2 80-100 fL Mean Corpuscular Hemoglobin 30.2 25-34 pg Mean Corpuscular Hemoglobin Concent 33.8 32-36 g/dl Platelet Count 477 130-400 K/uL Mean Platelet Volume 8.7 7.4-10.4 fL Neutrophils (%) (Auto) 65.9 % Lymphocytes (%) (Auto) 20.9 % Monocytes (%) (Auto) 10.3 % Eosinophils (%) (Auto) 2.1 % Basophils (%) (Auto) 0.1 % Neutrophils # (Auto) 9.76 1.4-6.5 K/uL Lymphocytes # (Auto) 3.09 1.2-3.4 K/uL Monocytes # (Auto) 1.52 0.11-0.59 K/uL Eosinophils # (Auto) 0.31 0-0.5 K/uL Basophils # (Auto) 0.02 0-0.2 K/uL RDW Standard Deviation 50.1 36.4-46.3 fL RDW Coefficient of Variation 16.0 11.5-14.5 % Immature Granulocyte % (Auto) 0.7 % Immature Granulocyte # (Auto) 0.11 0.00-0.02 K/uL Sodium Level 143 136-145 mmol/L Potassium Level 3.5 3.5-5.1 mmol/L Chloride Level 107 98-107 mmol/L Carbon Dioxide Level 26 21-32 mmol/L Anion Gap 10.0 3-11 mmol/L Blood Urea Nitrogen 16 7-18 mg/dl Creatinine 1.10 0.60-1.20 mg/dl Est Creatinine Clear Calc Drug Dose 33.0 ml/min Estimated GFR () 52.6 Estimated GFR (Non- 45.4 BUN/Creatinine Ratio 14.8 10-20 Random Glucose 148 70-99 mg/dl Calcium Level 8.5 8.5-10.1 mg/dl Magnesium Level 1.9 1.8-2.4 mg/dl Test 10/08/16 17:09 Range/Units Bedside Glucose 214 70-90 mg/dl
[2016-10-08] MEDS: SIMVASTATIN 20 MG TAB PO SCH (21:11)
[2016-10-09] MEDS: SODIUM CHLORIDE 0.9% 1000ML 1,000 ML IV SCH (03:19)
[2016-10-09] MEDS: LEVOTHYROXINE 50 MCG TAB PO SCH ×2 (06:03→06:13)
[2016-10-09 08:00] VITALS: BP 158/79; PULSE 97; TEMP 36.5; O2SAT 96
[2016-10-09 08:39] LABS: BASO % 0.2 %; BASO ABS # 0.03 K/uL (0-0.2); COMPLETE YES; HEMATOCRIT 36.2 % (37-47); IG% 0.8 %; LYMPH % 22.4 %; LYMPH ABS # 3.11 K/uL (1.2-3.4); MEAN CELL VOLUME 91.9 fL (80-100); MEAN CORPUSCULAR HEMOGLOBIN 29.9 pg (25-34); MEAN CORPUSCULAR HGB CONC 32.6 g/dl (32-36); MEAN PLATELET VOLUME 8.9 fL (7.4-10.4); MONO % 12.3 %; NEUT % 61.3 %; PLATELET COUNT 512 K/uL (130-400); RED BLOOD COUNT 3.94 M/uL (4.2-5.4); WHITE BLOOD COUNT 13.91 K/uL (4.8-10.8)
[2016-10-09] MEDS: METRONIDAZOLE / NSS 500 MG in PREMIXED NSS 100 ML IV SCH (09:24)
[2016-10-09] MEDS: INSULIN ASPART 100 UNITS/ML 3 ML PEN SC SCH ×2 (09:26→12:36)
[2016-10-09] MEDS: INSULIN GLARGINE SOLOSTAR 100 UNITS/ML 3 ML PEN SC SCH (09:27)
[2016-10-09] MEDS: PANTOprazole INJ 40 MG in SYRINGE 0 ML IV SCH (09:30)
[2016-10-09] MEDS: FERROUS SULFATE 325 MG TAB PO SCH (09:30)
--- NOTE | 2016-10-09 10:17 | Progress Note ---
Subjective Date of Service: Oct 09, 2016. Subjective I spoke with patient daughter Mady Dang and we reviewed the finding of right hydroureteronephrosis. I explained the work up would involve 1-2 minor surgeries to diagnose and treat the blockage. We both agree she would not want further surgeries. We will thus not work up or treat her right hydroureteronephrosis. Her kidney function has been tenuous for a year or more. Patient and her daughter are accepting of this taking its natural course. Problem List Medical Problems: (1) Hip fracture, right Status: Acute (2) Rectal bleeding Status: Acute Objective Vital Signs Date Time Temp Pulse Resp B/P Pulse Ox O2 Delivery O2 Flow Rate FiO2 10/09/16 08:00 96 Room Air 10/09/16 08:00 36.5 97 15 158/79 96 Room Air 10/08/16 23:55 Room Air 10/08/16 22:49 36.8 110 18 154/66 96 Room Air 10/08/16 15:54 36.6 108 18 137/77 95 Room Air 10/08/16 15:35 Room Air 10/08/16 11:41 36.9 99 22 119/61 95 Room Air Laboratory Results Last 24 Hours Test 10/08/16 12:25 10/08/16 17:09 10/08/16 20:55 10/09/16 08:15 Bedside Glucose 185 mg/dl 214 mg/dl 311 mg/dl 182 mg/dl Test 10/09/16 08:26 White Blood Count 13.91 K/uL Red Blood Count 3.94 M/uL Hemoglobin 11.8 g/dL Hematocrit 36.2 % Mean Corpuscular Volume 91.9 fL Mean Corpuscular Hemoglobin 29.9 pg Mean Corpuscular Hemoglobin Concent 32.6 g/dl Platelet Count 512 K/uL Mean Platelet Volume 8.9 fL Neutrophils (%) (Auto) 61.3 % Lymphocytes (%) (Auto) 22.4 % Monocytes (%) (Auto) 12.3 % Eosinophils (%) (Auto) 3.0 % Basophils (%) (Auto) 0.2 % Neutrophils # (Auto) 8.53 K/uL Lymphocytes # (Auto) 3.11 K/uL Monocytes # (Auto) 1.71 K/uL Eosinophils # (Auto) 0.42 K/uL Basophils # (Auto) 0.03 K/uL RDW Standard Deviation 52.9 fL RDW Coefficient of Variation 16.1 % Immature Granulocyte % (Auto) 0.8 % Immature Granulocyte # (Auto) 0.11 K/uL
[2016-10-09] MEDS: VANCOMYCIN HCL 250 MG/5 ML SOLN PO SCH ×2 (10:33→12:38)
[2016-10-09] MEDS: RASPBERRY SYRUP 5 ML UDP PO SCH ×2 (10:33→12:38)
[2016-10-09] MEDS ORDERED: VNCS125 PO (12:04)
--- NOTE | 2016-10-09 12:09 | Discharge Instructions ---
Discharge Instructions Date of Service Oct 09, 2016. Admission Reason for Admission: Lgi Bleed, Sepsis Discharge Discharge Diagnosis / Problem: gi bleed. c diff Discharge Goals Goal(s): Decrease discomfort, Improve function Activity Recommendations Activity Level: Assistance Required Therapies: Physical Therapy, Occupational Therapy . Additional Information Patient informed of condition: Yes Advance Directives: Yes DNR: Yes Level of Care: Skilled Communicable Disease: No Prognosis: Stable Medeiros Catheter: No Instructions / Follow-Up Instructions / Follow-Up FOLLOWUP WITH FAMILY DOCTOR IN ONE WEEK Current Hospital Diet Patient's current hospital diet: Low Fiber Diet Discharge Diet Recommended Diet: Diabetes Type 2 Diet, Low Fiber Diet (FOR FEW DAYS AND THEN REGLAR DIET ADA TYPE 2 DIET) Pending Studies Studies pending at discharge: no Physician Orders On Transfer Special Precautions: FALL AND ASPIRATION PRECAUTIONS Vital Signs: EVERY 8HRS Laboratory Results Hemoglobin A1c Test 09/28/16 06:48 Range/Units Estimated Average Glucose 186 mg/dl Hemoglobin A1c 8.1 H 4.5-5.6 % Medical Emergencies . Who to Call and When: Medical Emergencies: If at any time you feel your situation is an emergency, please call 911 immediately. . Non-Emergent Contact Non-Emergency issues call your: Primary Care Provider . . "Provider Documentation" section prepared by Alexis Braga. Core Measure Problem Core Measures: None
[2016-10-09 13:37] VITALS: BP 158/79; PULSE 97; TEMP 36.5; O2SAT 96
[2016-10-09] MEDS: ACETAMINOPHEN 325 MG TAB PO PRN (13:50)
--- NOTE | 2016-10-09 14:09 | PROGRESS NOTE ---
DATE: 10/09/2016 DATE: 10/09/2016. HISTORY OF PRESENT ILLNESS: Yolis is an 86-year-old female who is now 2 weeks status post IM nailing of a right hip fracture done by Dr. Mandujano. She was readmitted on 10/04/2016, apparently with C. diff and lower GI bleed. Her aspirin was discontinued at that point. She did receive 2 units of packed red blood cells. She really has no hip pain at rest. She does have some hip pain with movement and weightbearing. No other complaints at this time. Her daughter is here with her today. OBJECTIVE: GENERAL: She is alert. She is in no distress. RIGHT LOWER EXTREMITY: Her howard have already been removed. Her daughter states that they are actually removed yesterday. Her incisions are healing well. There is no redness around the incisions, no drainage, no signs of infection. She has some ecchymosis and swelling in the posterior thigh area. She is able to dorsiflex, plantarflex appropriately. She is able to tolerate some gentle motion and limited motion of her hip today. IMPRESSION: Two weeks status post intramedullary nailing of a right hip fracture. PLAN: Again, she was admitted for C. diff and lower GI bleed. She did receive 2 units of PRBCs. It sounds like she is being discharged today. Her howard have actually already been removed. Her incisions look good at this time. I did put some Steri-Strips on the incisions. I would recommend that she continue PT, OT, weightbearing as tolerated and follow up with Dr. Mandujano in approximately 4 weeks in the office. Please call with any further questions at [phone].
--- NOTE | 2016-10-09 14:09 | Progress Note ---
Internal Med Progress Note Date of Service: Oct 09, 2016. Provider Documentation: SUBJECTIVE: sitting on the chair comfortably tolerating soft diet afebrile denies any complaints daughter in the room plan for snf today OBJECTIVE: Vital Signs-as noted below Exam: General-alert and awake . Not in distress ENT-normal hearing Neck-no neck masses Lungs-cta b/l no wheezing or crackles Heart-s1 and s2 heard, regular rate and rhythm no murmurs Abdomen-soft bowel sounds present non tender no distension Extremities-no edema no erythema Neuro-alert and awake moves extremities Lab data as noted below. ASSESSMENT & PLAN: 1. Sepsis secondary to diarrhea c diff on iv Flagyl started on po vancomycin ct scan no colitis. gentle fluids continue same advanced diet to soft diet improving discharged on po vancomycin to complete the course 2. LGIB Hemoglobin at baseline. wason aspirin 325mg bid for dvt px post hip surgery possibly from c diff stopped aspirin hb dropped to 7.6 10/06/16 s/p two units of prbc on ppi hb 11.7 today gi on board no more episodes of bleeding 3. Hypertension, slightly elevated. will monitor. 4. DM2, insulin requiring suboptimal control as of recent HgA1c. Lantus and iss will monitor tightened iss. d/c on home meds f./u with pcp 5. Dementia as per records 6. ARF on CRI 2 to illness will f/u labs resolved 7. Right sided hydronephrosis etiology unknown appreciate urology inputs- no plan or further workup Discharged to snf Vital Signs: Date Time Temp Pulse Resp B/P Pulse Ox O2 Delivery O2 Flow Rate FiO2 10/09/16 13:37 36.5 97 15 96 Room Air 10/09/16 08:00 96 Room Air 10/09/16 08:00 36.5 97 15 158/79 96 Room Air 10/08/16 23:55 Room Air 10/08/16 22:49 36.8 110 18 154/66 96 Room Air 10/08/16 15:54 36.6 108 18 137/77 95 Room Air 10/08/16 15:35 Room Air Lab Results: Results Past 24 Hours Test 10/08/16 17:09 10/08/16 20:55 10/09/16 08:15 10/09/16 08:26 Range/Units Bedside Glucose 214 311 182 70-90 mg/dl White Blood Count 13.91 4.8-10.8 K/uL Red Blood Count 3.94 4.2-5.4 M/uL Hemoglobin 11.8 12.0-16.0 g/dL Hematocrit 36.2 37-47 % Mean Corpuscular Volume 91.9 80-100 fL Mean Corpuscular Hemoglobin 29.9 25-34 pg Mean Corpuscular Hemoglobin Concent 32.6 32-36 g/dl Platelet Count 512 130-400 K/uL Mean Platelet Volume 8.9 7.4-10.4 fL Neutrophils (%) (Auto) 61.3 % Lymphocytes (%) (Auto) 22.4 % Monocytes (%) (Auto) 12.3 % Eosinophils (%) (Auto) 3.0 % Basophils (%) (Auto) 0.2 % Neutrophils # (Auto) 8.53 1.4-6.5 K/uL Lymphocytes # (Auto) 3.11 1.2-3.4 K/uL Monocytes # (Auto) 1.71 0.11-0.59 K/uL Eosinophils # (Auto) 0.42 0-0.5 K/uL Basophils # (Auto) 0.03 0-0.2 K/uL RDW Standard Deviation 52.9 36.4-46.3 fL RDW Coefficient of Variation 16.1 11.5-14.5 % Immature Granulocyte % (Auto) 0.8 % Immature Granulocyte # (Auto) 0.11 0.00-0.02 K/uL Test 10/09/16 12:12 Range/Units Bedside Glucose 306 70-90 mg/dl
--- NOTE | 2016-10-09 14:12 | Discharge Summary ---
Discharge Summary Date of Service Oct 09, 2016. Discharge Summary Admission Date: Oct 05, 2016 at 00:10 Discharge Date: Oct 09, 2016 Discharge Disposition: [facility] facility Principal Diagnosis: C DIFF GI BLEED ANEMIA Secondary Diagnoses/Problems: dementia, hypertension, hyperlipidemia, DM2 insulin requiring, hx colonic polyps, hemorrhoids; PUD as per daughter. CRI (baseline crea 1.4), chronic anemia (baseline hemoglobin of 9). Procedures: CXR: No acute cardiopulmonary abnormality. CT ABD/PELVIS: 1. No evidence of bowel obstruction. No evidence of free air 2. Colonic diverticulosis. No evidence of acute diverticulitis 3. No evidence of acute appendicitis 4. Unexplained right-sided hydronephrosis and hydroureter. Further workup is advocated. Consultations: GI ORTHOPEDICS FOR SUTURE REMOVAL FOR RECENT RIGHT HIP SURGERY Medication Reconciliation New Medications: Vancomycin HCl (Vancomycin HCl) 125 Mg/2.5 Ml Susp 125 MG PO QID for 10 Days Continued Medications: Acetaminophen (Tylenol Extra Strength) 500 Mg Tab 1000 MG PO Q8 PRN for Pain or Fever, #30 TAB Docusate Sodium (Docusate Sodium) 100 Mg Cap 100 MG PO BID, #60 CAP 1 Refill Ferrous Sulfate (Kp Ferrous Sulfate) 325 Mg Tab 325 MG PO DAILY, TAB 3 Refills Insulin Glargine (Lantus Solostar) 100 Unit/Ml Inj 24 UNITS SC HS, PEN Levothyroxine Sodium (Levothyroxine Sodium) 50 Mcg Tab 50 MCG PO QAM Meclizine Hcl (Meclizine Hcl) 25 Mg Tab 1 TAB PO DAILY PRN for Dizziness or Vertigo, TAB Polyethylene (Miralax) 17 Gm Pow 17 GM PO DAILY PRN for Constipation, #30 1 Refill Ranitidine (Zantac) 150 Mg Tab 150 MG PO BID, TAB Simvastatin (Zocor) 20 Mg Tab 20 MG PO QPM, 0 Refills Sitagliptin Phosphate (Januvia) 25 Mg Tab 25 MG PO QAM, TAB Discontinued Medications: Aspirin (Aspirin) 325 Mg Ectab 325 MG PO BID for 35 Days Admission Information HPI (per Admitting provider): Medical history is significant for dementia, hypertension, hyperlipidemia, DM2 insulin requiring, hx colonic polyps, hemorrhoids; PUD as per daughter. CRI (baseline crea 1.4), chronic anemia (baseline hemoglobin of 9). Recent confinement last week for right hip fracture. Patient underwent surgery. The patient was discharged to [facility] for rehab. Patient was discharged on aspirin 325 twice a day for the next month. Patient also received cefazolin perioperatively. Last night patient was noted to have a bowel movement, initially black with blood clot, foul odor was noted. No emesis. stool later bloody red. Px co of lower abd pain. At the Emergency Room blood sugar was noted to be 443. Regular insulin was given. Physical Exam (per Admitting): VITAL SIGNS: Blood pressure was noted to be 146/50 pulse rate 106, RR 26, temp 36.9 O2sats 98 on room air. GENERAL: Noted to be demented, in no respiratory distress, anxious, uncomfortable. SKIN: Pallor. HEENT: Pale palpebral conjunctivae. Dry mucosa. NECK: No JVD. supple CHEST: Clear to auscultation. HEART: Tachycardic. ABDOMEN: Minimal hypogastric tenderness. EXTREMITIES: No edema. no tenderness NEUROLOGIC: Demented. Hospital Course 1. Sepsis secondary to diarrhea c diff on iv Flagyl started on po vancomycin ct scan no colitis. gentle fluids continue same advanced diet to soft diet improving discharged on po vancomycin to complete the course 2. LGIB Hemoglobin at baseline. wason aspirin 325mg bid for dvt px post hip surgery possibly from c diff stopped aspirin hb dropped to 7.6 3 s/p two units of prbc on ppi hb 11.7 today gi on board no more episodes of bleeding 3. Hypertension, slightly elevated. will monitor. 4. DM2, insulin requiring suboptimal control as of recent HgA1c. Lantus and iss will monitor tightened iss. d/c on home meds f./u with pcp 5. Dementia as per records 6. ARF on CRI 2 to illness will f/u labs resolved 7. Right sided hydronephrosis etiology unknown appreciate urology inputs- no plan or further workup Discharged to snf Total time spent on discharge = 40MINUTES This includes examination of the patient, discharge planning, medication reconciliation, and communication with other providers. Discharge Instructions Discharge Instructions Date of Service Oct 09, 2016. Admission Reason for Admission: Lgi Bleed, Sepsis Discharge Discharge Diagnosis / Problem: gi bleed. c diff Discharge Goals Goal(s): Decrease discomfort, Improve function Activity Recommendations Activity Level: Assistance Required Therapies: Physical Therapy, Occupational Therapy . Additional Information Patient informed of condition: Yes Advance Directives: Yes DNR: Yes Level of Care: Skilled Communicable Disease: No Prognosis: Stable Medeiros Catheter: No Instructions / Follow-Up Instructions / Follow-Up FOLLOWUP WITH FAMILY DOCTOR IN ONE WEEK Current Hospital Diet Patient's current hospital diet: Low Fiber Diet Discharge Diet Recommended Diet: Diabetes Type 2 Diet, Low Fiber Diet (FOR FEW DAYS AND THEN REGLAR DIET ADA TYPE 2 DIET) Pending Studies Studies pending at discharge: no Physician Orders On Transfer Special Precautions: FALL AND ASPIRATION PRECAUTIONS Vital Signs: EVERY 8HRS Laboratory Results Hemoglobin A1c Test 09/28/16 06:48 Range/Units Estimated Average Glucose 186 mg/dl Hemoglobin A1c 8.1 H 4.5-5.6 % Medical Emergencies . Who to Call and When: Medical Emergencies: If at any time you feel your situation is an emergency, please call 911 immediately. . Non-Emergent Contact Non-Emergency issues call your: Primary Care Provider . . "Provider Documentation" section prepared by Alexis Braga. Core Measure Problem Core Measures: None
[2016-10-09 15:38] VITALS: Ht 165.1 cm; Wt 62.2 kg
[2016-11-27] MEDS ORDERED: ULT50X PO (10:09)
[2016-11-27] MEDS ORDERED: CALCTAB7 PO (10:09)
[2016-11-27] MEDS ORDERED: SNK PO (10:09)
[2016-11-27] MEDS ORDERED: ACET-1138 PO (10:09)
[2016-11-27] MEDS ORDERED: ASPEC325 PO (10:09)
[2017-01-05] MEDS ORDERED: VNCS125 PO (14:00)
== END 2016-10-09 16:00 | DRG 871 ==
LOC: ENRESERVDT → ENRESERVTM → EDBD 21:15 → C.EDB 21:16 → C.2T 10-05 00:10 → C.MSN 10-07 14:59
PROVIDERS: ADMIT Internal Medicine; ATTEND Internal Medicine
DX: A41.89 Other specified sepsis (principal); K57.31 Diverticulosis of large intestine without perforation or abscess with bleeding; A04.7 Enterocolitis due to Clostridium difficile; K62.5 Hemorrhage of anus and rectum; N17.9 Acute kidney failure, unspecified; N13.30 Unspecified hydronephrosis; D64.9 Anemia, unspecified; K59.00 Constipation, unspecified; E11.65 Type 2 diabetes mellitus with hyperglycemia; S72.001D Fracture of unspecified part of neck of right femur, subsequent encounter for closed fracture with routine healing; W19.XXXD Unspecified fall, subsequent encounter; E11.22 Type 2 diabetes mellitus with diabetic chronic kidney disease; I12.9 Hypertensive chronic kidney disease with stage 1 through stage 4 chronic kidney disease, or unspecified chronic kidney disease; N18.2 Chronic kidney disease, stage 2 (mild); E78.5 Hyperlipidemia, unspecified; F03.90 Unspecified dementia, unspecified severity, without behavioral disturbance, psychotic disturbance, mood disturbance, and anxiety; Z66 Do not resuscitate; Z86.010 Personal history of colon polyps; Z87.11 Personal history of peptic ulcer disease; Z79.1 Long term (current) use of non-steroidal anti-inflammatories (NSAID); Z79.4 Long term (current) use of insulin; Z79.82 Long term (current) use of aspirin; Z79.84 Long term (current) use of oral hypoglycemic drugs; Z79.899 Other long term (current) drug therapy

== ENCOUNTER 2016-11-22 16:58 | Inpatient (IN) | payer OTHER ==
[~2016-11-22] VITALS: Ht 149.9 cm; Wt 56.7 kg
[~2016-11-22 16:58] MED LIST changes: -ASPEC325 PO; +VNCS125 PO
[2016-11-22] MEDS ORDERED: ONDANSETRON INJ 2 MG/ML 2 ML VIAL IV STA (17:15)
[2016-11-22] MEDS ORDERED: SODIUM CHLORIDE 0.9% 1000ML 1,000 ML IV ONE (17:15)
[2016-11-22] MEDS ORDERED: MoRPHine SULFATE 4 MG/ML 1 ML CARP\\VIAL IV PRN (17:15)
--- NOTE | 2016-11-22 17:18 | EMERGENCY ROOM VISIT NOTE ---
History Report prepared by Will: Junito Jorgensen Under the Supervision of: Dr. Jose Hernandez M.D. First contact with patient: 17:12 Chief Complaint: FALL Stated Complaint: FALL/LF HIP PAIN W/DEFORMITY History of Present Illness The patient is an 86 year old demented female who presents to the Emergency Room with complaints of an acute fall that occurred earlier today. As per nursing, the patient rolled out of bed and injured her left leg. She did not hit her head. The patient currently denies any falls or injury. She has a history of dementia. Per daughter, the patient had a past fall that led to a broken right hip, for which she followed up with Dr. Mandujano ([facility]). Complete history is limited secondary to dementia. Source of History: patient, family, nursing staff Onset: earlier today Position: other (global) Quality: other (fall) Timing: other (acute) Associated Symptoms: No headache Review of Systems ROS is limited secondary to dementia. Past Medical & Surgical Medical Problems: (1) CKD (chronic kidney disease) stage 4, GFR 15-29 ml/min (2) Dementia (3) Diabetes mellitus, type II (4) Hyperlipemia (5) Hypertension (6) Hypothyroidism (7) LGI bleed (8) Sepsis Surgical Problems: (1) Status post appendectomy (2) Status post cholecystectomy Family History Cancer Diabetes mellitus Social History Smoking Status: Unknown if Ever Smoked Drug Use: none Marital Status: , Housing Status: lives with family Occupation Status: retired Current/Historical Medications Scheduled Docusate Sodium (Docusate Sodium), 100 MG PO BID Ferrous Sulfate (Kp Ferrous Sulfate), 325 MG PO DAILY Insulin Glargine (Lantus Solostar), 24 UNITS SC HS Levothyroxine Sodium (Levothyroxine Sodium), 50 MCG PO QAM Misc Natural Products (Osteo Bi-Flex Triple Stre), 1 TAB PO BID Multivitamin (Multivitamin), 1 TAB PO DAILY Ocuvite Preservision (Ocuvite Preservision), 1 TAB PO DAILY Ranitidine (Zantac), 150 MG PO BID Simvastatin (Zocor), 20 MG PO QPM Sitagliptin Phosphate (Januvia), 25 MG PO QAM Scheduled PRN Meclizine Hcl (Meclizine Hcl), 1 TAB PO DAILY PRN for Dizziness or Vertigo Polyethylene (Miralax), 17 GM PO DAILY PRN for Constipation Allergies Coded Allergies: Meperidine (Verified Allergy, Mild, 11/22/16) Physical Exam Vital Signs Date Time Temp Pulse Resp B/P Pulse Ox O2 Delivery O2 Flow Rate FiO2 11/22/16 18:42 94 20 140/58 95 Room Air 11/22/16 17:08 94 11/22/16 17:07 36.5 100 16 147/76 98 Room Air Physical Exam GENERAL: Awake alert somewhat anxious appearing and uncomfortable. EYES: The conjunctivae are clear. The pupils are round and reactive. EARS, NOSE, MOUTH AND THROAT: The nose is without any evidence of any deformity. Mucous membranes are moist tongue is midline NECK: The neck is nontender and supple. RESPIRATORY: Normal respiratory effort is noted there is no evidence of wheezing rhonchi or rales CARDIOVASCULAR: Regular rate and rhythm noted there no murmurs rubs or gallops normal S1 normal S2 GASTROINTESTINAL: The abdomen is soft. Bowel sounds are present in all quadrants. Abdomen is nontender MUSCULOSKELETAL/EXTREMITIES: Shortening deformity of the left hip, patient resists range of motion testing. SKIN: There is no obvious evidence of any rash. There are no petechiae, pallor or cyanosis noted. Pedal edema bilaterally. NEUROLOGIC: At baseline per daughter, she is awake and oriented to persona and place but not timing nor situation. Medical Decision & Procedures ER Provider Diagnostic Interpretation: X-ray results as stated below per interpretation by me and the radiologist. LEFT PELVIS/UNILATERAL HIP 1 VIEW CLINICAL HISTORY: FALL-LEFT HIP PAIN/DEFORMITY COMPARISON STUDY: None. FINDINGS: Left hip intertrochanteric fracture demonstrating both impaction and mild superior displacement. No dislocation. The bones are osteopenic. Evidence for internal fixation of an old right femur fracture. IMPRESSION: Left hip intertrochanteric fracture. Electronically signed by: Jean Marie Dennison M.D. 11/22/2016 6:17 PM Dictated Date/Time: 11/22/2016 6:16 PM CHEST ONE VIEW PORTABLE HISTORY: Left hip fracture. fall COMPARISON: 10/04/2016. FINDINGS: The lungs are clear. Cardiac silhouette is normal in size. No pleural effusions. No pneumothorax. IMPRESSION: No acute process. Electronically signed by: Jean Marie Dennison M.D. 11/22/2016 6:19 PM Dictated Date/Time: 11/22/2016 6:18 PM Laboratory Results Test 11/22/16 17:25 11/22/16 17:30 Urine Color YELLOW Urine Appearance CLEAR (CLEAR) Urine pH 7.0 (4.5-7.5) Urine Specific [place] 1.021 (1.000-1.030) Urine Protein NEG (NEG) Urine Glucose (UA) 3+ (NEG) Urine Ketones NEG (NEG) Urine Occult Blood TRACE (NEG) Urine Nitrite NEG (NEG) Urine Bilirubin NEG (NEG) Urine Urobilinogen NEG (NEG) Urine Leukocyte Esterase SMALL (NEG) Urine WBC (Auto) >30 /hpf (0-5) Urine RBC (Auto) 0-4 /hpf (0-4) Urine Hyaline Casts (Auto) 1-5 /lpf (0-5) Urine Epithelial Cells (Auto) 10-20 /lpf (0-5) Urine Bacteria (Auto) NEG (NEG) Prothrombin Time 10.4 SECONDS (9.0-12.0) Prothromb Time International Ratio 1.0 (0.9-1.1) Activated Partial Thromboplast Time 22.9 SECONDS (21.0-31.0) Partial Thromboplastin Ratio 0.9 Magnesium Level 1.8 mg/dl (1.8-2.4) Beta-Hydroxybutyric Acid 1.57 mg/dL (0.2-2.81) Laboratory results per my review. Medications Administered Medications (Trade) Dose Ordered Sig/Leigh Ann Route Start Time Stop Time Status Last Admin Dose Admin Sodium Chloride (Nss 1000ml) 1,000 ml @ 75 mls/hr [id number] ONCE IV 11/22/16 17:15 11/22/16 20:58 DC 11/22/16 17:40 75 MLS/HR Morphine Sulfate (MoRPHine SULFATE INJ) 4 mg Q15M PRN IV 11/22/16 17:15 11/22/16 21:00 DC 11/22/16 17:40 4 MG Ondansetron HCl (Zofran Inj) 4 mg NOW STAT IV 11/22/16 17:15 11/22/16 17:19 DC 11/22/16 17:40 4 MG Ceftriaxone Sodium 1 gm 1 gm NOW STAT IV 11/22/16 18:01 11/22/16 18:02 DC 11/22/16 18:41 1 GM Sodium Chloride (Nss 500ml) 500 ml @ 999 mls/hr Q31M STAT IV 11/22/16 19:03 11/22/16 19:33 DC 11/22/16 20:00 999 MLS/HR ECG Indication: other (fall) Rate (beats per minute): 95 Rhythm: normal sinus Findings: no acute ischemic change, no ectopy Comparison ECG Date: 04 October 2016 Change: no significant change ED Course 1713: The patient was evaluated in room B7. A complete history and physical examination were performed. 1715: Zofran 4 mg IV, Morphine Sulfate 4 mg IV, NSS 1000 ml @ 75 mls/hr. 180: Rocephin 1 gm IV. 1849: The patient was sound asleep. Woke her up and updated her as well as the daughter. 1899: Discussed the case with Christian Conrad. The patient will be evaluated. 1902: NSS 500 ml @ 999 mls/hr. Medical Decision Prior records/ancillary studies reviewed. Triage Nursing notes reviewed. Additional history obtained from daughter, nursing. The patient's history was concerning for traumatic injury Differential diagnosis: Etiologies such as fracture, dislocation, intra-abdominal, pneumothorax, intrathoracic , intracranial, neurologic, as well as other traumatic pathologies were entertained. The patient is an 86-year-old female who presented to the emergency department for evaluation of left hip pain. The patient had deformity in her left hip which appear to be consistent with a hip fracture. X-rays proved was an intertrochanteric hip fracture. The patient was treated with IV pain medication IV antiemetics. She was also given IV fluids and IV antibiotics when urinalysis revealed urine infection. I discussed her case with the on-call [facility] hospitalist group. They've agreed to evaluate the patient in the emergency apartment for further management and disposition. Consults Time Called: 1849 Consulting Physician: Christian Conrad Returned Call: 1899 1899: Discussed the case with Christian Conrad. The patient will be evaluated. Impression Primary Impression: Fall Additional Impressions: Intertrochanteric fracture of left hip UTI (urinary tract infection) Scribe Attestation The scribe's documentation has been prepared under my direction and personally reviewed by me in its entirety. I confirm that the note above accurately reflects all work, treatment, procedures, and medical decision making performed by me. Departure Information Dispostion Being Evaluated By Hospitalist Andrew Laguna M.D. (PCP) Patient Instructions My [facility] Health Problem Qualifiers Primary Impression: Fall Encounter type: initial encounter Qualified Codes: W19.XXXA - Unspecified fall, initial encounter Additional Impressions: Intertrochanteric fracture of left hip Encounter type: initial encounter Fracture type: closed Qualified Codes: S72.142A - Displaced intertrochanteric fracture of left femur, initial encounter for closed fracture UTI (urinary tract infection) Urinary tract infection type: site unspecified Hematuria presence: without hematuria Qualified Codes: N39.0 - Urinary tract infection, site not specified
[2016-11-22 17:51] LABS: URINE APPEARANCE CLEAR (CLEAR); URINE BILIRUBIN NEG (NEG); URINE COLOR YELLOW; URINE NITRITE NEG (NEG); URINE SPECIFIC GRAVITY 1.021 (1.000-1.030); UROBILINOGEN NEG (NEG); ZZURINE CULT IF INDIC CATH YES
[2016-11-22 17:54] LABS: MANUAL MICROSCOPIC REQUIRED? NO; REVIEW REQ? NO
[2016-11-22 17:59] LABS: BASO % 0.2 %; BASO ABS # 0.02 K/uL (0-0.2); COMPLETE YES; EOS % 0.9 %; IG% 0.3 %; LYMPH % 17.3 %; LYMPH ABS # 2.04 K/uL (1.2-3.4); MEAN CELL VOLUME 94.3 fL (80-100); MEAN CORPUSCULAR HGB CONC 31.8 g/dl (32-36); MEAN PLATELET VOLUME 9.9 fL (7.4-10.4); MONO % 7.3 %; PLATELET COUNT 265 K/uL (130-400); RED BLOOD COUNT 4.24 M/uL (4.2-5.4); WHITE BLOOD COUNT 11.77 K/uL (4.8-10.8)
[2016-11-22] MEDS ORDERED: CEFTRIAXONE SOD INJ 1 GM ADDVIAL IV STA (18:01)
[2016-11-22 18:04] LABS: CALCIUM 9.6 mg/dl (8.5-10.1)
[2016-11-22 18:06] LABS: BUN/CREATININE RATIO 24.2 (10-20); CREATININE 1.4 mg/dl (0.60-1.20); POTASSIUM 4.1 mmol/L (3.5-5.1)
[2016-11-22 18:08] LABS: PARTIAL THROMBOPLASTIN RATIO 0.9; PROTHROMBIN TIME (PATIENT) 10.4 SECONDS (9.0-12.0)
[2016-11-22 18:15] LABS: BETA-HYDROXYBUTYRATE 1.57 mg/dL (0.2-2.81)
[2016-11-22] MEDS ORDERED: MULT-190 PO (18:19)
[2016-11-22] MEDS ORDERED: MISCTAB88 PO (18:19)
[2016-11-22] MEDS ORDERED: MULT-506 PO (18:19)
--- NOTE | 2016-11-22 18:20 | DIAGNOSTIC IMAGING REPORT ---
LEFT PELVIS/UNILATERAL HIP 1 VIEW CLINICAL HISTORY: FALL-LEFT HIP PAIN/DEFORMITY COMPARISON STUDY: None. FINDINGS: Left hip intertrochanteric fracture demonstrating both impaction and mild superior displacement. No dislocation. The bones are osteopenic. Evidence for internal fixation of an old right femur fracture. IMPRESSION: Left hip intertrochanteric fracture. Electronically signed by: Jean Marie Dennison M.D. 11/22/2016 6:17 PM Dictated Date/Time: 11/22/2016 6:16 PM
--- NOTE | 2016-11-22 18:21 | DIAGNOSTIC IMAGING REPORT ---
CHEST ONE VIEW PORTABLE HISTORY: Left hip fracture. fall COMPARISON: 10/04/2016. FINDINGS: The lungs are clear. Cardiac silhouette is normal in size. No pleural effusions. No pneumothorax. IMPRESSION: No acute process. Electronically signed by: Jean Marie Dennison M.D. 11/22/2016 6:19 PM Dictated Date/Time: 11/22/2016 6:18 PM
[2016-11-22] MEDS ORDERED: SODIUM CHLORIDE 0.9% 500ML 500 ML IV STA (19:03)
[2016-11-22] MEDS ORDERED: DEXTROSE 50% 50 ML SYR IV PRN (20:00)
[2016-11-22] MEDS ORDERED: GLUCOSE 40% GEL 15 GM TUBE PO PRN (20:00)
[2016-11-22] MEDS ORDERED: GLUCOSE 10 TABS/TUBE PO PRN (20:00)
[2016-11-22] MEDS ORDERED: POLYETHYLENE (MIRALAX) 17 GM PACK PO PRN (20:00)
[2016-11-22] MEDS ORDERED: ACETAMINOPHEN 325 MG TAB PO PRN (20:00)
[2016-11-22] MEDS ORDERED: GLUCAGON FOR INJ 1 MG VIAL SQ PRN (20:00)
[2016-11-22] MEDS ORDERED: INSULIN GLARGINE SOLOSTAR 100 UNITS/ML 3 ML PEN SC SCH (21:00)
[2016-11-22] MEDS ORDERED: INSULIN ASPART 100 UNITS/ML 3 ML PEN SC SCH (21:00)
[2016-11-22] MEDS ORDERED: NON-FORMULARY MEDICATION (Misc Natural Products (Osteo Bi-Flex Triple Stre) 1 TAB) PO SCH (21:00)
[2016-11-22 21:03] VITALS: BP 147/72; PULSE 108; TEMP 36.7; O2SAT 97; Ht 149.9 cm; Wt 56.7 kg
[2016-11-22] MEDS: HYDROmorphone INJ 0.5 MG/0.5 ML SYR IV PRN (21:09)
[2016-11-22] MEDS: SODIUM CHLORIDE 0.9% 1000ML 1,000 ML IV SCH (21:13)
[2016-11-22] MEDS: SIMVASTATIN 20 MG TAB PO SCH (21:25)
[2016-11-22] MEDS: CALCIUM 600MG + VIT D 400 IU TAB PO SCH (21:25)
[2016-11-22] MEDS: DOCUSATE SODIUM 100 MG CAP PO SCH (21:25)
[2016-11-22] MEDS: RANITIDINE HCL 150 MG TAB PO SCH (21:26)
[2016-11-22] MEDS: TRAMADOL HCL 50 MG TAB PO PRN (22:39)
[2016-11-22] MEDS ORDERED: NURSING DECISION MEDICATION ORDER SCH (23:15)
[2016-11-22 23:20] VITALS: BP 133/74; PULSE 105; TEMP 36.9; O2SAT 95
--- NOTE | 2016-11-22 23:49 | HISTORY & PHYSICAL EXAMINATION ---
DATE OF ADMISSION: 11/22/2016 PRIMARY CARE DOCTOR: Dr. Ray. History obtained from patient records, patient's daughter. Limited hx from px secondary to dementia. CHIEF COMPLAINT: Fall, left hip pain, deformity. HISTORY OF PRESENT ILLNESS: Medical history significant for dementia, hyperlipidemia, DM2, insulin requiring , history of colonic polyps, hemorrhoids, history of C. diff, peptic ulcer disease as per daughter. Recent confinement, last month, for LGIB, secondary to C. diff.. The patient discharged on p.o. vancomycin. Initially discharged to [facility], subsequently discharged home. Hours ago, patient's daughter heard a thump. Patient was found on the floor: Patient denies chest pain, shortness of breath, syncope. No head trauma. Patient unable to get up, complaining of left hip pain. Left hip deformity noted by daughter. At the Emergency Room, the patient given IV ceftriaxone for possible UTI. Patient denies bladder symptoms. No fever, no chills. MEDICAL HISTORY: As above. SURGERIES: Right hip surgery, appendectomy, cholecystectomy. HOME MEDICATIONS: Include ferrous sulfate, Lantus, levothyroxine, meclizine, multivitamins, Ocuvite, Zantac, Januvia, Zocor. ALLERGIES: MEPERIDINE. FAMILY HISTORY: Could not be obtained. PERSONAL AND SOCIAL HISTORY: Nonsmoker. No chronic intake of alcoholic beverages. Lives with daughter. REVIEW OF SYSTEMS: Could not be reliably obtained. FUNCTIONALITY: Patient able to ambulate at home on the first level without chest pain, shortness of breath; able to accompany daughter with shopping. Does not use stairs. PHYSICAL EXAMINATION: VITAL SIGNS: Blood pressure was noted to be 140/58, pulse 90, RR 20, T 37 O2 sats 98 on room air. GENERAL: Noted to be demented, no respiratory distress. SKIN: Normal color. HEENT: nevus on the frontal area. [place] palpebral conjunctivae. Dry mucosa. NECK: No JVD. Supple. CHEST: Clear to auscultation. HEART: Regular rate and rhythm. ABDOMEN: Some distention. EXTREMITIES: Tenderness on the left hip. NEUROLOGIC: Demented LABS: Hemoglobin 12, hematocrit 40, white cells 11, platelets 265. Sodium 140, potassium 4.5, chloride 102, CO2 29. BUN 34, creatinine 1.4, glucose 300. Hemoglobin A1c from 09/2016 was 8.1. Chest x-ray, no acute process. Pelvis x-ray, left hip intertrochanteric fracture. EKG showed rate 95, normal sinus rhythm, no ischemia. Urinalysis, trace occult blood, WBC est, small epithelial cells, hyaline casts. ASSESSMENT: 1. Left hip fracture secondary to a likely mechanical fall. 2. DM2. insulin requiring suboptimal control as of recent HgA1c 3. Acute renal failure, mild clinical dehydration. 4. Dementia. 5. Asymptomatic pyuria. No sepsis. contaminated specimen 6. hx cdif sp tx PLAN: [facility] Orth[facility]ics consult. RE L hip fx Px's family known to Dr. Mandujano's service. No medical contraindication to contemplated Ortho procedure. Monitor creatinine response to IV fluids. Hold off on antibiotics for now for asymptomatic pyuria basal insulin, ISS BG goal 140-180 carb count coverage indicated for suboptimal BG control Delirium precautions DVT prophylaxis, SCDs. RE poss surgery Recommend pharmacologic anticoagulation w/ Heparin subQ when bleeding risk is deemed to be minimal and negligible. DNR as per px/family previous wishes. Patient's daughter, Miss Mady Dang requesting updates from providers. Contact numbers : [phone] and [phone]. RADHA
[2016-11-23] VITALS (7 sets, daily range): BP systolic 105–155; BP diastolic 62–79; PULSE 54–118; TEMP 36.4–37.1; O2SAT 92–100
[2016-11-23] MEDS: INSULIN ASPART 100 UNITS/ML 3 ML PEN SC SCH ×5 (00:55→21:00)
[2016-11-23] MEDS: HYDROmorphone INJ 0.5 MG/0.5 ML SYR IV PRN ×2 (00:59→07:45)
[2016-11-23 05:31] LABS: COMPLETE YES; EOS % 0.2 %; HEMATOCRIT 34.4 % (37-47); IG% 0.2 %; LYMPH ABS # 1.99 K/uL (1.2-3.4); MEAN CELL VOLUME 95.3 fL (80-100); MEAN CORPUSCULAR HEMOGLOBIN 29.9 pg (25-34); MEAN CORPUSCULAR HGB CONC 31.4 g/dl (32-36); MEAN PLATELET VOLUME 9.7 fL (7.4-10.4); MONO % 9.7 %; NEUT % 74.9 %; PLATELET COUNT 226 K/uL (130-400); RED BLOOD COUNT 3.61 M/uL (4.2-5.4); WHITE BLOOD COUNT 13.31 K/uL (4.8-10.8)
[2016-11-23] MEDS: LEVOTHYROXINE 50 MCG TAB PO SCH (05:41)
[2016-11-23] MEDS: ONDANSETRON INJ 2 MG/ML 2 ML VIAL IV SCH ×2 (05:41→18:25)
[2016-11-23 05:52] LABS: BUN/CREATININE RATIO 22.4 (10-20); CALCIUM 8.7 mg/dl (8.5-10.1); CREATININE 1.2 mg/dl (0.60-1.20); POTASSIUM 3.7 mmol/L (3.5-5.1)
[2016-11-23] MEDS: CALCIUM 600MG + VIT D 400 IU TAB PO SCH ×2 (09:00→21:15)
[2016-11-23] MEDS ORDERED: MULTIVITAMIN TAB PO SCH (09:00)
[2016-11-23] MEDS: DOCUSATE SODIUM 100 MG CAP PO SCH ×2 (09:00→21:00)
[2016-11-23] MEDS: RANITIDINE HCL 150 MG TAB PO SCH ×2 (09:00→21:14)
--- NOTE | 2016-11-23 10:54 | CONSULTATION REPORT ---
DATE OF CONSULTATION: 11/23/2016 DATE OF CONSULTATION: 11/23/2016. CHIEF COMPLAINT: Left hip fracture. HISTORY OF PRESENT ILLNESS: The patient is an 86-year-old female with medical history significant for dementia, hyperlipidemia, diabetes, history of C. diff, peptic ulcer disease, right hip fracture approximately 2 months ago treated with IM nailing. She lives with her daughter in [place]. Apparently they were at home yesterday, her daughter heard a noise and when she went to check on her mother she was lying on the floor next to the bed complaining of hip pain. She was brought to [facility] where images were obtained. She was found to have a displaced intertrochanteric hip fracture. She does have dementia. Much of the history is obtained by the patient's daughter, Mady, as well as the admission H\T\P. She is complaining of only left hip pain at this time. No other complaints. PAST MEDICAL HISTORY: Including surgeries, medications, allergies, family history and social history all reviewed. Please refer to the admission H\T\P for completeness. REVIEW OF SYSTEMS: Noncontributory. physical exam: She was sleeping but awakened during our visit today. She is alert, confused. No distress. Exam of bilateral upper extremities: no tenderness to palpation, no swelling or bruising noted. Left leg is in bucks traction. She is tender around the hip/ thigh area. No tenderness of the right leg. She did not really follow commands on exam as far as moving her toes. X-RAYS: X-rays today of her pelvis and hip demonstrate a displaced intertrochanteric left hip fracture. She has previous IM nailing of her right hip. IMPRESSION: Displaced left intertrochanteric hip fracture. PLAN: She has been admitted to the hospitalist service overnight. She is n.p.o. at this time. Treatment was discussed with her daughter today including IM nailing of the left hip fracture. Procedure was explained including the risks, benefits and complications of surgery. She would like to proceed with surgery as planned. We will keep her at bed rest, MILIND stockings, SCDs, Dorado's traction left lower extremity. She has a history of upper GI bleed after previous hip fracture as well as C. diff so will likely give her vancomycin preoperatively. I have seen and examined this patient and agree with above. SILVIAD
[2016-11-23] MEDS ORDERED: VANCOMYCIN 1GM/270ML NSS 270 ML IV SCH (11:30)
[2016-11-23] MEDS: SODIUM CHLORIDE 0.9% 1000ML 1,000 ML IV SCH (12:16)
[2016-11-23] MEDS ORDERED: BUPIVACAINE/EPINEPHRINE 0.5% MPF 1:200,000 30 ML VIAL ONE (12:33)
[2016-11-23] MEDS ORDERED: BUPIVACAINE 0.5 % 5 MG/1 ML PF 10ML VIAL ONE (12:35)
[2016-11-23] MEDS ORDERED: MIDAZOLAM HCL 1 MG/ML 2ML VIAL ONE (13:31)
--- NOTE | 2016-11-23 13:45 | History & Physical Bridge Note ---
H&P Re-Evaluation Bridge Note: I have examined the patient, reviewed the History & Physical and in the interval since the performance of the History & Physical I have noted the following changes of clinical significance: No changes noted
[2016-11-23] MEDS ORDERED: ONDANSETRON INJ 2 MG/ML 2 ML VIAL IV PRN (14:15)
[2016-11-23] MEDS ORDERED: PHENYLEPHRINE 100MCG/ML 5ML SYR IV PRN (14:15)
[2016-11-23] MEDS ORDERED: HYDROmorphone INJ 2 MG/ML SYR/VIAL IV PRN (14:15)
[2016-11-23] MEDS ORDERED: EpHEDrine SULFATE INJ 50 MG/ML AMP IV PRN (14:15)
[2016-11-23] MEDS ORDERED: ATROPINE SULFATE 0.1 MG/ML 5ML SYR IV PRN (14:15)
--- NOTE | 2016-11-23 15:09 | [facility] Post Operative Brief Note ---
Immediate Operative Summary Operative Date Nov 23, 2016. Pre-Operative Diagnosis Displaced left intertrochanteric hip fracture Post-Operative Diagnosis Displaced left intertrochanteric hip fracture Procedure(s) Performed Intermedullary nailing of left hip fracture Surgeon Dr. Alonzo Easley Medical Management Trainer Surgeon(s) Dameon Cook PA-C Estimated Blood Loss 30mL Findings Left Intertrochanteric hip fracture Fluids (cc crystalloids) 1000 cc Specimens none per surgeon Drains None Anesthesia Spinal Complication(s) None Disposition Recovery Room / PACU
--- NOTE | 2016-11-23 15:19 | DIAGNOSTIC IMAGING REPORT ---
INTRAOPERATIVE LEFT HIP 4 VIEWS CLINICAL HISTORY: Intertrochanteric left hip fracture COMPARISON STUDY: 11/22/2016 FLUOROSCOPY TIME: 62 seconds. 4 fluoroscopic spot images were acquired. FINDINGS: The patient's left intertrochanteric left hip fracture has been internally fixated with a trochanteric nail and interlocking medullary shawna. IMPRESSION: Internally fixated intertrochanteric left hip fracture. Electronically signed by: Abiel Mcguire M.D. 11/23/2016 3:17 PM Dictated Date/Time: 11/23/2016 3:16 PM
[2016-11-23] MEDS ORDERED: PROPOFOL IV EMULSION 10 MG/ML 20 ML VIAL IV ONE (15:24)
[2016-11-23] MEDS ORDERED: PHENYLEPHRINE HCL INJ 10 MG/ML VIAL ONE (15:24)
--- NOTE | 2016-11-23 16:08 | Anesthesiology Progress Note ---
Anesthesia Post Op Note Date & Time Nov 23, 2016 at 16:07 Vital Signs Pain Intensity: 1 Vital Signs Past 12 Hours Date Time Temp Pulse Resp B/P Pulse Ox O2 Delivery O2 Flow Rate FiO2 11/23/16 15:55 36.8 113 16 127/58 100 Room Air 11/23/16 15:45 108 16 110/42 100 Room Air 11/23/16 15:35 105 16 104/55 100 Room Air 11/23/16 15:25 106 16 119/53 100 Room Air 11/23/16 15:15 111 16 148/51 100 Room Air 11/23/16 15:07 36.8 113 16 97/44 100 Room Air 11/23/16 07:35 Room Air 11/23/16 07:13 36.6 100 16 125/71 96 Room Air Notes Mental Status: alert / awake / arousable, participated in evaluation Pt Amnestic to Procedure: Yes Nausea / Vomiting: adequately controlled Pain: adequately controlled Airway Patency, RR, SpO2: stable & adequate BP & HR: stable & adequate Hydration State: stable & adequate Neuraxial Anesthesia: was administered, sensory block is resolving Anesthetic Complications: no major complications apparent
[2016-11-23] MEDS ORDERED: NURSING DECISION MEDICATION ORDER SCH (17:30)
--- NOTE | 2016-11-23 18:03 | Progress Note ---
Medicine Progress Note Date & Time of Visit: Nov 23, 2016 at 17:54. Subjective Patient seen and examined post-operatively. Daughter present at bedside. Patient denies pain. Objective Last 8 Hrs Date Time Temp Pulse Resp B/P Pulse Ox O2 Delivery O2 Flow Rate FiO2 11/23/16 17:19 36.4 110 17 126/66 100 Room Air 11/23/16 16:46 37.1 102 18 115/67 100 Room Air 11/23/16 16:35 100 Room Air 11/23/16 16:10 36.8 105 16 119/43 100 Room Air 11/23/16 15:55 36.8 113 16 127/58 100 Room Air 11/23/16 15:45 108 16 110/42 100 Room Air 11/23/16 15:35 105 16 104/55 100 Room Air 11/23/16 15:25 106 16 119/53 100 Room Air 11/23/16 15:15 111 16 148/51 100 Room Air 11/23/16 15:07 36.8 113 16 97/44 100 Room Air Physical Exam: General-awake; alert; NAD Eyes-EOMI; no scleral icterus Neck-no stridor; trachea midline Lungs-CTA bilaterally anteriorly Heart-RRR; no m/r/g Abdomen-soft; NTND; nBS Extremities-left leg bandage c/d/i Neuro-confused Laboratory Results: Last 24 Hours Test 11/22/16 21:05 11/23/16 00:00 11/23/16 05:11 11/23/16 05:40 Bedside Glucose 238 mg/dl 172 mg/dl 171 mg/dl White Blood Count 13.31 K/uL Red Blood Count 3.61 M/uL Hemoglobin 10.8 g/dL Hematocrit 34.4 % Mean Corpuscular Volume 95.3 fL Mean Corpuscular Hemoglobin 29.9 pg Mean Corpuscular Hemoglobin Concent 31.4 g/dl Platelet Count 226 K/uL Mean Platelet Volume 9.7 fL Neutrophils (%) (Auto) 74.9 % Lymphocytes (%) (Auto) 15.0 % Monocytes (%) (Auto) 9.7 % Eosinophils (%) (Auto) 0.2 % Basophils (%) (Auto) 0.0 % Neutrophils # (Auto) 9.97 K/uL Lymphocytes # (Auto) 1.99 K/uL Monocytes # (Auto) 1.29 K/uL Eosinophils # (Auto) 0.03 K/uL Basophils # (Auto) 0.00 K/uL RDW Standard Deviation 56.1 fL RDW Coefficient of Variation 16.0 % Immature Granulocyte % (Auto) 0.2 % Immature Granulocyte # (Auto) 0.03 K/uL Sodium Level 143 mmol/L Potassium Level 3.7 mmol/L Chloride Level 106 mmol/L Carbon Dioxide Level 31 mmol/L Anion Gap 6.0 mmol/L Blood Urea Nitrogen 27 mg/dl Creatinine 1.20 mg/dl Est Creatinine Clear Calc Drug Dose 25.8 ml/min Estimated GFR () 47.4 Estimated GFR (Non- 40.9 BUN/Creatinine Ratio 22.4 Random Glucose 196 mg/dl Calcium Level 8.7 mg/dl 25-Hydroxy Vitamin D Total 40.0 ng/ml Test 11/23/16 08:12 11/23/16 12:00 11/23/16 16:10 11/23/16 17:22 Bedside Glucose 176 mg/dl 136 mg/dl 142 mg/dl 142 mg/dl Assessment & Plan Left hip fracture - Orthopedics consulted - s/p intermedullary nailing 11/23/16 - pain control with Tylenol and Tramadol - PT/OT evaluations - social security benefits interviewer for discharge planning Type 2 DM - continue insulin JEROME - resolved with gentle IVF's DVT prophylaxis with SCD's and MILIND's Anticipate discharge to rehab. Consultants: Orthopedics Current Inpatient Medications: Current Inpatient Medications Medications (Trade) Dose Ordered Sig/Leigh Ann Route Start Time Stop Time Status Last Admin Dose Admin Acetaminophen (Tylenol Tab) 650 mg Q4H PRN PO 11/22/16 20:00 12/22/16 19:59 Glucose (Glucose 40% Gel) 15-30 GRAMS 15 GRAMS... UD PRN PO 11/22/16 20:00 12/22/16 19:59 Glucose (Glucose Chew Tab) 4-8 Tablets 4 Tabl... UD PRN PO 11/22/16 20:00 12/22/16 19:59 Dextrose (Dextrose 50% 50ML Syringe) 25-50ML OF 50% DW IV FOR... UD PRN IV 11/22/16 20:00 12/22/16 19:59 Glucagon (Glucagon Inj) 1 mg UD PRN SQ 11/22/16 20:00 12/22/16 19:59 Hydromorphone HCl (Dilaudid Inj) 0.5 mg Q3H PRN IV 11/22/16 20:00 12/06/16 19:59 11/23/16 07:45 0.5 MG Tramadol HCl (Ultram Tab) 25 mg Q6H PRN PO 11/22/16 20:00 12/22/16 19:59 11/22/16 22:39 25 MG Ondansetron HCl 4 mg 4 mg Q12@0600,1800 IV 11/23/16 06:00 11/23/16 18:01 11/23/16 05:41 4 MG Sodium Chloride (Nss 1000ml) 1,000 ml @ 50 mls/hr Q20H IV 11/22/16 20:00 12/22/16 19:59 11/23/16 12:16 50 MLS/HR Docusate Sodium (coLACE CAP) 100 mg BID PO 11/22/16 21:00 12/22/16 20:59 11/22/16 21:25 100 MG Insulin Glargine (Lantus Solostar Pen) 15 unit HS SC 11/23/16 21:00 12/23/16 20:59 Levothyroxine Sodium (Synthroid Tab) 50 mcg DAILYBB PO 11/23/16 06:00 12/23/16 05:59 11/23/16 05:41 50 MCG Multivitamins (Multivitamin Tab) 1 tab DAILY PO 11/23/16 09:00 12/23/16 08:59 Multivitamins/ Minerals (Multivitamin W/ Minerals Tab) 1 tab DAILY PO 11/23/16 09:00 12/23/16 08:59 Polyethylene (Miralax Powder Packet) 17 gm DAILY PRN PO 11/22/16 20:00 12/22/16 19:59 Ranitidine HCl (zANTac TAB) 150 mg BID PO 11/22/16 21:00 12/22/16 20:59 11/22/16 21:26 150 MG Simvastatin (Zocor Tab) 20 mg QPM PO 11/22/16 21:00 12/22/16 20:59 11/22/16 21:25 20 MG Ferrous Sulfate (Feosol Tab) 325 mg DAILY PO 11/23/16 09:00 12/23/16 08:59 Calcium/Vitamin D (Caltrate Plus Tab) 1 tab BID PO 11/22/16 21:00 12/22/16 20:59 11/22/16 21:25 1 TAB Ondansetron HCl (Zofran Inj) 4 mg ONE PRN IV 11/23/16 14:15 11/23/16 19:15 Atropine Sulfate (Atropine Sulfate 0.1MG/Ml Inj) 0.5 mg Q1M PRN IV 11/23/16 14:15 11/23/16 19:15 Ephedrine Sulfate (EpHEDrine SULFATE INJ) 5 mg Q5M PRN IV 11/23/16 14:15 11/23/16 19:15 Hydromorphone HCl (Dilaudid Inj) 0.25 mg Q5M PRN IV 11/23/16 14:15 11/23/16 19:15 Phenylephrine HCl 100 mcg 100 mcg Q5M PRN IV 11/23/16 14:15 11/23/16 19:15 Vancomycin HCl/ Sodium Chloride (Vancomycin Inj/ Nss 500ml) 517 ml @ 200 mls/hr Q12H IV 11/24/16 01:00 11/24/16 03:36 Aspirin (Ecotrin Tab) 325 mg DAILY PO 11/24/16 09:00 12/24/16 08:59 Insulin Aspart (novoLOG ASPART) SLIDING SCALE If C... ACHS SC 11/23/16 17:45 12/23/16 17:44
[2016-11-23] MEDS: TRAMADOL HCL 50 MG TAB PO PRN (18:12)
[2016-11-23] MEDS: FERROUS SULFATE 325 MG TAB PO SCH (18:13)
[2016-11-23] MEDS: CEROVITE ADV FORMULA TAB PO SCH (18:13)
[2016-11-23] MEDS ORDERED: INSULIN GLARGINE SOLOSTAR 100 UNITS/ML 3 ML PEN SC SCH (21:00)
[2016-11-23] MEDS: ACETAMINOPHEN 500 MG TAB PO SCH (21:14)
[2016-11-23] MEDS: SIMVASTATIN 20 MG TAB PO SCH (21:14)
[2016-11-24] VITALS (7 sets, daily range): BP systolic 91–125; BP diastolic 54–68; PULSE 100–116; TEMP 36.4–38.1; O2SAT 93–96
[2016-11-24] MEDS ORDERED: VANCOMYCIN IV SCH (01:00)
[2016-11-24] MEDS ORDERED: SODIUM CHLORIDE 0.9% IV SCH (01:00)
--- NOTE | 2016-11-24 01:42 | OPERATIVE REPORT ---
DATE OF OPERATION: 11/23/2016 SURGEON: Alonzo Easley MD INSTRUCTION LIBRARIAN: EARNESTINE Juarez PREOPERATIVE DIAGNOSIS: Left displaced intertrochanteric femur fracture. POSTOPERATIVE DIAGNOSIS: Same. PROCEDURE PERFORMED: Left long cephalomedullary IM nailing of left intertrochanteric hip fracture. COMPLICATIONS: None. ESTIMATED BLOOD LOSS: 30 mL. FLUID REPLACEMENT: 1000 mL crystalloid fluid replacement. ANESTHESIA: Spinal. DRAINS: None. SPECIMENS: None. OPERATIVE INDICATIONS: The patient is an 86-year-old female with multiple medical problems including fairly advanced dementia who sustained a fall yesterday. She apparently fell out of bed. She had a recent hip fracture just fixed a couple of months ago from a fall. She was brought to the emergency room where x-rays revealed a left intertrochanteric hip fracture. She had no preexisting hip pain on this side and no other injuries. She was medically optimized and indicated for surgical stabilization. OPERATIVE IMPLANTS: Operative implants consisted of: 1. Synthes left 320 mm x 11 mm long trochanteric nail. 2. A 90 mm helical blade. 3. A 40 x 5 mm interlocking screw. OPERATIVE PROCEDURE: The patient taken to the operating room, identified and placed on the operating table in supine position. All contact areas were appropriately padded. IV antibiotics were provided by anesthesia team. A spinal anesthetic had been implemented in the holding area. The patient was then placed on the fracture table. The left leg was placed in boot traction. The right leg was placed in a well leg newell. I applied some longitudinal traction and then internally rotated the foot so the kneecap pointed to the ceiling. X-ray was brought in. The fracture was anatomically aligned. The left hip was then prepped and draped in the usual sterile fashion. A curvilinear incision was made just proximal to the tip of the greater trochanter. Sharp dissection was carried through the subcutaneous tissues down to the level of the gluteal fascia. The gluteal fascia was incised longitudinally in line with the skin incision. A guidewire was then placed just lateral to the tip of the trochanter and in line with the IM canal in both the AP and lateral planes. This was advanced down the IM canal. It was verified fluoroscopically. It was overreamed with a 17 mm reamer. This guidewire was removed and a ball tipped guidewire was placed. I then measured for nail length and a 320 mm nail was selected. I overreamed the guidewire with a 12 mm reamer. An 11 x 320 mm long trochanteric nail was then placed. The lateral aiming arm was attached. A stab incision was made and the lateral aiming arm was advanced to the lateral aspect of the femur. A guidewire was placed in the central aspect of the femoral head and neck in both the AP and lateral planes. This was verified fluoroscopically. I then overreamed this with the cortical drill bit and the triple reamer was set at 90 mm. A 90 mm helical blade was placed. The proximal set screw was tightened. I did compress the fracture slightly. The proximal aiming arm was removed and some lateral x-rays were obtained. Attention was then drawn toward distal interlocking. The perfect platinum technique was used to obtain the distal fixation. X-ray was brought in. Perfect circles were obtained of the dynamic interlocking hole. A stab incision was made. A drill bit was then used to place the hole in the distal interlocking slot. A 40 mm screw was selected and placed. Some final x-rays were obtained. The bone was quite soft. Attention was then drawn toward closing. The wound was irrigated with copious amounts of normal saline. I injected locally with 30 mL of 0.5% Marcaine with epinephrine. The gluteal fascia was then closed with #1 Vicryl suture in a running fashion. The subcutaneous tissues of all wounds were then closed with 2-0 Dexon suture in a buried interrupted fashion. Skin was then closed with skin howard. Leg was then cleaned and dried and a sterile dressing of Xeroform, 4 x 4, sterile ABD pad and foam tape was applied. The patient was taken off the fracture table and transferred to the recovery room in stable condition. The patient tolerated the procedure well with no complications. All needle and sponge counts were correct at the end of the operation. I attest to the content of the Intraoperative Record and any orders documented therein. Any exceptio ns are noted below.
[2016-11-24 05:46] LABS: HEMATOCRIT 29.2 % (37-47); MEAN CELL VOLUME 95.1 fL (80-100); MEAN CORPUSCULAR HGB CONC 31.5 g/dl (32-36); MEAN PLATELET VOLUME 9.9 fL (7.4-10.4); PLATELET COUNT 209 K/uL (130-400); RED BLOOD COUNT 3.07 M/uL (4.2-5.4); WHITE BLOOD COUNT 13.56 K/uL (4.8-10.8)
[2016-11-24] MEDS: LEVOTHYROXINE 50 MCG TAB PO SCH (06:07)
[2016-11-24] MEDS: ACETAMINOPHEN 500 MG TAB PO SCH ×3 (06:08→21:39)
[2016-11-24 06:17] LABS: BUN/CREATININE RATIO 18.8 (10-20); CALCIUM 8.6 mg/dl (8.5-10.1); CREATININE 0.94 mg/dl (0.60-1.20); POTASSIUM 3.3 mmol/L (3.5-5.1)
[2016-11-24] MEDS ORDERED: POTASSIUM CHLORIDE 10 MEQ TABCR PO STA (06:35)
--- NOTE | 2016-11-24 08:28 | Discharge Instructions ---
Discharge Instructions Date of Service Nov 24, 2016. Admission Reason for Admission: Intertrochanteric Fracture Of Left Hip Discharge Discharge Diagnosis / Problem: Left Hip Fracture IM Nailing Discharge Goals Goal(s): Decrease discomfort, Improve function, Therapeutic intervention Activity Recommendations Activity Limitations: per Instructions/Follow-up section Weightbearing Status: Left weightbearing . Instructions / Follow-Up Instructions / Follow-Up May fully weight-bear as tolerated Return to Orthopedic Clinic 2 weeks post-op. Current Hospital Diet Patient's current hospital diet: Diabetes Type 2 Diet Discharge Diet Recommended Diet: Diabetes Type 2 Diet Procedures Procedures Performed: Intermedullary nailing of left hip fracture Pending Studies Studies pending at discharge: no Laboratory Results Hemoglobin A1c Test 09/28/16 06:48 Range/Units Estimated Average Glucose 186 mg/dl Hemoglobin A1c 8.1 H 4.5-5.6 % Medical Emergencies . Who to Call and When: Medical Emergencies: If at any time you feel your situation is an emergency, please call 911 immediately. . Non-Emergent Contact Non-Emergency issues call your: Surgeon . "Provider Documentation" section prepared by Alonzo Easley. . VTE Core Measure Inpt VTE Proph given/why not?: Other Anticoagulation, T.E.D. Stockings, SCD's
--- NOTE | 2016-11-24 08:49 | PROGRESS NOTE ---
DATE: 11/24/2016 SUBJECTIVE: An 86-year-old white female postop day 1 from IM nailing of a left intertrochanteric fracture. She has been a little bit agitated overnight but resting comfortably now. OBJECTIVE: VITAL SIGNS: Temperature 37.2. Vital signs stable. PHYSICAL EXAMINATION: GENERAL: Reveals an elderly female who is lying in bed and sleeping. EXTREMITIES: Examination of left hip reveals the leg to be well aligned. Dressing is clean, dry and intact. She has got brisk refill. Thigh is soft and supple. NEUROLOGIC: Deferred as she is sleeping. LABORATORY DATA: Hemoglobin 9.2, hematocrit 29.2, white cell count 13.56. Electrolytes are stable. Potassium slightly low at 3.3. ASSESSMENT: An 86-year-old female with fairly poorly controlled diabetes as well as renal dysfunction, postop day 1 from an intramedullary nailing of left intertrochanteric fracture. Seems to be doing pretty well. Her potassium needs to be supplemented. PLAN: 1. DVT prophylaxis including thigh-high TEDs, SCDs, and would recommend aspirin. 2. PT/OT. She can fully weightbear as tolerated. No particular instructions from the orthopedic standpoint. 3. Medical management as per the medicine service. 4. Disposition: I believe she is going to be discharged to her daughter's house where she can assist in her care. She is orthopedically relatively stable. She can probably be discharged likely tomorrow if medically stable. Any questions can be directed to me at [phone]. I will need to see her 2 weeks postop. She can fully weightbear as tolerated and there are no restrictions from that standpoint from the orthopedic standpoint.
[2016-11-24] MEDS: CEROVITE ADV FORMULA TAB PO SCH (09:13)
[2016-11-24] MEDS: RANITIDINE HCL 150 MG TAB PO SCH ×2 (09:13→21:38)
[2016-11-24] MEDS: FERROUS SULFATE 325 MG TAB PO SCH (09:14)
[2016-11-24] MEDS: DOCUSATE SODIUM 100 MG CAP PO SCH ×2 (09:14→21:36)
[2016-11-24] MEDS: ASPIRIN 325 MG ECTAB PO SCH (09:14)
[2016-11-24] MEDS: CALCIUM 600MG + VIT D 400 IU TAB PO SCH ×2 (09:15→21:39)
[2016-11-24] MEDS: INSULIN ASPART 100 UNITS/ML 3 ML PEN SC SCH ×4 (09:26→21:43)
--- NOTE | 2016-11-24 12:15 | Progress Note ---
Medicine Progress Note Date & Time of Visit: Nov 24, 2016 at 12:11. Subjective Patient seen and examined. Daughter present at bedside. Helping to feed and take medications. Patient denies any pain. Objective Last 8 Hrs Date Time Temp Pulse Resp B/P Pulse Ox O2 Delivery O2 Flow Rate FiO2 11/24/16 11:03 100 93 11/24/16 07:36 115/62 11/24/16 07:30 Room Air 11/24/16 07:01 37.2 102 20 91/54 93 Room Air Physical Exam: General-awake; alert; NAD Eyes-EOMI; no scleral icterus Neck-no stridor; trachea midline Lungs-CTA bilaterally anteriorly Heart-RRR; no m/r/g Abdomen-soft; NTND; nBS Extremities-left leg bandage c/d/i Neuro-confused Laboratory Results: Last 24 Hours Test 11/23/16 16:10 11/23/16 17:22 11/23/16 20:43 11/24/16 05:08 Bedside Glucose 142 mg/dl 142 mg/dl 174 mg/dl White Blood Count 13.56 K/uL Red Blood Count 3.07 M/uL Hemoglobin 9.2 g/dL Hematocrit 29.2 % Mean Corpuscular Volume 95.1 fL Mean Corpuscular Hemoglobin 30.0 pg Mean Corpuscular Hemoglobin Concent 31.5 g/dl RDW Standard Deviation 54.8 fL RDW Coefficient of Variation 16.0 % Platelet Count 209 K/uL Mean Platelet Volume 9.9 fL Sodium Level 140 mmol/L Potassium Level 3.3 mmol/L Chloride Level 105 mmol/L Carbon Dioxide Level 30 mmol/L Anion Gap 5.0 mmol/L Blood Urea Nitrogen 18 mg/dl Creatinine 0.94 mg/dl Est Creatinine Clear Calc Drug Dose 33.0 ml/min Estimated GFR () 63.7 Estimated GFR (Non- 54.9 BUN/Creatinine Ratio 18.8 Random Glucose 47 mg/dl Calcium Level 8.6 mg/dl Test 11/24/16 06:46 11/24/16 08:01 11/24/16 12:01 Bedside Glucose 106 mg/dl 142 mg/dl 172 mg/dl Assessment & Plan Left hip fracture - Orthopedics consulted - s/p intermedullary nailing 11/23/16 - pain control with Tylenol and Tramadol - PT/OT evaluations - manager social media for discharge planning Type 2 DM - continue insulin JEROEM - resolved with gentle IVF's DVT prophylaxis with SCD's, MILIND's, aspirin Anticipate discharge to rehab. Consultants: Orthopedics Current Inpatient Medications: Current Inpatient Medications Medications (Trade) Dose Ordered Sig/Leigh Ann Route Start Time Stop Time Status Last Admin Dose Admin Glucose (Glucose 40% Gel) 15-30 GRAMS 15 GRAMS... UD PRN PO 11/22/16 20:00 12/22/16 19:59 Glucose (Glucose Chew Tab) 4-8 Tablets 4 Tabl... UD PRN PO 11/22/16 20:00 12/22/16 19:59 Dextrose (Dextrose 50% 50ML Syringe) 25-50ML OF 50% DW IV FOR... UD PRN IV 11/22/16 20:00 12/22/16 19:59 Glucagon (Glucagon Inj) 1 mg UD PRN SQ 11/22/16 20:00 12/22/16 19:59 Tramadol HCl (Ultram Tab) 25 mg Q6H PRN PO 11/22/16 20:00 12/22/16 19:59 11/23/16 18:12 25 MG Docusate Sodium (coLACE CAP) 100 mg BID PO 11/22/16 21:00 12/22/16 20:59 11/24/16 09:14 100 MG Levothyroxine Sodium (Synthroid Tab) 50 mcg DAILYBB PO 11/23/16 06:00 12/23/16 05:59 11/24/16 06:07 50 MCG Multivitamins/ Minerals (Multivitamin W/ Minerals Tab) 1 tab DAILY PO 11/23/16 09:00 12/23/16 08:59 11/24/16 09:13 1 TAB Polyethylene (Miralax Powder Packet) 17 gm DAILY PRN PO 11/22/16 20:00 12/22/16 19:59 Ranitidine HCl (zANTac TAB) 150 mg BID PO 11/22/16 21:00 12/22/16 20:59 11/24/16 09:13 150 MG Simvastatin (Zocor Tab) 20 mg QPM PO 11/22/16 21:00 12/22/16 20:59 11/23/16 21:14 20 MG Ferrous Sulfate (Feosol Tab) 325 mg DAILY PO 11/23/16 09:00 12/23/16 08:59 11/24/16 09:14 325 MG Calcium/Vitamin D (Caltrate Plus Tab) 1 tab BID PO 11/22/16 21:00 12/22/16 20:59 11/24/16 09:15 1 TAB Aspirin (Ecotrin Tab) 325 mg DAILY PO 11/24/16 09:00 12/24/16 08:59 11/24/16 09:14 325 MG Insulin Aspart (novoLOG ASPART) SLIDING SCALE If C... ACHS MO 11/23/16 17:45 12/23/16 17:44 11/24/16 09:26 2 UNITS Acetaminophen (Tylenol Tab) 1,000 mg Q8 PO 11/23/16 22:00 12/23/16 21:59 11/24/16 06:08 1,000 MG Insulin Glargine (Lantus Solostar Pen) 10 unit HS SC 11/24/16 21:00 12/24/16 20:59
[2016-11-24] MEDS ORDERED: INSULIN GLARGINE PER UNIT 10 UNITS in SYRINGE 0 ML SC SCH (21:00)
[2016-11-24] MEDS ORDERED: INSULIN GLARGINE SOLOSTAR 100 UNITS/ML 3 ML PEN SC SCH (21:00)
[2016-11-24] MEDS: SIMVASTATIN 20 MG TAB PO SCH (21:38)
[2016-11-24] MEDS: TRAMADOL HCL 50 MG TAB PO PRN (21:40)
[2016-11-25 05:49] LABS: HEMATOCRIT 29.3 % (37-47); MEAN CELL VOLUME 94.5 fL (80-100); MEAN CORPUSCULAR HGB CONC 31.7 g/dl (32-36); MEAN PLATELET VOLUME 9.9 fL (7.4-10.4); PLATELET COUNT 209 K/uL (130-400); WHITE BLOOD COUNT 15.79 K/uL (4.8-10.8)
[2016-11-25] MEDS: ACETAMINOPHEN 500 MG TAB PO SCH ×3 (05:52→21:33)
[2016-11-25] MEDS: LEVOTHYROXINE 50 MCG TAB PO SCH (05:52)
[2016-11-25 06:48] LABS: BUN/CREATININE RATIO 18.5 (10-20); CALCIUM 8.8 mg/dl (8.5-10.1); CREATININE 1.2 mg/dl (0.60-1.20); POTASSIUM 4.3 mmol/L (3.5-5.1)
[2016-11-25 07:15] VITALS: BP 113/69; PULSE 111; TEMP 37.1; O2SAT 98
[2016-11-25] MEDS: DOCUSATE SODIUM 100 MG CAP PO SCH ×2 (09:00→21:32)
[2016-11-25] MEDS: CALCIUM 600MG + VIT D 400 IU TAB PO SCH ×2 (09:00→21:32)
[2016-11-25] MEDS: ASPIRIN 325 MG ECTAB PO SCH (09:00)
[2016-11-25] MEDS: FERROUS SULFATE 325 MG TAB PO SCH (09:00)
[2016-11-25] MEDS: CEROVITE ADV FORMULA TAB PO SCH (09:01)
[2016-11-25] MEDS: RANITIDINE HCL 150 MG TAB PO SCH ×2 (09:01→21:32)
[2016-11-25] MEDS: INSULIN ASPART 100 UNITS/ML 3 ML PEN SC SCH ×4 (09:05→21:37)
--- NOTE | 2016-11-25 09:13 | PROGRESS NOTE ---
DATE: 11/25/2016 SUBJECTIVE: An 86-year-old white female postop day 2 from an IM nailing of left intertrochanteric fracture. She is resting comfortably in bed. She had a reasonably well day yesterday. Pain seems to be reasonably well controlled. She got advanced dementia. OBJECTIVE: VITAL SIGNS: Temperature 37.1. Vital signs stable. Some mild intermittent tachycardia. GENERAL: Reveals a pleasant elderly female. She is lying in bed, looks to be resting comfortably. EXTREMITIES: Examination of the left hip and leg reveals the dressing to be clean, dry and intact. Leg lengths are equal. NEUROLOGIC: She is neurologically stable. LABORATORY DATA: Hemoglobin 9.3, hematocrit 29.3. Electrolytes are stable. White cell count 15.79. ASSESSMENT: An 86-year-old white female postop day 2 from intramedullary nailing of a left intertrochanteric fracture, doing pretty well. Seems to be pretty stable. She has got severe dementia, which makes evaluation a bit difficult. PLAN: 1. DVT prophylaxis including thigh-high TEDs, SCDs, and aspirin. 2. PT/OT. She can weightbear as tolerated. On the left, weightbear as tolerated in the left lower extremity. 3. Medical management as per the medicine service. 4. Disposition: She is orthopedically stable and acceptable for discharge any time medically stable and rehab services, [facility] available. As far as followup, I need to see her back 2 weeks postop. Any questions can be directed to me at [phone].
[2016-11-25 10:40] LABS: URINE APPEARANCE CLEAR (CLEAR); URINE BILIRUBIN NEG (NEG); URINE COLOR YELLOW; URINE EPITHELIAL CELL AUTO >30 /lpf (0-5); URINE NITRITE NEG (NEG); URINE PH 5.5 (4.5-7.5); URINE SPECIFIC GRAVITY 1.017 (1.000-1.030); UROBILINOGEN NEG (NEG)
[2016-11-25 10:44] LABS: MANUAL MICROSCOPIC REQUIRED? NO; REVIEW REQ? YES
[2016-11-25 14:57] VITALS: BP 116/71; PULSE 113; TEMP 37.1; O2SAT 94
--- NOTE | 2016-11-25 16:12 | Progress Note ---
Medicine Progress Note Date & Time of Visit: Nov 25, 2016 at 16:07. Subjective Patient seen and examined. Daughter present at bedside. Patient denies complaints. Denies pain. Objective Last 8 Hrs Date Time Temp Pulse Resp B/P Pulse Ox O2 Delivery O2 Flow Rate FiO2 11/25/16 14:57 37.1 113 16 116/71 94 Room Air 11/25/16 08:15 Room Air Physical Exam: General-awake; alert; NAD Eyes-EOMI; no scleral icterus Neck-no stridor; trachea midline Lungs-CTA bilaterally; no wheezes/crackles Heart-RRR; no m/r/g Abdomen-soft; NTND; nBS Extremities-left leg bandage c/d/i Neuro-confused Laboratory Results: Last 24 Hours Test 11/24/16 17:08 11/24/16 20:53 11/25/16 05:10 11/25/16 07:57 Bedside Glucose 244 mg/dl 277 mg/dl 203 mg/dl White Blood Count 15.79 K/uL Red Blood Count 3.10 M/uL Hemoglobin 9.3 g/dL Hematocrit 29.3 % Mean Corpuscular Volume 94.5 fL Mean Corpuscular Hemoglobin 30.0 pg Mean Corpuscular Hemoglobin Concent 31.7 g/dl RDW Standard Deviation 55.0 fL RDW Coefficient of Variation 15.8 % Platelet Count 209 K/uL Mean Platelet Volume 9.9 fL Sodium Level 138 mmol/L Potassium Level 4.3 mmol/L Chloride Level 103 mmol/L Carbon Dioxide Level 30 mmol/L Anion Gap 5.0 mmol/L Blood Urea Nitrogen 22 mg/dl Creatinine 1.20 mg/dl Est Creatinine Clear Calc Drug Dose 25.8 ml/min Estimated GFR () 47.4 Estimated GFR (Non- 40.9 BUN/Creatinine Ratio 18.5 Random Glucose 169 mg/dl Calcium Level 8.8 mg/dl Test 11/25/16 10:27 11/25/16 12:08 Urine Color YELLOW Urine Appearance CLEAR Urine pH 5.5 Urine Specific [place] 1.017 Urine Protein 1+ Urine Glucose (UA) 2+ Urine Ketones NEG Urine Occult Blood 1+ Urine Nitrite NEG Urine Bilirubin NEG Urine Urobilinogen NEG Urine Leukocyte Esterase TRACE Urine WBC (Auto) 10-30 /hpf Urine RBC (Auto) 0-4 /hpf Urine Hyaline Casts (Auto) 5-10 /lpf Urine Epithelial Cells (Auto) >30 /lpf Urine Bacteria (Auto) NEG Urine Yeast (Auto) BUDDING Bedside Glucose 296 mg/dl Date/Time Source Procedure Growth Status 11/25/16 10:27 Urine , Clean Catch Urine Culture Pending Received Assessment & Plan Fever - low grade fever evening of 11/24 - WBC count also up-trending - CXR on admission clear and no oxygen requirements - dirty urinalysis (possible contamination given numerous epithelial cells and hyaline casts), will await urine culture Left hip fracture - Orthopedics consulted - s/p intermedullary nailing 11/23/16 - pain control with Tylenol and Tramadol - PT/OT evaluations - social work associate for discharge planning Type 2 DM - continue insulin JEROME - resolved with gentle IVF's DVT prophylaxis with SCD's, MILIND's, aspirin Anticipate discharge to rehab. Consultants: Orthopedics Current Inpatient Medications: Current Inpatient Medications Medications (Trade) Dose Ordered Sig/Leigh Ann Route Start Time Stop Time Status Last Admin Dose Admin Glucose (Glucose 40% Gel) 15-30 GRAMS 15 GRAMS... UD PRN PO 11/22/16 20:00 12/22/16 19:59 Glucose (Glucose Chew Tab) 4-8 Tablets 4 Tabl... UD PRN PO 11/22/16 20:00 12/22/16 19:59 Dextrose (Dextrose 50% 50ML Syringe) 25-50ML OF 50% DW IV FOR... UD PRN IV 11/22/16 20:00 12/22/16 19:59 Glucagon (Glucagon Inj) 1 mg UD PRN SQ 11/22/16 20:00 12/22/16 19:59 Tramadol HCl (Ultram Tab) 25 mg Q6H PRN PO 11/22/16 20:00 12/22/16 19:59 11/24/16 21:40 25 MG Docusate Sodium (coLACE CAP) 100 mg BID PO 11/22/16 21:00 12/22/16 20:59 11/25/16 09:00 100 MG Levothyroxine Sodium (Synthroid Tab) 50 mcg DAILYBB PO 11/23/16 06:00 12/23/16 05:59 11/25/16 05:52 50 MCG Multivitamins/ Minerals (Multivitamin W/ Minerals Tab) 1 tab DAILY PO 11/23/16 09:00 12/23/16 08:59 11/25/16 09:01 1 TAB Polyethylene (Miralax Powder Packet) 17 gm DAILY PRN PO 11/22/16 20:00 12/22/16 19:59 Ranitidine HCl (zANTac TAB) 150 mg BID PO 11/22/16 21:00 12/22/16 20:59 11/25/16 09:01 150 MG Simvastatin (Zocor Tab) 20 mg QPM PO 11/22/16 21:00 12/22/16 20:59 11/24/16 21:38 20 MG Ferrous Sulfate (Feosol Tab) 325 mg DAILY PO 11/23/16 09:00 12/23/16 08:59 11/25/16 09:00 325 MG Calcium/Vitamin D (Caltrate Plus Tab) 1 tab BID PO 11/22/16 21:00 12/22/16 20:59 11/25/16 09:00 1 TAB Aspirin (Ecotrin Tab) 325 mg DAILY PO 11/24/16 09:00 12/24/16 08:59 11/25/16 09:00 325 MG Insulin Aspart (novoLOG ASPART) SLIDING SCALE If C... ACHS SC 11/23/16 17:45 12/23/16 17:44 11/25/16 13:11 7 UNITS Acetaminophen (Tylenol Tab) 1,000 mg Q8 PO 11/23/16 22:00 12/23/16 21:59 11/25/16 13:31 1,000 MG Insulin Glargine (Lantus Solostar Pen) 15 unit HS SC 11/25/16 21:00 12/25/16 20:59
[2016-11-25 17:27] VITALS: TEMP 37.3
[2016-11-25] MEDS ORDERED: INSULIN GLARGINE SOLOSTAR 100 UNITS/ML 3 ML PEN SC SCH (21:00)
[2016-11-25] MEDS: SIMVASTATIN 20 MG TAB PO SCH (21:33)
[2016-11-25 22:50] VITALS: BP 111/65; PULSE 109; TEMP 37.3; O2SAT 95
[2016-11-26] MEDS: LEVOTHYROXINE 50 MCG TAB PO SCH (05:17)
[2016-11-26] MEDS: ACETAMINOPHEN 500 MG TAB PO SCH ×3 (05:18→21:18)
[2016-11-26 05:44] LABS: MEAN CELL VOLUME 93.3 fL (80-100); MEAN CORPUSCULAR HEMOGLOBIN 29.7 pg (25-34); MEAN CORPUSCULAR HGB CONC 31.8 g/dl (32-36); MEAN PLATELET VOLUME 9.8 fL (7.4-10.4); PLATELET COUNT 257 K/uL (130-400); WHITE BLOOD COUNT 13.51 K/uL (4.8-10.8)
[2016-11-26 06:08] LABS: BUN/CREATININE RATIO 15.8 (10-20); CREATININE 1.4 mg/dl (0.60-1.20); POTASSIUM 3.9 mmol/L (3.5-5.1)
[2016-11-26 07:30] VITALS: BP 107/66; PULSE 104; TEMP 37.1; O2SAT 96
--- NOTE | 2016-11-26 08:01 | PROGRESS NOTE ---
DATE: 11/26/2016 SUBJECTIVE: An 86-year-old white female postop day 3 from a left femoral IM nail for an intertroch fracture. She is doing pretty well. Denies any pain this morning. She is awake and alert. OBJECTIVE: VITAL SIGNS: Temperature 37.7. Vital signs stable. PHYSICAL EXAMINATION: GENERAL: Reveals a pleasant elderly female. She is lying in bed and looks comfortable. EXTREMITIES: Examination of left hip reveals the dressing to be clean, dry and intact. Leg lengths are equal. NEUROLOGIC: She is neurologically intact. LABORATORY DATA: Hemoglobin 8.9, hematocrit 28.0. Electrolytes are stable. ASSESSMENT: An 86-year-old white female postop day 3 from intramedullary nailing of left intertroch fracture, doing reasonably well. Pain is controlled. She looks quite comfortable. Appears stable. PLAN: 1. DVT prophylaxis including thigh-high TEDs, SCDs, and aspirin once a day. 2. PT/OT. She can fully weightbear on left leg. 3. Medical management as per the medicine service. 4. Disposition: Orthopedically stable and acceptable for discharge at any time. I need to see her back 2 weeks out from surgery. Any questions can be directed to me at [phone].
--- NOTE | 2016-11-26 08:08 | Anesthesiology Progress Note ---
Anesthesia Post Op Note Date & Time Nov 26, 2016 at 08:06 Vital Signs Vital Signs Past 12 Hours Date Time Temp Pulse Resp B/P Pulse Ox O2 Delivery O2 Flow Rate FiO2 11/25/16 22:50 37.3 109 16 111/65 95 Room Air 11/25/16 22:30 Room Air Notes Mental Status: alert / awake / arousable, participated in evaluation Pt Amnestic to Procedure: Yes Nausea / Vomiting: adequately controlled Pain: adequately controlled Airway Patency, RR, SpO2: stable & adequate BP & HR: stable & adequate Hydration State: stable & adequate Neuraxial Anesthesia: was administered, sensory block resolved Anesthetic Complications: no major complications apparent
[2016-11-26] MEDS: INSULIN ASPART 100 UNITS/ML 3 ML PEN SC SCH ×4 (08:27→21:19)
[2016-11-26] MEDS: CALCIUM 600MG + VIT D 400 IU TAB PO SCH ×2 (08:28→21:18)
[2016-11-26] MEDS: ASPIRIN 325 MG ECTAB PO SCH (08:28)
[2016-11-26] MEDS: DOCUSATE SODIUM 100 MG CAP PO SCH ×2 (08:28→21:18)
[2016-11-26] MEDS: CEROVITE ADV FORMULA TAB PO SCH (08:29)
[2016-11-26] MEDS: FERROUS SULFATE 325 MG TAB PO SCH (08:29)
[2016-11-26] MEDS: RANITIDINE HCL 150 MG TAB PO SCH ×2 (08:29→21:17)
[2016-11-26 10:24] VITALS: BP 123/73; PULSE 109; O2SAT 97
[2016-11-26] MEDS: SENNA 8.6 MG TAB PO SCH (12:48)
[2016-11-26 14:56] VITALS: BP 96/58; PULSE 106; TEMP 36.5; O2SAT 98
--- NOTE | 2016-11-26 15:56 | Progress Note ---
Medicine Progress Note Date & Time of Visit: Nov 26, 2016 at 15:50. Subjective Patient seen and examined. Denies pain. Has had yet had a bowel movement. Objective Last 8 Hrs Date Time Temp Pulse Resp B/P Pulse Ox O2 Delivery O2 Flow Rate FiO2 11/26/16 14:56 36.5 106 16 96/58 98 Room Air 11/26/16 10:24 109 97 11/26/16 08:10 Room Air Physical Exam: General-awake; alert; NAD Eyes-EOMI; no scleral icterus Neck-no stridor; trachea midline Lungs-CTA bilaterally; no wheezes/crackles Heart-RRR; no m/r/g Abdomen-soft; NTND; nBS Extremities-left leg bandage c/d/i Neuro-demented Laboratory Results: Last 24 Hours Test 11/25/16 17:06 11/25/16 20:53 11/26/16 05:14 11/26/16 07:21 Bedside Glucose 310 mg/dl 295 mg/dl 217 mg/dl White Blood Count 13.51 K/uL Red Blood Count 3.00 M/uL Hemoglobin 8.9 g/dL Hematocrit 28.0 % Mean Corpuscular Volume 93.3 fL Mean Corpuscular Hemoglobin 29.7 pg Mean Corpuscular Hemoglobin Concent 31.8 g/dl RDW Standard Deviation 54.6 fL RDW Coefficient of Variation 15.8 % Platelet Count 257 K/uL Mean Platelet Volume 9.8 fL Sodium Level 139 mmol/L Potassium Level 3.9 mmol/L Chloride Level 103 mmol/L Carbon Dioxide Level 32 mmol/L Anion Gap 4.0 mmol/L Blood Urea Nitrogen 22 mg/dl Creatinine 1.40 mg/dl Est Creatinine Clear Calc Drug Dose 22.1 ml/min Estimated GFR () 39.3 Estimated GFR (Non- 33.9 BUN/Creatinine Ratio 15.8 Random Glucose 172 mg/dl Calcium Level 9.0 mg/dl Test 11/26/16 12:00 Bedside Glucose 218 mg/dl Assessment & Plan Fever - low grade fever evening of 11/24 - CXR on admission clear and no oxygen requirements - dirty urinalysis (possible contamination given numerous epithelial cells and hyaline casts), urine culture with 20K streptococcus (likely contaminant) - no further fever and WBC count stable - no indication for antibiotics at this time Left hip fracture - Orthopedics consulted - s/p intermedullary nailing 11/23/16 - pain control with Tylenol and Tramadol - PT/OT evaluations - social services specialist for discharge planning Type 2 DM - continue insulin CKD stage 4 - baseline creatinine ~1.1-1.4 DVT prophylaxis with SCD's, MILIND's, aspirin Anticipate discharge to rehab tomorrow. Consultants: Orthopedics Current Inpatient Medications: Current Inpatient Medications Medications (Trade) Dose Ordered Sig/Leigh Ann Route Start Time Stop Time Status Last Admin Dose Admin Glucose (Glucose 40% Gel) 15-30 GRAMS 15 GRAMS... UD PRN PO 11/22/16 20:00 12/22/16 19:59 Glucose (Glucose Chew Tab) 4-8 Tablets 4 Tabl... UD PRN PO 11/22/16 20:00 12/22/16 19:59 Dextrose (Dextrose 50% 50ML Syringe) 25-50ML OF 50% DW IV FOR... UD PRN IV 11/22/16 20:00 12/22/16 19:59 Glucagon (Glucagon Inj) 1 mg UD PRN SQ 11/22/16 20:00 12/22/16 19:59 Tramadol HCl (Ultram Tab) 25 mg Q6H PRN PO 11/22/16 20:00 12/22/16 19:59 11/24/16 21:40 25 MG Docusate Sodium (coLACE CAP) 100 mg BID PO 11/22/16 21:00 12/22/16 20:59 11/26/16 08:28 100 MG Levothyroxine Sodium (Synthroid Tab) 50 mcg DAILYBB PO 11/23/16 06:00 12/23/16 05:59 11/26/16 05:17 50 MCG Multivitamins/ Minerals (Multivitamin W/ Minerals Tab) 1 tab DAILY PO 11/23/16 09:00 12/23/16 08:59 11/26/16 08:29 1 TAB Polyethylene (Miralax Powder Packet) 17 gm DAILY PRN PO 11/22/16 20:00 12/22/16 19:59 11/25/16 17:41 17 GM Ranitidine HCl (zANTac TAB) 150 mg BID PO 11/22/16 21:00 12/22/16 20:59 11/26/16 08:29 150 MG Simvastatin (Zocor Tab) 20 mg QPM PO 11/22/16 21:00 12/22/16 20:59 11/25/16 21:33 20 MG Ferrous Sulfate (Feosol Tab) 325 mg DAILY PO 11/23/16 09:00 12/23/16 08:59 11/26/16 08:29 325 MG Calcium/Vitamin D (Caltrate Plus Tab) 1 tab BID PO 11/22/16 21:00 12/22/16 20:59 11/26/16 08:28 1 TAB Aspirin (Ecotrin Tab) 325 mg DAILY PO 11/24/16 09:00 12/24/16 08:59 11/26/16 08:28 325 MG Insulin Aspart (novoLOG ASPART) SLIDING SCALE If C... ACHS SC 11/23/16 17:45 11/26/16 12:47 5 UNITS Acetaminophen (Tylenol Tab) 1,000 mg Q8 PO 11/23/16 22:00 12/23/16 21:59 11/26/16 13:42 1,000 MG Insulin Glargine (Lantus Solostar Pen) 20 unit HS SC 11/26/16 21:00 12/26/16 20:59 Senna (Senokot Tab) 8.6 mg QAM PO 11/26/16 10:45 12/26/16 10:44 11/26/16 12:48 8.6 MG
[2016-11-26] MEDS ORDERED: INSULIN GLARGINE SOLOSTAR 100 UNITS/ML 3 ML PEN SC SCH (21:00)
[2016-11-26] MEDS: SIMVASTATIN 20 MG TAB PO SCH (21:17)
[2016-11-26 22:51] VITALS: BP 109/70; PULSE 106; TEMP 37.1; O2SAT 97
[2016-11-27] MEDS: ACETAMINOPHEN 500 MG TAB PO SCH ×2 (05:18→13:51)
[2016-11-27] MEDS: LEVOTHYROXINE 50 MCG TAB PO SCH (05:18)
[2016-11-27 05:49] LABS: HEMATOCRIT 28.2 % (37-47); MEAN CELL VOLUME 91.9 fL (80-100); MEAN CORPUSCULAR HEMOGLOBIN 29.3 pg (25-34); MEAN CORPUSCULAR HGB CONC 31.9 g/dl (32-36); MEAN PLATELET VOLUME 9.5 fL (7.4-10.4); PLATELET COUNT 331 K/uL (130-400); RED BLOOD COUNT 3.07 M/uL (4.2-5.4); WHITE BLOOD COUNT 11.77 K/uL (4.8-10.8)
[2016-11-27 06:22] LABS: BUN/CREATININE RATIO 19.3 (10-20); CALCIUM 9.3 mg/dl (8.5-10.1); CREATININE 1.3 mg/dl (0.60-1.20); POTASSIUM 3.6 mmol/L (3.5-5.1)
[2016-11-27 07:34] VITALS: BP 105/64; PULSE 87; TEMP 36.9; O2SAT 97
[2016-11-27 07:46] VITALS: BP 115/66; PULSE 98; TEMP 36.8; O2SAT 94
[2016-11-27] MEDS: ASPIRIN 325 MG ECTAB PO SCH (08:51)
[2016-11-27] MEDS: CALCIUM 600MG + VIT D 400 IU TAB PO SCH (08:51)
[2016-11-27] MEDS: INSULIN ASPART 100 UNITS/ML 3 ML PEN SC SCH ×2 (08:51→12:19)
[2016-11-27] MEDS: RANITIDINE HCL 150 MG TAB PO SCH (08:52)
[2016-11-27] MEDS: CEROVITE ADV FORMULA TAB PO SCH (08:52)
[2016-11-27] MEDS: DOCUSATE SODIUM 100 MG CAP PO SCH (08:52)
[2016-11-27] MEDS: FERROUS SULFATE 325 MG TAB PO SCH (08:52)
[2016-11-27] MEDS: SENNA 8.6 MG TAB PO SCH (08:52)
[2016-11-27] MEDS ORDERED: ASPEC325 PO (10:09)
[2016-11-27] MEDS ORDERED: CALCTAB7 PO (10:09)
[2016-11-27] MEDS ORDERED: SNK PO (10:09)
[2016-11-27] MEDS ORDERED: ULT50X PO (10:09)
[2016-11-27] MEDS ORDERED: ACET-1138 PO (10:09)
--- NOTE | 2016-11-27 10:20 | Discharge Summary ---
Discharge Summary Date of Service Nov 27, 2016. Discharge Summary Admission Date: Nov 22, 2016 at 19:46 Discharge Date: Nov 27, 2016 Discharge Disposition: Rehab Principal Diagnosis: Left hip fracture s/p intermedullary nailing Consultations: Orthopedics Medication Reconciliation New Medications: Acetaminophen (Tylenol Extra Strength) 500 Mg Tab 1000 MG PO Q8 for 30 Days, #180 TAB Aspirin (Aspirin) 325 Mg Ectab 325 MG PO DAILY for 30 Days, #30 TAB Calcium Carbonate-Vitamin D W/ (Caltrate 600 Plus) 1 Tab Tab 1 TAB PO BID for 30 Days, #60 TAB Senna (Senna Lax) 8.6 Mg Tab 8.6 MG PO QAM for 30 Days, #30 TAB Tramadol HCl (Tramadol HCl) 50 Mg Tab 25 MG PO Q6H PRN for Pain for 30 Days, #60 TAB Continued Medications: Docusate Sodium (Docusate Sodium) 100 Mg Cap 100 MG PO BID, #60 CAP 1 Refill Ferrous Sulfate (Kp Ferrous Sulfate) 325 Mg Tab 325 MG PO DAILY, TAB 3 Refills Insulin Glargine (Lantus Solostar) 100 Unit/Ml Inj 24 UNITS SC HS, PEN Levothyroxine Sodium (Levothyroxine Sodium) 50 Mcg Tab 50 MCG PO QAM Meclizine Hcl (Meclizine Hcl) 25 Mg Tab 1 TAB PO DAILY PRN for Dizziness or Vertigo, TAB Misc Natural Products (Osteo Bi-Flex Triple Stre) 1 Tab Tab 1 TAB PO BID Multivitamin (Multivitamin) Tab 1 TAB PO DAILY, TAB Ocuvite Preservision (Ocuvite Preservision) 1 Tab Tab 1 TAB PO DAILY, TAB Polyethylene (Miralax) 17 Gm Pow 17 GM PO DAILY PRN for Constipation, #30 1 Refill Ranitidine (Zantac) 150 Mg Tab 150 MG PO BID, TAB Simvastatin (Zocor) 20 Mg Tab 20 MG PO QPM, 0 Refills Sitagliptin Phosphate (Januvia) 25 Mg Tab 25 MG PO QAM, TAB Admission Information HPI (per Admitting provider): Medical history significant for dementia, hyperlipidemia, DM2, insulin requiring , history of colonic polyps, hemorrhoids, history of C. diff, peptic ulcer disease as per daughter. Recent confinement, last month, for LGIB, secondary to C. diff.. The patient discharged on p.o. vancomycin. Initially discharged to [facility], subsequently discharged home. Hours ago, patient's daughter heard a thump. Patient was found on the floor: Patient denies chest pain, shortness of breath, syncope. No head trauma. Patient unable to get up, complaining of left hip pain. Left hip deformity noted by daughter. At the Emergency Room, the patient given IV ceftriaxone for possible UTI. Patient denies bladder symptoms. No fever, no chills. Physical Exam (per Admitting): VITAL SIGNS: Blood pressure was noted to be 140/58, pulse 90, RR 20, T 37 O2 sats 98 on room air. GENERAL: Noted to be demented, no respiratory distress. SKIN: Normal color. HEENT: nevus on the frontal area. [place] palpebral conjunctivae. Dry mucosa. NECK: No JVD. Supple. CHEST: Clear to auscultation. HEART: Regular rate and rhythm. ABDOMEN: Some distention. EXTREMITIES: Tenderness on the left hip. NEUROLOGIC: Demented Hospital Course Patient was admitted with left hip fracture. Orthopedics was consulted and performed intermedullary nailing on 11/23. Patient had a low grade temp the evening of 11/24. CXR was negative. Urinalysis was consistent with contamination and urine culture grew 20K of streptococcus, likely contaminant. There was no clinical indication for antibiotics. Pain control was achieved with scheduled Tylenol and PRN Tramadol. DVT prophylaxis with maintained with daily aspirin, MILIND's and SCD's. PT/OT evaluated patient and recommended rehab. Patient was deemed stable for discharge to rehab. Patient was continued on her home medications on discharge with the aforementioned additions. PE on discharge: General- awake; alert; NAD Eyes- EOMI; no scleral icterus ENT- +dentures Neck- no stridor; trachea midline Lungs- CTA bilaterally; no wheezes/crackles Heart- RRR; no m/r/g Abdomen- soft; NTND; nBS Back- no gross abnormalities Extremities- no c/c/e; no deformity Neuro- +dementia Skin- no appreciable rash . Total time spent on discharge = This includes examination of the patient, discharge planning, medication reconciliation, and communication with other providers. Discharge Instructions Discharge Instructions Date of Service Nov 24, 2016. Admission Reason for Admission: Intertrochanteric Fracture Of Left Hip Discharge Discharge Diagnosis / Problem: Left Hip Fracture IM Nailing Discharge Goals Goal(s): Decrease discomfort, Improve function, Therapeutic intervention Activity Recommendations Activity Limitations: per Instructions/Follow-up section Weightbearing Status: Left weightbearing . Instructions / Follow-Up Instructions / Follow-Up May fully weight-bear as tolerated Return to Orthopedic Clinic 2 weeks post-op. Current Hospital Diet Patient's current hospital diet: Diabetes Type 2 Diet Discharge Diet Recommended Diet: Diabetes Type 2 Diet Procedures Procedures Performed: Intermedullary nailing of left hip fracture Pending Studies Studies pending at discharge: no Laboratory Results Hemoglobin A1c Test 09/28/16 06:48 Range/Units Estimated Average Glucose 186 mg/dl Hemoglobin A1c 8.1 H 4.5-5.6 % Medical Emergencies . Who to Call and When: Medical Emergencies: If at any time you feel your situation is an emergency, please call 911 immediately. . Non-Emergent Contact Non-Emergency issues call your: Surgeon . "Provider Documentation" section prepared by Alonzo Easley. . VTE Core Measure Inpt VTE Proph given/why not?: Other Anticoagulation, T.E.D. Stockings, SCD's Additional Copies To Andrew Mcneil M.D.
--- NOTE | 2016-11-27 11:26 | PROGRESS NOTE ---
DATE: 11/27/2016 SUBJECTIVE: An 86-year-old female with severe dementia postop day #4 from IM nailing of left intertrochanteric fracture. She seems to be doing well. Denies any pain. Resting comfortably. OBJECTIVE: VITAL SIGNS: Temperature 36.8. Vital signs stable. GENERAL: Physical examination reveals a pleasant elderly female. She is lying in bed and looks comfortable. She denies any pain. EXTREMITIES: Examination of left hip reveals the leg lengths to be equal. Incisions are clean, dry and intact. Minimal swelling. No drainage. She is able to dorsiflex and plantarflex her foot on command. LABORATORY DATA: Hemoglobin is 9.0. Hematocrit 28.2. Electrolytes are stable. ASSESSMENT: An 86-year-old female postop day #4 from IM nailing of left intertrochanteric fracture, doing well. Her pain seems to be controlled. She is orthopedically stable. PLAN: 1. DVT prophylaxis including thigh-high TEDs, SCDs, and aspirin once a day. 2. PT/OT. She can weightbear as tolerated on the left lower extremity. 3. Medical management as per the medicine service. 4. Disposition: She is orthopedically acceptable for discharge at any time. I just need to see her back 2 weeks postop. Any questions can be directed to me at [phone].
[2016-11-27 12:06] VITALS: BP 115/66; PULSE 98; TEMP 36.8; O2SAT 94
[2017-01-05] MEDS ORDERED: VNCS125 PO (14:00)
== END 2016-11-27 16:25 | DRG 481 ==
LOC: ENRESERVDT → ENRESERVTM → EDBD 16:58 → C.EDB 17:00 → C.3E 19:46
PROVIDERS: ADMIT Internal Medicine; ATTEND Internal Medicine
PROC: 0QS706Z Reposition Left Upper Femur with Intramedullary Internal Fixation Device, Open Approach (ICD-10-PCS; principal; 2016-11-23 07:00)
DX: S72.142A Displaced intertrochanteric fracture of left femur, initial encounter for closed fracture (principal); N17.9 Acute kidney failure, unspecified; F03.90 Unspecified dementia, unspecified severity, without behavioral disturbance, psychotic disturbance, mood disturbance, and anxiety; E78.5 Hyperlipidemia, unspecified; Z79.4 Long term (current) use of insulin; Z87.11 Personal history of peptic ulcer disease; Z86.010 Personal history of colon polyps; Z87.19 Personal history of other diseases of the digestive system; Z90.49 Acquired absence of other specified parts of digestive tract; Z79.899 Other long term (current) drug therapy; Z88.5 Allergy status to narcotic agent; E86.0 Dehydration; Z66 Do not resuscitate; E11.65 Type 2 diabetes mellitus with hyperglycemia; W19.XXXA Unspecified fall, initial encounter

== ENCOUNTER 2017-01-01 15:23 | Inpatient (IN) | payer OTHER ==
[~2017-01-01] VITALS: Ht 152.4 cm; Wt 56.5 kg
[~2017-01-01 15:23] MED LIST changes: +ACET-1138 PO; -ACET-1257 PO; +ASPEC325 PO; +CALCTAB7 PO; +MISCTAB88 PO; +MULT-190 PO; +MULT-506 PO; +SNK PO; +ULT50X PO; -VNCS125 PO
[2017-01-01] MEDS ORDERED: SODIUM CHLORIDE 0.9% 1000ML 1,000 ML IV STA ×2 (16:45→18:33)
[2017-01-01] MEDS ORDERED: GLUCTAB18 PO (17:41)
[2017-01-01] MEDS ORDERED: MULT1TAB22 PO (17:42)
[2017-01-01 17:44] LABS: PARTIAL THROMBOPLASTIN RATIO 0.9; PROTHROMBIN TIME (PATIENT) 10.3 SECONDS (9.0-12.0)
[2017-01-01 17:53] LABS: BASO % 0.3 %; BASO ABS # 0.03 K/uL (0-0.2); COMPLETE YES; EOS % 1.4 %; HEMATOCRIT 31.8 % (37-47); IG% 0.3 %; LYMPH % 23.5 %; LYMPH ABS # 2.79 K/uL (1.2-3.4); MEAN CELL VOLUME 93.3 fL (80-100); MEAN CORPUSCULAR HEMOGLOBIN 29.9 pg (25-34); MEAN CORPUSCULAR HGB CONC 32.1 g/dl (32-36); MONO % 6.8 %; NEUT % 67.7 %; PLATELET COUNT 304 K/uL (130-400); RED BLOOD COUNT 3.41 M/uL (4.2-5.4); WHITE BLOOD COUNT 11.88 K/uL (4.8-10.8)
[2017-01-01 17:59] LABS: ALKALINE PHOSPHATASE 123 U/L (45-117); ALT/SGPT 14 U/L (12-78); AST/SGOT 10 U/L (15-37); BLOOD UREA NITROGEN 44 mg/dl (7-18); CALCIUM 9.4 mg/dl (8.5-10.1); CARBON DIOXIDE 27 mmol/L (21-32); CHLORIDE 102 mmol/L (98-107); GLUCOSE 428 mg/dl (70-99); POTASSIUM 4.4 mmol/L (3.5-5.1); SODIUM 136 mmol/L (136-145)
[2017-01-01] MEDS ORDERED: PANTOprazole INJ 80 MG in DEXTROSE 5% 100ML IV ONE (18:00)
[2017-01-01] MEDS ORDERED: PANTOprazole INJ 40 MG in DEXTROSE 5% 100ML IV SCH (18:15)
[2017-01-01 18:19] LABS: URINE APPEARANCE CLEAR (CLEAR); URINE BILIRUBIN NEG (NEG); URINE COLOR YELLOW; URINE NITRITE NEG (NEG); URINE SPECIFIC GRAVITY 1.028 (1.000-1.030); UROBILINOGEN NEG (NEG)
[2017-01-01 18:20] LABS: BETA-HYDROXYBUTYRATE 1.48 mg/dL (0.2-2.81)
[2017-01-01 18:31] LABS: MANUAL MICROSCOPIC REQUIRED? NO; REVIEW REQ? NO
[2017-01-01] MEDS ORDERED: NovoLIN-R INSULIN PER UNIT CHARGE IV STA (18:33)
[2017-01-01] MEDS ORDERED: LANTUS PER UNIT CHARGE SQ SCH (20:00)
[2017-01-01] MEDS ORDERED: METRONIDAZOLE / NSS 500 MG in PREMIXED NSS 100 ML IV SCH (20:30)
--- NOTE | 2017-01-01 20:50 | EMERGENCY ROOM VISIT NOTE ---
History Report prepared by Will: Eun Francis Under the Supervision of: Dr. Jesse Reid M.D. First contact with patient: 16:45 Chief Complaint: GI ASSESSMENT Stated Complaint: BLOOD IN STOOL Nursing Triage Summary: Pt presents with daughter and POA who reports blood in stool with clots today. Hx of same a couple mos ago and was told c.diff. Saw PCP and bp was in the 90's systolic and hgb 10 today. Daughter reports hx of hemorrhoids and diverticulitis. History of Present Illness The patient is an 86 year old female who presents to the Emergency Room with complaints of a sudden episode of hematochezia that began around 0300 this morning. Per the patient's daughter, the patient noticed blood in her stool this morning. She reports that the patient saw her PCP this morning and was found to be hypotensive. The patient's daughter reports that the patient's hemoglobin was around 10 this morning, but states that last time the patient hemoglobin was 12. She reports that the patient has a history of polyps and diverticulitis, noting that she has bled from a polyp in the past. The patient' s daughter reports that the patient was treated for c-diff a couple months ago. She reports that the patient has a history of dementia, but typically can tell when she needs to use the bathroom. The patient's daughter reports that the patient has a history of previous GI bleeds and has a history of a blood transfusion. She denies the patient being on any blood thinners. The history is limited secondary the patient's dementia. Source of History: patient, family (daughter) History Limited By: dementia Onset: 0300 this morning Position: other (global) Quality: other (hematochezia) Timing: other (sudden, episode) Note: Associated Symptoms: Hypotensive Review of Systems See HPI and ROS are limited secondary to the patient's dementia. Past Medical & Surgical Medical Problems: (1) CKD (chronic kidney disease) stage 4, GFR 15-29 ml/min (2) Dementia (3) Diabetes mellitus, type II (4) GI bleed (5) Hyperlipemia (6) Hypertension (7) Hypothyroidism (8) Left Intertrochanteric Hip Fracture (9) LGI bleed (10) Sepsis Surgical Problems: (1) Status post appendectomy (2) Status post cholecystectomy Family History Cancer Diabetes mellitus Gallbladder disease Lung disease Social History Smoking Status: Never Smoker Drug Use: none Marital Status: , Housing Status: lives with family Occupation Status: retired Current/Historical Medications Scheduled Aspirin (Aspirin), 325 MG PO DAILY Docusate Sodium (Docusate Sodium), 100 MG PO BID Ferrous Sulfate (Kp Ferrous Sulfate), 325 MG PO DAILY Glucosamine-Chondroitin (Osteo Bi-Flex Regular Str), 1 TAB PO BID Insulin Glargine (Lantus Solostar), 24 UNITS SC HS Levothyroxine Sodium (Levothyroxine Sodium), 50 MCG PO QAM Multiple Vitamins W/ Minerals (One Daily For Women), 1 TAB PO DAILY Ocuvite Preservision (Ocuvite Preservision), 1 TAB PO DAILY Ranitidine (Zantac), 150 MG PO BID Simvastatin (Zocor), 20 MG PO HS Sitagliptin Phosphate (Januvia), 25 MG PO QAM Scheduled PRN Meclizine Hcl (Meclizine Hcl), 1 TAB PO BID PRN for Dizziness or Vertigo Allergies Coded Allergies: Meperidine (Verified Allergy, Mild, 11/22/16) Physical Exam Vital Signs Date Time Temp Pulse Resp B/P Pulse Ox O2 Delivery O2 Flow Rate FiO2 01/01/17 20:43 110 14 116/58 95 01/01/17 20:08 114 16 116/58 99 Room Air 01/01/17 18:31 113 20 106/62 99 Room Air 01/01/17 17:39 100 01/01/17 17:32 101 9 116/62 94 Room Air 01/01/17 17:31 98 Room Air 01/01/17 15:31 36.7 111 20 101/58 97 Room Air Physical Exam GENERAL: Awake, alert, well-appearing, in no distress HENT: Normocephalic, atraumatic. Oropharynx unremarkable. EYES: Pale conjunctiva. Sclera non-icteric. NECK: Supple. No nuchal rigidity. FROM. No JVD. RESPIRATORY: Clear to auscultation. CARDIAC: Tachycardic rate, normal rhythm. Extremities warm and well perfused. Pulses equal. ABDOMEN: Soft, non-distended. No tenderness to palpation. No rebound or guarding. No masses. RECTAL: Heme positive stool. MUSCULOSKELETAL: Chest examination reveals no tenderness. The back is symmetrical on inspection without obvious abnormality. There is no CVA tenderness to palpation. No joint edema. LOWER EXTREMITIES: Calves are equal size bilaterally and non-tender. No edema. No discoloration. NEURO: Normal sensorium. No sensory or motor deficits noted. SKIN: No rash or jaundice noted. Medical Decision & Procedures Laboratory Results 01/01/17 17:20 Red Blood Count 3.41, Mean Corpuscular Volume 93.3, Mean Corpuscular Hemoglobin 29.9, Mean Corpuscular Hemoglobin Concent 32.1, Neutrophils (%) (Auto) 67.7, Lymphocytes (%) (Auto) 23.5, Monocytes (%) (Auto) 6.8, Eosinophils (%) (Auto) 1.4, Basophils (%) (Auto) 0.3, Neutrophils # (Auto) 8.05, Lymphocytes # (Auto) 2.79, Monocytes # (Auto) 0.81, Eosinophils # (Auto) 0.17, Basophils # (Auto) 0.03 01/01/17 17:20 Test 01/01/17 17:20 01/01/17 17:55 01/01/17 19:47 White Blood Count 11.88 K/uL (4.8-10.8) Red Blood Count 3.41 M/uL (4.2-5.4) Hemoglobin 10.2 g/dL (12.0-16.0) Hematocrit 31.8 % (37-47) Mean Corpuscular Volume 93.3 fL (80-100) Mean Corpuscular Hemoglobin 29.9 pg (25-34) Mean Corpuscular Hemoglobin Concent 32.1 g/dl (32-36) Platelet Count 304 K/uL (130-400) Neutrophils (%) (Auto) 67.7 % Lymphocytes (%) (Auto) 23.5 % Monocytes (%) (Auto) 6.8 % Eosinophils (%) (Auto) 1.4 % Basophils (%) (Auto) 0.3 % Neutrophils # (Auto) 8.05 K/uL (1.4-6.5) Lymphocytes # (Auto) 2.79 K/uL (1.2-3.4) Monocytes # (Auto) 0.81 K/uL (0.11-0.59) Eosinophils # (Auto) 0.17 K/uL (0-0.5) Basophils # (Auto) 0.03 K/uL (0-0.2) Immature Granulocyte % (Auto) 0.3 % Immature Granulocyte # (Auto) 0.03 K/uL (0.00-0.02) Prothrombin Time 10.3 SECONDS (9.0-12.0) Prothromb Time International Ratio 1.0 (0.9-1.1) Activated Partial Thromboplast Time 24.3 SECONDS (21.0-31.0) Partial Thromboplastin Ratio 0.9 Anion Gap 7.0 mmol/L (3-11) Est Creatinine Clear Calc Drug Dose 23.5 ml/min Estimated GFR () 43.0 Estimated GFR (Non- 37.1 BUN/Creatinine Ratio 34.0 (10-20) Calcium Level 9.4 mg/dl (8.5-10.1) Total Bilirubin 0.3 mg/dl (0.2-1) Direct Bilirubin < 0.1 mg/dl (0-0.2) Aspartate Amino Transf (AST/SGOT) 10 U/L (15-37) Alanine Aminotransferase (ALT/SGPT) 14 U/L (12-78) Alkaline Phosphatase 123 U/L (45-117) Troponin I < 0.015 ng/ml (0-0.045) Total Protein 7.2 gm/dl (6.4-8.2) Albumin 3.1 gm/dl (3.4-5.0) Lipase 85 U/L (73-393) Beta-Hydroxybutyric Acid 1.48 mg/dL (0.2-2.81) Urine Color YELLOW Urine Appearance CLEAR (CLEAR) Urine pH 5.0 (4.5-7.5) Urine Specific [place] 1.028 (1.000-1.030) Urine Protein NEG (NEG) Urine Glucose (UA) 3+ (NEG) Urine Ketones NEG (NEG) Urine Occult Blood NEG (NEG) Urine Nitrite NEG (NEG) Urine Bilirubin NEG (NEG) Urine Urobilinogen NEG (NEG) Urine Leukocyte Esterase NEG (NEG) Date/Time Source Procedure Growth Status 01/01/17 17:55 Stool C.difficile Toxin B Gene (PCR) - Final Positive for C. difficile toxin B gene Complete Laboratory results reviewed by me Medications Administered Medications (Trade) Dose Ordered Sig/Leigh Ann Route Start Time Stop Time Status Last Admin Dose Admin Sodium Chloride 1,000 ml @ 999 mls/hr Q1H1M STAT IV 01/01/17 16:45 01/01/17 17:45 DC 01/01/17 16:45 999 MLS/HR Pantoprazole Sodium 80 mg/ Dextrose 120 ml @ 480 mls/hr ONE ONCE IV 01/01/17 18:00 01/01/17 18:14 DC 01/01/17 18:09 480 MLS/HR Pantoprazole Sodium/Dextrose (Protonix Inj/D5 100ml) 100 ml @ 20 mls/hr Q5H IV 01/01/17 18:15 01/01/17 23:14 01/01/17 18:29 20 MLS/HR Insulin Human Regular 8 units 8 units NOW STAT IV 01/01/17 18:33 01/01/17 18:35 DC 01/01/17 20:32 8 UNITS Sodium Chloride (Nss 1000ml) 1,000 ml @ 125 mls/hr Q8H STAT IV 01/01/17 18:33 01/02/17 02:32 01/01/17 20:30 125 MLS/HR Insulin Glargine (Lantus Per Unit) 10 units TODAY@2000 SQ 01/01/17 20:00 01/01/17 23:59 01/01/17 20:00 10 UNITS ECG Indication: other (GI Bleed) Rate (beats per minute): 100 Rhythm: normal sinus Findings: no acute ischemic change, no ectopy ED Course 1735: The patient was evaluated in room C5. A complete history and physical exam was performed. 1800: Ordered Pantoprazole Sodium 80 mg/Dextrose 120 ml @ 480 mls/hr IV. 181: Ordered Pantoprazole Sodium 40 mg/Dextrose 100 ml @ 20 mls/hr IV. 1833: Ordered Sodium Chloride 1000 ml @ 125 mls/hr IV, Insulin Human Regular 8 units IV. 1837: I reevaluated the patient and she is resting comfortably. I discussed the exam findings with the patient's daughter and I discussed the treatment plan. She verbalized complete understanding and agreement. The patient will be evaluated for further treatment. 1850: I discussed the patients case with Christian Bledsoe. She is going to evaluate the patient for further treatment. Medical Decision Blood pressure screening: Patient was found to have normal blood pressure on screening and does not require immediate follow-up. Medication Reconciliation: I attest that I have personally reviewed the patient' s current medication list Triage Nursing notes reviewed. The patient's presentation and history were concerning for GI bleeding. Etiologies such as diverticulosis, AVM, coagulopathy, colitis, inflammatory bowel disease, malignancy,Gaviota-Dumont tear, esophagitis, peptic ulcer disease , variceal bleed, gastritis, epistaxis, fissure, hemorrhoids, C. difficile colitis, as well as others were entertained. The patient was evaluated. She had melanotic stools. Blood work was obtained. She has slight leukocytosis. Stool was sent for C. difficile testing. She has a mild anemia present. The patient was typed and crossed in case blood would be needed. She was found to be mildly hyperglycemic on chemistry panel. She was given a dose of IV insulin. Protonix bolus and infusion was initiated. The patient did receive IV fluids. She was doing relatively well on reassessment. Consultation was made with internal medicine for further evaluation and management. After evaluation by internal medicine the patient's C. difficile testing returned positive. Internal medicine did treat her with Flagyl. The chart was completed utilizing [employer] Speech voice recognition software. Grammatical errors, random word insertions, pronoun errors, and incomplete sentences are an occasional consequence of this system due to software limitations, ambient noise, and hardware issues. Any formal questions or concerns about the content, text, or information contained within the body of this dictation should be directly addressed to the physician for clarification. Consults Time Called: 1839 Consulting Physician: Christian Bledsoe Returned Call: 1850 I discussed the patients case with Christian Bledsoe. She is going to evaluate the patient for further treatment. Impression Primary Impression: Acute GI bleeding Additional Impression: Clostridium difficile infection Scribe Attestation The scribe's documentation has been prepared under my direction and personally reviewed by me in its entirety. I confirm that the note above accurately reflects all work, treatment, procedures, and medical decision making performed by me. Departure Information Dispostion Being Evaluated By Hospitalist Referrals Jesse Schrader (PCP) Problem Qualifiers
[2017-01-01] MEDS ORDERED: DEXTROSE 50% 50 ML SYR IV PRN (21:15)
[2017-01-01] MEDS ORDERED: ACETAMINOPHEN 325 MG TAB PO PRN (21:15)
[2017-01-01] MEDS ORDERED: NITROGLYCERIN 0.4 MG SL PER TAB CHARGE SL PRN (21:15)
[2017-01-01] MEDS ORDERED: SODIUM CHLORIDE 0.45% 1000ML 1,000 ML IV ONE (21:15)
[2017-01-01] MEDS ORDERED: HYDROmorphone INJ 1 MG/ML SYR IV PRN (21:15)
[2017-01-01] MEDS ORDERED: GLUCAGON FOR INJ 1 MG VIAL SQ PRN (21:15)
[2017-01-01] MEDS ORDERED: ONDANSETRON INJ 2 MG/ML 2 ML VIAL IV PRN (21:15)
[2017-01-01] MEDS ORDERED: TRAMADOL HCL 50 MG TAB PO PRN (21:15)
[2017-01-01] MEDS ORDERED: GLUCOSE 40% GEL 15 GM TUBE PO PRN (21:15)
[2017-01-01] MEDS ORDERED: GLUCOSE 10 TABS/TUBE PO PRN (21:15)
[2017-01-01 21:42] VITALS: BP 107/65; PULSE 118; TEMP 36.8; O2SAT 100; BMI 23.7
[2017-01-01] MEDS ORDERED: SODIUM CHLORIDE 0.9% 1000ML 1,000 ML IV ONE (22:00)
[2017-01-01] MEDS ORDERED: INSULIN ASPART 100 UNITS/ML 3 ML PEN SC SCH (22:00)
[2017-01-01 22:28] LABS: HEMATOCRIT 23.2 % (37-47)
[2017-01-01 23:23] VITALS: BP 118/70; PULSE 103; TEMP 36.7; O2SAT 100
--- NOTE | 2017-01-01 23:38 | HISTORY & PHYSICAL EXAMINATION ---
DATE OF ADMISSION: 01/01/2017 PATIENT'S PRIMARY CARE DOCTOR: Dr. Ruelas CC: rectal bleeding as per daughter, HISTORY OF PRESENT ILLNESS: History obtained from the patient, patient's daughter, and records. Limited history from the patient secondary to dementia. Medical history significant for dementia, hypertension, hyperlipidemia, DM2 insulin requiring, history of colonic polyps, hemorrhoids, history of C. diff, PUD as per daughter. Chronic renal insufficiency, creatinine 1.3-1.4. Recent confinement last month for left hip fracture status post intramedullary nailing. Patient discharged to [facility] initially for rehab. Discharged on aspirin 325 mg p.o. daily postop for 30 days as per discharge summary. As per daughter, aspirin to be extended until follow up with orthopedic doctor. At [facility], the patient developed urinary tract infection sp Cipro rx. Today, patient noted to have stool with blood clots, not black, no diarrhea. No hematemesis, no coffee-ground emesis. Px currently not complaining of abdominal pain, no fever. At the PCP's office SBP 90s. In the Emergency Room, Protonix bolus given for poss UGIB. MEDICAL HISTORY: As above. 2007 - EGD - duodenitis erosive gastropathy. 2009 - colonoscopy showed internal hemorrhoids, polyps. SURGERIES: 1. She has had orthopedic procedures. 2. Appendectomy. 3. Cholecystectomy. HOME MEDICATIONS: Include docusate sodium, aspirin, simvastatin, sitagliptin, levothyroxine, Zantac, meclizine, ferrous sulfate, Ocuvite, glucosamine, multivitamins. ALLERGIES: TO MEPERIDINE. FAMILY HISTORY: Could not be obtained. PERSONAL AND SOCIAL HISTORY: Nonsmoker, currently lives with daughter. REVIEW OF SYSTEMS: Cannot be obtained. PHYSICAL EXAMINATION: VITAL SIGNS: Blood pressure was noted to be 106/62, pulse rate 113, RR 20, T 37 O2 98RA on room air. GENERAL: Noted to be demented SKIN: Pallor. HEENT: Pale palpebral conjunctivae. Dry mucosa. NECK: No JVD. supple CHEST: Decreased effort. HEART: Tachycardic. ABDOMEN: Nontender. EXTREMITIES: No edema. no tenderness NEUROLOGIC: Dementia. LABS: Hemoglobin was noted to be 10 from .10 October 2016, hematocrit 31, white cells 11 Sodium 139 potassium 4.4, chloride 105, CO2 22, BUN 44, creatinine 1.3, glucose 400. Hemoglobin A1c from October 31 was noted to be 8. C. diff was positive. EKG as per my interpretation : fciv=[id number], NSR, TW abn septal leads ASSESSMENT: 1. 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 recent antibiotic intake for urinary tract infection. Recent left hip surgery, currently on aspirin for thromboembolic prevention. 2. Anemia, hemoglobin drop secondary to above. 3. Hypertension, stable. 4. History of duodenitis/gastritis/polyps/hemorrhoids on previous endoscopies. 5. Dementia as per records. 6. DM2 on insulin, suboptimal control as of recent outpx HgA1c. 7. CRI, crea at baseline PLAN: PCU Flagyl course GI consult if GI bleed persists serial HH, transfuse prbc if hemoglobin less than 7 and/or symptomatic anemia. hold ASA (clarify with Ortho intended duration of of tx) Basal insulin, ISS BG goal 140-180 adjusted for clear liquids for now. DVT prophylaxis. SCDs. RE LGIB DNR as per daughter/POA, Ms. Earl Alton. She requests updates from providers at [phone]. MTDD
[2017-01-02] VITALS (16 sets, daily range): BP systolic 106–169; BP diastolic 51–77; PULSE 75–115; TEMP 36.4–37.2; O2SAT 91–100
[2017-01-02] MEDS: INSULIN ASPART 100 UNITS/ML 3 ML PEN SC SCH ×4 (07:00→20:38)
[2017-01-02 07:36] LABS: BASO % 0.2 %; BASO ABS # 0.02 K/uL (0-0.2); EOS % 3.7 %; HEMATOCRIT 26.1 % (37-47); IG% 0.2 %; LYMPH % 30.9 %; MEAN CELL VOLUME 88.2 fL (80-100); MEAN CORPUSCULAR HEMOGLOBIN 28.4 pg (25-34); MEAN CORPUSCULAR HGB CONC 32.2 g/dl (32-36); MEAN PLATELET VOLUME 9.1 fL (7.4-10.4); MONO % 7.2 %; NEUT % 57.8 %; PLATELET COUNT 239 K/uL (130-400); RED BLOOD COUNT 2.96 M/uL (4.2-5.4); WHITE BLOOD COUNT 12.61 K/uL (4.8-10.8)
[2017-01-02 08:10] LABS: COMPLETE YES
[2017-01-02 08:18] LABS: BUN/CREATININE RATIO 43.9 (10-20); CREATININE 0.98 mg/dl (0.60-1.20); POTASSIUM 3.6 mmol/L (3.5-5.1)
[2017-01-02 08:29] LABS: CALCIUM 8.2 mg/dl (8.5-10.1)
[2017-01-02] MEDS ORDERED: CEROVITE ADV FORMULA TAB PO SCH (09:00)
[2017-01-02] MEDS: RANITIDINE HCL 150 MG TAB PO SCH (09:01)
[2017-01-02] MEDS: SITAGLIPTIN 25 MG TAB PO SCH (09:01)
[2017-01-02] MEDS: INSULIN GLARGINE SOLOSTAR 100 UNITS/ML 3 ML PEN SC SCH ×2 (09:01→21:33)
[2017-01-02] MEDS: CEROVITE ADV FORMULA TAB PO SCH (09:01)
[2017-01-02] MEDS: METRONIDAZOLE 500 MG TAB PO SCH ×2 (09:01→17:18)
[2017-01-02] MEDS: LEVOTHYROXINE 50 MCG TAB PO SCH (09:02)
[2017-01-02 12:53] LABS: HEMATOCRIT 26.3 % (37-47)
--- NOTE | 2017-01-02 13:07 | Progress Note ---
Internal Med Progress Note Date of Service: January 02, 2017. Provider Documentation: SUBJECTIVE: The patient was sen and examined has dementia and not in any distress Denies any symptoms OBJECTIVE: Vital Signs-as noted below Exam: General-Sitting comfortably on a chair Eyes-normal ENT-normal Neck-supple Lungs-Clear to ausucltate bilaterally Heart-Regular,no murmur Abdomen-Benign,no masses,bowel sound present Extremities-No edema Neuro-AA Has Dementia Lab data as noted below. ASSESSMENT & PLAN: Lower gastrointestinal bleeding ,with blood loss Anemia History of duodenitis/gastritis/polyps/hemorrhoids on previous endoscopies. 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 Recent antibiotic intake for urinary tract infection. Recent left hip surgery, currently on aspirin for thromboembolic prevention. Hold Aspirin for now Check H/H Transfuse if Hb <8,0 Hypertension, stable. Dementia as per records. No acute Delirium DM2 on insulin, suboptimal control as of recent outpx HgA1c. Basal insulin, ISS BG goal 140-180 adjusted for clear liquids for now. DVT prophylaxis. SCDs. RE LGIB DNR as per daughter/POA, Ms. Mady Dang. She requests updates from providers at [phone]. Discussed with her Vital Signs: Date Time Temp Pulse Resp B/P Pulse Ox O2 Delivery O2 Flow Rate FiO2 01/02/17 11:41 37.2 115 18 106/67 96 Room Air 01/02/17 09:06 103 96 01/02/17 08:00 Room Air 01/02/17 07:56 37.0 75 18 132/69 97 01/02/17 04:28 36.4 95 18 137/71 100 Room Air 01/02/17 04:00 Room Air 01/02/17 02:15 36.5 109 17 119/59 97 Room Air 01/02/17 01:15 36.6 111 18 130/73 98 01/02/17 00:45 36.5 102 18 132/77 100 01/02/17 00:26 36.6 114 20 124/51 91 01/01/17 23:59 Room Air 01/01/17 23:23 36.7 103 18 118/70 100 Room Air 01/01/17 21:42 36.8 118 20 107/65 100 Room Air 01/01/17 20:43 110 14 116/58 95 01/01/17 20:08 114 16 116/58 99 Room Air 01/01/17 18:31 113 20 106/62 99 Room Air 01/01/17 17:39 100 01/01/17 17:32 101 9 116/62 94 Room Air 01/01/17 17:31 98 Room Air 01/01/17 15:31 36.7 111 20 101/58 97 Room Air Lab Results: Results Past 24 Hours Test 01/01/17 17:20 01/01/17 17:55 01/01/17 20:28 01/01/17 22:19 Range/Units White Blood Count 11.88 4.8-10.8 K/uL Red Blood Count 3.41 4.2-5.4 M/uL Hemoglobin 10.2 7.5 12.0-16.0 g/dL Hematocrit 31.8 23.2 37-47 % Mean Corpuscular Volume 93.3 80-100 fL Mean Corpuscular Hemoglobin 29.9 25-34 pg Mean Corpuscular Hemoglobin Concent 32.1 32-36 g/dl Platelet Count 304 130-400 K/uL Neutrophils (%) (Auto) 67.7 % Lymphocytes (%) (Auto) 23.5 % Monocytes (%) (Auto) 6.8 % Eosinophils (%) (Auto) 1.4 % Basophils (%) (Auto) 0.3 % Neutrophils # (Auto) 8.05 1.4-6.5 K/uL Lymphocytes # (Auto) 2.79 1.2-3.4 K/uL Monocytes # (Auto) 0.81 0.11-0.59 K/uL Eosinophils # (Auto) 0.17 0-0.5 K/uL Basophils # (Auto) 0.03 0-0.2 K/uL Immature Granulocyte % (Auto) 0.3 % Immature Granulocyte # (Auto) 0.03 0.00-0.02 K/uL Prothrombin Time 10.3 9.0-12.0 SECONDS Prothromb Time International Ratio 1.0 0.9-1.1 Activated Partial Thromboplast Time 24.3 21.0-31.0 SECONDS Partial Thromboplastin Ratio 0.9 Sodium Level 136 136-145 mmol/L Potassium Level 4.4 3.5-5.1 mmol/L Chloride Level 102 98-107 mmol/L Carbon Dioxide Level 27 21-32 mmol/L Anion Gap 7.0 3-11 mmol/L Blood Urea Nitrogen 44 7-18 mg/dl Creatinine 1.30 0.60-1.20 mg/dl Est Creatinine Clear Calc Drug Dose 23.5 ml/min Estimated GFR () 43.0 Estimated GFR (Non- 37.1 BUN/Creatinine Ratio 34.0 10-20 Random Glucose 428 70-99 mg/dl Calcium Level 9.4 8.5-10.1 mg/dl Magnesium Level 1.9 1.8-2.4 mg/dl Total Bilirubin 0.3 0.2-1 mg/dl Direct Bilirubin < 0.1 0-0.2 mg/dl Aspartate Amino Transf (AST/SGOT) 10 15-37 U/L Alanine Aminotransferase (ALT/SGPT) 14 12-78 U/L Alkaline Phosphatase 123 45-117 U/L Troponin I < 0.015 0-0.045 ng/ml Total Protein 7.2 6.4-8.2 gm/dl Albumin 3.1 3.4-5.0 gm/dl Lipase 85 73-393 U/L Beta-Hydroxybutyric Acid 1.48 0.2-2.81 mg/dL Urine Color YELLOW Urine Appearance CLEAR CLEAR Urine pH 5.0 4.5-7.5 Urine Specific [place] 1.028 1.000-1.030 Urine Protein NEG NEG Urine Glucose (UA) 3+ NEG Urine Ketones NEG NEG Urine Occult Blood NEG NEG Urine Nitrite NEG NEG Urine Bilirubin NEG NEG Urine Urobilinogen NEG NEG Urine Leukocyte Esterase NEG NEG Bedside Glucose 339 70-90 mg/dl Lactic Acid Level 2.0 0.4-2.0 mmol/L Test 01/01/17 22:24 01/02/17 06:29 01/02/17 07:25 01/02/17 11:30 Range/Units Bedside Glucose 180 107 244 70-90 mg/dl White Blood Count 12.61 4.8-10.8 K/uL Red Blood Count 2.96 4.2-5.4 M/uL Hemoglobin 8.4 12.0-16.0 g/dL Hematocrit 26.1 37-47 % Mean Corpuscular Volume 88.2 80-100 fL Mean Corpuscular Hemoglobin 28.4 25-34 pg Mean Corpuscular Hemoglobin Concent 32.2 32-36 g/dl Platelet Count 239 130-400 K/uL Mean Platelet Volume 9.1 7.4-10.4 fL Neutrophils (%) (Auto) 57.8 % Lymphocytes (%) (Auto) 30.9 % Monocytes (%) (Auto) 7.2 % Eosinophils (%) (Auto) 3.7 % Basophils (%) (Auto) 0.2 % Neutrophils # (Auto) 7.29 1.4-6.5 K/uL Lymphocytes # (Auto) 3.90 1.2-3.4 K/uL Monocytes # (Auto) 0.91 0.11-0.59 K/uL Eosinophils # (Auto) 0.47 0-0.5 K/uL Basophils # (Auto) 0.02 0-0.2 K/uL RDW Standard Deviation 55.9 36.4-46.3 fL RDW Coefficient of Variation 17.2 11.5-14.5 % Immature Granulocyte % (Auto) 0.2 % Immature Granulocyte # (Auto) 0.02 0.00-0.02 K/uL Red Blood Cell Morphology Unremarkable Sodium Level 145 136-145 mmol/L Potassium Level 3.6 3.5-5.1 mmol/L Chloride Level 112 98-107 mmol/L Carbon Dioxide Level 26 21-32 mmol/L Anion Gap 7.0 3-11 mmol/L Blood Urea Nitrogen 43 7-18 mg/dl Creatinine 0.98 0.60-1.20 mg/dl Est Creatinine Clear Calc Drug Dose 29.6 ml/min Estimated GFR () 60.5 Estimated GFR (Non- 52.2 BUN/Creatinine Ratio 43.9 10-20 Random Glucose 103 70-99 mg/dl Calcium Level 8.2 8.5-10.1 mg/dl Test 01/02/17 12:00 Range/Units Hemoglobin 8.5 12.0-16.0 g/dL Hematocrit 26.3 37-47 % Microbiology Results 01/01/17 C.difficile Toxin B Gene (PCR) - Final, Complete Positive for C. difficile toxin B gene
[2017-01-02 18:39] LABS: HEMATOCRIT 22.5 % (37-47)
[2017-01-02] MEDS: SIMVASTATIN 20 MG TAB PO SCH (19:39)
[2017-01-03] VITALS (8 sets, daily range): BP systolic 116–154; BP diastolic 57–74; PULSE 75–111; TEMP 36.3–36.9; O2SAT 93–100; Ht 152.4 cm; Wt 56.5 kg
[2017-01-03] MEDS: METRONIDAZOLE 500 MG TAB PO SCH ×2 (00:46→07:46)
[2017-01-03] MEDS: LEVOTHYROXINE 50 MCG TAB PO SCH (05:42)
[2017-01-03 06:14] LABS: BASO % 0.2 %; BASO ABS # 0.03 K/uL (0-0.2); COMPLETE YES; EOS % 2.2 %; HEMATOCRIT 31.7 % (37-47); IG% 0.1 %; LYMPH % 28.6 %; LYMPH ABS # 3.85 K/uL (1.2-3.4); MEAN CELL VOLUME 88.1 fL (80-100); MEAN CORPUSCULAR HEMOGLOBIN 30.3 pg (25-34); MEAN CORPUSCULAR HGB CONC 34.4 g/dl (32-36); MEAN PLATELET VOLUME 9.5 fL (7.4-10.4); MONO % 7.6 %; NEUT % 61.3 %; PLATELET COUNT 178 K/uL (130-400); WHITE BLOOD COUNT 13.47 K/uL (4.8-10.8)
[2017-01-03 06:51] LABS: BUN/CREATININE RATIO 29.6 (10-20); CALCIUM 8.3 mg/dl (8.5-10.1); CREATININE 0.93 mg/dl (0.60-1.20); MAGNESIUM 1.7 mg/dl (1.8-2.4); PHOSPHORUS 2.7 mg/dl (2.5-4.9); POTASSIUM 3.5 mmol/L (3.5-5.1)
[2017-01-03] MEDS: INSULIN ASPART 100 UNITS/ML 3 ML PEN SC SCH ×4 (07:00→20:59)
[2017-01-03] MEDS: RANITIDINE HCL 150 MG TAB PO SCH (07:46)
[2017-01-03] MEDS: CEROVITE ADV FORMULA TAB PO SCH (07:46)
[2017-01-03] MEDS: SITAGLIPTIN 25 MG TAB PO SCH (07:55)
[2017-01-03] MEDS: INSULIN GLARGINE SOLOSTAR 100 UNITS/ML 3 ML PEN SC SCH ×2 (07:55→20:56)
--- NOTE | 2017-01-03 15:19 | Progress Note ---
Progress Note Date of Service Jan 03, 2017. Progress Note Pt is a 86 y/o female seen for rectal bleeding. She has dementia, thus most of her history was obtained from her daughter Mady Dang currently at pt's bedside, chart review and previous admissions. Pt recently was at [facility], developed UTI and started on antibx. Mady reported pt had felt the urge the defecate prior to admission and when she did, all that came out was red blood in large volume. Subsequently she had other BMs w stool mixed w dark red blood and clots. H/H on admission 10, trended down to 7, and she was given 3u PRBC total, now back up to 10. Yesterday total of 11 BMs. VS, Labs, EMR from previous admissions and outpt EPIC chart reviewed: Pt had hx of Hpylori +, repeat in October negative. Hx of rectal bleeding in 2007 suspected to be diverticular bleed. Cdiff positive in October treated w Vancomycin 125mg QID x 10 days. She also has extensive L sided diverticulosis. Thus suspect rectal bleeding likely from Cdiff infection vs diverticular bleed. Exam: - Alert, oriented to self only. Has underlying dementia - Lungs diminished overall, no crackles or ronchi - HR regular w/o murmur or gallops - Abd soft, non tender, BS hypoactive - Legs w/o edema. Plans: - Change Flagyl to Vancomycin 125mg PO QID x 14 days. - CT abd/pelvis w contrast to r/o abscess, diverticulitis. - Monitor H/H and transfuse prn. - Will review CT scan once completed and if nothing acute, no further plans. Will monitor peripherally. - Mady (daughter) did not want to undergo endoscopic evaluations. This had been discussed back in October and again today.
[2017-01-03] MEDS ORDERED: OPTIRAY 320 IV PRN (17:15)
--- NOTE | 2017-01-03 17:26 | DIAGNOSTIC IMAGING REPORT ---
ABDOMEN AND PELVIS CT WITH IV AND ORAL CONTRAST CT DOSE: 313.95 mGy.cm HISTORY: rectal bleeding TECHNIQUE: Multiaxial CT images of the abdomen and pelvis were performed following the use of intravenous and oral contrast. COMPARISON STUDY: Abdomen and pelvis CT 10/05/2016. FINDINGS: The lung bases are essentially clear. Internal fixation of old bilateral hip fractures. The gallbladder is not identified and may be surgically absent. The spleen demonstrates mild fatty changes. No hepatic or splenic masses. The adrenal glands are unremarkable. There are few calcifications within the pancreatic head. No peripancreatic inflammatory change identified. No retroperitoneal lymphadenopathy. No renal stones. The kidneys enhance normally. The uterus and bilateral adnexa are unremarkable. The bladder is mildly distended. Colonic diverticulosis. Mild thickening of the sigmoid colon is likely due to muscular hypertrophy. Otherwise, and no bowel wall thickening identified. No evidence for bowel obstruction. Dilated right ureter and mild right hydronephrosis, unchanged. IMPRESSION: 1. No bowel wall thickening or obstruction. 2. Colonic diverticulosis. 3. Dilated right ureter to the level of the right ureterovesical junction with associated mild right hydronephrosis. This remains unchanged. However, an occult obstructing lesion could result in this appearance. Nonemergent urology consultation is recommended. Electronically signed by: Jean Marie Dennison M.D. 01/03/2017 5:25 PM Dictated Date/Time: 01/03/2017 5:16 PM
--- NOTE | 2017-01-03 18:07 | Progress Note ---
Internal Med Progress Note Date of Service: Jan 03, 2017. Provider Documentation: SUBJECTIVE: The patient was sen and examined has dementia and not in any distress Denies any symptoms Continues to have Rectal bleeding OBJECTIVE: Vital Signs-as noted below Exam: General-Sitting comfortably on a chair Eyes-normal ENT-normal Neck-supple Lungs-Clear to ausucltate bilaterally Heart-Regular,no murmur Abdomen-Benign,no masses,bowel sound present Extremities-No edema Neuro-AA Has Dementia Lab data as noted below. ASSESSMENT & PLAN: Lower gastrointestinal bleeding ,with blood loss Anemia History of duodenitis/gastritis/polyps/hemorrhoids on previous endoscopies. 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 Recent left hip surgery, currently on aspirin for thromboembolic prevention. Hold Aspirin for now Required 3 units of PRBC so far GI consulted-appreciate Input Flagyl changed to Vancomycin Hypertension, stable. Dementia as per records. No acute Delirium DM2 on insulin, suboptimal control as of recent outpx HgA1c. Basal insulin, ISS BG goal 140-180 adjusted for clear liquids for now. DVT prophylaxis. SCDs. RE LGIB DNR as per daughter/POA, Ms. Mady Dang. She requests updates from providers at [phone]. Discussed with her Vital Signs: Date Time Temp Pulse Resp B/P (MAP) Pulse Ox O2 Delivery O2 Flow Rate FiO2 01/03/17 16:00 Room Air 01/03/17 15:30 36.9 89 16 136/61 (86) 93 Room Air 01/03/17 13:28 36.8 88 16 116/65 (82) 99 01/03/17 12:00 Room Air 01/03/17 08:00 Room Air 01/03/17 07:24 36.3 90 16 129/65 (86) 99 Room Air 01/03/17 05:00 36.9 75 18 148/62 (90) 98 Room Air 01/03/17 04:00 Room Air 01/03/17 01:22 36.6 88 18 154/68 98 01/03/17 00:22 36.9 100 18 126/57 100 01/02/17 23:59 Room Air 01/02/17 23:52 36.9 100 18 131/71 100 01/02/17 23:30 36.9 104 18 145/63 97 01/02/17 22:20 36.6 103 18 133/52 97 01/02/17 21:20 36.9 102 18 123/54 97 01/02/17 20:20 36.8 108 18 169/69 98 01/02/17 20:00 Room Air 01/02/17 19:51 36.8 100 18 145/74 100 01/02/17 19:21 36.7 107 18 114/61 (78) 100 Room Air Lab Results: Results Past 24 Hours Test 01/02/17 18:16 01/02/17 20:19 01/03/17 06:06 01/03/17 06:39 Range/Units Hemoglobin 7.2 10.9 12.0-16.0 g/dL Hematocrit 22.5 31.7 37-47 % Bedside Glucose 127 56 70-90 mg/dl White Blood Count 13.47 4.8-10.8 K/uL Red Blood Count 3.60 4.2-5.4 M/uL Mean Corpuscular Volume 88.1 80-100 fL Mean Corpuscular Hemoglobin 30.3 25-34 pg Mean Corpuscular Hemoglobin Concent 34.4 32-36 g/dl Platelet Count 178 130-400 K/uL Mean Platelet Volume 9.5 7.4-10.4 fL Neutrophils (%) (Auto) 61.3 % Lymphocytes (%) (Auto) 28.6 % Monocytes (%) (Auto) 7.6 % Eosinophils (%) (Auto) 2.2 % Basophils (%) (Auto) 0.2 % Neutrophils # (Auto) 8.24 1.4-6.5 K/uL Lymphocytes # (Auto) 3.85 1.2-3.4 K/uL Monocytes # (Auto) 1.03 0.11-0.59 K/uL Eosinophils # (Auto) 0.30 0-0.5 K/uL Basophils # (Auto) 0.03 0-0.2 K/uL RDW Standard Deviation 50.8 36.4-46.3 fL RDW Coefficient of Variation 15.6 11.5-14.5 % Immature Granulocyte % (Auto) 0.1 % Immature Granulocyte # (Auto) 0.02 0.00-0.02 K/uL Sodium Level 146 136-145 mmol/L Potassium Level 3.5 3.5-5.1 mmol/L Chloride Level 112 98-107 mmol/L Carbon Dioxide Level 29 21-32 mmol/L Anion Gap 5.0 3-11 mmol/L Blood Urea Nitrogen 28 7-18 mg/dl Creatinine 0.93 0.60-1.20 mg/dl Est Creatinine Clear Calc Drug Dose 34.4 ml/min Estimated GFR () 64.5 Estimated GFR (Non- 55.6 BUN/Creatinine Ratio 29.6 10-20 Random Glucose 50 70-99 mg/dl Calcium Level 8.3 8.5-10.1 mg/dl Phosphorus Level 2.7 2.5-4.9 mg/dl Magnesium Level 1.7 1.8-2.4 mg/dl Test 01/03/17 07:00 01/03/17 07:38 01/03/17 10:46 01/03/17 16:13 Range/Units Bedside Glucose 56 168 200 158 70-90 mg/dl
[2017-01-03] MEDS: VANCOMYCIN HCL 125 MG/2.5ML SOLN PO SCH ×2 (18:09→21:10)
[2017-01-03] MEDS: RASPBERRY SYRUP 5 ML UDP PO SCH ×2 (18:09→21:10)
[2017-01-03] MEDS: SIMVASTATIN 20 MG TAB PO SCH (21:13)
[2017-01-04] VITALS (7 sets, daily range): BP systolic 107–138; BP diastolic 63–76; PULSE 87–104; TEMP 36.7–37.2; O2SAT 96–99
[2017-01-04] MEDS: LEVOTHYROXINE 50 MCG TAB PO SCH (06:00)
[2017-01-04 07:19] LABS: BASO % 0.1 %; BASO ABS # 0.02 K/uL (0-0.2); COMPLETE YES; EOS % 0.6 %; HEMATOCRIT 35.8 % (37-47); IG% 0.3 %; LYMPH % 12.6 %; LYMPH ABS # 2.25 K/uL (1.2-3.4); MEAN CELL VOLUME 88.4 fL (80-100); MEAN CORPUSCULAR HEMOGLOBIN 29.6 pg (25-34); MEAN CORPUSCULAR HGB CONC 33.5 g/dl (32-36); MEAN PLATELET VOLUME 9.8 fL (7.4-10.4); MONO % 8.9 %; NEUT % 77.5 %; PLATELET COUNT 237 K/uL (130-400); RED BLOOD COUNT 4.05 M/uL (4.2-5.4); WHITE BLOOD COUNT 17.91 K/uL (4.8-10.8)
[2017-01-04] MEDS: INSULIN ASPART 100 UNITS/ML 3 ML PEN SC SCH ×4 (08:02→21:17)
[2017-01-04] MEDS: CEROVITE ADV FORMULA TAB PO SCH (08:03)
[2017-01-04] MEDS: RANITIDINE HCL 150 MG TAB PO SCH (08:03)
[2017-01-04] MEDS: VANCOMYCIN HCL 125 MG/2.5ML SOLN PO SCH ×4 (08:03→21:21)
[2017-01-04] MEDS: SITAGLIPTIN 25 MG TAB PO SCH (08:04)
[2017-01-04] MEDS: RASPBERRY SYRUP 5 ML UDP PO SCH ×4 (08:04→21:14)
[2017-01-04] MEDS: INSULIN GLARGINE SOLOSTAR 100 UNITS/ML 3 ML PEN SC SCH ×2 (08:09→21:18)
--- NOTE | 2017-01-04 08:56 | Progress Note ---
Progress Note Date of Service Jan 04, 2017. Progress Note GI quick note: CT scan reviewed - no acute GI processes such as obstruction, thickening. Labs reviewe: H/H stable. BM frequency decreasing. She did have slightly increased WBC. At this point no new GI plans. Rectal bleeding likely from diverticular bleed or Cdiff. Continue Vancomycin 125mg QID x 14 days today. Will sign off, pls call if new questions or concerns arise.
--- NOTE | 2017-01-04 13:08 | Progress Note ---
Internal Med Progress Note Date of Service: Jan 04, 2017. Provider Documentation: SUBJECTIVE: The patient was sen and examined has dementia and not in any distress Denies any symptoms No more rectal bleed Remians stable OBJECTIVE: Vital Signs-as noted below Exam: General-Sitting comfortably on a chair Eyes-normal ENT-normal Neck-supple Lungs-Clear to ausucltate bilaterally Heart-Regular,no murmur Abdomen-Benign,no masses,bowel sound present Extremities-No edema Neuro-AA Has Dementia Lab data as noted below. ASSESSMENT & PLAN: Lower gastrointestinal bleeding ,with blood loss Anemia History of duodenitis/gastritis/polyps/hemorrhoids on previous endoscopies. 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 Recent left hip surgery, currently on aspirin for thromboembolic prevention. Hold Aspirin for now Required 3 units of PRBC so far GI consulted-appreciate Input Flagyl changed to Vancomycin No more bleeding Remains stable Will transfer to Medical floor Hypertension, stable. Dementia as per records. No acute Delirium DM2 on insulin, suboptimal control as of recent outpx HgA1c. Basal insulin, ISS BG goal 140-180 adjusted for clear liquids for now. DVT prophylaxis. SCDs. RE LGIB DNR as per daughter/POA, . Mady Dang. She requests updates from providers at [phone]. Discussed with her again today If no more bleeding and Hb remains stable will discharge tomorrow Vital Signs: Date Time Temp Pulse Resp B/P (MAP) Pulse Ox O2 Delivery O2 Flow Rate FiO2 01/04/17 12:00 Room Air 01/04/17 11:37 37.2 104 16 126/63 (84) 99 Room Air 01/04/17 08:00 Room Air 01/04/17 06:58 36.8 97 17 132/74 (93) 98 Room Air 01/04/17 04:00 Room Air 01/04/17 03:11 36.8 98 16 138/76 (96) 98 Room Air 01/04/17 00:00 Room Air 01/03/17 23:05 36.9 97 16 131/74 (93) 100 Room Air 01/03/17 20:00 Room Air 01/03/17 19:09 36.9 111 18 153/63 (93) 100 Room Air 01/03/17 16:00 Room Air 01/03/17 15:30 36.9 89 16 136/61 (86) 93 Room Air 01/03/17 13:28 36.8 88 16 116/65 (82) 99 Lab Results: Results Past 24 Hours Test 01/03/17 16:13 01/03/17 20:38 01/04/17 06:18 01/04/17 06:43 Range/Units Bedside Glucose 158 261 94 70-90 mg/dl White Blood Count 17.91 4.8-10.8 K/uL Red Blood Count 4.05 4.2-5.4 M/uL Hemoglobin 12.0 12.0-16.0 g/dL Hematocrit 35.8 37-47 % Mean Corpuscular Volume 88.4 80-100 fL Mean Corpuscular Hemoglobin 29.6 25-34 pg Mean Corpuscular Hemoglobin Concent 33.5 32-36 g/dl Platelet Count 237 130-400 K/uL Mean Platelet Volume 9.8 7.4-10.4 fL Neutrophils (%) (Auto) 77.5 % Lymphocytes (%) (Auto) 12.6 % Monocytes (%) (Auto) 8.9 % Eosinophils (%) (Auto) 0.6 % Basophils (%) (Auto) 0.1 % Neutrophils # (Auto) 13.89 1.4-6.5 K/uL Lymphocytes # (Auto) 2.25 1.2-3.4 K/uL Monocytes # (Auto) 1.59 0.11-0.59 K/uL Eosinophils # (Auto) 0.11 0-0.5 K/uL Basophils # (Auto) 0.02 0-0.2 K/uL RDW Standard Deviation 49.7 36.4-46.3 fL RDW Coefficient of Variation 15.6 11.5-14.5 % Immature Granulocyte % (Auto) 0.3 % Immature Granulocyte # (Auto) 0.05 0.00-0.02 K/uL Test 01/04/17 10:48 Range/Units Bedside Glucose 210 70-90 mg/dl
[2017-01-04] MEDS: SIMVASTATIN 20 MG TAB PO SCH (21:14)
[2017-01-05] MEDS: LEVOTHYROXINE 50 MCG TAB PO SCH (05:52)
[2017-01-05 06:55] VITALS: BP 124/83; PULSE 85; TEMP 36.4; O2SAT 99
[2017-01-05 07:29] LABS: BASO % 0.2 %; BASO ABS # 0.02 K/uL (0-0.2); COMPLETE YES; EOS % 3.4 %; HEMATOCRIT 33.6 % (37-47); IG% 0.2 %; LYMPH % 27.4 %; LYMPH ABS # 3.45 K/uL (1.2-3.4); MEAN CELL VOLUME 90.3 fL (80-100); MEAN CORPUSCULAR HEMOGLOBIN 29.6 pg (25-34); MEAN CORPUSCULAR HGB CONC 32.7 g/dl (32-36); MEAN PLATELET VOLUME 8.7 fL (7.4-10.4); MONO % 8.7 %; NEUT % 60.1 %; PLATELET COUNT 249 K/uL (130-400); RED BLOOD COUNT 3.72 M/uL (4.2-5.4)
[2017-01-05 07:58] VITALS: BP 103/65; PULSE 86; TEMP 36.6; O2SAT 96
[2017-01-05] MEDS: CEROVITE ADV FORMULA TAB PO SCH (09:35)
[2017-01-05] MEDS: RASPBERRY SYRUP 5 ML UDP PO SCH ×2 (09:35→12:41)
[2017-01-05] MEDS: SITAGLIPTIN 25 MG TAB PO SCH (09:35)
[2017-01-05] MEDS: RANITIDINE HCL 150 MG TAB PO SCH (09:35)
[2017-01-05] MEDS: INSULIN ASPART 100 UNITS/ML 3 ML PEN SC SCH ×2 (09:40→12:44)
[2017-01-05] MEDS: VANCOMYCIN HCL 125 MG/2.5ML SOLN PO SCH ×2 (09:41→12:41)
[2017-01-05] MEDS: INSULIN GLARGINE SOLOSTAR 100 UNITS/ML 3 ML PEN SC SCH (09:41)
[2017-01-05 10:23] VITALS: O2SAT 96
--- NOTE | 2017-01-05 13:56 | Progress Note ---
Internal Med Progress Note Date of Service: Jan 05, 2017. Provider Documentation: SUBJECTIVE: The patient was sen and examined has dementia and not in any distress Denies any symptoms Rectal bleeding and Diarrhea is improved Remains stable OBJECTIVE: Vital Signs-as noted below Exam: General-Sitting comfortably on a chair Eyes-normal ENT-normal Neck-supple Lungs-Clear to ausucltate bilaterally Heart-Regular,no murmur Abdomen-Benign,no masses,bowel sound present Extremities-No edema Neuro-AA Has Dementia Lab data as noted below. ASSESSMENT & PLAN: Lower gastrointestinal bleeding ,with blood loss Anemia History of duodenitis/gastritis/polyps/hemorrhoids on previous endoscopies. 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 Recent left hip surgery, currently on aspirin for thromboembolic prevention. Hold Aspirin for now and do not start on discharge Required 3 units of PRBC so far GI consulted-appreciate Input Flagyl changed to Vancomycin No more bleeding No more disrrhea Clinically improved to be discharged Hypertension, stable. Dementia as per records. No acute Delirium DM2 on insulin, suboptimal control as of recent outpx HgA1c. Basal insulin, ISS BG goal 140-180 adjusted for clear liquids for now. DVT prophylaxis. SCDs. RE LGIB DNR as per daughter/POA, Ms. Mady Dang. Discussed with the Daughter Will take her home Vital Signs: Date Time Temp Pulse Resp B/P (MAP) Pulse Ox O2 Delivery O2 Flow Rate FiO2 01/05/17 14:21 36.6 86 20 96 Room Air 01/05/17 10:23 96 Room Air 01/05/17 08:00 Room Air 01/05/17 07:58 36.6 86 20 103/65 (78) 96 Room Air 01/05/17 06:55 36.4 85 19 124/83 (97) 99 Room Air 01/05/17 00:38 Room Air 01/04/17 22:43 37.0 97 20 107/66 (80) 96 Room Air 01/04/17 16:00 Room Air Lab Results: Results Past 24 Hours Test 01/04/17 16:26 01/04/17 20:28 6/3/17 07:17 01/05/17 07:38 Range/Units Bedside Glucose 120 220 123 70-90 mg/dl White Blood Count 12.60 4.8-10.8 K/uL Red Blood Count 3.72 4.2-5.4 M/uL Hemoglobin 11.0 12.0-16.0 g/dL Hematocrit 33.6 37-47 % Mean Corpuscular Volume 90.3 80-100 fL Mean Corpuscular Hemoglobin 29.6 25-34 pg Mean Corpuscular Hemoglobin Concent 32.7 32-36 g/dl Platelet Count 249 130-400 K/uL Mean Platelet Volume 8.7 7.4-10.4 fL Neutrophils (%) (Auto) 60.1 % Lymphocytes (%) (Auto) 27.4 % Monocytes (%) (Auto) 8.7 % Eosinophils (%) (Auto) 3.4 % Basophils (%) (Auto) 0.2 % Neutrophils # (Auto) 7.59 1.4-6.5 K/uL Lymphocytes # (Auto) 3.45 1.2-3.4 K/uL Monocytes # (Auto) 1.09 0.11-0.59 K/uL Eosinophils # (Auto) 0.43 0-0.5 K/uL Basophils # (Auto) 0.02 0-0.2 K/uL RDW Standard Deviation 51.5 36.4-46.3 fL RDW Coefficient of Variation 15.6 11.5-14.5 % Immature Granulocyte % (Auto) 0.2 % Immature Granulocyte # (Auto) 0.02 0.00-0.02 K/uL Test 01/05/17 11:07 Range/Units Bedside Glucose 289 70-90 mg/dl
[2017-01-05] MEDS ORDERED: VNCS125 PO (14:00)
--- NOTE | 2017-01-05 14:01 | Discharge Instructions ---
Discharge Instructions Date of Service Jan 05, 2017. Admission Reason for Admission: Gi Bleed Discharge Discharge Diagnosis / Problem: Rectal Bleeding,C Diff Colitis Discharge Goals Goal(s): Prevent Disease Progression Activity Recommendations Activity Limitations: resume your previous activity . Instructions / Follow-Up Instructions / Follow-Up Your doctor's office will call with appointment Current Hospital Diet Patient's current hospital diet: Diabetes Type 2 Diet Discharge Diet Recommended Diet: Diabetes Type 2 Diet Pending Studies Studies pending at discharge: no Medical Emergencies . Who to Call and When: Medical Emergencies: If at any time you feel your situation is an emergency, please call 911 immediately. . Non-Emergent Contact Non-Emergency issues call your: Primary Care Provider . Past History Medical & Surgical History: (1) Acute GI bleeding (2) Clostridium difficile infection (3) Hyperlipemia (4) Dementia (5) Diabetes mellitus, type II (6) Hypertension (7) Acute kidney injury (8) Status post cholecystectomy (9) Status post appendectomy (10) Hypothyroidism . "Provider Documentation" section prepared by Pedro Leblanc. . VTE Core Measure Inpt VTE Proph given/why not?: SCD's
[2017-01-05 14:21] VITALS: BP 103/65; PULSE 86; TEMP 36.6; O2SAT 96
--- NOTE | 2017-01-15 17:59 | Discharge Summary ---
Discharge Summary Date of Service Jan 15, 2017. Discharge Summary Admission Date: January 01, 2017 at 20:25 Discharge Date: Jan 05, 2017 Discharge Disposition: Home Principal Diagnosis: Rectal Bleeding,C Diff Colitis Secondary Diagnoses/Problems: Please see H&P and Hospital Progress note Consultations: GI Medication Reconciliation New Medications: Vancomycin HCl (Vancomycin HCl) 125 Mg/2.5 Ml Susp 125 MG PO QID for 12 Days, #48 Continued Medications: Docusate Sodium (Docusate Sodium) 100 Mg Cap 100 MG PO BID, #60 CAP 1 Refill Ferrous Sulfate (Kp Ferrous Sulfate) 325 Mg Tab 325 MG PO DAILY, TAB 3 Refills Glucosamine-Chondroitin (Osteo Bi-Flex Regular Str) 1 Tab Tab 1 TAB PO BID Insulin Glargine (Lantus Solostar) 100 Unit/Ml Inj 24 UNITS SC HS, PEN Levothyroxine Sodium (Levothyroxine Sodium) 50 Mcg Tab 50 MCG PO QAM Meclizine Hcl (Meclizine Hcl) 25 Mg Tab 1 TAB PO BID PRN for Dizziness or Vertigo Multiple Vitamins W/ Minerals (One Daily For Women) 1 Tab Tab 1 TAB PO DAILY Ocuvite Preservision (Ocuvite Preservision) 1 Tab Tab 1 TAB PO DAILY, TAB Ranitidine (Zantac) 150 Mg Tab 150 MG PO BID, TAB Simvastatin (Zocor) 20 Mg Tab 20 MG PO HS Sitagliptin Phosphate (Januvia) 25 Mg Tab 25 MG PO QAM, TAB Discontinued Medications: Aspirin (Aspirin) 325 Mg Ectab 325 MG PO DAILY for 30 Days, #30 TAB Admission Information HPI (per Admitting provider): DATE OF ADMISSION: 01/01/2017 PATIENT'S PRIMARY CARE DOCTOR: Dr. Ruelas CC: rectal bleeding as per daughter, HISTORY OF PRESENT ILLNESS: History obtained from the patient, patient's daughter, and records. Limited history from the patient secondary to dementia. Medical history significant for dementia, hypertension, hyperlipidemia, DM2 insulin requiring, history of colonic polyps, hemorrhoids, history of C. diff, PUD as per daughter. Chronic renal insufficiency, creatinine 1.3-1.4. Recent confinement last month for left hip fracture status post intramedullary nailing. Patient discharged to [facility] initially for rehab. Discharged on aspirin 325 mg p.o. daily postop for 30 days as per discharge summary. As per daughter, aspirin to be extended until follow up with orthopedic doctor. At [facility], the patient developed urinary tract infection sp Cipro rx. Today, patient noted to have stool with blood clots, not black, no diarrhea. No hematemesis, no coffee-ground emesis. Px currently not complaining of abdominal pain, no fever. At the PCP's office SBP 90s. In the Emergency Room, Protonix bolus given for poss UGIB. MEDICAL HISTORY: As above. 2007 - EGD - duodenitis erosive gastropathy. 2009 - colonoscopy showed internal hemorrhoids, polyps. SURGERIES: 1. She has had orthopedic procedures. 2. Appendectomy. 3. Cholecystectomy. HOME MEDICATIONS: Include docusate sodium, aspirin, simvastatin, sitagliptin, levothyroxine, Zantac, meclizine, ferrous sulfate, Ocuvite, glucosamine, multivitamins. ALLERGIES: TO MEPERIDINE. FAMILY HISTORY: Could not be obtained. PERSONAL AND SOCIAL HISTORY: Nonsmoker, currently lives with daughter. REVIEW OF SYSTEMS: Cannot be obtained. PHYSICAL EXAMINATION: VITAL SIGNS: Blood pressure was noted to be 106/62, pulse rate 113, RR 20, T 37 O2 98RA on room air. GENERAL: Noted to be demented SKIN: Pallor. HEENT: Pale palpebral conjunctivae. Dry mucosa. NECK: No JVD. supple CHEST: Decreased effort. HEART: Tachycardic. ABDOMEN: Nontender. EXTREMITIES: No edema. no tenderness NEUROLOGIC: Dementia. LABS: Hemoglobin was noted to be 10 from .10 October 2016, hematocrit 31, white cells 11 Sodium 139 potassium 4.4, chloride 105, CO2 22, BUN 44, creatinine 1.3, glucose 400. Hemoglobin A1c from October 31 was noted to be 8. C. diff was positive. EKG as per my interpretation : [id number], NSR, TW abn septal leads ASSESSMENT: 1. 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 recent antibiotic intake for urinary tract infection. Recent left hip surgery, currently on aspirin for thromboembolic prevention. 2. Anemia, hemoglobin drop secondary to above. 3. Hypertension, stable. 4. History of duodenitis/gastritis/polyps/hemorrhoids on previous endoscopies. 5. Dementia as per records. 6. DM2 on insulin, suboptimal control as of recent outpx HgA1c. 7. CRI, crea at baseline PLAN: PCU Flagyl course GI consult if GI bleed persists serial HH, transfuse prbc if hemoglobin less than 7 and/or symptomatic anemia. hold ASA (clarify with Ortho intended duration of of tx) Basal insulin, ISS BG goal 140-180 adjusted for clear liquids for now. DVT prophylaxis. SCDs. RE LGIB DNR as per daughter/POA, Ms. Mady Dang. She requests updates from providers at [phone]. Dictated: [id number] Transcribed: [id number] <Electronically signed by Tim Thomas M.D.> Signed: 01/02/17 1558 ES Tim Thomas M.D. Hospital Course Lower gastrointestinal bleeding ,with blood loss Anemia History of duodenitis/gastritis/polyps/hemorrhoids on previous endoscopies. 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 Recent left hip surgery, currently on aspirin for thromboembolic prevention. Hold Aspirin for now and do not start on discharge Required 3 units of PRBC so far GI consulted-appreciate Input Flagyl changed to Vancomycin No more bleeding No more diarrhea Clinically improved to be discharged Hypertension, stable. Dementia as per records. No acute Delirium DM2 on insulin, suboptimal control as of recent outpx HgA1c. Basal insulin, ISS BG goal 140-180 adjusted for clear liquids for now. DVT prophylaxis. SCDs. RE LGIB DNR as per daughter/POA, Ms. Mady Dang. Discussed with the Daughter Will take her home Total time spent on discharge = 35 minutes This includes examination of the patient, discharge planning, medication reconciliation, and communication with other providers. Discharge Instructions Date of Service Jan 05, 2017. Admission Reason for Admission: Gi Bleed Discharge Discharge Diagnosis / Problem: Rectal Bleeding,C Diff Colitis Discharge Goals Goal(s): Prevent Disease Progression Activity Recommendations Activity Limitations: resume your previous activity . Instructions / Follow-Up Instructions / Follow-Up Your doctor's office will call with appointment Current Hospital Diet Patient's current hospital diet: Diabetes Type 2 Diet Discharge Diet Recommended Diet: Diabetes Type 2 Diet Pending Studies Studies pending at discharge: no Medical Emergencies . Who to Call and When: Medical Emergencies: If at any time you feel your situation is an emergency, please call 911 immediately. . Non-Emergent Contact Non-Emergency issues call your: Primary Care Provider . Past History Medical & Surgical History: (1) Acute GI bleeding (2) Clostridium difficile infection (3) Hyperlipemia (4) Dementia (5) Diabetes mellitus, type II (6) Hypertension (7) Acute kidney injury (8) Status post cholecystectomy (9) Status post appendectomy (10) Hypothyroidism . "Provider Documentation" section prepared by Pedro Leblanc. . VTE Core Measure Inpt VTE Proph given/why not?: SCD's <Electronically signed by Pedro Leblanc M.D.> Signed: 01/05/17 1401 Additional Copies To Jesse Schrader
== END 2017-01-05 15:13 | disposition home or self-care (01) | DRG 379 ==
LOC: ENRESERVDT → ENRESERVTM → C.EDB 15:24 → C.2T 20:25 → ENRESERV 01-04 13:52 → C.MS2W 01-04 14:37
PROVIDERS: ADMIT Internal Medicine; ATTEND Internal Medicine
DX: K92.2 Gastrointestinal hemorrhage, unspecified (principal); D50.0 Iron deficiency anemia secondary to blood loss (chronic); B96.89 Other specified bacterial agents as the cause of diseases classified elsewhere; Z79.82 Long term (current) use of aspirin; I10 Essential (primary) hypertension; F03.90 Unspecified dementia, unspecified severity, without behavioral disturbance, psychotic disturbance, mood disturbance, and anxiety; E11.9 Type 2 diabetes mellitus without complications; Z79.4 Long term (current) use of insulin; Z66 Do not resuscitate

== ENCOUNTER 2017-12-11 13:14 | Inpatient (IN) | payer OTHER ==
[~2017-12-11] VITALS: Ht 152.4 cm; Wt 62.0 kg
[~2017-12-11 13:14] MED LIST changes: -ACET-1138 PO; -ASPEC325 PO; -CALCTAB7 PO; +GLUCTAB18 PO; -MISCTAB88 PO; -MRLP17X PO; -MULT-506 PO; +MULT1TAB22 PO; +RANI150T85 PO; -SNK PO; -ULT50X PO; +VNCS125 PO; -ZNTT/150 PO
[2017-12-11] MEDS ORDERED: SODIUM CHLORIDE 0.9% 1000ML 1,000 ML IV STA (13:38)
[2017-12-11] MEDS ORDERED: ONDANSETRON INJ 2 MG/ML 2 ML VIAL IV STA (13:38)
[2017-12-11] MEDS ORDERED: SODIUM CHLORIDE 0.9% 250ML 250 ML IV STA (13:38)
[2017-12-11 13:39] LABS: BASO % 0.1 %; BASO ABS # 0.01 K/uL (0-0.2); HEMOGLOBIN 14.9 g/dL (12.0-16.0); IG# 0.05 K/uL (0.00-0.02); LYMPH ABS # 1.35 K/uL (1.2-3.4); MEAN CELL VOLUME 91.7 fL (80-100); MEAN CORPUSCULAR HGB CONC 33.9 g/dl (32-36); MEAN PLATELET VOLUME 10.6 fL (7.4-10.4); MONO % 3.7 %; MONO ABS # 0.55 K/uL (0.11-0.59); NEUT % 86.9 %; NEUT ABS # 13.04 K/uL (1.4-6.5); PLATELET COUNT 317 K/uL (130-400); RED CELL DISTRIBUTION WIDTH CV 13.7 % (11.5-14.5); RED CELL DISTRIBUTION WIDTH SD 45.7 fL (36.4-46.3)
--- NOTE | 2017-12-11 13:44 | EMERGENCY ROOM VISIT NOTE ---
History Report prepared by Will: Dallas Gottlieb Under the Supervision of: Dr. Angie Silvestre M.D. First contact with patient: 13:17 Stated Complaint: LETHARGIC/COUGH History of Present Illness The patient is an 87 year old female with a history of frequently UTI's, CKD stage 4, dementia, and diabetes who presents to the Emergency Room via EMS with complaints of a persistent illness that started 2 days ago. Per the patient's caregiver, the patient started vomiting 2 days ago, and could not eat or drink that day. The patient was able to eat a bit of chicken noodle soup and drink some chau roc yesterday, but later vomited it all up. The patient's caregiver called the patient's family doctor's office this morning, and talked to a nurse who told the caregiver to keep giving the patient sips of Gatorade. The patient was given sips of Gatorade earlier today, but then started vomiting it up afterward, and the vomit was a brown liquid with some mucous in it. Any fevers or diarrhea were denied on behalf of the patient. The patient did have a small bowel movement this morning. The patient denies any pain. She is not on any blood thinners and has not had any recent falls. The patient does not normally vomit with her UTI's, per the patient's caregiver. The patient's blood sugar was 300 earlier today. Source of History: patient, caregiver Onset: 2 days ago Position: other (global) Quality: other (illness) Timing: other (persistent) Associated Symptoms: + vomiting, No fevers, No diarrhea Note: Associated symptoms: Not eating or drinking well. Denies any current pain. Review of Systems See HPI for pertinent positives & negatives. A total of 10 systems reviewed and were otherwise negative. Past Medical & Surgical Medical Problems: (1) CKD (chronic kidney disease) stage 4, GFR 15-29 ml/min (2) Dementia (3) Diabetes mellitus, type II (4) Hyperlipemia (5) Hypertension (6) Hypothyroidism (7) Intractable nausea and vomiting (8) Sepsis Surgical Problems: (1) Status post appendectomy (2) Status post cholecystectomy (3) Status post ORIF left hip fracture Family History Cancer Diabetes mellitus Gallbladder disease Lung disease Social History Smoking Status: Never Smoker Drug Use: none Marital Status: , Housing Status: lives with family Occupation Status: retired Current/Historical Medications Scheduled Docusate Sodium (Docusate Sodium), 100 MG PO BID Ferrous Sulfate (Kp Ferrous Sulfate), 325 MG PO DAILY Glucosamine-Chondroitin (Osteo Bi-Flex Regular Str), 1 TAB PO BID Insulin Glargine (Lantus Solostar), 24 UNITS SC HS Levothyroxine Sodium (Levothyroxine Sodium), 50 MCG PO QAM Multiple Vitamins W/ Minerals (One Daily For Women), 1 TAB PO DAILY Ocuvite Preservision (Ocuvite Preservision), 1 TAB PO DAILY Ranitidine (Zantac), 150 MG PO BID Simvastatin (Zocor), 20 MG PO HS Sitagliptin Phosphate (Januvia), 25 MG PO QAM Scheduled PRN Meclizine Hcl (Meclizine Hcl), 1 TAB PO BID PRN for Dizziness or Vertigo Allergies Coded Allergies: Meperidine (Verified Allergy, Mild, 12/11/17) Physical Exam Vital Signs Date Time Temp Pulse Resp B/P (MAP) Pulse Ox O2 Delivery O2 Flow Rate FiO2 12/11/17 16:39 95 20 156/73 96 12/11/17 14:44 99 20 191/64 94 Room Air 12/11/17 13:24 105 12/11/17 13:22 37.0 104 24 173/87 96 Room Air Physical Exam Vital signs reviewed. General: Pleasantly confused, hard of hearing 87 year old female, in no significant distress. HEENT: No scleral icterus, PERRLA, neck supple. Dry mucous membranes. Cardiovascular: Regular rate and rhythm, no extra sounds. Pulmonary: Clear to auscultation bilaterally, normal work of breathing. Abdomen: Soft, nontender, nondistended, positive bowel sounds. Musculoskeletal: Atraumatic, no peripheral edema. Neurologic: Patient is pleasantly confused, has full strength in all 4 extremities. Cranial nerves 2 through 12 grossly intact. Skin: Warm, dry, no rash Medical Decision & Procedures ER Provider Diagnostic Interpretation: X-ray results as stated below per interpretation by me and the radiologist: CHEST ONE VIEW PORTABLE, KUB HISTORY: 87 years-old Female cough, lethargy acute cough with vomiting COMPARISON: Chest radiograph 11/22/2016, CT abdomen and pelvis 01/03/2017 TECHNIQUE: Portable AP view of the chest with KUB radiograph FINDINGS: CHEST: Cardiomediastinal and hilar silhouettes are within normal limits. No pneumothorax, pleural effusion, overt pulmonary edema or lobar airspace consolidation. Linear subsegmental left infrahilar opacities suggest atelectasis/scarring. Degenerative changes are seen within the shoulders and spine. Atherosclerosis of the aorta. KUB: The bowel gas pattern is nonobstructive. Punctate radiodensities of the abdominal right upper quadrant suggest vascular calcifications with no renal calculi seen on comparison CT study. No definite urolith. Vascular calcifications of the pelvis. Calcified granuloma about the right gluteal tissues. Orthopedic hardware is noted within the bilateral proximal femora. Dextroscoliosis of the lumbar spine. IMPRESSION: 1. Subsegmental left basilar atelectasis without acute process. 2. Nonobstructive bowel gas pattern. The above report was generated using voice recognition software. It may contain grammatical, syntax or spelling errors. Electronically signed by: Alex Manuel M.D. 12/11/2017 2:05 PM Dictated Date/Time: 12/11/2017 1:56 PM CHEST ONE VIEW PORTABLE, KUB HISTORY: 87 years-old Female cough, lethargy acute cough with vomiting COMPARISON: Chest radiograph 11/22/2016, CT abdomen and pelvis 01/03/2017 TECHNIQUE: Portable AP view of the chest with KUB radiograph FINDINGS: CHEST: Cardiomediastinal and hilar silhouettes are within normal limits. No pneumothorax, pleural effusion, overt pulmonary edema or lobar airspace consolidation. Linear subsegmental left infrahilar opacities suggest atelectasis/scarring. Degenerative changes are seen within the shoulders and spine. Atherosclerosis of the aorta. KUB: The bowel gas pattern is nonobstructive. Punctate radiodensities of the abdominal right upper quadrant suggest vascular calcifications with no renal calculi seen on comparison CT study. No definite urolith. Vascular calcifications of the pelvis. Calcified granuloma about the right gluteal tissues. Orthopedic hardware is noted within the bilateral proximal femora. Dextroscoliosis of the lumbar spine. IMPRESSION: 1. Subsegmental left basilar atelectasis without acute process. 2. Nonobstructive bowel gas pattern. The above report was generated using voice recognition software. It may contain grammatical, syntax or spelling errors. Electronically signed by: Alex Manuel M.D. 12/11/2017 2:05 PM Dictated Date/Time: 12/11/2017 1:56 PM Laboratory Results Test 12/11/17 12:50 12/11/17 13:33 12/11/17 13:56 Immature Granulocyte % (Auto) 0.3 % White Blood Count 15.00 K/uL (4.8-10.8) Red Blood Count 4.80 M/uL (4.2-5.4) Hemoglobin 14.9 g/dL (12.0-16.0) Hematocrit 44.0 % (37-47) Mean Corpuscular Volume 91.7 fL (80-100) Mean Corpuscular Hemoglobin 31.0 pg (25-34) Mean Corpuscular Hemoglobin Concent 33.9 g/dl (32-36) Platelet Count 317 K/uL (130-400) Mean Platelet Volume 10.6 fL (7.4-10.4) Neutrophils (%) (Auto) 86.9 % Lymphocytes (%) (Auto) 9.0 % Monocytes (%) (Auto) 3.7 % Eosinophils (%) (Auto) 0.0 % Basophils (%) (Auto) 0.1 % Neutrophils # (Auto) 13.04 K/uL (1.4-6.5) Lymphocytes # (Auto) 1.35 K/uL (1.2-3.4) Monocytes # (Auto) 0.55 K/uL (0.11-0.59) Eosinophils # (Auto) 0.00 K/uL (0-0.5) Basophils # (Auto) 0.01 K/uL (0-0.2) Immature Granulocyte # (Auto) 0.05 K/uL (0.00-0.02) Magnesium Level 2.0 mg/dl (1.8-2.4) Total Bilirubin 0.7 mg/dl (0.2-1) Direct Bilirubin mg/dl (0-0.2) Aspartate Amino Transf (AST/SGOT) 23 U/L (15-37) Alanine Aminotransferase (ALT/SGPT) 26 U/L (12-78) Alkaline Phosphatase 91 U/L (45-117) Troponin I < 0.015 ng/ml (0-0.045) Pro-B-Type Natriuretic Peptide 602 pg/ml (0-1800) Total Protein 8.5 gm/dl (6.4-8.2) Albumin 3.6 gm/dl (3.4-5.0) Thyroid Stimulating Hormone (TSH) 1.700 uIu/ml (0.300-4.500) Chemistry Specimen Hemolysis Urine Color YELLOW Urine Appearance CLEAR (CLEAR) Urine pH 5.0 (4.5-7.5) Urine Specific [place] 1.032 (1.000-1.030) Urine Protein 1+ (NEG) Urine Glucose (UA) 3+ (NEG) Urine Ketones 3+ (NEG) Urine Occult Blood TRACE (NEG) Urine Nitrite NEG (NEG) Urine Bilirubin NEG (NEG) Urine Urobilinogen NEG (NEG) Urine Leukocyte Esterase NEG (NEG) Urine WBC (Auto) 1-5 /hpf (0-5) Urine RBC (Auto) 0-4 /hpf (0-4) Urine Hyaline Casts (Auto) 0 /lpf (0-5) Urine Epithelial Cells (Auto) 5-10 /lpf (0-5) Urine Bacteria (Auto) 4+ (NEG) Urine Yeast (Auto) (NONE PRSENT) Bedside Lactic Acid Venous 1.69 mmol/L (0.90-1.70) Date/Time Source Procedure Growth Status 12/11/17 13:33 Urine,Catheterized Urine Culture - Final Alpha Strep. Not Enterococcus Complete Laboratory results per my review. Medications Administered Medications (Trade) Dose Ordered Sig/Leigh Ann Route Start Time Stop Time Status Last Admin Dose Admin Sodium Chloride 250 ml @ 999 mls/hr Q16M STAT IV 12/11/17 13:38 12/11/17 13:53 DC 12/11/17 13:38 999 MLS/HR Sodium Chloride 1,000 ml @ 125 mls/hr Q8H STAT IV 12/11/17 13:38 12/11/17 18:16 DC 12/11/17 13:38 125 MLS/HR Ondansetron HCl (Zofran Inj) 4 mg NOW STAT IV 12/11/17 13:38 12/11/17 13:40 DC 12/11/17 14:06 4 MG Insulin Human Regular (novoLIN-R U-100 PER UNIT) 10 units NOW STAT SC 12/11/17 14:32 12/11/17 14:33 DC 12/11/17 14:43 10 UNITS Ceftriaxone Sodium (Rocephin Inj) 1 gm NOW STAT IV 12/11/17 15:20 12/11/17 15:22 DC 12/11/17 15:30 1 GM ECG Per My Interpretation Indication: vomiting Rate (beats per minute): 101 Rhythm: sinus tachycardia Findings: PVC, no acute ischemic change, other (nonspecific ST changes inferior and lateral, QTC 430) ED Course 1334: Past medical records reviewed. The patient was evaluated in room A11B. A complete history and physical examination was performed. 1338: Zofran Inj 4 mg IV, NSS 1000 ml @ 125 mls/hr IV, NSS 250 ml @ 999 mls/hr IV. 1432: Novolin-R U-100 PER UNIT 10 units SC. 1508: Upon reevaluation, the patient is resting comfortably. I discussed laboratory and radiographic results with the patient and her caregiver. They verbalized agreement of the treatment plan. The patient will be evaluated for further management and care. 1514: I reviewed the patient's case with Dr. Billy Gonzales reading teacher. She will evaluate the patient for further management. Medical Decision Differential diagnosis: Etiologies such as gastroenteritis, food borne illness, infections, appendicitis , diverticulitis, inflammatory bowel disease, obstruction, GI bleed, biliary pathology, as well as others were entertained. This patient was evaluated and appeared to be in no significant distress. IV access was obtained and laboratory work was drawn. The patient was placed on the satellite project site monitor and found to be in a sinus tachycardia with frequent PVCs. Patient was hydrated with normal saline solution. Laboratory work reveals a leukocytosis. Urine is questionable for infection with 4+ bacteria. Patient is found to be hyperglycemic with a glucose of 300. She was given 10 units of subcutaneous regular insulin. Patient was medicated with 1 g of IV ceftriaxone. Chest and abdominal x-rays reveal atelectasis, nonobstructive bowel gas pattern. Patient was discussed with Dr. Yates of the hospitalist service to evaluate the patient for admission and further management. Medication Reconcilliation Current Medication List: was personally reviewed by me Blood Pressure Screening Patient's blood pressure: Elevated blood pressure Referred to hospitalist. Consults Time Called: 1510 Consulting Physician: Dr. Billy Gonzales reading teacher Returned Call: 1514 I reviewed the patient's case with Dr. Billy Gonzales reading teacher. She will evaluate the patient for further management. Impression Primary Impression: UTI (urinary tract infection) Additional Impressions: Vomiting Hyperglycemia Scribe Attestation The scribe's documentation has been prepared under my direction and personally reviewed by me in its entirety. I confirm that the note above accurately reflects all work, treatment, procedures, and medical decision making performed by me. Departure Information Dispostion Being Evaluated By Hospitalist Referrals Jesse Schrader (PCP) Problem Qualifiers Primary Impression: UTI (urinary tract infection)
--- NOTE | 2017-12-11 14:06 | DIAGNOSTIC IMAGING REPORT ---
CHEST ONE VIEW PORTABLE, KUB HISTORY: 87 years-old Female cough, lethargy acute cough with vomiting COMPARISON: Chest radiograph 11/22/2016, CT abdomen and pelvis 01/03/2017 TECHNIQUE: Portable AP view of the chest with KUB radiograph FINDINGS: CHEST: Cardiomediastinal and hilar silhouettes are within normal limits. No pneumothorax, pleural effusion, overt pulmonary edema or lobar airspace consolidation. Linear subsegmental left infrahilar opacities suggest atelectasis/scarring. Degenerative changes are seen within the shoulders and spine. Atherosclerosis of the aorta. KUB: The bowel gas pattern is nonobstructive. Punctate radiodensities of the abdominal right upper quadrant suggest vascular calcifications with no renal calculi seen on comparison CT study. No definite urolith. Vascular calcifications of the pelvis. Calcified granuloma about the right gluteal tissues. Orthopedic hardware is noted within the bilateral proximal femora. Dextroscoliosis of the lumbar spine. IMPRESSION: 1. Subsegmental left basilar atelectasis without acute process. 2. Nonobstructive bowel gas pattern. The above report was generated using voice recognition software. It may contain grammatical, syntax or spelling errors. Electronically signed by: Alex Manuel M.D. 12/11/2017 2:05 PM Dictated Date/Time: 12/11/2017 1:56 PM
[2017-12-11 14:12] LABS: ALBUMIN 3.6 gm/dl (3.4-5.0); ALKALINE PHOSPHATASE 91 U/L (45-117); ALT/SGPT 26 U/L (12-78); AST/SGOT 23 U/L (15-37); BLOOD UREA NITROGEN 26 mg/dl (7-18); CARBON DIOXIDE 24 mmol/L (21-32); CREATININE 1.32 mg/dl (0.60-1.20); GLUCOSE 352 mg/dl (70-99); POTASSIUM 3.8 mmol/L (3.5-5.1); SODIUM 136 mmol/L (136-145); TOTAL PROTEIN 8.5 gm/dl (6.4-8.2)
[2017-12-11] MEDS ORDERED: NovoLIN-R INSULIN PER UNIT CHARGE SC STA (14:32)
[2017-12-11] MEDS ORDERED: CEFTRIAXONE SOD INJ 1 GM ADDVIAL IV STA (15:20)
--- NOTE | 2017-12-11 16:41 | History and Physical ---
History & Physical Date & Time of Service: December 11, 2017 at 16:41 . Chief Complaint: confusion, nausea, vomiting, weakness . Primary Care Physician: Jesse Schrader . History of Present Illness Source: family, clinic records, hospital records 87-year-old female followed by Jesse Schrader PA-C at the [facility] in [place]. History of diabetes, dementia, and other problems noted below. Lives at home with her daughter. Ambulatory with cane. 6 days prior to admission she had some loose stools. 5 days prior to admission she developed a cough and was given [id number] cough and cold preparation. 2 days prior to admission daughter noticed decreased appetite. Yesterday she developed nausea and vomiting. Today daughter noted worsening confusion. Seemed to be coughing a bit more; cough nonproductive. Patient experienced 4 or 5 episodes of nausea and vomiting. Emesis described as dark brown in color, but not chau coffee grounds. No melena or hematochezia. Diarrhea improved. No apparent fever. Blood sugar this morning in 370s. Patient unable to provide any additional history because her confusion. . Past Medical/Surgical History Chronic and Resolved Medical Problems: (1) CKD (chronic kidney disease) stage 4, GFR 15-29 ml/min Status: Chronic (2) Dementia Status: Chronic (3) Diabetes mellitus, type II Status: Chronic (4) Hyperlipemia Status: Chronic (5) Hypertension Status: Chronic (6) Hypothyroidism Status: Chronic Surgical Problems: (1) Status post appendectomy Status: Chronic (2) Status post cholecystectomy Status: Chronic (3) Status post ORIF left hip fracture Permanent Comment: 2017 Status: Chronic . Family History Cancer Diabetes mellitus Gallbladder disease Lung disease Social History Smoking Status: Never Smoker Alcohol Use: none Drug Use: none Marital Status: , Housing status: lives with family, detention Occupational Status: retired Immunizations History of Influenza Vaccine: Yes Influenza Vaccine Date: May 02, 2016 History of Tetanus Vaccine?: Yes Tetanus Immunization Date: Jun 16, 2013 History of Pneumococcal: Yes Pneumococcal Date: Oct 26, 2015 History of Hepatitis B Vaccine: Unknown Allergies Coded Allergies: Meperidine (Verified Allergy, Mild, 12/11/17) Home Medications Scheduled Docusate Sodium (Docusate Sodium), 100 MG PO BID Ferrous Sulfate (Kp Ferrous Sulfate), 325 MG PO DAILY Glucosamine-Chondroitin (Osteo Bi-Flex Regular Str), 1 TAB PO BID Insulin Glargine (Lantus Solostar), 24 UNITS SC HS Levothyroxine Sodium (Levothyroxine Sodium), 50 MCG PO QAM Multiple Vitamins W/ Minerals (One Daily For Women), 1 TAB PO DAILY Ocuvite Preservision (Ocuvite Preservision), 1 TAB PO DAILY Ranitidine (Zantac), 150 MG PO BID Simvastatin (Zocor), 20 MG PO HS Sitagliptin Phosphate (Januvia), 25 MG PO QAM Scheduled PRN Meclizine Hcl (Meclizine Hcl), 1 TAB PO BID PRN for Dizziness or Vertigo Review of Systems As noted above in HPI. Unable to obtain additional information due to patient's confusion. . Physical Exam Vital Signs Date Time Temp Pulse Resp B/P (MAP) Pulse Ox O2 Delivery O2 Flow Rate FiO2 12/11/17 14:44 99 20 191/64 94 Room Air 12/11/17 13:24 105 12/11/17 13:22 37.0 104 24 173/87 96 Room Air CONSTITUTIONAL vital signs as noted above elderly female, thin, no acute distress EYES conjunctivae clear; lids normal pupils equal and reactive to light EARS, NOSE, MOUTH AND THROAT external inspection of ears and nose unremarkable hearing grossly intact to spoken voice edentulous oropharynx clear NECK no masses; trachea midline thyroid normal RESPIRATORY normal respiratory effort; no respiratory distress clear to percussion clear to auscultation CARDIOVASCULAR regular rate and rhythm with occasional ectopy II/ systolic murmur at base no gallop or rub appreciated no JVD pedal pulses diminished capillary refill toes < 2 seconds no pretibial edema GASTROINTESTINAL quiet bowel sounds, slightly distended, soft, nontender; no palpable masses no hepatomegaly; no splenomegaly LYMPHATIC no cervical adenopathy MUSCULOSKELETAL no cyanosis; no digital clubbing no calf tenderness motor strength extremities grossly intact SKIN no rash warm and dry NEUROLOGIC PERRL, EOMI, no facial palsy, no dysarthria, tongue midline no cogwheel rigidity patellar DTR's 2/2 plantar reflexes downgoing PSYCHIATRIC pleasantly confused . Diagnostics Laboratory Results Results Past 24 Hours Test 12/11/17 12:50 12/11/17 13:33 12/11/17 13:56 12/11/17 15:19 Range/Units White Blood Count 15.00 4.8-10.8 K/uL Red Blood Count 4.80 4.2-5.4 M/uL Hemoglobin 14.9 12.0-16.0 g/dL Hematocrit 44.0 37-47 % Mean Corpuscular Volume 91.7 80-100 fL Mean Corpuscular Hemoglobin 31.0 25-34 pg Mean Corpuscular Hemoglobin Concent 33.9 32-36 g/dl Platelet Count 317 130-400 K/uL Mean Platelet Volume 10.6 7.4-10.4 fL Neutrophils (%) (Auto) 86.9 % Lymphocytes (%) (Auto) 9.0 % Monocytes (%) (Auto) 3.7 % Eosinophils (%) (Auto) 0.0 % Basophils (%) (Auto) 0.1 % Neutrophils # (Auto) 13.04 1.4-6.5 K/uL Lymphocytes # (Auto) 1.35 1.2-3.4 K/uL Monocytes # (Auto) 0.55 0.11-0.59 K/uL Eosinophils # (Auto) 0.00 0-0.5 K/uL Basophils # (Auto) 0.01 0-0.2 K/uL RDW Standard Deviation 45.7 36.4-46.3 fL RDW Coefficient of Variation 13.7 11.5-14.5 % Immature Granulocyte % (Auto) 0.3 % Immature Granulocyte # (Auto) 0.05 0.00-0.02 K/uL Sodium Level 136 136-145 mmol/L Potassium Level 3.8 3.5-5.1 mmol/L Chloride Level 99 98-107 mmol/L Carbon Dioxide Level 24 21-32 mmol/L Anion Gap 13.0 3-11 mmol/L Blood Urea Nitrogen 26 7-18 mg/dl Creatinine 1.32 0.60-1.20 mg/dl Est Creatinine Clear Calc Drug Dose 24.7 ml/min Estimated GFR () 41.9 Estimated GFR (Non- 36.2 BUN/Creatinine Ratio 19.6 10-20 Random Glucose 352 70-99 mg/dl Calcium Level 9.0 8.5-10.1 mg/dl Magnesium Level 2.0 1.8-2.4 mg/dl Total Bilirubin 0.7 0.2-1 mg/dl Direct Bilirubin 0-0.2 mg/dl Aspartate Amino Transf (AST/SGOT) 23 15-37 U/L Alanine Aminotransferase (ALT/SGPT) 26 12-78 U/L Alkaline Phosphatase 91 45-117 U/L Troponin I < 0.015 0-0.045 ng/ml Pro-B-Type Natriuretic Peptide 602 0-1800 pg/ml Total Protein 8.5 6.4-8.2 gm/dl Albumin 3.6 3.4-5.0 gm/dl Beta-Hydroxybutyric Acid 37.43 0.2-2.81 mg/dL Thyroid Stimulating Hormone (TSH) 1.700 0.300-4.500 uIu/ml Chemistry Specimen Hemolysis Urine Color YELLOW Urine Appearance CLEAR CLEAR Urine pH 5.0 4.5-7.5 Urine Specific [place] 1.032 1.000-1.030 Urine Protein 1+ NEG Urine Glucose (UA) 3+ NEG Urine Ketones 3+ NEG Urine Occult Blood TRACE NEG Urine Nitrite NEG NEG Urine Bilirubin NEG NEG Urine Urobilinogen NEG NEG Urine Leukocyte Esterase NEG NEG Urine WBC (Auto) 1-5 0-5 /hpf Urine RBC (Auto) 0-4 0-4 /hpf Urine Hyaline Casts (Auto) 0 0-5 /lpf Urine Epithelial Cells (Auto) 5-10 0-5 /lpf Urine Bacteria (Auto) 4+ NEG Urine Yeast (Auto) NONE PRSENT Bedside Lactic Acid Venous 1.69 0.90-1.70 mmol/L Microbiology Results 12/11/17 Blood Culture, Received Pending 12/11/17 Blood Culture, Received Pending 12/11/17 Urine Culture, Received Pending Impression Assessment and Plan NAUSEA/VOMITING No signs of obstruction on KUB. Status post cholecystectomy. Possible viral syndrome. Symptomatic management. COUGH No infiltrates appreciated on chest x-ray. Follow. POSSIBLE SEPSIS Experiencing cough, nausea, vomiting. History of UTIs. Afebrile, but tachycardic and has leukocytosis. Blood cultures obtained. Received ceftriaxone in the ED which be continued pending culture results. ALTERED MENTAL STATUS Probable encephalopathy/delirium secondary to infection. May have metabolic encephalopathy secondary to hypoglycemia. DIABETES MELLITUS TYPE 2 Diabetes usually well-controlled on sitagliptin and insulin glargine. Blood sugars elevated today at home. Random glucose in ED 352. Anion gap 13. Urine shows 3+ ketones. Serum BHB 37. Will manage ketoacidosis with IV insulin until metabolic parameters improved. DEHYDRATION BUN 26, creatinine 1.32. Dehydration probably secondary to combination of GI symptoms and hyperglycemia. IV fluids. CKD IV Creatinine at time of admission 1.32. Maintain hydration. Avoid potential nephrotoxins. Follow. HYPOTHYROIDISM Resume levothyroxine once GI symptoms allow. DEMENTIA Monitor for delirium. VTE PROPHYLAXIS SQ heparin. Ambulate as able. RESUSCITATION STATUS Discussed with patient's daughter. She has a living will. Patient would prefer a natural passing and has indicated that she does not want extraordinary measures undertaken at end-of-life. Therefore, code status = "Level 5" (DNR). DISPOSITION Anticipated discharge to home with her daughter, perhaps with services. Medical follow-up with Jesse Schrader PA-C. . Resuscitation Status VTE Prophylaxis Will order VTE Prophylaxis: Yes
[2017-12-11] MEDS ORDERED: ONDANSETRON INJ 2 MG/ML 2 ML VIAL IV PRN (16:45)
[2017-12-11] MEDS ORDERED: PANTOprazole INJ 40 MG in SYRINGE 0 ML IV ONE (17:15)
[2017-12-11 18:00] VITALS: BP 148/86; PULSE 82; TEMP 37.4; BMI 22.2; BMI 26.7
[2017-12-11] MEDS: INSULIN ASPART 100 UNITS/ML 3 ML PEN SC SCH ×2 (18:00→20:34)
[2017-12-11] MEDS ORDERED: INSULIN IV INFUSION PROTOCOL SCH (18:42)
[2017-12-11] MEDS ORDERED: MODERATE STRESS LEVEL ONE (19:00)
[2017-12-11] MEDS ORDERED: DKA GOAL RANGE 150-250 mg/dl 1 EA ONE (19:00)
[2017-12-11] MEDS ORDERED: GLUCOSE 40% GEL 15 GM TUBE PO PRN (19:15)
[2017-12-11] MEDS ORDERED: GLUCAGON FOR INJ 1 MG VIAL IM PRN (19:15)
[2017-12-11] MEDS ORDERED: CARBOHYDRATES FOR HYPOGLYCEMIA PO PRN (19:15)
[2017-12-11] MEDS ORDERED: DEXTROSE 50% 50 ML SYR IV PRN (19:15)
[2017-12-11] MEDS ORDERED: GLUCOSE 10 TABS/TUBE PO PRN (19:15)
[2017-12-11 19:22] VITALS: BP 148/86; PULSE 82; TEMP 37.3; O2SAT 94
[2017-12-11] MEDS ORDERED: INSULIN HUMAN REGULAR IV BOLUS 1.5 UNIT in SYRINGE 0 ML IV SCH (19:45)
[2017-12-11] MEDS: D5W AND LACTATED RINGERS 1,000 ML IV SCH (19:56)
[2017-12-11] MEDS: INSULIN REGULAR 250 UNITS in SODIUM CHLORIDE 0.9% 250ML 250 ML IV SCH ×2 (19:57→20:45)
[2017-12-11 23:18] VITALS: BP 116/67; PULSE 94; TEMP 36.9; O2SAT 96
[2017-12-12] MEDS: D5W AND LACTATED RINGERS 1,000 ML IV SCH (06:26)
[2017-12-12 07:08] VITALS: BP 116/66; PULSE 85; TEMP 36.9; O2SAT 94
[2017-12-12 07:17] LABS: HEMATOCRIT 39.1 % (37-47); HEMOGLOBIN 12.9 g/dL (12.0-16.0); MEAN CELL VOLUME 91.6 fL (80-100); MEAN CORPUSCULAR HEMOGLOBIN 30.2 pg (25-34); MEAN PLATELET VOLUME 9.9 fL (7.4-10.4); PLATELET COUNT 273 K/uL (130-400); RED CELL DISTRIBUTION WIDTH SD 46.2 fL (36.4-46.3); WHITE BLOOD COUNT 17.56 K/uL (4.8-10.8)
[2017-12-12 07:24] LABS: PTT PATIENT 22.5 SECONDS (21.0-31.0)
[2017-12-12 07:49] LABS: CALCIUM 8.8 mg/dl (8.5-10.1); CREATININE 1.37 mg/dl (0.60-1.20); POTASSIUM 3.4 mmol/L (3.5-5.1)
[2017-12-12 08:00] VITALS: O2SAT 94
[2017-12-12] MEDS: INSULIN ASPART 100 UNITS/ML 3 ML PEN SC SCH ×4 (08:06→20:59)
[2017-12-12] MEDS: HEPARIN SOD 5000 UNIT/0.5 ML CARP SQ SCH ×2 (08:10→21:01)
[2017-12-12] MEDS ORDERED: INSULIN GLARGINE SOLOSTAR 100 UNITS/ML 3 ML PEN SC SCH (09:00)
[2017-12-12 09:03] LABS: HEMOGLOBIN A1C 8.8 % (4.5-5.6)
[2017-12-12] MEDS: INSULIN REGULAR 250 UNITS in SODIUM CHLORIDE 0.9% 250ML 250 ML IV SCH (09:07)
[2017-12-12] MEDS ORDERED: LACTATED RINGER'S 1000ML 1,000 ML IV SCH (09:30)
[2017-12-12] MEDS: PANTOprazole INJ 40 MG in SYRINGE 0 ML IV SCH (09:52)
[2017-12-12 14:14] VITALS: Ht 152.4 cm; Wt 62.0 kg
[2017-12-12] MEDS: CEFTRIAXONE SOD INJ 1 GM in DEXTROSE 5% ADD-VANTAGE 50ML 50 ML IV SCH (15:39)
[2017-12-12 15:55] VITALS: BP 122/77; PULSE 84; TEMP 36.8; O2SAT 94
[2017-12-12] MEDS: INSULIN GLARGINE SOLOSTAR 100 UNITS/ML 3 ML PEN SC SCH (20:58)
[2017-12-12] MEDS: LACTATED RINGER'S 1000ML 1,000 ML IV SCH (23:16)
[2017-12-12 23:27] VITALS: BP 113/64; PULSE 78; TEMP 36.7; O2SAT 96
--- NOTE | 2017-12-12 23:40 | Progress Note ---
Medicine Progress Note Date & Time of Visit: December 12, 2017 at 14:30 . Subjective CC: Follow-up visit for possible sepsis, nausea, vomiting, and other problems. HPI: Better today. No fever. No cough. No further nausea or vomiting. No diarrhea. No abdominal pain or dysuria. Less confused. ROS: General- as noted above in HPI Resp- as noted above in HPI Cardiac- no chest pain, no edema GI- as noted above in HPI - as noted above in HPI . Objective Last 8 Hrs Date Time Temp Pulse Resp B/P (MAP) Pulse Ox O2 Delivery O2 Flow Rate FiO2 12/12/17 23:27 36.7 78 20 113/64 (80) 96 Room Air 12/12/17 15:55 36.8 84 16 122/77 (92) 94 Room Air Physical Exam: General- sitting in chair at bedside, no distress ENT- hard of hearing Lungs- clear to auscultation; no respiratory distress Cardiovascular- RRR; II/ systolic murmur at base, no gallop appreciated; no JVD; no pretibial edema Abdomen- + bowel sounds, slightly distended, soft, nontender Extremities- no cyanosis; no calf tenderness Neuro- alert, pleasantly confused Skin- warm & dry . Laboratory Results: Last 24 Hours Test 12/11/17 23:45 12/12/17 00:48 12/12/17 01:49 12/12/17 02:46 Bedside Glucose 247 mg/dl 272 mg/dl 263 mg/dl 279 mg/dl Test 12/12/17 03:48 12/12/17 04:48 12/12/17 05:42 12/12/17 06:45 Bedside Glucose 247 mg/dl 232 mg/dl 227 mg/dl White Blood Count 17.56 K/uL Red Blood Count 4.27 M/uL Hemoglobin 12.9 g/dL Hematocrit 39.1 % Mean Corpuscular Volume 91.6 fL Mean Corpuscular Hemoglobin 30.2 pg Mean Corpuscular Hemoglobin Concent 33.0 g/dl RDW Standard Deviation 46.2 fL RDW Coefficient of Variation 14.0 % Platelet Count 273 K/uL Mean Platelet Volume 9.9 fL Prothrombin Time 10.8 SECONDS Prothromb Time International Ratio 1.0 Activated Partial Thromboplast Time 22.5 SECONDS Partial Thromboplastin Ratio 0.9 Sodium Level 141 mmol/L Potassium Level 3.4 mmol/L Chloride Level 107 mmol/L Carbon Dioxide Level 29 mmol/L Anion Gap 6.0 mmol/L Blood Urea Nitrogen 33 mg/dl Creatinine 1.37 mg/dl Est Creatinine Clear Calc Drug Dose 23.8 ml/min Estimated GFR () 40.1 Estimated GFR (Non- 34.6 BUN/Creatinine Ratio 23.9 Random Glucose 229 mg/dl Estimated Average Glucose 206 mg/dl Hemoglobin A1c 8.8 % Calcium Level 8.8 mg/dl Beta-Hydroxybutyric Acid 2.80 mg/dL Test 12/12/17 06:46 12/12/17 07:48 12/12/17 08:50 12/12/17 09:49 Bedside Glucose 211 mg/dl 208 mg/dl 314 mg/dl 299 mg/dl Test 12/12/17 10:49 12/12/17 11:48 12/12/17 16:19 12/12/17 20:43 Bedside Glucose 270 mg/dl 227 mg/dl 286 mg/dl 200 mg/dl Assessment & Plan POSSIBLE SEPSIS Experiencing cough, nausea, vomiting. History of UTIs. Afebrile, but tachycardic and has leukocytosis. Blood cultures obtained. UA demonstrated bacteria, but only 1-5 WBCs and negative nitrites and leukocyte esterase. Received ceftriaxone in the ED. Urine culture growing alpha strep, not enterococcus. Continue ceftriaxone pending final report from urine culture. NAUSEA/VOMITING No signs of bowel obstruction on KUB. Status post cholecystectomy. Possible viral syndrome. Symptoms improved. Advance diet as tolerated. COUGH No infiltrates appreciated on chest x-ray. Cough improved. Oxygenating well on room air. Follow. ALTERED MENTAL STATUS Probable encephalopathy/delirium secondary to infection. May have metabolic encephalopathy secondary to hypoglycemia. Improved. DIABETES MELLITUS TYPE 2 Diabetes usually well-controlled on sitagliptin and insulin glargine. Hemoglobin A1c = 8.8. Blood sugars elevated at home day of admission. Random glucose in ED 352. Anion gap 13. Urine showed 3+ ketones. Serum BHB was 37. Managed ketoacidosis with IV insulin until metabolic parameters improved. Blood sugars improved and BHB down to 2.8. Transitioned to SQ insulin this morning DEHYDRATION BUN 26, creatinine 1.32 at time of admission. Dehydration probably secondary to combination of GI symptoms and hyperglycemia. BUN and creatinine today 33 and 1.37, respectively. Continue IV fluids. CKD IV Creatinine at time of admission 1.32. Maintain hydration. Avoid potential nephrotoxins. Follow. HYPOTHYROIDISM Resume levothyroxine once GI symptoms allow. DEMENTIA Monitor for delirium. VTE PROPHYLAXIS SQ heparin. Ambulate as able. RESUSCITATION STATUS DN as documented in the admission history and physical. DISPOSITION Anticipated discharge to home with her daughter, perhaps with services. Medical follow-up with Jesse Schrader PA-C. . Current Inpatient Medications: Current Inpatient Medications Medications (Trade) Dose Ordered Sig/Leigh Ann Route Start Time Stop Time Status Last Admin Dose Admin Ondansetron HCl (Zofran Inj) 4 mg Q6H PRN IV 12/11/17 16:45 01/10/18 16:44 Heparin Sodium (Porcine) (Heparin Sq 5000 Unit/0.5ml) 5,000 unit Q12H SQ 12/12/17 09:00 01/11/18 08:59 12/12/17 21:01 5,000 UNIT Pantoprazole Sodium 40 mg/ Syringe 10 ml @ 5 mls/min DAILY@11 IV 12/12/17 11:00 01/11/18 10:59 12/12/17 09:52 5 MLS/MIN Glucose (Glucose 40% Gel) 15-30 GRAMS 15 GRAMS... UD PRN PO 12/11/17 19:15 01/10/18 19:14 Glucose (Glucose Chew Tab) 4-8 Tablets 4 Tabl... UD PRN PO 12/11/17 19:15 01/10/18 19:14 Dextrose (Dextrose 50% 50ML Syringe) 25-50ML 25ML FOR ... UD PRN IV 12/11/17 19:15 01/10/18 19:14 Glucagon (Glucagon Inj) 1 mg UD PRN IM 12/11/17 19:15 01/10/18 19:14 Carbohydrates (Carbohydrates For Hypoglycemia) 15-30 GRAMS 15 grams if BSG 54-69... UD PRN PO 12/11/17 19:15 01/10/18 19:14 Insulin Aspart (novoLOG ASPART) SLIDING SCALE G... ACHS SC 12/12/17 12:00 01/11/18 11:59 12/12/17 20:59 1 UNITS Ceftriaxone Sodium 1 gm/ Dextrose 50 ml @ 100 mls/hr DAILY@1600 IV 12/12/17 16:00 12/14/17 15:59 12/12/17 15:39 100 MLS/HR Insulin Glargine (Lantus Solostar Pen) Follow IV insulin brian... BID SC 12/12/17 21:00 01/11/18 08:59 12/12/17 20:58 12 UNITS Lactated Ringer's 1,000 ml @ 100 mls/hr Q10H IV 12/12/17 16:45 01/11/18 16:44 12/12/17 23:16 100 MLS/HR
[2017-12-13] MEDS: INSULIN ASPART 100 UNITS/ML 3 ML PEN SC SCH ×4 (06:30→20:52)
[2017-12-13 06:53] LABS: HEMATOCRIT 36.2 % (37-47); HEMOGLOBIN 12.1 g/dL (12.0-16.0); MEAN CELL VOLUME 92.6 fL (80-100); MEAN CORPUSCULAR HEMOGLOBIN 30.9 pg (25-34); MEAN CORPUSCULAR HGB CONC 33.4 g/dl (32-36); MEAN PLATELET VOLUME 10.1 fL (7.4-10.4); PLATELET COUNT 256 K/uL (130-400); RED CELL DISTRIBUTION WIDTH CV 14.1 % (11.5-14.5); RED CELL DISTRIBUTION WIDTH SD 47.3 fL (36.4-46.3)
[2017-12-13 07:04] VITALS: BP 127/75; PULSE 92; TEMP 36.4; O2SAT 94
[2017-12-13 08:10] LABS: CALCIUM 8.5 mg/dl (8.5-10.1); CREATININE 0.99 mg/dl (0.60-1.20); POTASSIUM 2.9 mmol/L (3.5-5.1)
[2017-12-13] MEDS: INSULIN GLARGINE SOLOSTAR 100 UNITS/ML 3 ML PEN SC SCH ×2 (08:44→20:53)
[2017-12-13] MEDS: LACTATED RINGER'S 1000ML 1,000 ML IV SCH ×2 (08:44→18:47)
[2017-12-13] MEDS: HEPARIN SOD 5000 UNIT/0.5 ML CARP SQ SCH ×2 (08:47→21:00)
[2017-12-13] MEDS ORDERED: POTASSIUM CHLORIDE PWD 20 MEQ PACK PO ONE (10:15)
[2017-12-13] MEDS: PANTOprazole INJ 40 MG in SYRINGE 0 ML IV SCH (10:35)
[2017-12-13 15:19] VITALS: BP 123/70; PULSE 77; TEMP 37; O2SAT 95
[2017-12-13] MEDS: CEFTRIAXONE SOD INJ 1 GM in DEXTROSE 5% ADD-VANTAGE 50ML 50 ML IV SCH (16:14)
[2017-12-13 20:42] VITALS: BP 136/66; PULSE 70; TEMP 36.8; O2SAT 95
[2017-12-13] MEDS ORDERED: POTASSIUM CHLORIDE PWD 20 MEQ PACK PO SCH (21:00)
[2017-12-13 22:35] VITALS: O2SAT 95
--- NOTE | 2017-12-13 22:43 | Progress Note ---
Medicine Progress Note Date & Time of Visit: December 13, 2017 at 16:40 . Subjective CC: Follow-up visit for possible sepsis, nausea, vomiting, and other problems. HPI: Confused with disrupted sleep cycle. No further nausea or vomiting; appetite improved. No fever. Occasional mild cough. No apparent abdominal pain or dysuria. ROS: General- as noted above in HPI Resp- as noted above in HPI Cardiac- no apparent chest pain GI- as noted above in HPI - as noted above in HPI . Objective Last 8 Hrs Date Time Temp Pulse Resp B/P (MAP) Pulse Ox O2 Delivery O2 Flow Rate FiO2 12/13/17 22:35 95 Room Air 12/13/17 20:42 36.8 70 18 136/66 (89) 95 Room Air 12/13/17 16:23 Room Air 12/13/17 15:19 37.0 77 18 123/70 (87) 95 Room Air Physical Exam: General- lying in bed, no distress Lungs- clear to auscultation; no respiratory distress Cardiovascular- RRR; II/ systolic murmur at base, no gallop appreciated; no JVD; no pretibial edema Abdomen- + bowel sounds, slightly distended, soft, nontender Extremities- no cyanosis; no calf tenderness Neuro- somnolent at time of my assessment Skin- warm & dry . Laboratory Results: Last 24 Hours Test 12/13/17 06:11 12/13/17 07:37 12/13/17 11:07 12/13/17 15:49 White Blood Count 14.70 K/uL Red Blood Count 3.91 M/uL Hemoglobin 12.1 g/dL Hematocrit 36.2 % Mean Corpuscular Volume 92.6 fL Mean Corpuscular Hemoglobin 30.9 pg Mean Corpuscular Hemoglobin Concent 33.4 g/dl RDW Standard Deviation 47.3 fL RDW Coefficient of Variation 14.1 % Platelet Count 256 K/uL Mean Platelet Volume 10.1 fL Sodium Level 140 mmol/L Potassium Level 2.9 mmol/L 4.1 mmol/L Chloride Level 105 mmol/L Carbon Dioxide Level 31 mmol/L Anion Gap 5.0 mmol/L Blood Urea Nitrogen 19 mg/dl Creatinine 0.99 mg/dl Est Creatinine Clear Calc Drug Dose 32.9 ml/min Estimated GFR () 59.4 Estimated GFR (Non- 51.2 BUN/Creatinine Ratio 19.0 Random Glucose 59 mg/dl Calcium Level 8.5 mg/dl Bedside Glucose 73 mg/dl 161 mg/dl Test 12/13/17 16:35 12/13/17 20:31 Bedside Glucose 206 mg/dl 188 mg/dl Assessment & Plan POSSIBLE SEPSIS Experiencing cough, nausea, vomiting. History of UTIs. Afebrile, but tachycardic and has leukocytosis. Blood cultures obtained. UA demonstrated bacteria, but only 1-5 WBCs and negative nitrites and leukocyte esterase. Received ceftriaxone in the ED. Urine culture growing alpha strep, not enterococcus. Continue ceftriaxone pending final report from urine culture. NAUSEA/VOMITING No signs of bowel obstruction on KUB. Status post cholecystectomy. Possible viral syndrome. Symptoms improved. Advance diet as tolerated. COUGH No infiltrates appreciated on chest x-ray. Cough improved. Oxygenating well on room air. Follow. ALTERED MENTAL STATUS Probable encephalopathy/delirium secondary to infection. May have metabolic encephalopathy secondary to hypoglycemia. Improved. DIABETES MELLITUS TYPE 2 Diabetes usually well-controlled on sitagliptin and insulin glargine. Hemoglobin A1c = 8.8. Blood sugars elevated at home day of admission. Random glucose in ED 352. Anion gap 13. Urine showed 3+ ketones. Serum BHB was 37. Managed ketoacidosis with IV insulin until metabolic parameters improved. Blood sugars improved and BHB down to 2.8. Transitioned to SQ insulin. Fasting blood sugar today = 73. Continue Lantus/NovoLog per protocol. DEHYDRATION BUN 26, creatinine 1.32 at time of admission. Dehydration probably secondary to combination of GI symptoms and hyperglycemia. BUN and creatinine today 33 and 1.37, respectively. Continue IV fluids. CKD IV Creatinine at time of admission 1.32. Serum creatinine today = 0.99. Maintain hydration. Avoid potential nephrotoxins. Follow. HYPOKALEMIA Serum potassium 2.9. Oral replacement. Follow. HYPOTHYROIDISM Resume levothyroxine. DEMENTIA Monitor for delirium. VTE PROPHYLAXIS SQ heparin. Ambulate as able. RESUSCITATION STATUS DNR as documented in the admission history and physical. DISPOSITION Anticipated discharge to home with her daughter, perhaps with services. Medical follow-up with Jesse Schraedr PA-C. Daughter visiting and given update. . Current Inpatient Medications: Current Inpatient Medications Medications (Trade) Dose Ordered Sig/Leigh Ann Route Start Time Stop Time Status Last Admin Dose Admin Ondansetron HCl (Zofran Inj) 4 mg Q6H PRN IV 12/11/17 16:45 01/10/18 16:44 Heparin Sodium (Porcine) (Heparin Sq 5000 Unit/0.5ml) 5,000 unit Q12H SQ 12/12/17 09:00 01/11/18 08:59 12/13/17 21:00 5,000 UNIT Pantoprazole Sodium 40 mg/ Syringe 10 ml @ 5 mls/min DAILY@11 IV 12/12/17 11:00 01/11/18 10:59 12/13/17 10:35 5 MLS/MIN Glucose (Glucose 40% Gel) 15-30 GRAMS 15 GRAMS... UD PRN PO 12/11/17 19:15 01/10/18 19:14 Glucose (Glucose Chew Tab) 4-8 Tablets 4 Tabl... UD PRN PO 12/11/17 19:15 01/10/18 19:14 Dextrose (Dextrose 50% 50ML Syringe) 25-50ML 25ML FOR ... UD PRN IV 12/11/17 19:15 01/10/18 19:14 Glucagon (Glucagon Inj) 1 mg UD PRN IM 12/11/17 19:15 01/10/18 19:14 Carbohydrates (Carbohydrates For Hypoglycemia) 15-30 GRAMS 15 grams if BSG 54-69... UD PRN PO 12/11/17 19:15 01/10/18 19:14 Insulin Aspart (novoLOG ASPART) SLIDING SCALE G... ACHS SC 12/12/17 12:00 01/11/18 11:59 12/13/17 20:52 1 UNITS Ceftriaxone Sodium 1 gm/ Dextrose 50 ml @ 100 mls/hr DAILY@1600 IV 12/12/17 16:00 12/14/17 15:59 12/13/17 16:14 100 MLS/HR Insulin Glargine (Lantus Solostar Pen) Follow IV insulin brian... BID SC 12/12/17 21:00 01/11/18 08:59 12/13/17 20:53 12 UNITS Lactated Ringer's 1,000 ml @ 100 mls/hr Q10H IV 12/12/17 16:45 01/11/18 16:44 12/13/17 18:47 100 MLS/HR Potassium Chloride (Klor-Con Pwd) 20 meq BID PO 12/13/17 21:00 01/12/18 20:59
[2017-12-13 23:15] VITALS: BP 127/66; PULSE 73; TEMP 36.6; O2SAT 94
[2017-12-14] MEDS: LEVOTHYROXINE 50 MCG TAB PO SCH (06:17)
[2017-12-14 07:29] VITALS: BP 107/64; PULSE 63; TEMP 37.2; O2SAT 94
[2017-12-14 07:50] LABS: HEMATOCRIT 36.3 % (37-47); HEMOGLOBIN 11.7 g/dL (12.0-16.0); MEAN CELL VOLUME 92.8 fL (80-100); MEAN CORPUSCULAR HEMOGLOBIN 29.9 pg (25-34); MEAN CORPUSCULAR HGB CONC 32.2 g/dl (32-36); MEAN PLATELET VOLUME 9.9 fL (7.4-10.4); PLATELET COUNT 221 K/uL (130-400); RED CELL DISTRIBUTION WIDTH CV 14.1 % (11.5-14.5); RED CELL DISTRIBUTION WIDTH SD 47.6 fL (36.4-46.3); WHITE BLOOD COUNT 9.88 K/uL (4.8-10.8)
[2017-12-14 08:26] LABS: CALCIUM 8.3 mg/dl (8.5-10.1); CREATININE 0.94 mg/dl (0.60-1.20); POTASSIUM 3.4 mmol/L (3.5-5.1)
[2017-12-14] MEDS: INSULIN GLARGINE SOLOSTAR 100 UNITS/ML 3 ML PEN SC SCH ×2 (09:00→20:42)
[2017-12-14] MEDS ORDERED: [UNRECOGNIZED DRUG - OTHER] IV SCH (09:00)
[2017-12-14] MEDS ORDERED: MAG SULFATE IV SCH (09:00)
[2017-12-14] MEDS ORDERED: POTASSIUM CHLORIDE IV SCH (09:00)
[2017-12-14] MEDS: INSULIN ASPART 100 UNITS/ML 3 ML PEN SC SCH ×4 (09:14→20:42)
[2017-12-14] MEDS: HEPARIN SOD 5000 UNIT/0.5 ML CARP SQ SCH ×2 (09:15→20:43)
[2017-12-14] MEDS: DOCUSATE SODIUM 100 MG CAP PO SCH ×2 (09:19→20:43)
[2017-12-14] MEDS: SITAGLIPTIN 25 MG TAB PO SCH (09:20)
[2017-12-14] MEDS: RANITIDINE HCL 150 MG TAB PO SCH ×2 (09:20→20:43)
[2017-12-14] MEDS: PANTOprazole INJ 40 MG in SYRINGE 0 ML IV SCH (11:05)
[2017-12-14 15:38] VITALS: BP 111/69; PULSE 79; TEMP 36.4; O2SAT 97
--- NOTE | 2017-12-14 19:05 | Progress Note ---
Medicine Progress Note Date & Time of Visit: December 14, 2017 at 11:20 . Subjective CC: Follow-up visit for possible sepsis, nausea, vomiting, and other problems. HPI: No further nausea or vomiting; appetite improved. No fever. Occasional mild cough. No SOB. No chest pain. No apparent abdominal pain or dysuria. Ambulating with assistance. ROS: as noted above in HPI . Objective Last 8 Hrs Date Time Temp Pulse Resp B/P (MAP) Pulse Ox O2 Delivery O2 Flow Rate FiO2 12/14/17 16:00 Room Air 12/14/17 15:38 36.4 79 16 111/69 (83) 97 Room Air Physical Exam: General- lying in bed, no distress Lungs- clear to auscultation; no respiratory distress Cardiovascular- RRR; II/ systolic murmur at base, no gallop appreciated; no JVD; no pretibial edema Abdomen- + bowel sounds, slightly distended, soft, nontender Extremities- no cyanosis; no calf tenderness Neuro- alert, pleasantly confused Skin- warm & dry . Laboratory Results: Last 24 Hours Test 12/13/17 20:31 12/14/17 07:24 12/14/17 11:30 12/14/17 16:27 Bedside Glucose 188 mg/dl 176 mg/dl 157 mg/dl White Blood Count 9.88 K/uL Red Blood Count 3.91 M/uL Hemoglobin 11.7 g/dL Hematocrit 36.3 % Mean Corpuscular Volume 92.8 fL Mean Corpuscular Hemoglobin 29.9 pg Mean Corpuscular Hemoglobin Concent 32.2 g/dl RDW Standard Deviation 47.6 fL RDW Coefficient of Variation 14.1 % Platelet Count 221 K/uL Mean Platelet Volume 9.9 fL Sodium Level 139 mmol/L Potassium Level 3.4 mmol/L Chloride Level 107 mmol/L Carbon Dioxide Level 29 mmol/L Anion Gap 3.0 mmol/L Blood Urea Nitrogen 14 mg/dl Creatinine 0.94 mg/dl Est Creatinine Clear Calc Drug Dose 34.7 ml/min Estimated GFR () 63.2 Estimated GFR (Non- 54.5 BUN/Creatinine Ratio 14.3 Random Glucose 97 mg/dl Calcium Level 8.3 mg/dl Magnesium Level 1.5 mg/dl Assessment & Plan POSSIBLE SEPSIS Experiencing cough, nausea, vomiting. History of UTIs. Afebrile, but tachycardic and has leukocytosis. Blood cultures obtained. UA demonstrated bacteria, but only 1-5 WBCs and negative nitrites and leukocyte esterase. Received ceftriaxone in the ED. Urine culture growing alpha strep, not enterococcus. Continue ceftriaxone. NAUSEA/VOMITING No signs of bowel obstruction on KUB. Status post cholecystectomy. Possible viral syndrome. Symptoms improved. Advance diet as tolerated. COUGH No infiltrates appreciated on chest x-ray. Cough improved. Oxygenating well on room air. Follow. ALTERED MENTAL STATUS Probable encephalopathy/delirium secondary to infection. May have metabolic encephalopathy secondary to hypoglycemia. Improved. DIABETES MELLITUS TYPE 2 Diabetes usually well-controlled on sitagliptin and insulin glargine. Hemoglobin A1c = 8.8. Blood sugars elevated at home day of admission. Random glucose in ED 352. Anion gap 13. Urine showed 3+ ketones. Serum BHB was 37. Managed ketoacidosis with IV insulin until metabolic parameters improved. Blood sugars improved and BHB down to 2.8. Transitioned to SQ insulin. Fasting blood sugar today = 97. Continue Lantus/NovoLog per protocol. DEHYDRATION BUN 26, creatinine 1.32 at time of admission. Dehydration probably secondary to combination of GI symptoms and hyperglycemia. Received IV fluids. BUN and creatinine today 14 and 0.94, respectively. CKD IV Creatinine at time of admission 1.32. Serum creatinine today = 0.94. Maintain hydration. Avoid potential nephrotoxins. Follow. HYPOKALEMIA Serum potassium as low as 2.9. Replace. Follow. HYPOTHYROIDISM Continue levothyroxine. DEMENTIA Monitor for delirium. VTE PROPHYLAXIS SQ heparin. Ambulate as able. RESUSCITATION STATUS DNR as documented in the admission history and physical. DISPOSITION Anticipated discharge to home with her daughter, perhaps with services. Medical follow-up with Jesse Schrader PA-C. Daughter visiting and given update. . Current Inpatient Medications: Current Inpatient Medications Medications (Trade) Dose Ordered Sig/Leigh Ann Route Start Time Stop Time Status Last Admin Dose Admin Ondansetron HCl (Zofran Inj) 4 mg Q6H PRN IV 12/11/17 16:45 01/10/18 16:44 Heparin Sodium (Porcine) (Heparin Sq 5000 Unit/0.5ml) 5,000 unit Q12H SQ 12/12/17 09:00 01/11/18 08:59 12/14/17 09:15 5,000 UNIT Pantoprazole Sodium 40 mg/ Syringe 10 ml @ 5 mls/min DAILY@11 IV 12/12/17 11:00 01/11/18 10:59 12/14/17 11:05 5 MLS/MIN Glucose (Glucose 40% Gel) 15-30 GRAMS 15 GRAMS... UD PRN PO 12/11/17 19:15 01/10/18 19:14 Glucose (Glucose Chew Tab) 4-8 Tablets 4 Tabl... UD PRN PO 12/11/17 19:15 01/10/18 19:14 Dextrose (Dextrose 50% 50ML Syringe) 25-50ML 25ML FOR ... UD PRN IV 12/11/17 19:15 01/10/18 19:14 Glucagon (Glucagon Inj) 1 mg UD PRN IM 12/11/17 19:15 01/10/18 19:14 Carbohydrates (Carbohydrates For Hypoglycemia) 15-30 GRAMS 15 grams if BSG 54-69... UD PRN PO 12/11/17 19:15 01/10/18 19:14 Insulin Aspart (novoLOG ASPART) SLIDING SCALE G... ACHS SC 12/12/17 12:00 01/11/18 11:59 12/14/17 17:17 4 UNITS Insulin Glargine (Lantus Solostar Pen) Follow IV insulin brian... BID SC 12/12/17 21:00 01/11/18 08:59 12/13/17 20:53 12 UNITS Docusate Sodium (coLACE CAP) 100 mg BID PO 12/14/17 09:00 01/13/18 08:59 12/14/17 09:19 100 MG Levothyroxine Sodium (Synthroid Tab) 50 mcg DAILYBB PO 12/14/17 06:30 01/13/18 06:29 12/14/17 06:17 50 MCG Ranitidine HCl (zANTac TAB) 150 mg BID PO 12/14/17 09:00 01/13/18 08:59 12/14/17 09:20 150 MG Simvastatin (Zocor Tab) 20 mg HS PO 12/14/17 21:00 01/13/18 20:59 Sitagliptin Phosphate (Januvia Tab) 25 mg QAM PO 12/14/17 09:00 01/13/18 08:59 12/14/17 09:20 25 MG
[2017-12-14] MEDS: CEPHALEXIN MONOHYDRATE 250 MG CAP PO SCH (20:44)
[2017-12-14] MEDS ORDERED: SIMVASTATIN 20 MG TAB PO SCH (21:00)
[2017-12-14 22:51] VITALS: BP 122/71; PULSE 78; TEMP 36.8; O2SAT 95
[2017-12-15] MEDS: INSULIN ASPART 100 UNITS/ML 3 ML PEN SC SCH ×2 (06:30→12:20)
[2017-12-15] MEDS: INSULIN GLARGINE SOLOSTAR 100 UNITS/ML 3 ML PEN SC SCH (09:00)
[2017-12-15] MEDS ORDERED: PANTOprazole SOD 40 MG TAB PO SCH (09:00)
[2017-12-15] MEDS: HEPARIN SOD 5000 UNIT/0.5 ML CARP SQ SCH (09:11)
[2017-12-15] MEDS: LEVOTHYROXINE 50 MCG TAB PO SCH (09:11)
[2017-12-15] MEDS: SITAGLIPTIN 25 MG TAB PO SCH (09:12)
[2017-12-15] MEDS: RANITIDINE HCL 150 MG TAB PO SCH (09:12)
[2017-12-15] MEDS: CEPHALEXIN MONOHYDRATE 250 MG CAP PO SCH ×2 (09:12→13:54)
[2017-12-15] MEDS: DOCUSATE SODIUM 100 MG CAP PO SCH (09:12)
[2017-12-15 09:31] LABS: HEMATOCRIT 38.5 % (37-47); HEMOGLOBIN 12.7 g/dL (12.0-16.0); MEAN CELL VOLUME 92.3 fL (80-100); MEAN CORPUSCULAR HEMOGLOBIN 30.5 pg (25-34); MEAN PLATELET VOLUME 9.7 fL (7.4-10.4); PLATELET COUNT 263 K/uL (130-400); RED CELL DISTRIBUTION WIDTH CV 14.1 % (11.5-14.5); RED CELL DISTRIBUTION WIDTH SD 46.9 fL (36.4-46.3); WHITE BLOOD COUNT 7.88 K/uL (4.8-10.8)
[2017-12-15 09:50] LABS: CALCIUM 8.5 mg/dl (8.5-10.1); CREATININE 1.08 mg/dl (0.60-1.20); POTASSIUM 3.9 mmol/L (3.5-5.1)
[2017-12-15 15:04] VITALS: BP 96/57; PULSE 71; TEMP 36.5; O2SAT 96
--- NOTE | 2017-12-15 15:34 | Progress Note ---
Medicine Progress Note Date & Time of Visit: December 15, 2017 at 15:00 . Subjective Doing well. No fever. No significant cough. No chest pain or SOB. No nausea, vomiting, diarrhea. Mental status back to baseline. Ambulating in hallway with assistance. . Objective Last 8 Hrs Date Time Temp Pulse Resp B/P (MAP) Pulse Ox O2 Delivery O2 Flow Rate FiO2 12/15/17 15:04 36.5 71 18 96/57 (70) 96 Room Air 12/15/17 08:00 Room Air Physical Exam: General- lying in bed, no distress Lungs- clear to auscultation; no respiratory distress Cardiovascular- RRR; II/ systolic murmur at base, no gallop appreciated; no JVD; no pretibial edema Abdomen- + bowel sounds, slightly distended, soft, nontender Extremities- no cyanosis; no calf tenderness Neuro- alert, pleasantly confused Skin- warm & dry . Laboratory Results: Last 24 Hours Test 12/14/17 16:27 12/14/17 20:13 12/15/17 07:48 12/15/17 09:11 Bedside Glucose 157 mg/dl 196 mg/dl 76 mg/dl White Blood Count 7.88 K/uL Red Blood Count 4.17 M/uL Hemoglobin 12.7 g/dL Hematocrit 38.5 % Mean Corpuscular Volume 92.3 fL Mean Corpuscular Hemoglobin 30.5 pg Mean Corpuscular Hemoglobin Concent 33.0 g/dl RDW Standard Deviation 46.9 fL RDW Coefficient of Variation 14.1 % Platelet Count 263 K/uL Mean Platelet Volume 9.7 fL Sodium Level 139 mmol/L Potassium Level 3.9 mmol/L Chloride Level 104 mmol/L Carbon Dioxide Level 30 mmol/L Anion Gap 5.0 mmol/L Blood Urea Nitrogen 16 mg/dl Creatinine 1.08 mg/dl Est Creatinine Clear Calc Drug Dose 30.2 ml/min Estimated GFR () 53.5 Estimated GFR (Non- 46.1 BUN/Creatinine Ratio 14.7 Random Glucose 173 mg/dl Calcium Level 8.5 mg/dl Magnesium Level 1.6 mg/dl Test 12/15/17 11:28 Bedside Glucose 263 mg/dl Assessment & Plan POSSIBLE SEPSIS / UTI (present on admission) Presented with cough, nausea, vomiting, progressive weakness, confusion. History of UTIs. Afebrile in ED, but tachycardic and had leukocytosis. Blood cultures obtained. UA demonstrated bacteria, but only 1-5 WBCs and negative nitrites and leukocyte esterase. Received ceftriaxone in the ED. Urine culture growing alpha strep, not enterococcus. Ceftriaxone with improvement, then transitioned to oral therapy with cephalexin to complete course of treatment. NAUSEA/VOMITING No signs of bowel obstruction on KUB. Status post cholecystectomy. Possible viral syndrome. Symptoms resolved. Diet advanced. COUGH No infiltrates appreciated on chest x-ray. Cough improved. Oxygenating well on room air. ALTERED MENTAL STATUS Probable encephalopathy/delirium secondary to infection and metabolic encephalopathy secondary to hypoglycemia. Improved. DIABETES MELLITUS TYPE 2 / DKA Diabetes usually well-controlled on sitagliptin and insulin glargine. Hemoglobin A1c = 8.8. Blood sugars elevated at home day of admission. Random glucose in ED 352. Anion gap 13. Urine showed 3+ ketones. Serum BHB was 37. Managed ketoacidosis with IV insulin until metabolic parameters improved. Blood sugars improved and BHB down to 2.8. Transitioned to SQ insulin. Fasting blood sugar today = 76. Discharge on usual regimen. DEHYDRATION BUN 26, creatinine 1.32 at time of admission. Dehydration probably secondary to combination of GI symptoms and hyperglycemia. Received IV fluids. BUN and creatinine today 16 and 1.08, respectively. CKD III Creatinine at time of admission 1.32. Serum creatinine today = 1.08. Maintain hydration. Avoid potential nephrotoxins. Follow. HYPOKALEMIA Serum potassium as low as 2.9. Replaced. -[id number]- Potassium today = 3.9. [error EMIR 12/15/17 20:07] HYPOTHYROIDISM Continue levothyroxine. DEMENTIA Monitor for delirium. VTE PROPHYLAXIS SQ heparin. Ambulating. RESUSCITATION STATUS DNR as documented in the admission history and physical. DISPOSITION Discharge to home where she lives with her daughter. Medical follow-up with Jesse Schrader PA-C. . Current Inpatient Medications: Current Inpatient Medications Medications (Trade) Dose Ordered Sig/Leigh Ann Route Start Time Stop Time Status Last Admin Dose Admin Ondansetron HCl (Zofran Inj) 4 mg Q6H PRN IV 12/11/17 16:45 01/10/18 16:44 Heparin Sodium (Porcine) (Heparin Sq 5000 Unit/0.5ml) 5,000 unit Q12H SQ 12/12/17 09:00 01/11/18 08:59 12/15/17 09:11 5,000 UNIT Glucose (Glucose 40% Gel) 15-30 GRAMS 15 GRAMS... UD PRN PO 12/11/17 19:15 01/10/18 19:14 Glucose (Glucose Chew Tab) 4-8 Tablets 4 Tabl... UD PRN PO 12/11/17 19:15 01/10/18 19:14 Dextrose (Dextrose 50% 50ML Syringe) 25-50ML 25ML FOR ... UD PRN IV 12/11/17 19:15 01/10/18 19:14 Glucagon (Glucagon Inj) 1 mg UD PRN IM 12/11/17 19:15 01/10/18 19:14 Carbohydrates (Carbohydrates For Hypoglycemia) 15-30 GRAMS 15 grams if BSG 54-69... UD PRN PO 12/11/17 19:15 01/10/18 19:14 Insulin Aspart (novoLOG ASPART) SLIDING SCALE G... ACHS SC 12/12/17 12:00 01/11/18 11:59 12/15/17 12:20 6 UNITS Insulin Glargine (Lantus Solostar Pen) Follow IV insulin brian... BID SC 12/12/17 21:00 01/11/18 08:59 12/14/17 20:42 12 UNITS Docusate Sodium (coLACE CAP) 100 mg BID PO 12/14/17 09:00 01/13/18 08:59 12/15/17 09:12 100 MG Levothyroxine Sodium (Synthroid Tab) 50 mcg DAILYBB PO 12/14/17 06:30 01/13/18 06:29 12/15/17 09:11 50 MCG Ranitidine HCl (zANTac TAB) 150 mg BID PO 12/14/17 09:00 01/13/18 08:59 12/15/17 09:12 150 MG Simvastatin (Zocor Tab) 20 mg HS PO 12/14/17 21:00 01/13/18 20:59 12/14/17 20:43 20 MG Sitagliptin Phosphate (Januvia Tab) 25 mg QAM PO 12/14/17 09:00 01/13/18 08:59 12/15/17 09:12 25 MG Cephalexin Monohydrate (Keflex Cap) 250 mg TID PO 12/14/17 21:00 12/19/17 20:59 12/15/17 13:54 250 MG Pantoprazole Sodium (Protonix Tab) 40 mg QAM PO 12/15/17 09:00 12/18/17 23:59 12/15/17 09:12 40 MG
[2017-12-15] MEDS ORDERED: KFL250 PO (15:36)
--- NOTE | 2017-12-15 15:39 | Discharge Instructions ---
Discharge Instructions Date of Service December 15, 2017. Admission Reason for Admission: high blood sugars, nausea & vomiting . Discharge Discharge Diagnosis / Problem: high blood sugars, nausea & vomiting, bladder infection Discharge Goals Goal(s): Improve function, Improve disease control Activity Recommendations Activity Limitations: resume your previous activity . Instructions / Follow-Up Instructions / Follow-Up APPOINTMENTS: FAMILY MEDICINE 12/19/2017 3:00 PM Jesse Schrader Jr., PAAntonyC OTHER INSTRUCTIONS: Take cephalexin (Keflex) 3 times a day until gone for bladder infection. Don't take meclizine (Antivert) unless absolutely necessary- it can cause severe confusion. Seek medical attention if you have: * temperature above 101 * chest pain or trouble breathing * abdominal pain, nausea, vomiting * diarrhea, dark stools or bloody stools * burning when you urinate or blood in your stools * any unanswered questions or concerns Call 911 if symptoms are severe. Call if you have any questions or problems. My cell # is [phone]. You can also reach a [facility] hospitalist on duty at [facility] 24 hours a day by calling [phone]. Please take good care of yourself. Jesse Yates . Current Hospital Diet Patient's current hospital diet: Diabetes Type 2 Diet, AHA Diet (Heart Healthy) Discharge Diet Recommended Diet: Full Liquid Diet Pending Studies Studies pending at discharge: no Laboratory Results Hemoglobin A1c Test 12/12/17 06:45 Range/Units Estimated Average Glucose 206 mg/dl Hemoglobin A1c 8.8 H 4.5-5.6 % Medical Emergencies . Who to Call and When: Medical Emergencies: If at any time you feel your situation is an emergency, please call 911 immediately. . Non-Emergent Contact Non-Emergency issues call your: Primary Care Provider, Hospital Doctor . . "Provider Documentation" section prepared by Jesse Yates. .
[2017-12-15 16:03] VITALS: BP 96/57; PULSE 71; TEMP 36.5; O2SAT 96
--- NOTE | 2017-12-15 20:04 | Discharge Summary ---
Discharge Summary Date of Service December 15, 2017. Discharge Summary Admission Date: December 11, 2017 at 16:43 Discharge Date: December 15, 2017 Discharge Disposition: Home Principal Diagnosis: sepsis UTI alpha strep, not enterococcus, present on admission OTHER ACUTE / SECONDARY DIAGNOSES: encephalopathy- secondary to infection and/or metabolic DM type 2 with DKA dehydration . Secondary Diagnoses/Problems: Chronic and Resolved Medical Problems: (1) CKD (chronic kidney disease) III Status: Chronic (2) Dementia Status: Chronic (3) Diabetes mellitus, type II Status: Chronic (4) Hyperlipemia Status: Chronic (5) Hypertension Status: Chronic (6) Hypothyroidism Status: Chronic Surgical Problems: (1) Status post appendectomy Status: Chronic (2) Status post cholecystectomy Status: Chronic (3) Status post ORIF left hip fracture Permanent Comment: 2017 Status: Chronic . Procedures: IV meds IV fluids . Medication Reconciliation New Medications: Cephalexin Monohydrate (Cephalexin) 250 Mg Cap 250 MG PO TID, #18 CAP Continued Medications: Docusate Sodium (Docusate Sodium) 100 Mg Cap 100 MG PO BID, #60 CAP 1 Refill Ferrous Sulfate (Kp Ferrous Sulfate) 325 Mg Tab 325 MG PO DAILY, TAB 3 Refills Glucosamine-Chondroitin (Osteo Bi-Flex Regular Str) 1 Tab Tab 1 TAB PO BID Insulin Glargine (Lantus Solostar) 100 Unit/Ml Inj 24 UNITS SC HS, PEN Levothyroxine Sodium (Levothyroxine Sodium) 50 Mcg Tab 50 MCG PO QAM Multiple Vitamins W/ Minerals (One Daily For Women) 1 Tab Tab 1 TAB PO DAILY Ocuvite Preservision (Ocuvite Preservision) 1 Tab Tab 1 TAB PO DAILY, TAB Ranitidine (Zantac) 150 Mg Tab 150 MG PO BID, TAB Simvastatin (Zocor) 20 Mg Tab 20 MG PO HS Sitagliptin Phosphate (Januvia) 25 Mg Tab 25 MG PO QAM, TAB Discontinued Medications: Meclizine Hcl (Meclizine Hcl) 25 Mg Tab 1 TAB PO BID PRN for Dizziness or Vertigo Admission Information HPI (per Admitting provider): 87-year-old female followed by Jesse Schrader PA-C at the [facility] in [place]. History of diabetes, dementia, and other problems noted below. Lives at home with her daughter. Ambulatory with cane. 6 days prior to admission she had some loose stools. 5 days prior to admission she developed a cough and was given bqol-dlr-gyitnol cough and cold preparation. 2 days prior to admission daughter noticed decreased appetite. Yesterday she developed nausea and vomiting. Today daughter noted worsening confusion. Seemed to be coughing a bit more; cough nonproductive. Patient experienced 4 or 5 episodes of nausea and vomiting. Emesis described as dark brown in color, but not chau coffee grounds. No melena or hematochezia. Diarrhea improved. No apparent fever. Blood sugar this morning in 370s. Patient unable to provide any additional history because her confusion. . Physical Exam (per Admitting): CONSTITUTIONAL vital signs as noted above elderly female, thin, no acute distress EYES conjunctivae clear; lids normal pupils equal and reactive to light EARS, NOSE, MOUTH AND THROAT external inspection of ears and nose unremarkable hearing grossly intact to spoken voice edentulous oropharynx clear NECK no masses; trachea midline thyroid normal RESPIRATORY normal respiratory effort; no respiratory distress clear to percussion clear to auscultation CARDIOVASCULAR regular rate and rhythm with occasional ectopy II/ systolic murmur at base no gallop or rub appreciated no JVD pedal pulses diminished capillary refill toes < 2 seconds no pretibial edema GASTROINTESTINAL quiet bowel sounds, slightly distended, soft, nontender; no palpable masses no hepatomegaly; no splenomegaly LYMPHATIC no cervical adenopathy MUSCULOSKELETAL no cyanosis; no digital clubbing no calf tenderness motor strength extremities grossly intact SKIN no rash warm and dry NEUROLOGIC PERRL, EOMI, no facial palsy, no dysarthria, tongue midline no cogwheel rigidity patellar DTR's 2/2 plantar reflexes downgoing PSYCHIATRIC pleasantly confused . Hospital Course POSSIBLE SEPSIS / UTI (present on admission) Presented to ED with cough, nausea, vomiting, progressive weakness, confusion. History of UTIs. Afebrile in ED, but tachycardic and had leukocytosis. Blood cultures obtained. UA demonstrated bacteria, but only 1-5 WBCs and negative nitrites and leukocyte esterase. Received ceftriaxone in the ED. Urine culture growing alpha strep, not enterococcus. Ceftriaxone with improvement, then transitioned to oral therapy with cephalexin to complete course of treatment. DIABETES MELLITUS TYPE 2 / DKA Diabetes usually well-controlled on sitagliptin and insulin glargine. Hemoglobin A1c = 8.8. Blood sugars elevated at home day of admission. Random glucose in ED 352. Anion gap 13. Urine showed 3+ ketones. Serum BHB was 37. Managed ketoacidosis with IV insulin until metabolic parameters improved. Blood sugars improved and BHB down to 2.8. Transitioned to SQ insulin. Fasting blood sugar day of discharge was 76. Discharged on usual regimen. NAUSEA/VOMITING No signs of bowel obstruction on KUB. Status post cholecystectomy. Possible viral syndrome. Symptoms resolved. Diet advanced. COUGH No infiltrates appreciated on chest x-ray. Cough improved. Oxygenating well on room air. ALTERED MENTAL STATUS Probable encephalopathy/delirium secondary to infection and metabolic encephalopathy secondary to hypoglycemia. Improved. DEHYDRATION BUN 26, creatinine 1.32 at time of admission. Dehydration probably secondary to combination of GI symptoms and hyperglycemia. Received IV fluids. BUN and creatinine day of discharge were 16 and 1.08, respectively. CKD III Creatinine at time of admission 1.32. Serum creatinine day of discharge was 1.08. Maintain hydration. Avoid potential nephrotoxins. Follow. HYPOKALEMIA Serum potassium as low as 2.9. Replaced. Potassium day of discharge was 3.9. HYPOTHYROIDISM Continue levothyroxine. DEMENTIA Monitor for delirium. VTE PROPHYLAXIS SQ heparin. Ambulating. RESUSCITATION STATUS DNR as documented in the admission history and physical. DISPOSITION Discharged to home where she lives with her daughter. Medical follow-up with Jesse Schrader PA-C. . Total time spent on discharge = 40 min. This includes examination of the patient, discharge planning, medication reconciliation, and communication with other providers. . Discharge Instructions Date of Service December 15, 2017. Admission Reason for Admission: high blood sugars, nausea & vomiting . Discharge Discharge Diagnosis / Problem: high blood sugars, nausea & vomiting, bladder infection Discharge Goals Goal(s): Improve function, Improve disease control Activity Recommendations Activity Limitations: resume your previous activity . Instructions / Follow-Up Instructions / Follow-Up APPOINTMENTS: FAMILY MEDICINE 12/19/2017 3:00 PM Jesse Schrader Jr., PA-C OTHER INSTRUCTIONS: Take cephalexin (Keflex) 3 times a day until gone for bladder infection. Don't take meclizine (Antivert) unless absolutely necessary- it can cause severe confusion. Seek medical attention if you have: * temperature above 101 * chest pain or trouble breathing * abdominal pain, nausea, vomiting * diarrhea, dark stools or bloody stools * burning when you urinate or blood in your stools * any unanswered questions or concerns Call 911 if symptoms are severe. Call if you have any questions or problems. My cell # is [phone]. You can also reach a [facility] hospitalist on duty at [facility] 24 hours a day by calling [phone]. Please take good care of yourself. Jesse Yates . Current Hospital Diet Patient's current hospital diet: Diabetes Type 2 Diet, AHA Diet (Heart Healthy) Discharge Diet Recommended Diet: Full Liquid Diet Pending Studies Studies pending at discharge: no Laboratory Results Hemoglobin A1c Test 12/12/17 06:45 Range/Units Estimated Average Glucose 206 mg/dl Hemoglobin A1c 8.8 H 4.5-5.6 % Medical Emergencies . Who to Call and When: Medical Emergencies: If at any time you feel your situation is an emergency, please call 911 immediately. . Non-Emergent Contact Non-Emergency issues call your: Primary Care Provider, Hospital Doctor . . "Provider Documentation" section prepared by Jesse Yates. . Additional Copies To Jesse Schrader
== END 2017-12-15 16:20 | disposition home or self-care (01) | DRG 871 ==
LOC: EDBD 13:14 → C.EDA 13:15 → C.MS2W 16:43 → ENRESERV 17:30
PROVIDERS: ADMIT Hospitalist; ATTEND Hospitalist
DX: A41.9 Sepsis, unspecified organism (principal); G93.41 Metabolic encephalopathy; E11.10 Type 2 diabetes mellitus with ketoacidosis without coma; N39.0 Urinary tract infection, site not specified; B95.5 Unspecified streptococcus as the cause of diseases classified elsewhere; R11.2 Nausea with vomiting, unspecified; R05 Cough; N18.3 Chronic kidney disease, stage 3 (moderate); E03.9 Hypothyroidism, unspecified

== ENCOUNTER 2019-05-07 20:32 | Inpatient (IN) ==
[2019-05-07 21:34] LABS: Basophils # (auto) 0.02 K/uL (0-0.2); Basophils % (auto) 0.2 %; Eosinophils # (auto) 0.11 K/uL (0-0.5); Hematocrit (blood only) 25.6 % (37-47); Hemoglobin 8.1 g/dL (12.0-16.0); Immature Granulocytes # (auto) 0.03 K/uL (0.00-0.02); Immature Granulocytes % (auto) 0.3 %; Lymphocytes # (auto) 2.26 K/uL (1.2-3.4); Lymphocytes % (auto) 20.4 %; Mean Corpuscular Hemoglobin 29.3 pg (25-34); Mean Corpuscular Hgb Conc 31.6 g/dL (32-36); Mean Corpuscular Volume 92.8 fL (80-100); Mean Platelet Volume 9.7 fL (7.4-10.4); Monocytes # (auto) 0.85 K/uL (0.11-0.59); Monocytes % (auto) 7.7 %; Neutrophils # (auto) 7.79 K/uL (1.4-6.5); Neutrophils % (auto) 70.4 %; Platelet Count 300 K/uL (130-400); RDW Coefficient of Variation 14.5 % (11.5-14.5); RDW Standard Deviation 48.7 fL (36.4-46.3); Red Blood Count 2.76 M/uL (4.2-5.4); White Blood Count 11.06 K/uL (4.8-10.8)
[2019-05-07 21:44] LABS: Partial Thromboplastin Ratio 0.7; Partial Thromboplastin Time 20.2 Seconds (21.0-31.0); Prothrombin Time 10.2 Seconds (9.0-12.0)
[2019-05-07 21:51] LABS: Alanine Aminotransferase 13 U/L (12-78); Albumin Level 2.9 gm/dl (3.4-5.0); Aspartate Aminotransferase 11 U/L (15-37); BUN Creatinine Ratio 31.6 (10-20); Blood Urea Nitrogen 37 mg/dl (7-18); Calcium 8.9 mg/dl (8.5-10.1); Carbon Dioxide 27 mmol/L (21-32); Chloride 105 mmol/L (98-107); Est GFR (African American) 47.8; Est GFR (Non-African American) 41.3; Glucose 254 mg/dl (70-99); Potassium 3.8 mmol/L (3.5-5.1); Sodium 137 mmol/L (136-145)
[2019-05-07 21:54] LABS: Albumin Globulin Ratio 0.8 (0.9-2); Alkaline Phosphatase 73 U/L (45-117); Bilirubin,Total 0.2 mg/dl (0.2-1); Globulin 3.4 gm/dl (2.5-4.0); Total Protein 6.3 gm/dl (6.4-8.2)
--- NOTE | 2019-05-07 22:44 | Emergency Department Note ---
Entered by Seven Rodriguez acting as a scribe for History of Present Illness General Chief complaint: Constipation Stated complaint: BLOODY STOOL Time Seen by Provider: 05/07/19 20:51 Source: family (daughter) Limitations: no limitations History of Present Illness Onset (ago): hour(s) (10) Location: abdomen Pain Consistency: + intermittent Quality: + other (bloody stools) Associated symptoms: + other (black and tarry stools) The patient is a 89 year old female who presents to the Emergency Room with complaints of intermittent bloody stools starting this morning. The patient's daughter states the patient was constipated for 4 days. The daughter states she gave the patient MiraLAX and then gave the patient a laxative last night. The daughter states the patient had two bowel movements at 1100 this morning. She notes the bowel movements were covered in blood and had blood clots. The daughter states the patient had another bloody bowel movement at supper time. The daughter notes the stool was dark and tarry. The daughter states the patient had C-Diff twice before. The daughter states the patient had a polyp that broke before and she had bleeding in her rectum at that time. The daughter states the patient has dementia and is hard hearing. The patient's daughter states the patient has an appointment with her PCP, Dr. Yu, tomorrow. The daughter denies the patient taking any blood thinners. Home Medications Home Medications Medication Instructions Recorded Confirmed Type simvastatin 20 mg PO HS #0 07/03/11 05/07/19 History levothyroxine 50 mcg PO QAM #0 05/07/14 05/07/19 History ferrous sulfate 325 mg PO 2XWK #0 tab 09/27/16 05/07/19 History insulin glargine [Lantus Solostar 24 unit SUBCUT HS #0 pen 09/27/16 05/07/19 History U-100 Insulin] ranitidine HCl 150 mg PO BID #0 tab 09/27/16 05/07/19 History vit A,C and V-dciyin-jmnhchqs 1 tab PO DAILY #0 tab 11/22/16 05/07/19 History [Ocuvite with Lutein] jgfpnstie-rhclxjvx-kfi-hyalur 1 tab PO QAM #0 01/01/17 05/07/19 History [Joint Health] gm-mre-mgihv-calcium carb-K1 1 tab PO QAM #0 01/01/17 05/07/19 History [Women's 50 Plus Multivitamin] docusate sodium 100 mg PO BID 05/07/19 05/07/19 History linagliptin [Tradjenta] 5 mg PO QAM 05/07/19 05/07/19 History Allergies Allergy/AdvReac Type Severity Reaction Status Date / Time meperidine Allergy Mild Verified 05/07/19 21:38 Past Med/Surg History Medical History Hyperlipemia (Chronic) Dementia (Chronic) Diabetes mellitus, type II (Chronic) Hypertension (Chronic) CKD (chronic kidney disease) stage 4, GFR 15-29 ml/min (Chronic) Hypothyroidism (Chronic) Surgical History Status post cholecystectomy (Chronic) Status post appendectomy (Chronic) Social History Smoking Status: Never smoker Review of Systems See HPI for pertinent positives & negatives. and A total of 10 systems reviewed and were otherwise negative Physical Exam Vital Signs Vital Signs - 24 hr 05/07/19 20:42 05/07/19 21:49 05/07/19 21:53 Temperature 36.7 C Temperature Source Oral Sepsis Recent Fever Within 48 Hours No Sepsis New/Unexplained Change in Mental Status No Sepsis Action Taken by Nursing No Action Required Pulse Rate 114 H 106 H Pulse Rate [Right Finger] 100 H Pulse Rhythm Regular Pulse Rhythm [Right Finger] Regular Pulse Strength [Right Finger] Normal Respiratory Rate 18 16 Respiratory Effort / Characteristics Non-Labored Spontaneous Non-Labored Respiratory Depth Normal Normal Respiratory Pattern Regular Blood Pressure 106/68 Blood Pressure [Right Arm] 99/56 L Blood Pressure Mean 80 Blood Pressure Mean [Right Arm] 70 Blood Pressure Position Sitting Blood Pressure Position [Right Arm] Lying Pulse Oximetry 99 96 96 Oxygen Delivery Method Room Air Room Air Room Air CONSTITUTIONAL/VITAL SIGNS: Reviewed / noted above. GENERAL: Non-toxic in appearance. INTEGUMENTARY: Warm, dry, and [place]. HEAD: Normocephalic. EYES: without scleral icterus or trauma. ENT/OROPHARYNX: clear and moist. LYMPHADENOPATHY/NECK: Is supple without lymphadenopathy or meningismus. RESPIRATORY: Lungs clear and equal. CARDIOVASCULAR: Regular rate and rhythm. GI/ABDOMEN: Soft and nontender. No organomegaly or pulsatile mass. No rebound or guarding. Normal bowel sounds. RECTAL: Maroon colored guaic positive stool. EXTREMITIES: Warm and well perfused. BACK: No CVA tenderness. NEUROLOGICAL: Intact without focal deficits. PSYCHIATRIC: normal affect. MUSCULOSKELETAL: Normally developed with good muscle tone. Course 2052: The patient was evaluated in room A2, and a complete history and physical examination were performed. 2208: I discussed the patient's case with Dr. Omi Hardy [facility] Hospitalist. He will evaluate the patient for further management Medical Decision Making Differential Diagnosis Differential diagnosis includes etiologies such as diverticulosis, AVM, coagulopathy, colitis, inflammatory bowel disease, malignancy, [place] tear, esophagitis, peptic ulcer disease, variceal bleed, gastritis, epistaxis, fissure, hemorrhoids, as well as others were entertained. Medical Records Attestation: I reviewed the patient's medical records. Home Medications Current Medication List: was personally reviewed by me Laboratory Data Result diagrams: 05/07/19 21:20 05/07/19 21:20 Lab Results 05/07/19 05/07/19 05/07/19 Range/Units 21:20 21:20 21:20 WBC 11.06 H (4.8-10.8) K/uL RBC 2.76 L (4.2-5.4) M/uL Hgb 8.1 L (12.0-16.0) g/dL Hct 25.6 L (37-47) % MCV 92.8 (80-100) fL MCH 29.3 (25-34) pg MCHC 31.6 L (32-36) g/dL RDW Std Deviation 48.7 H (36.4-46.3) fL RDW Coeff of Lynette 14.5 (11.5-14.5) % Plt Count 300 (130-400) K/uL MPV 9.7 (7.4-10.4) fL Immature Gran % (Auto) 0.3 % Neut % (Auto) 70.4 % Lymph % (Auto) 20.4 % [place] % (Auto) 7.7 % Eos % (Auto) 1.0 % Baso % (Auto) 0.2 % Immature Gran # (Auto) 0.03 H (0.00-0.02) K/uL Neut # (Auto) 7.79 H (1.4-6.5) K/uL Lymph # (Auto) 2.26 (1.2-3.4) K/uL [place] # (Auto) 0.85 H (0.11-0.59) K/uL Eos # (Auto) 0.11 (0-0.5) K/uL Baso # (Auto) 0.02 (0-0.2) K/uL PT 10.2 (9.0-12.0) Seconds INR 1.0 (0.9-1.1) APTT 20.2 L (21.0-31.0) Seconds PTT Ratio 0.7 Sodium 137 (136-145) mmol/L Potassium 3.8 (3.5-5.1) mmol/L Chloride 105 (98-107) mmol/L Carbon Dioxide 27 (21-32) mmol/L Anion Gap 6.0 (3-11) BUN 37 H (7-18) mg/dl Creatinine 1.17 (0.6-1.2) mg/dl Est Cr Clr Drug Dosing Not Reportable Est GFR ( Amer) 47.8 Est GFR (Non-Af Amer) 41.3 BUN/Creatinine Ratio 31.6 H (10-20) Glucose 254 H (70-99) mg/dl Calcium 8.9 (8.5-10.1) mg/dl Total Bilirubin 0.2 (0.2-1) mg/dl AST 11 L (15-37) U/L ALT 13 (12-78) U/L Alkaline Phosphatase 73 (45-117) U/L Total Protein 6.3 L (6.4-8.2) gm/dl Albumin 2.9 L (3.4-5.0) gm/dl Globulin 3.4 (2.5-4.0) gm/dl Albumin/Globulin Ratio 0.8 L (0.9-2) ECG Data Attestation: I personally reviewed and interpreted this ECG as follows: Indication: other (GI bleed) Rate (beats per minute): 103 Rhythm: sinus tachycardia Findings: no ST elevation and no ectopy Blood Pressure Blood Pressure Findings: Low blood pressure Blood Pressure Disposition: further management by hospitalist ANITA Feliciano The patient is a demented 89-year-old female who presents to the ED with a chief complaint of GI bleeding. The symptoms were first noted around 11 AM today. She was passing blood and clots. She had another bout of bloody bowel movement tonight and therefore the patient's daughter brought her in for evaluation. The patient's hemoglobin tonight is 8.1. [facility] records indicate that the patient's hemoglobin was 12.3 on the of last month, less than 2 weeks ago. The BUN is 37. The rest of the blood work was unremarkable. She was typed and screened. She does not appear to be in any distress. She was given some IV fluids here. Rectal exam revealed maroon guaiac positive stools. I suspect this is more likely a lower GI bleed rather than an upper GI bleed. The patient will be seen by the hospitalist for further inpatient evaluation and care. Impression & Plan GI (gastrointestinal bleed) Discharge Plan Visit Data Chief Complaint: Constipation Stated Complaint: BLOODY STOOL ED Provider: Jose M Camargo Discharge Problem: GI (gastrointestinal bleed) Patient Disposition: Being Evaluated by Hospitalist Forms Stand Alone Forms: [facility], [facility] Prescriptions Prescriptions: No Action simvastatin 20 mg Tablet 20 mg PO HS Qty: 0 RF: 0 levothyroxine 50 mcg Tablet 50 mcg PO QAM Qty: 0 RF: 0 ranitidine HCl 150 mg Tablet 150 mg PO BID Qty: 0 RF: 0 ferrous sulfate 325 mg (65 mg iron) Tablet 325 mg PO 2XWK Qty: 0 RF: 3 Lantus Solostar U-100 Insulin 100 unit/mL (3 mL) Insulin Pen 24 unit SUBCUT HS Qty: 0 RF: 0 Ocuvite with Lutein 1,000 unit-200 mg-60 unit-2 mg Tablet 1 tab PO DAILY Qty: 0 RF: 0 LEHR 40-10-5-3.3 mg Tablet 1 tab PO QAM Qty: 0 RF: 0 Women's 50 Plus Multivitamin 400 mcg-500 mg calcium-20 mcg Tablet 1 tab PO QAM Qty: 0 RF: 0 Tradjenta 5 mg tablet 5 mg PO QAM RF: 0 docusate sodium 100 mg Tablet 100 mg PO BID RF: 0 Referrals Referrals: Jesse Schrader PA-C [Primary Care Provider] - Discharge Problem: GI (gastrointestinal bleed) Qualifiers: GI bleed type/associated pathology: unspecified gastrointestinal hemorrhage type Qualified Code(s): K92.2 - Gastrointestinal hemorrhage, unspecified The scribe's documentation has been prepared under my direction and personally reviewed by me in its entirety. I confirm that the note above accurately reflects all work, treatment, procedures, and medical decision making performed by me.
[2019-05-08] MEDS ORDERED: PANTOprazole 80 MG in DEXTROSE 5% 100 ML IV SCH (00:30)
--- NOTE | 2019-05-08 01:34 | History and Physical Report ---
DATE OF ADMISSION: 05/07/2019 CHIEF COMPLAINT: Gastrointestinal bleed. HISTORY OF PRESENT ILLNESS: This is an 89-year-old female with past medical history significant for type 2 diabetes, hyperlipidemia, hypothyroidism, chronic kidney disease stage III, history of glaucoma, severe dementia and iron deficiency anemia who presents with lower gastrointestinal bleed. The patient lives with her daughter. She generally walks with a cane or holding stuff at house and sometimes uses walker. She has severe dementia. She sometimes not even knows her name. She does not recognize her daughter. Since her lower teeth have been taken out, she has somewhat hard to chew food, but if we remove the hard crusting on the sandwich, she can eat the sandwich, but her appetite is very poor .Patient has been constipated for the last 4 days and daughter gave her some stool softeners and today she had moved bowels 2 times, but 2 times, she had bloody bowel movements with clots and the third time also she had passed a small amount of clot then the daughter thought to bring her to the hospital for further monitoring if she continues to bleed. Daughter states she has a history of lower gastrointestinal bleed in the past. At that time, colonoscopy was not done because of her age and comorbid conditions and it resolved conservatively. Outpatient laboratories on 04/23/2019, her hemoglobin was 12.3 and today it is 8.1. Blood pressure is somewhat on the lower side. The patient is alert and awake, could tell her name, but could not answer any other questions. She seems to be pleasantly confused, does not seem to be in distress. As per daughter, no fever or chills, no cough and no nausea or vomiting. Could not get any more history as the patient has severe dementia. ALLERGIES: MEPERIDINE. PAST MEDICAL HISTORY: As mentioned above. PAST SURGICAL HISTORY: Colonoscopy with biopsy, colonoscopy with 2 polyps removal in 2009, appendectomy, cataract surgery and cholecystectomy. MEDICATIONS: The patient is on Lantus 25 units at bedtime, Tradjenta 5 mg p.o. daily, levothyroxine 50 mcg p.o. daily, simvastatin 20 mg p.o. at bedtime, Zantac 150 mg p.o. b.i.d., tramadol 50 mg p.o. t.i.d. p.r.n., ferrous sulfate 325 mg twice a week, MiraLax 17 g daily as needed, multivitamins with minerals 1 tablet daily and Colace 100 mg p.o. daily. FAMILY HISTORY: Significant for brother had lung cancer. Sister has chronic obstructive pulmonary disease. SOCIAL HISTORY: , currently lives with her daughter. No smoking. No alcohol. No drug use. REVIEW OF SYMPTOMS: Could not get any full review of symptoms. The patient has severe dementia. PHYSICAL EXAMINATION: GENERAL: The patient is old and frail, not in acute distress. VITAL SIGNS: Temperature 36.7, pulse 97, respiratory rate 16, blood pressure 99/50 and oxygen 94% on room air. HEENT: No pallor. No icterus. Pupils are equal, round and reactive to light. NECK: No JVD. No neck masses. No carotid bruits. CARDIOVASCULAR: S1, S2 heard. Regular rate and rhythm. No murmur. No gallop. RESPIRATORY SYSTEM: Normal AP diameter. No accessory muscle use. No wheezing. No crackles. ABDOMEN: Soft. Bowel sounds present. Nontender. No distention. CENTRAL NERVOUS SYSTEM: Alert and awake, oriented to name only. Moves extremities. EXTREMITIES: No edema. No erythema. LABORATORY DATA: WBC 11.06, hemoglobin 8.1, hematocrit 25.6 and platelets 300. PT 10.2, INR 1 and APTT 20.2. Sodium 137, potassium 3.8, chloride 105, bicarbonate 27, BUN 37, creatinine 1.1, serum glucose 254, calcium 8.9, total bilirubin 0.9, AST 11, ALT 13 and alkaline phosphatase 73. Electrocardiogram, sinus tachycardia, rate of [address] changes seen. ASSESSMENT AND PLAN: This is an 89-year-old female who presents with gastrointestinal bleed. 1. Gastrointestinal bleed, having bright red blood per rectum, mostly lower gastrointestinal bleed, but hemoglobin dropped from 12.3 to 8.1 from 04/23/2019. Because of significant drop, we will start on Protonix drip. We will check hemoglobin and hematocrit q. 6 hours. Blood consent obtained from daughter. We will transfuse 2 units of packed red blood cells. Gentle fluids. Monitor on tele floor and consult Gastroenterology for further recommendations. We will keep her n.p.o. 2. History of hypothyroidism, continue Synthroid. 3. Diabetes, currently n.p.o. We will cut back Lantus to 12 units at bedtime. We will hold Tradjenta. insulin sliding scale. We will monitor blood sugars. 4. History of hyperlipidemia, continue Zocor. 5. History of chronic kidney stage III, seems to be at baseline. We will follow the laboratories. 6. History of severe dementia, monitor for any delirium. Physical therapy and occupational therapy prior to discharge. Social Service to help with discharge planning. 7. Deep venous thrombosis prophylaxis, sequential compression devices for now. 8. Disposition, admit to tele floor. Expect to discharge home and follow up with primary doctor. Code status do not resuscitate as per my discussion with the daughter. RADHA
[2019-05-08] MEDS ORDERED: SODIUM CHLORIDE 0.9% 250 ML IV PRN (01:39)
[2019-05-08] MEDS ORDERED: NITROGLYCERIN SL 0.4 MG/TAB TAB SL PRN (01:39)
[2019-05-08] MEDS ORDERED: ONDANSETRON INJ 2 MG/ML 2 ML VIAL IV PRN (01:39)
[2019-05-08] MEDS ORDERED: ACETAMINOPHEN 325 MG TAB PO PRN (01:39)
[2019-05-08] MEDS ORDERED: GLUCOSE 10 TABS/TUBE PO PRN (01:45)
[2019-05-08] MEDS ORDERED: GLUCAGON FOR INJ 1 MG VIAL IM PRN (01:45)
[2019-05-08] MEDS ORDERED: GLUCOSE 40% GEL 15 GM TUBE PO PRN (01:45)
[2019-05-08] MEDS ORDERED: CARBOHYDRATES FOR HYPOGLYCEMIA PO PRN (01:45)
[2019-05-08] MEDS ORDERED: ACETAMINOPHEN 500 MG TAB PO SCH (02:00)
[2019-05-08] MEDS: SODIUM CHLORIDE 0.9% 1000ML 1,000 ML IV SCH ×2 (02:28→16:34)
[2019-05-08] MEDS ORDERED: INSULIN GLARGINE SOLOSTAR 100 UNITS/ML 3 ML PEN SC ONE (02:30)
[2019-05-08] MEDS ORDERED: PANTOprazole 80 MG in DEXTROSE 5% 100 ML IV ONE (02:30)
[2019-05-08] MEDS: PANTOprazole 40 MG in DEXTROSE 5% 100 ML IV SCH ×4 (03:07→18:39)
[2019-05-08] MEDS: LEVOTHYROXINE SODIUM 50 MCG TABLET PO SCH (05:30)
--- NOTE | 2019-05-08 07:12 | XRay Report ---
SINGLE VIEW CHEST CLINICAL HISTORY: GI bleeding. FINDINGS: An AP, portable, upright chest radiograph is compared to study dated 12/11/2017. The examinat ion is degraded by portable technique and patient rotation. The cardiomediastinal silhouette is unre markable noting atherosclerotic calcification of the thoracic aorta. There is bibasilar scarring/atel ectasis. No airspace consolidation or large pleural effusion is identified. No pneumothorax is seen. The skeletal structures are osteopenic. The bony thorax is grossly intact. IMPRESSION: No acute cardiopulmonary abnormality. Electronically signed by: Jose Marie M.D. 05/08/2019 7:10 AM
--- NOTE | 2019-05-08 08:34 | Gastrointestinal Consultation ---
Date of Consultation May 08, 2019 Assessment & Plan (1) GI (gastrointestinal bleed): Ms. Yolis Abdullahi is an 89 yr old female with a large amt of dark red rectal bleeding yesterday with acute blood loss, without c/o abdominal pain or tenderness. This most likely represents a diverticular bleed (daughter says there is a hx of diverticula). Also considered is ischemic colitis, UGI bleed. 1. Daughter prefers to avoid endoscopy if possible. 2. Monitor stool outputs. 3. Clear liquids po. 4. Follow hgb q12 and tranfuse for hgb 7-8. Attg add: I interviewed and examined pt, reviewed chart and labs. Daughter obtained from history; pt with dementia - capable of basic ADLS, minimally ambulatory around house, does not reognize her duaghter. Daughter reports several large volume episodes of BRBPR last night. On admission, she had tachy with systolic BP in the 100's, hgb 8 (last 12), rise in BUN. On exam, pt is confused, and does not respond to my questions. She is pale. Her abdomen does not appear tender to deep palp. She has 2+ radial pulses. A/P: GIB - Presumably LGIB, most likely diverticular. Discussed natural history of tic bleeding with daughter. Daughter clearly states that she does not want to pursue any endoscopic intervention, which seems reasonable in this elderly pt with limited functional status and adv dementia. Would recommend hgb q 12, clears, x fuse for goal hgb 7-8, d/c PPI gtt. Ok for d/c home if no overt GIB x 48 hours. Will sign off, but please call with questions. Present on Admission?: Yes History of Present Illness Reason for Consultation: GI bleed, anemia. Requesting Physician: Dr. Braga Attending Physician: Pedro Leblanc MD History of Present Illness Ms. Yolis Abdullahi has a hx of DM2, HTN, CKD-4, and dementia was brought to the ED yesterday for rectal bleeding. The pt lives with her daughter who reports that the pt had been constipated, not passing a BM for 4 days. She was given Miralax and Dulcolax and the following day (yesterday 08/07), at 11AM, her daughter found her in bed with a large amt of blood and two small soft formed BMs. The blood was dark red, large volume and "all over her and also on the floor ." Her next BM was last evening and was also dark, red bloody and with clots. On arrival, Hb 8.1, down from 12 a few weeks ago (on OP EP[facility] records). BUN is 37, Cr 1.17. No BMs were documented since arrival. INR is 1.0. She is not on any anticoagulants or antiplatelet meds. She received a unit of RBCs and Hb/Hct hasn't yet been rechecked. She is on a pantoprazole drip. Allergies Allergy/AdvReac Type Severity Reaction Status Date / Time meperidine Allergy Mild Verified 05/07/19 21:38 Home Medications Home Medications Medication Instructions Recorded Confirmed Type simvastatin 20 mg PO HS #0 07/03/11 05/07/19 History levothyroxine 50 mcg PO QAM #0 05/07/14 05/07/19 History ferrous sulfate 325 mg PO 2XWK #0 tab 09/27/16 05/07/19 History insulin glargine [Lantus Solostar 24 unit SUBCUT HS #0 pen 09/27/16 05/07/19 History U-100 Insulin] ranitidine HCl 150 mg PO BID #0 tab 09/27/16 05/07/19 History vit A,C and O-jkbhsk-ouzymvhg 1 tab PO DAILY #0 tab 11/22/16 05/07/19 History [Ocuvite with Lutein] apdaahuah-hjdlofcj-eav-hyalur 1 tab PO QAM #0 01/01/17 05/07/19 History [Joint Health] ol-xof-bvvcd-calcium carb-K1 1 tab PO QAM #0 01/01/17 05/07/19 History [Women's 50 Plus Multivitamin] docusate sodium 100 mg PO BID 05/07/19 05/07/19 History linagliptin [Tradjenta] 5 mg PO QAM 05/07/19 05/07/19 History Patient History Medical History Hyperlipemia (Chronic) Dementia (Chronic) Diabetes mellitus, type II (Chronic) Hypertension (Chronic) CKD (chronic kidney disease) stage 4, GFR 15-29 ml/min (Chronic) Hypothyroidism (Chronic) Surgical History Status post cholecystectomy (Chronic) Status post appendectomy (Chronic) Social History Preferred Language: [place]ian Communication Ability: Impaired Battery Checker Required: No Beliefs That Will Affect Care: None Current Living Situation: Family Other Information That Helps Us Care for You: No Feels Safe at Home: Declines to Answer Smoking Status: Unknown if ever smoked Hx Alcohol Use: No Hx Substance Use: No Review of Systems Review of Systems: Obtained from her daughter. Constitutional: no fever, no chills, no sweats and no fatigue Ear, Nose, Mouth, Throat: no dizziness and no problem reported Respiratory: no cough, no dyspnea and no problem reported Cardiovascular: no chest pain, no dyspnea at rest, no syncope and no problem reported Gastrointestinal: See HPI Integumentary: no skin ulcer and no change in skin color Neurologic: + confusion (chronic); no falls, no tremor(s), no seizure-like activity and no syncope (but was a little unsteady on her feet when ambulating to the car to come to the ED) Psychiatric: no behavioral changes Physical Exam Constitutional: + thin calm, awake at times Eyes: PERRL, conjunctivae normal, anicteric sclerae ENMT: external ear and nose normal, oropharynx normal Neck: trachea midline, no thyromegaly Respiratory: normal respiratory effort, lungs clear to auscultation Cardiovascular: RRR, no murmur, no edema Gastrointestinal (Abdomen): normal bowel sounds, soft, nontender, no hepatosplenomegaly Skin: no rashes, warm and dry dressings on left foot Neurologic: PERRL, EOMI, accommodation nl, no face palsy, no dysarthria Psychiatric: Orientation: alert Affect: no anxious affect Lymphatic: no cervical or axillary lymphadenopathy Results & Data Vital Signs (Past 12 Hours) Vital Signs Temp Pulse Pulse Resp BP BP Pulse Ox 05/08/19 07:08 36.3 C L 93 H 20 93/52 L 99 05/08/19 06:33 37.1 C 75 15 109/67 98 05/08/19 05:45 36.7 C 92 H 18 109/62 99 05/08/19 04:45 37.1 C 96 H 18 119/69 98 05/08/19 04:15 37.1 C 98 H 17 110/70 98 05/08/19 04:00 36.8 C 94 H 16 115/61 100 05/08/19 03:43 36.6 C 97 H 18 118/73 98 05/08/19 01:27 36.9 C 106 H 17 119/66 95 05/08/19 01:09 106 H 16 98/55 L 94 05/07/19 23:00 97 H 16 99/50 L 94 05/07/19 21:53 100 H 16 99/56 L 96 05/07/19 21:49 106 H 96 05/07/19 20:42 36.7 C 114 H 18 106/68 99 (1) GI (gastrointestinal bleed) GI bleed type/associated pathology: unspecified gastrointestinal hemorrhage type Qualified Code(s): K92.2 - Gastrointestinal hemorrhage, unspecified
[2019-05-08] MEDS: INSULIN ASPART 100 UNITS/ML 3 ML PEN SC SCH ×4 (08:57→20:48)
[2019-05-08] MEDS ORDERED: PNEUMOCOCCAL ADMINISTRATION CHARGE ONE (09:00)
[2019-05-08] MEDS ORDERED: INFLUENZA VIRUS QUAD VACCINE 0.5 ML SYR IM ONE (09:00)
[2019-05-08] MEDS ORDERED: INFLUENZA ADMINISTRATION CHARGE ONE (09:00)
[2019-05-08] MEDS ORDERED: PNEUMOCOCCAL POLYSACCHARIDES 25 MCG/0.5 ML VIAL/SYR IM ONE (09:00)
[2019-05-08] MEDS: DEXTROSE 50% 50 ML SYRINGE IV PRN ×2 (12:08→16:27)
[2019-05-08 13:10] LABS: Basophils # (auto) 0.03 K/uL (0-0.2); Basophils % (auto) 0.3 %; Eosinophils # (auto) 0.22 K/uL (0-0.5); Eosinophils % (auto) 2.4 %; Hematocrit (blood only) 30.8 % (37-47); Hemoglobin 10.5 g/dL (12.0-16.0); Immature Granulocytes # (auto) 0.02 K/uL (0.00-0.02); Immature Granulocytes % (auto) 0.2 %; Lymphocytes # (auto) 2.37 K/uL (1.2-3.4); Lymphocytes % (auto) 26.4 %; Mean Corpuscular Hemoglobin 30.7 pg (25-34); Mean Corpuscular Hgb Conc 34.1 g/dL (32-36); Mean Corpuscular Volume 90.1 fL (80-100); Mean Platelet Volume 9.5 fL (7.4-10.4); Monocytes # (auto) 0.75 K/uL (0.11-0.59); Monocytes % (auto) 8.4 %; Neutrophils # (auto) 5.59 K/uL (1.4-6.5); Neutrophils % (auto) 62.3 %; Platelet Count 204 K/uL (130-400); RDW Coefficient of Variation 14.7 % (11.5-14.5); RDW Standard Deviation 48.5 fL (36.4-46.3); Red Blood Count 3.42 M/uL (4.2-5.4); White Blood Count 8.98 K/uL (4.8-10.8)
--- NOTE | 2019-05-08 15:50 | Hospitalist Progress Note ---
Date of Service May 08, 2019 Assessment & Plan (1) Rectal bleeding: Admitted with bright red blood per rectum He does not have any pain but felt weak and lethargy associated with dizziness Hemoglobin dropped to 8.1 from 12.7 in December of this year Likely secondary to diverticular bleed with another episode about a few years back Appreciate GI input and recommendation Discussed with daughter-does not on any colonoscopy and/or other procedure Check H&H Transfuse if hemoglobin is less than 7 Continue current medication (2) Diabetes mellitus type II, uncontrolled: Will put her 1 sliding scale insulin coverage (3) CKD (chronic kidney disease) stage 4, GFR 15-29 ml/min: Has history of CKD Creatinine remains normal Continue with cautious amount of intravenous fluid (4) Hypothyroidism: Continue supplement (5) Dementia: No acute delirium DVT prophylaxis SCDs CODE STATUS DNR/DNI Discussed with daughter in detail Subjective 05/08 Patient is seen and examined in telemetry improving He is generally very weak and lethargic but denies any acute symptoms Denies any abdominal pain, nausea vomiting Bleed of any more bloody bowel movement Review of Systems Review of Systems: Unobtainable due to endotracheal tube Remains lethargy Physical Exam Physical Exam: Lying in bed comfortably without any acute symptoms Constitutional: + thin; no acute distress and not ill appearing Eyes: PERRL, conjunctivae normal, anicteric sclerae ENMT: external ear and nose normal, oropharynx normal Neck: trachea midline, no thyromegaly Respiratory: normal respiratory effort; no respiratory distress Auscultation: + diminished lung sounds and + crackles (Minimal crackles at the bases) Cardiovascular: Rate/Rhythm: regular rate and regular rhythm Heart Sounds: + murmur (2/6 ESM over precordium) Gastrointestinal (Abdomen): Inspection/Auscultation: abdomen normal to inspection and normal bowel sounds Percussion/Palpation: abdomen soft Musculoskeletal: No acute Results & Data Vital Signs (Past 12 Hours) Vital Signs Temp Pulse Pulse Resp BP BP Pulse Ox 05/08/19 15:02 36.9 C 75 17 108/49 L 99 05/08/19 12:00 36.8 C 72 20 84/43 L 99 05/08/19 10:56 36.8 C 70 12 88/50 L 96 05/08/19 09:56 36.7 C 73 22 87/49 L 98 05/08/19 09:26 36.7 C 81 20 90/41 L 98 05/08/19 09:11 36.8 C 85 20 88/52 L 98 05/08/19 08:55 36.7 C 83 20 97/49 L 69 L 05/08/19 08:38 36.7 C 83 20 97/49 L 96 05/08/19 07:26 82 05/08/19 07:08 36.3 C L 93 H 20 93/52 L 99 05/08/19 06:33 37.1 C 75 15 109/67 98 05/08/19 05:45 36.7 C 92 H 18 109/62 99 05/08/19 04:45 37.1 C 96 H 18 119/69 98 05/08/19 04:15 37.1 C 98 H 17 110/70 98 05/08/19 04:00 36.8 C 94 H 16 115/61 100 05/08/19 03:43 36.6 C 97 H 18 118/73 98 Laboratory Results Short CBC 05/07/19 05/08/19 Range/Units 21:20 12:51 WBC 11.06 H 8.98 (4.8-10.8) K/uL Hgb 8.1 L 10.5 L (12.0-16.0) g/dL Hct 25.6 L 30.8 L (37-47) % Plt Count 300 204 (130-400) K/uL BMP 05/07/19 21:20 Sodium 137 Potassium 3.8 Chloride 105 Carbon Dioxide 27 BUN 37 H Creatinine 1.17 Glucose 254 H Calcium 8.9 Liver Function 05/07/19 Range/Units 21:20 Total Bilirubin 0.2 (0.2-1) mg/dl AST 11 L (15-37) U/L ALT 13 (12-78) U/L Alkaline Phosphatase 73 (45-117) U/L Albumin 2.9 L (3.4-5.0) gm/dl Medications Administered Current Inpatient Medications Acetaminophen (Tylenol) 650 mg PO Q4H PRN PRN Reason: Pain or Fever Stop: 06/07/19 01:38 EST Dextrose (Dextrose 50%) 25 - 50 ml IV UD PRN; Protocol PRN Reason: Hypoglycemia Protocol Stop: 06/07/19 01:44 EST Last Admin: 05/08/19 12:08 Dose: 50 ml Documented by: Ferrous Sulfate (Feosol) 325 mg PO MoTh@0900 [facility] Stop: 06/10/19 08:59 Glucagon (Glucagen) 1 mg IM UD PRN; Protocol PRN Reason: Hypoglycemia Protocol Stop: 06/07/19 01:44 EST Glucose (Glucose 40%) 15 - 30 gm PO UD PRN; Protocol PRN Reason: Hypoglycemia Protocol Stop: 06/07/19 01:44 EST Glucose (Dex4 Glucose) 4 - 8 tabs PO UD PRN; Protocol PRN Reason: Hypoglycemia Protocol Stop: 06/07/19 01:44 EST Pantoprazole Sodium 40 mg/ (Dextrose) 100 mls @ 20 mls/hr IV Q5H JOSE MANUEL Stop: 06/07/19 00:44 Last Admin: 05/08/19 14:00 Dose: 20 mls/hr Documented by: Sodium Chloride (Nss 1000ml) 1,000 mls @ 75 mls/hr IV .[id number] [facility] Stop: 06/07/19 01:38 EST Last Admin: 05/08/19 02:28 Dose: 75 mls/hr Documented by: Sodium Chloride (Nss) 250 mls @ 15 mls/hr IV .[id number] PRN PRN Reason: For Transfusion Stop: 06/07/19 01:38 EST Insulin Aspart (Novolog Flexpen) 0 units SC ACHS [facility] Stop: 06/07/19 07:29 Last Admin: 05/08/19 12:16 Dose: Not Given Documented by: Insulin Glargine (Lantus Solostar Pen) 12 units SC HS [facility] Stop: 06/07/19 20:59 Levothyroxine Sodium (Synthroid) 50 mcg PO DAILYBB [facility] Stop: 06/07/19 06:29 Last Admin: 05/08/19 05:30 Dose: Not Given Documented by: Miscellaneous (Carbohydrates For Hypoglycemia) 15 - 30 gm PO UD PRN PRN Reason: Hypoglycemia Treatment Stop: 06/07/19 01:44 EST Nitroglycerin (Nitrostat) 0.4 mg SL UD PRN PRN Reason: Chest Pain Stop: 06/07/19 01:38 EST Ondansetron HCl (Zofran) 4 mg IV Q6H PRN PRN Reason: Nausea Stop: 06/07/19 01:38 EST
[2019-05-08 17:20] LABS: Hematocrit (blood only) 34.2 % (37-47); Hemoglobin 11.4 g/dL (12.0-16.0)
[2019-05-08] MEDS: D5W AND NSS 1,000 ML IV SCH (18:42)
[2019-05-08] MEDS ORDERED: INSULIN GLARGINE SOLOSTAR 100 UNITS/ML 3 ML PEN SC SCH (21:00)
[2019-05-09 00:36] LABS: Hematocrit (blood only) 35.2 % (37-47)
[2019-05-09] MEDS: PANTOprazole 40 MG in DEXTROSE 5% 100 ML IV SCH ×3 (00:48→10:05)
[2019-05-09] MEDS: LEVOTHYROXINE SODIUM 50 MCG TABLET PO SCH (05:34)
[2019-05-09 05:56] LABS: Basophils # (auto) 0.02 K/uL (0-0.2); Basophils % (auto) 0.2 %; Eosinophils % (auto) 1.9 %; Hematocrit (blood only) 33.3 % (37-47); Hemoglobin 11.1 g/dL (12.0-16.0); Immature Granulocytes # (auto) 0.03 K/uL (0.00-0.02); Immature Granulocytes % (auto) 0.3 %; Lymphocytes # (auto) 2.69 K/uL (1.2-3.4); Lymphocytes % (auto) 25.9 %; Mean Corpuscular Hemoglobin 30.2 pg (25-34); Mean Corpuscular Hgb Conc 33.3 g/dL (32-36); Mean Corpuscular Volume 90.5 fL (80-100); Mean Platelet Volume 9.9 fL (7.4-10.4); Monocytes # (auto) 1.07 K/uL (0.11-0.59); Monocytes % (auto) 10.3 %; Neutrophils # (auto) 6.36 K/uL (1.4-6.5); Neutrophils % (auto) 61.4 %; Platelet Count 227 K/uL (130-400); RDW Coefficient of Variation 15.2 % (11.5-14.5); RDW Standard Deviation 49.6 fL (36.4-46.3); Red Blood Count 3.68 M/uL (4.2-5.4); White Blood Count 10.37 K/uL (4.8-10.8)
[2019-05-09 06:37] LABS: BUN Creatinine Ratio 21.2 (10-20); Calcium 8.2 mg/dl (8.5-10.1); Creatinine Clr Calc Pharmacy 33.4 ml/min; Est GFR (African American) 78.1; Est GFR (Non-African American) 67.4; Potassium 3.2 mmol/L (3.5-5.1)
[2019-05-09] MEDS: INSULIN ASPART 100 UNITS/ML 3 ML PEN SC SCH ×4 (07:49→20:34)
[2019-05-09] MEDS: D5W AND NSS 1,000 ML IV SCH (07:59)
--- NOTE | 2019-05-09 10:51 | Hospitalist Progress Note ---
Date of Service May 09, 2019 Assessment & Plan (1) Rectal bleeding: Admitted with bright red blood per rectum He does not have any pain but felt weak and lethargy associated with dizziness Hemoglobin dropped to 8.1 from 12.7 in December of this year Likely secondary to diverticular bleed with another episode about a few years back Appreciate GI input and recommendation Discussed with daughter-does not on any colonoscopy and/or other procedure Check H&H Transfuse if hemoglobin is less than 7 Continue current medication No more rectal bleed and remains hemodynamically stable Hemoglobin is 11.1 as of 05/09 (2) Diabetes mellitus type II, uncontrolled: Will put her 1 sliding scale insulin coverage Has been having hypoglycemia in hospital likely secondary to poor intake Will discontinue any NSAID Has been on intravenous dextrose with normal saline (3) CKD (chronic kidney disease) stage 4, GFR 15-29 ml/min: Has history of CKD Creatinine remains normal Continue with cautious amount of intravenous fluid Kidney function has been normalized (4) Hypothyroidism: Continue supplement (5) Dementia: No acute delirium DVT prophylaxis SCDs CODE STATUS DNR/DNI Discussed with daughter in detail Will get PT and OT evaluation Likely discharge in a day or 2 We will transfer her to medical floor Subjective 05/08 Patient is seen and examined in telemetry improving He is generally very weak and lethargic but denies any acute symptoms Denies any abdominal pain, nausea vomiting Bleed of any more bloody bowel movement 05/09 Patient was seen and examined in the telemetry unit in presence of the daughter She did not have any more blood in the stool She remains otherwise stable She was noted to have low blood sugar likely secondary to poor nutrition and point Discontinue insulin Review of Systems Review of Systems: Remains lethargy Physical Exam Physical Exam: Lying in bed comfortably Constitutional: + thin; no acute distress and not ill appearing Eyes: PERRL, conjunctivae normal, anicteric sclerae ENMT: external ear and nose normal, oropharynx normal Neck: trachea midline, no thyromegaly Respiratory: normal respiratory effort; no respiratory distress Auscultation: + diminished lung sounds and + crackles (Minimal crackles at the bases) Cardiovascular: Rate/Rhythm: regular rate and regular rhythm Heart Sounds: + murmur (2/6 ESM over precordium) Gastrointestinal (Abdomen): Inspection/Auscultation: abdomen normal to inspection and normal bowel sounds Percussion/Palpation: abdomen soft; abdomen nontender Musculoskeletal: Head/Neck/Chest: + head abnormal to inspection Neurologic: moves all extremities Generalized weakness Psychiatric: Orientation: alert Pleasantly confused Results & Data Vital Signs (Past 12 Hours) Vital Signs Temp Pulse Pulse Resp BP Pulse Ox 05/09/19 07:53 36.2 C L 88 18 114/55 L 100 05/09/19 07:29 66 05/09/19 03:16 36.7 C 66 19 104/58 L 99 Laboratory Results Short CBC 05/08/19 05/08/19 05/09/19 Range/Units 12:51 16:59 00:19 WBC 8.98 (4.8-10.8) K/uL Hgb 10.5 L 11.4 L 12.0 (12.0-16.0) g/dL Hct 30.8 L 34.2 L 35.2 L (37-47) % Plt Count 204 (130-400) K/uL 05/09/19 Range/Units 05:12 WBC 10.37 (4.8-10.8) K/uL Hgb 11.1 L (12.0-16.0) g/dL Hct 33.3 L (37-47) % Plt Count 227 (130-400) K/uL BMP 05/09/19 05:12 Sodium 144 D Potassium 3.2 L D Chloride 111 H Carbon Dioxide 26 BUN 16 D Creatinine 0.78 D Glucose 49 L* Calcium 8.2 L Medications Administered Current Inpatient Medications Acetaminophen (Tylenol) 650 mg PO Q4H PRN PRN Reason: Pain or Fever Stop: 06/07/19 01:38 EST Dextrose (Dextrose 50%) 25 - 50 ml IV UD PRN; Protocol PRN Reason: Hypoglycemia Protocol Stop: 06/07/19 01:44 EST Last Admin: 05/08/19 16:27 Dose: 25 ml Documented by: Ferrous Sulfate (Feosol) 325 mg PO MoTh@0900 [facility] Stop: 06/10/19 08:59 Glucagon (Glucagen) 1 mg IM UD PRN; Protocol PRN Reason: Hypoglycemia Protocol Stop: 06/07/19 01:44 EST Glucose (Glucose 40%) 15 - 30 gm PO UD PRN; Protocol PRN Reason: Hypoglycemia Protocol Stop: 06/07/19 01:44 EST Glucose (Dex4 Glucose) 4 - 8 tabs PO UD PRN; Protocol PRN Reason: Hypoglycemia Protocol Stop: 06/07/19 01:44 EST Pantoprazole Sodium 40 mg/ (Dextrose) 100 mls @ 20 mls/hr IV Q5H JOSE MANUEL Stop: 06/07/19 00:44 Last Admin: 05/09/19 10:05 Dose: 20 mls/hr Documented by: Sodium Chloride (Nss) 250 mls @ 15 mls/hr IV .[id number] PRN PRN Reason: For Transfusion Stop: 06/07/19 01:38 EST Dextrose/Sodium Chloride (D5w And Nss) 1,000 mls @ 80 mls/hr IV .[id number] JOSE MANUEL Stop: 05/09/19 18:59 Last Admin: 05/09/19 07:59 Dose: 80 mls/hr Documented by: Insulin Aspart (Novolog Flexpen) 0 units SC ACHS [facility] Stop: 06/07/19 07:29 Last Admin: 05/09/19 07:49 Dose: Not Given Documented by: Levothyroxine Sodium (Synthroid) 50 mcg PO DAILYBB [facility] Stop: 06/07/19 06:29 Last Admin: 05/09/19 05:34 Dose: 50 mcg Documented by: Miscellaneous (Carbohydrates For Hypoglycemia) 15 - 30 gm PO UD PRN PRN Reason: Hypoglycemia Treatment Stop: 06/07/19 01:44 EST Last Admin: 05/09/19 06:46 Dose: 30 gm Documented by: Nitroglycerin (Nitrostat) 0.4 mg SL UD PRN PRN Reason: Chest Pain Stop: 06/07/19 01:38 EST Ondansetron HCl (Zofran) 4 mg IV Q6H PRN PRN Reason: Nausea Stop: 06/07/19 01:38 EST
[2019-05-09 18:55] LABS: Cdiff Antigen Positive
[2019-05-09 18:56] LABS: Cdiff Toxin A+B Positive Cdiff Toxin (Negative)
[2019-05-09] MEDS: VANCOMYCIN HCL 125 MG/2.5ML SOLN PO SCH (20:33)
[2019-05-09] MEDS: RASPBERRY SYRUP 5 ML UDP PO SCH (20:33)
[2019-05-10] MEDS: VANCOMYCIN HCL 125 MG/2.5ML SOLN PO SCH ×5 (00:35→23:57)
[2019-05-10] MEDS: RASPBERRY SYRUP 5 ML UDP PO SCH ×5 (00:35→23:57)
[2019-05-10] MEDS: LEVOTHYROXINE SODIUM 50 MCG TABLET PO SCH (06:06)
[2019-05-10 06:28] LABS: Basophils # (auto) 0.03 K/uL (0-0.2); Basophils % (auto) 0.3 %; Eosinophils # (auto) 0.42 K/uL (0-0.5); Eosinophils % (auto) 4.5 %; Hematocrit (blood only) 33.8 % (37-47); Hemoglobin 11.5 g/dL (12.0-16.0); Immature Granulocytes # (auto) 0.02 K/uL (0.00-0.02); Immature Granulocytes % (auto) 0.2 %; Lymphocytes # (auto) 2.92 K/uL (1.2-3.4); Lymphocytes % (auto) 31.3 %; Mean Corpuscular Hemoglobin 30.7 pg (25-34); Mean Corpuscular Volume 90.1 fL (80-100); Mean Platelet Volume 8.9 fL (7.4-10.4); Monocytes # (auto) 1.04 K/uL (0.11-0.59); Monocytes % (auto) 11.1 %; Neutrophils # (auto) 4.91 K/uL (1.4-6.5); Neutrophils % (auto) 52.6 %; Platelet Count 253 K/uL (130-400); RDW Coefficient of Variation 15.1 % (11.5-14.5); RDW Standard Deviation 49.2 fL (36.4-46.3); Red Blood Count 3.75 M/uL (4.2-5.4); White Blood Count 9.34 K/uL (4.8-10.8)
[2019-05-10 06:59] LABS: BUN Creatinine Ratio 13.5 (10-20); Calcium 8.3 mg/dl (8.5-10.1); Creatinine Clr Calc Pharmacy 33.9 ml/min; Est GFR (African American) 74.6; Est GFR (Non-African American) 64.4; Potassium 3.2 mmol/L (3.5-5.1)
[2019-05-10] MEDS: PANTOprazole 40 MG TAB PO SCH (08:08)
[2019-05-10] MEDS: INSULIN ASPART 100 UNITS/ML 3 ML PEN SC SCH ×4 (08:10→20:50)
[2019-05-10] MEDS ORDERED: POTASSIUM CHLORIDE 20 MEQ TABCR PO STA (09:52)
--- NOTE | 2019-05-10 11:24 | Hospitalist Progress Note ---
Date of Service May 10, 2019 Assessment & Plan (1) Rectal bleeding: Admitted with bright red blood per rectum He does not have any pain but felt weak and lethargy associated with dizziness Hemoglobin dropped to 8.1 from 12.7 in December of this year Likely secondary to diverticular bleed with another episode about a few years back Appreciate GI input and recommendation Discussed with daughter-does not on any colonoscopy and/or other procedure Check H&H Transfuse if hemoglobin is less than 7 Continue current medication No more rectal bleed and remains hemodynamically stable Hemoglobin is 11.1 as of 05/09 C. difficile colitis Started on oral vancomycin Clinically better and no more diarrhea (2) Diabetes mellitus type II, uncontrolled: Will put her 1 sliding scale insulin coverage Has been having hypoglycemia in hospital likely secondary to poor intake Will discontinue any NSAID Has been on intravenous dextrose with normal saline Blood sugar remains stable Will push oral travon Will discontinue insulin at discharge (3) CKD (chronic kidney disease) stage 4, GFR 15-29 ml/min: Has history of CKD Creatinine remains normal Continue with cautious amount of intravenous fluid Kidney function has been normalized We will supplement potassium Kidney function remains stable (4) Hypothyroidism: Continue supplement (5) Dementia: No acute delirium DVT prophylaxis SCDs CODE STATUS DNR/DNI Discussed with daughter in detail Will get PT and OT evaluation Discussed with the daughter and likely discharge tomorrow morning Likely discharge in a day or 2 We will transfer her to medical floor Subjective 05/08 Patient is seen and examined in telemetry improving He is generally very weak and lethargic but denies any acute symptoms Denies any abdominal pain, nausea vomiting Bleed of any more bloody bowel movement 05/09 Patient was seen and examined in the telemetry unit in presence of the daughter She did not have any more blood in the stool She remains otherwise stable She was noted to have low blood sugar likely secondary to poor nutrition and point Discontinue insulin 05/10 Patient was seen and examined in medical floor in presence of the daughter She remained stable without any acute symptoms She was found to have C. difficile infection She has not been having any acute diarrhea and clinically looks better today Review of Systems Review of Systems: Remains lethargy Physical Exam Physical Exam: Lying in bed comfortably Constitutional: + thin; no acute distress and not ill appearing Eyes: PERRL, conjunctivae normal, anicteric sclerae ENMT: external ear and nose normal, oropharynx normal Neck: trachea midline, no thyromegaly Respiratory: normal respiratory effort; no respiratory distress Au scultation: + diminished lung sounds and + crackles (Minimal crackles at the bases) Cardiovascular: Rate/Rhythm: regular rate and regular rhythm Heart Sounds: + murmur (2/6 ESM over precordium) Gastrointestinal (Abdomen): Inspection/Auscultation: abdomen normal to inspection and normal bowel sounds Percussion/Palpation: abdomen soft; abdomen nontender Musculoskeletal: Head/Neck/Chest: + head abnormal to inspection Neurologic: moves all extremities Psychiatric: Orientation: alert Results & Data Vital Signs (Past 12 Hours) Vital Signs Temp Pulse Resp BP Pulse Ox 05/10/19 07:06 36.8 C 74 16 114/68 99 Laboratory Results Short CBC 05/10/19 Range/Units 06:13 WBC 9.34 (4.8-10.8) K/uL Hgb 11.5 L (12.0-16.0) g/dL Hct 33.8 L (37-47) % Plt Count 253 (130-400) K/uL BMP 05/10/19 06:13 Sodium 141 Potassium 3.2 L Chloride 108 H Carbon Dioxide 28 BUN 11 Creatinine 0.81 Glucose 71 Calcium 8.3 L Medications Administered Current Inpatient Medications Acetaminophen (Tylenol) 650 mg PO Q4H PRN PRN Reason: Pain or Fever Stop: 06/07/19 01:38 EST Dextrose (Dextrose 50%) 25 - 50 ml IV UD PRN; Protocol PRN Reason: Hypoglycemia Protocol Stop: 06/07/19 01:44 EST Last Admin: 05/08/19 16:27 Dose: 25 ml Documented by: Ferrous Sulfate (Feosol) 325 mg PO MoTh@0900 [facility] Stop: 06/10/19 08:59 Glucagon (Glucagen) 1 mg IM UD PRN; Protocol PRN Reason: Hypoglycemia Protocol Stop: 06/07/19 01:44 EST Glucose (Glucose 40%) 15 - 30 gm PO UD PRN; Protocol PRN Reason: Hypoglycemia Protocol Stop: 06/07/19 01:44 EST Glucose (Dex4 Glucose) 4 - 8 tabs PO UD PRN; Protocol PRN Reason: Hypoglycemia Protocol Stop: 06/07/19 01:44 EST Sodium Chloride (Nss) 250 mls @ 15 mls/hr IV .[id number] PRN PRN Reason: For Transfusion Stop: 06/07/19 01:38 EST Insulin Aspart (Novolog Flexpen) 0 units SC ACHS JOSE MANUEL Stop: 06/07/19 07:29 Last Admin: 05/10/19 08:10 Dose: Not Given Documented by: Levothyroxine Sodium (Synthroid) 50 mcg PO DAILYBB JOSE MANUEL Stop: 06/07/19 06:29 Last Admin: 05/10/19 06:06 Dose: 50 mcg Documented by: Miscellaneous (Carbohydrates For Hypoglycemia) 15 - 30 gm PO UD PRN PRN Reason: Hypoglycemia Treatment Stop: 06/07/19 01:44 EST Last Admin: 05/09/19 06:46 Dose: 30 gm Documented by: Nitroglycerin (Nitrostat) 0.4 mg SL UD PRN PRN Reason: Chest Pain Stop: 06/07/19 01:38 EST Ondansetron HCl (Zofran) 4 mg IV Q6H PRN PRN Reason: Nausea Stop: 06/07/19 01:38 EST Pantoprazole Sodium (Protonix) 40 mg PO QAM [facility] Stop: 06/09/19 08:59 Last Admin: 05/10/19 08:08 Dose: 40 mg Documented by: Raspberry (Raspberry) 5 ml PO Q6 JOSE MANUEL Stop: 05/23/19 19:19 Last Admin: 05/10/19 06:06 Dose: 5 ml Documented by: Vancomycin HCl (Vancomycin Hcl) 125 mg PO Q6 JOSE MANUEL Stop: 05/19/19 19:19 Last Admin: 05/10/19 06:06 Dose: 125 mg Documented by:
[2019-05-10] MEDS ORDERED: RASPBERRY SYRUP 5 ML UDP PO SCH (19:20)
[2019-05-11] MEDS: RASPBERRY SYRUP 5 ML UDP PO SCH ×2 (05:59→12:30)
[2019-05-11] MEDS: VANCOMYCIN HCL 125 MG/2.5ML SOLN PO SCH ×2 (05:59→12:30)
[2019-05-11] MEDS: LEVOTHYROXINE SODIUM 50 MCG TABLET PO SCH (06:00)
[2019-05-11] MEDS: PANTOprazole 40 MG TAB PO SCH (08:57)
[2019-05-11] MEDS: INSULIN ASPART 100 UNITS/ML 3 ML PEN SC SCH ×2 (08:58→12:21)
[2019-05-11] MEDS ORDERED: FERROUS SULFATE 325 MG TAB PO SCH (09:00)
--- NOTE | 2019-05-11 11:35 | Hospitalist Progress Note ---
Date of Service May 11, 2019 Assessment & Plan (1) Rectal bleeding: Admitted with bright red blood per rectum He does not have any pain but felt weak and lethargy associated with dizziness Hemoglobin dropped to 8.1 from 12.7 in December of this year Likely secondary to diverticular bleed with another episode about a few years back Appreciate GI input and recommendation Discussed with daughter-does not on any colonoscopy and/or other procedure Check H&H Transfuse if hemoglobin is less than 7 Continue current medication No more rectal bleed and remains hemodynamically stable Hemoglobin is 11.1 as of 05/09 C. difficile colitis Started on oral vancomycin Clinically better and no more diarrhea Will be discharged home this afternoon with vancomycin and Lactinex (2) Diabetes mellitus type II, uncontrolled: Will put her 1 sliding scale insulin coverage Has been having hypoglycemia in hospital likely secondary to poor intake Will discontinue any NSAID Has been on intravenous dextrose with normal saline Blood sugar remains stable Will push oral travon Will discontinue insulin at discharge (3) CKD (chronic kidney disease) stage 4, GFR 15-29 ml/min: Has history of CKD Creatinine remains normal Continue with cautious amount of intravenous fluid Kidney function has been normalized We will supplement potassium Kidney function remains stable Advised to drink more fluid at home (4) Hypothyroidism: Continue supplement (5) Dementia: No acute delirium DVT prophylaxis SCDs CODE STATUS DNR/DNI Discussed with daughter in detail Will get PT and OT evaluation Discussed with the daughter and likely discharge tomorrow morning Likely discharge in a day or 2 We will transfer her to medical floor Will discharge home this afternoon Subjective 05/08 Patient is seen and examined in telemetry improving He is generally very weak and lethargic but denies any acute symptoms Denies any abdominal pain, nausea vomiting Bleed of any more bloody bowel movement 05/09 Patient was seen and examined in the telemetry unit in presence of the daughter She did not have any more blood in the stool She remains otherwise stable She was noted to have low blood sugar likely secondary to poor nutrition and point Discontinue insulin 05/10 Patient was seen and examined in medical floor in presence of the daughter She remained stable without any acute symptoms She was found to have C. difficile infection She has not been having any acute diarrhea and clinically looks better today 05/11 The patient was seen and examined in presence of the daughter She has not had a good sleep last night and has been sleeping now No acute distress Bowel has been moving but no more diarrhea Will be discharged home this afternoon Review of Systems Review of Systems: Remains lethargy Physical Exam Physical Exam: Lying in bed comfortably Constitutional: + thin; no acute distress and not ill appearing Eyes: PERRL, conjunctivae normal, anicteric sclerae ENMT: external ear and nose normal, oropharynx normal Neck: trachea midline, no thyromegaly Respiratory: normal respiratory effort; no respiratory distress Auscultation: + diminished lung sounds and + crackles (Minimal crackles at the bases) Cardiovascular: Rate/Rhythm: regular rate and regular rhythm Heart Sounds: + murmur (2/6 ESM over precordium) Gastrointestinal (Abdomen): Inspection/Auscultation: abdomen normal to inspection and normal bowel sounds Percussion/Palpation: abdomen soft; abdomen nontender Musculoskeletal: Head/Neck/Chest: + head abnormal to inspection No acute arthritis in any of the joints Neurologic: moves all extremities Minimally communicative-that is her b aseline as per the daughter Psychiatric: Orientation: alert Results & Data Vital Signs (Past 12 Hours) Vital Signs Temp Pulse Resp BP Pulse Ox 05/11/19 07:27 36.7 C 84 16 123/65 97 Medications Administered Current Inpatient Medications Acetaminophen (Tylenol) 650 mg PO Q4H PRN PRN Reason: Pain or Fever Stop: 06/07/19 01:38 EST Dextrose (Dextrose 50%) 25 - 50 ml IV UD PRN; Protocol PRN Reason: Hypoglycemia Protocol Stop: 06/07/19 01:44 EST Last Admin: 05/08/19 16:27 Dose: 25 ml Documented by: Ferrous Sulfate (Feosol) 325 mg PO MoTh@0900 JOSE MANUEL Stop: 06/10/19 08:59 Last Admin: 05/11/19 10:08 Dose: 325 mg Documented by: Glucagon (Glucagen) 1 mg IM UD PRN; Protocol PRN Reason: Hypoglycemia Protocol Stop: 06/07/19 01:44 EST Glucose (Glucose 40%) 15 - 30 gm PO UD PRN; Protocol PRN Reason: Hypoglycemia Protocol Stop: 06/07/19 01:44 EST Glucose (Dex4 Glucose) 4 - 8 tabs PO UD PRN; Protocol PRN Reason: Hypoglycemia Protocol Stop: 06/07/19 01:44 EST Sodium Chloride (Nss) 250 mls @ 15 mls/hr IV .[id number] PRN PRN Reason: For Transfusion Stop: 06/07/19 01:38 EST Insulin Aspart (Novolog Flexpen) 0 units SC ACHS JOSE MANUEL Stop: 06/07/19 07:29 Last Admin: 05/11/19 08:58 Dose: 1 units Documented by: Levothyroxine Sodium (Synthroid) 50 mcg PO DAILYBB JOSE MANUEL Stop: 06/07/19 06:29 Last Admin: 05/11/19 06:00 Dose: 50 mcg Documented by: Miscellaneous (Carbohydrates For Hypoglycemia) 15 - 30 gm PO UD PRN PRN Reason: Hypoglycemia Treatment Stop: 06/07/19 01:44 EST Last Admin: 05/09/19 06:46 Dose: 30 gm Documented by: Nitroglycerin (Nitrostat) 0.4 mg SL UD PRN PRN Reason: Chest Pain Stop: 06/07/19 01:38 EST Ondansetron HCl (Zofran) 4 mg IV Q6H PRN PRN Reason: Nausea Stop: 06/07/19 01:38 EST Pantoprazole Sodium (Protonix) 40 mg PO QAM JOSE MANUEL Stop: 06/09/19 08:59 Last Admin: 05/11/19 08:57 Dose: 40 mg Documented by: Raspberry (Raspberry) 5 ml PO Q6 JOSE MANUEL Stop: 05/23/19 19:19 Last Admin: 05/11/19 05:59 Dose: 5 ml Documented by: Vancomycin HCl (Vancomycin Hcl) 125 mg PO Q6 JOSE MANUEL Stop: 05/19/19 19:19 Last Admin: 05/11/19 05:59 Dose: 125 mg Documented by:
--- NOTE | 2019-05-12 09:17 | Discharge Summary ---
Date of Service May 12, 2019 Admission HPI Per Admitting Provider DICTATED BY: Alexis Braga MD DATE OF ADMISSION: 05/07/2019 CHIEF COMPLAINT: Gastrointestinal bleed. HISTORY OF PRESENT ILLNESS: This is an 89-year-old female with past medical history significant for type 2 diabetes, hyperlipidemia, hypothyroidism, chronic kidney disease stage III, history of glaucoma, severe dementia and iron deficiency anemia who presents with lower gastrointestinal bleed. The patient lives with her daughter. She generally walks with a cane or holding stuff at house and sometimes uses walker. She has severe dementia. She sometimes not even knows her name. She does not recognize her daughter. Since her lower teeth have been taken out, she has somewhat hard to chew food, but if we remove the hard crusting on the sandwich, she can eat the sandwich, but her appetite is very poor .Patient has been constipated for the last 4 days and daughter gave her some stool softeners and today she had moved bowels 2 times, but 2 times, she had bloody bowel movements with clots and the third time also she had passed a small amount of clot then the daughter thought to bring her to the hospital for further monitoring if she continues to bleed. Daughter states she has a history of lower gastrointestinal bleed in the past. At that time, colonoscopy was not done because of her age and comorbid conditions and it resolved conservatively. Outpatient laboratories on 04/23/2019, her hemoglobin was 12.3 and today it is 8.1. Blood pressure is somewhat on the lower side. The patient is alert and awake, could tell her name, but could not answer any other questions. She seems to be pleasantly confused, does not seem to be in distress. As per daughter, no fever or chills, no cough and no nausea or vomiting. Could not get any more history as the patient has severe dementia. Admission Exam Per Admitting Provider GENERAL: The patient is old and frail, not in acute distress. VITAL SIGNS: Temperature 36.7, pulse 97, respiratory rate 16, blood pressure 99/50 and oxygen 94% on room air. HEENT: No pallor. No icterus. Pupils are equal, round and reactive to light. NECK: No JVD. No neck masses. No carotid bruits. CARDIOVASCULAR: S1, S2 heard. Regular rate and rhythm. No murmur. No gallop. RESPIRATORY SYSTEM: Normal AP diameter. No accessory muscle use. No wheezing. No crackles. ABDOMEN: Soft. Bowel sounds present. Nontender. No distention. CENTRAL NERVOUS SYSTEM: Alert and awake, oriented to name only. Moves extremities. EXTREMITIES: No edema. No erythema. Principal Diagnosis Rectal bleed-stopped with stable hemoglobin, C. difficile colitis, type 2 diabetes, CKD Discharge Exam Constitutional + thin; no acute distress and not ill appearing Eyes PERRL, conjunctivae normal, anicteric sclerae ENMT external ear and nose normal, oropharynx normal Neck trachea midline, no thyromegaly Respiratory normal respiratory effort; no respiratory distress Auscultation: + diminished lung sounds and + crackles (Minimal crackles at the bases) Cardiovascular Rate/Rhythm: regular rate and regular rhythm Heart Sounds: + murmur (2/6 ESM over precordium) Gastrointestinal (Abdomen) Inspection/Auscultation: abdomen normal to inspection and normal bowel sounds Percussion/Palpation: abdomen soft; abdomen nontender Musculoskeletal Head/Neck/Chest: + head abnormal to inspection Neurologic moves all extremities Psychiatric Orientation: alert Discharge Data Allergies Allergy/AdvReac Type Severity Reaction Status Date / Time meperidine Allergy Mild Verified 05/07/19 21:38 Consultations 05/07/19 22:07 ED Decision to Admit Stat 05/08/19 01:39 Consult Case Management - Discharge Planning Routine 05/08/19 08:00 Consult Gastroenterology Routine Hospital Course (1) Rectal bleeding: Admitted with bright red blood per rectum He does not have any pain but felt weak and lethargy associated with dizziness Hemoglobin dropped to 8.1 from 12.7 in December of this year Likely secondary to diverticular bleed with another episode about a few years back Appreciate GI input and recommendation Discussed with daughter-does not on any colonoscopy and/or other procedure Check H&H Transfuse if hemoglobin is less than 7 Continue current medication No more rectal bleed and remains hemodynamically stable Hemoglobin is 11.1 as of 05/09 C. difficile colitis Started on oral vancomycin Clinically better and no more diarrhea Will be discharged home this afternoon with vancomycin and Lactinex (2) Diabetes mellitus type II, uncontrolled: Will put her 1 sliding scale insulin coverage Has been having hypoglycemia in hospital likely secondary to poor intake Will discontinue any NSAID Has been on intravenous dextrose with normal saline Blood sugar remains stable Will push oral travon Will discontinue insulin at discharge (3) CKD (chronic kidney disease) stage 4, GFR 15-29 ml/min: Has history of CKD Creatinine remains normal Continue with cautious amount of intravenous fluid Kidney function has been normalized We will supplement potassium Kidney function remains stable Advised to drink more fluid at home (4) Hypothyroidism: Continue supplement (5) Dementia: No acute delirium DVT prophylaxis SCDs CODE STATUS DNR/DNI Discussed with daughter in detail Will get PT and OT evaluation Discussed with the daughter and likely discharge tomorrow morning Likely discharge in a day or 2 We will transfer her to medical floor Will discharge home this afternoon Total Time Total Time Spent Total Time Spent (In Minutes): 35 minutes Total Time Includes: Examination of the Patient, Discharge Planning, Medication Reconciliation and Communication With Other Providers Discharge Plan Discharge Items Patient Disposition: Home - Self-Care Reason For Visit: GI BLEED Discharge Diagnosis: Rectal bleed-stopped with stable hemoglobin, C. difficile colitis, type 2 diabetes, CKD Condition on Discharge: Fair Activity: Resume your previous activity Non-emergency contact: Primary Care Provider Call non-emergency contact if: you have any medication questions and your symptoms worsen Follow-up/Referrals: Jesse Schrader PA-C [Primary Care Provider] - 05/15/19 9:45 am (Your appointment is with Dr. Ruiz) Diet: Carb Consistent or DM2 Fluids: 1800ml (7 cups) Addtl Attending Provider Instructions: Please take precaution to avoid falls Pending Studies at Discharge: No Stand-Alone Forms: My [facility] Medications and DC Order Prescriptions: New vancomycin 1,000 mg Recon Soln 125 mg PO Q6 10 Days Qty: 40 RF: 0 pantoprazole 40 mg Tablet,Delayed Release (Dr/Ec) 40 mg PO QAM 30 Days Qty: 30 RF: 0 Lactinex 1 million cell tablet,chewable 2 tab PO BID Qty: 40 RF: 0 Continued simvastatin 20 mg Tablet 20 mg PO HS Qty: 0 RF: 0 levothyroxine 50 mcg Tablet 50 mcg PO QAM Qty: 0 RF: 0 ranitidine HCl 150 mg Tablet 150 mg PO BID Qty: 0 RF: 0 ferrous sulfate 325 mg (65 mg iron) Tablet 325 mg PO 2XWK Qty: 0 RF: 3 Ocuvite with Lutein 1,000 unit-200 mg-60 unit-2 mg Tablet 1 tab PO DAILY Qty: 0 RF: 0 [facility] 40-10-5-3.3 mg Tablet 1 tab PO QAM Qty: 0 RF: 0 Women's 50 Plus Multivitamin 400 mcg-500 mg calcium-20 mcg Tablet 1 tab PO QAM Qty: 0 RF: 0 Tradjenta 5 mg tablet 5 mg PO QAM RF: 0 docusate sodium 100 mg Tablet 100 mg PO BID RF: 0 Discontinued Lantus Solostar U-100 Insulin 100 unit/mL (3 mL) Insulin Pen 24 unit SUBCUT HS Qty: 0 RF: 0 Discharge Orders: Discharge Order (Routine); Ordered 05/11/19 Ordered By: Pedro Leblanc Admission Data Admit Date/Time: 05/08/19 00:15 Attending Provider: Pedro Leblanc Admit Provider: Alexis Braga Primary Care Provider: Jesse Schrader Other Providers: Alexis Braga ; Nicolle Heath ; Uriel Carrizales ; Mini Hurt ; Gil Baeza ; Daisy Whitley ; Dede Vargas ; Ally Dunlap ; Wayne Sharp ; Giacomo Vallejo ; Oswaldo Morales ; eBlén Mera ; Belia Curiel ; Cindy Marino ; Stephan Hernandez Other Interventions: Discharge Summary Assessment (RN) Last Done: 05/11/19 13:52 DC Date/Time DO NOT enter until pt leaves facility: 05/11/19 14:28
== END 2019-05-11 14:28 | disposition home or self-care (01) | DRG 378 ==
LOC: ED 20:32 → 2S 05-08 00:15 → 4W 05-09 10:52